=== PATIENT | male | born 1965 | race American Indian/Alaskan Native ===

== ENCOUNTER 2018-02-27 16:03 | Inpatient (IN) | payer OTHER ==
[2018-02-27 16:06] VITALS: BMI 38.4
[2018-02-27 16:19] LABS: BASO # 0.1 K/uL (0.0-0.2); BASO % 0.9 % (0.0-2.0); EOS # 0.1 K/uL (0.0-0.7); EOS % 1.9 % (0.0-4.0); HEMOGLOBIN 14.2 g/dL (12.0-18.0); LYMPH # 2.4 K/uL (1.0-4.3); LYMPH % 34.6 % (20.0-40.0); MEAN CORPUSCULAR HEMOGLOBIN 30.9 pg (27.0-31.0); MEAN CORPUSCULAR HGB CONC 33.9 g/dL (33.0-37.0); MEAN PLATELET VOLUME 8.8 fL (7.2-11.7); MONO % 13.6 % (0.0-10.0); NEUT # 3.4 K/uL (1.8-7.0); NRBC % 0.1 % (0.0-2.0); RBC 4.61 Mil/uL (4.40-5.90)
[2018-02-27 16:25] LABS: INR 1.2; PROTHROMBIN TIME 13.1 SECONDS (9.7-12.2)
[2018-02-27 16:34] LABS: ALB/GLOB RATIO 1.1 (1.0-2.1); ALT/SGPT 27 U/L (21-72); AST/SGOT 24 U/L (17-59); BLOOD UREA NITROGEN 10 mg/dL (9-20); CALCIUM 9.3 mg/dl (8.6-10.4); GFR AFRICAN-AMERICAN > 60; GFR NON-AFRICAN AMERICAN > 60; HDL CHOLESTEROL 48 mg/dL (30-70)
--- NOTE | 2018-02-27 16:35 | CT ---
PROCEDURE: CT HEAD WITHOUT CONTRAST. HISTORY: Code Stroke COMPARISON: None available. TECHNIQUE: Axial computed tomography images were obtained through the head/brain without intravenous contrast. Radiation dose: Total exam DLP = 1121.60 mGy-cm. This CT exam was performed using one or more of the following dose reduction techniques: Automated exposure control, adjustment of the mA and/or kV according to patient size, and/or use of iterative reconstruction technique. FINDINGS: HEMORRHAGE: Intraparenchymal hemorrhage is identified at the left basal ganglia laterally, measuring 2.2 x 4.0 x 2.9 cm (transverse by anteroposterior by superoinferior dimensions), with limited superolateral edema related. There is a marginal rightward midline shift of 2 mm at this time. The left lateral ventricle is partially effaced secondarily as well. . BRAIN: Right cerebral hemisphere, brainstem and cerebellum appear unremarkable as well as the extra-axial spaces. Corticomedullary differentiation is well preserved VENTRICLES: As above in hemorrhage section. CALVARIUM: Unremarkable. PARANASAL SINUSES: Unremarkable as visualized. No significant inflammatory changes. MASTOID AIR CELLS: Unremarkable as visualized. No inflammatory changes. OTHER FINDINGS: None. IMPRESSION: Moderate intraparenchymal hemorrhage is identified at the left basal ganglia exerting local mass effect and causing a limited rightward midline shift of 2 mm. Measurements are as defined above in terms of hemorrhagic collection. Limited local parenchymal edema appreciated. Remainder the examination appears unremarkable. Findings discussed with Dr. Harmon with written down and read back verification 02/27/2018 4:26 p.m..
[2018-02-27 16:45] LABS: LDL CHOLESTEROL 185 mg/dL (0-129)
[2018-02-27] MEDS: Sodium Chloride 0.9% 1,000 ML IV SCH (16:56)
[2018-02-27] MEDS ORDERED: Sodium Chloride 0.9% 1,000 ML ONE (16:58)
[2018-02-27] MEDS ORDERED: Iodixanol 320 mg/ml 150 ml Bottle IV ONE (17:08)
--- NOTE | 2018-02-27 17:17 | CP.PCM.CON ---
History of Present Illness - History of Present Illness History of Present Illness: 52 yr old male with a history of hypertension, non compliant with medications , who came in as a code stroke, with acute onset slurred speech and right sided weakness. Ct head was done and shows a large basal ganglia hemorrhage, with minimal midline shift, and mass effect, and the 4th ventricle appearing open. CTA is currently being done as well to rule out aneurysm. PMH/PSH: hypertension, obesity, lt FH/SH: All:nkda ` on exam Past Patient History - Past Social History Smoking Status: Never Smoked - CARDIAC Hx Cardiac Disorders: Yes Hx Hypercholesterolemia: Yes Hx Hypertension: Yes - PSYCHIATRIC Hx Substance Use: No - SURGICAL HISTORY Hx Surgeries: No Meds Allergies/Adverse Reactions: Allergies Allergy/AdvReac Type Severity Reaction Status Date / Time No Known Allergies Allergy Verified 02/27/18 16:05 - Medications Medications: Current Medications Sodium Chloride (Sodium Chloride 0.9%) 1,000 mls @ 100 mls/hr IV .Q10H PANCHO Last Admin: 02/27/18 16:56 Dose: 100 mls/hr Results - Vital Signs Recent Vital Signs: Last Vital Signs Temp 97.7 F 02/27/18 16:05 Pulse 95 H 02/27/18 16:22 Resp 18 02/27/18 16:22 BP 144/93 H 02/27/18 16:22 Pulse Ox 97 02/27/18 16:22 - Labs Result Diagrams: 02/27/18 16:15 02/27/18 16:15 Labs: Laboratory Results - last 24 hr 02/27/18 02/27/18 02/27/18 16:15 16:15 16:15 WBC 7.0 RBC 4.61 Hgb 14.2 Hct 42.0 MCV 91.0 MCH 30.9 MCHC 33.9 RDW 13.0 Plt Count 313 MPV 8.8 Neut % (Auto) 49.0 L Lymph % (Auto) 34.6 Brewster % (Auto) 13.6 H Eos % (Auto) 1.9 Baso % (Auto) 0.9 Neut # (Auto) 3.4 Lymph # (Auto) 2.4 Brewster # (Auto) 1.0 H Eos # (Auto) 0.1 Baso # (Auto) 0.1 PT 13.1 H INR 1.2 APTT 36 H Sodium 143 Potassium 3.5 L Chloride 103 Carbon Dioxide 28 Anion Gap 15 BUN 10 Creatinine 0.9 Est GFR ( Amer) > 60 Est GFR (Non-Af Amer) > 60 Random Glucose 95 Calcium 9.3 Total Bilirubin 0.7 AST 24 ALT 27 Alkaline Phosphatase 124 Troponin I < 0.0120 Total Protein 7.7 Albumin 4.0 Globulin 3.7 Albumin/Globulin Ratio 1.1 Triglycerides 150 H Cholesterol 244 H LDL Cholesterol Direct 185 H HDL Cholesterol 48 Blood Type Antibody Screen 02/27/18 16:15 WBC RBC Hgb Hct MCV MCH MCHC RDW Plt Count MPV Neut % (Auto) Lymph % (Auto) Brewster % (Auto) Eos % (Auto) Baso % (Auto) Neut # (Auto) Lymph # (Auto) Brewster # (Auto) Eos # (Auto) Baso # (Auto) PT INR APTT Sodium Potassium Chloride Carbon Dioxide Anion Gap BUN Creatinine Est GFR ( Amer) Est GFR (Non-Af Amer) Random Glucose Calcium Total Bilirubin AST ALT Alkaline Phosphatase Troponin I Total Protein Albumin Globulin Albumin/Globulin Ratio Triglycerides Cholesterol LDL Cholesterol Direct HDL Cholesterol Blood Type O POSITIVE Antibody Screen Negative - Imaging and Cardiology CT scan - head Status: Image reviewed by me, Report reviewed by me (CT head: left basal ganglia hemorrhage, no interventricular extension. ) Assessment & Plan - Assessment and Plan (Free Text) Assessment: CTA head: results pending. A/P: 52 yr old male with new onset basal ganglia secondary to hypertensive urgency and hemorrhage, noncompliant with meds. Plan: 1. Admit to ICU 2. Telemetry for occult arrythmias 3. 2 units of FFPS. 4. Keep bp within the folowing parameters: 140/50-160/80. PLease give labetalol for bp rising above these parameters 5. PT/ST/OT 6. repeat ct head in am 7. Neurosurgery consult. THank you DR. Watts
--- NOTE | 2018-02-27 17:44 | CT ---
PROCEDURE: CT Angiography of the Brain and Neck. HISTORY: code stroke COMPARISON: None available. TECHNIQUE: CT angiography of the intracranial and neck arteries was performed. Coronal and sagittal maximum intensity projection reformatted images were generated. Contrast Dose: Visipaque 320, 100 cc Radiation dose:Total exam DLP = 606.24 mGy-cm. This CT exam was performed using one or more of the following dose reduction techniques: Automated exposure control, adjustment of the mA and/or kV according to patient size, and/or use of iterative reconstruction technique. FINDINGS: INTERNAL CEREBRAL ARTERIES: No occlusion or significant stenosis evident. The skull base, petrous, cavernous and supraclinoid segments are bilaterally widely patent. ANTERIOR CEREBRAL ARTERIES: Unremarkable. A1 and A2 segments are widely patent. Smaller distal branches unremarkable, as visualized. MIDDLE CEREBRAL ARTERIES: Unremarkable. M1 and M2 segments are widely patent. Perisylvian branches grossly symmetric. POSTERIOR CIRCULATION: Basilar Artery: Unremarkable. Distal Vertebral Arteries: Unremarkable. Posterior Cerebral Arteries: Unremarkable. Posterior Inferior Cerebellar Arteries: Unremarkable. NECK CTA: Common Carotid arteries: The bilateral common carotid appear widely patent from their origins to their bifurcations with no significant stenosis appreciated. Limited right carotid bulbar atherosclerosis. No evidence to suggest common carotid artery dissection. Internal Carotid arteries: No significant stenosis is appreciated throughout the cervical internal carotid artery segments bilaterally and there is no evidence of dissection either. External Carotid arteries: Appear unremarkable bilaterally. Vertebral arteries: The bilateral vertebral arteries appear normal in caliber from their origins to their junction with the basilar artery. No significant stenosis or definite pattern of dissection. ANEURYSM/ VASCULAR MALFORMATIONS: Note is made of a small subcentimeter area of enhancement medial to the hemorrhagic collection of left basal ganglia which is nonspecific. It could reflect a developmental venous anomaly though this is indeterminate as no branching is seen related to it. An occult AVM or atypical tiny arterial aneurysm is certainly a possibility. Consider potential catheter angiography further characterization. OTHER FINDINGS: None. IMPRESSION: 1. Potential occult AVM or tiny atypical aneurysm medial left basal ganglia adjacent to the intraparenchymal hemorrhage. Consider follow-up conventional angiography for added detail. No large AVM or prominent aneurysm appreciable. 2. Remaining intracranial enhancement pattern is unremarkable. 3. Limited right carotid bulbar atherosclerosis. Neck CT angiogram otherwise unremarkable. Findings discussed with Dr. Harmon with written down and read back verification 02/27/2018 5:39 p.m..
--- NOTE | 2018-02-27 18:01 | RAD ---
HISTORY: Code Stroke COMPARISON: No prior. FINDINGS: LUNGS: No active pulmonary disease. PLEURA: No significant pleural effusion identified, no pneumothorax apparent. CARDIOVASCULAR: Cardiomegaly and mild pulmonary vascular congestion suggests mild CHF. OSSEOUS STRUCTURES: No significant abnormalities. VISUALIZED UPPER ABDOMEN: Normal. OTHER FINDINGS: None. IMPRESSION: Mild CHF is in question. No alveolitis or pleural effusion bilaterally.
--- NOTE | 2018-02-27 18:43 | CP.PCM.CON ---
History of Present Illness - History of Present Illness History of Present Illness: Chief complaint: Slurred speech HPI: 52-year-old male with a known history of high cholesterol and hypertension not seen a physician for quite a long time, and also not on any medication brought in by ambulance because of the weakness and slurred speech. Patient was driving, noticed that he started having some slurred speech, mediately call ambulance, brought him him to the emergency room. In the emergency room code stroke was called immediately. Patient started having more flaccid weakness on the right side, and also slurring speech. Patient become nonverbal after that. Immediate CAT scan showing evidence of bleeding in the brain. Patient now on the bed, head the end of the bed is elevated. Patient is looking to the left side, he is able to move the left upper extremity and the left lower extremity. He is not answering appropriately. He is responding otherwise. Simple commands he can able to follow. He is opening his eyes with the commands. According to the patient's family he is not on any blood thinner, not taking any medication. Past medical history: Known to have hypertension and high cholesterol not on any medication Allergies no known drug allergy Surgical history includes right knee surgery Family history significant for carcinoma, cancer and hypertension Patient is a nonsmoker. He denies any alcohol. According to the family he has a significant snoring, episodes of apnea at night noted Review of system: Currently patient is lying down. He is complaining of no symptoms, non-verbalizing. Patient is able to look on the left side. Moving the left upper and left lower extremity. He has no symptoms of headache. He is not complaining of any symptoms at this time. But significant snoring noted, episodes of apnea noted also On examination: Vital signs are stable. Mild elevation of the blood pressure noted Chest good air entry bilaterally, episodes of apnea noted Regular heart sound Nontender abdomen Extremities no pedal edema Patient is alert and awake with stimuli. He is opening his eyes. He is following simple commands. Especially moving the left side. Right-sided flaccid weakness noted. Patient is aphasic at this time. Labs reviewed CAT scan of the head showing evidence of left thalamic bleed 2.24.4 cm. With minimal midline shift. Surrounding edema noted EKG normal sinus rhythm. Patient is being given 2 units of FFP, DDAVP by the emergency room Patient was also seen by neurologist, and the opinion was given, neuro interventional radiology OPN was also called by the emergency room. According to ER attending patient is not a candidate for any intervention at this time, close monitoring Assessment/recommendation: 52-year-old male admitted to the emergency room with acute bleeding, involving the left basal ganglia, with a surrounding edema with minimal swelling. Likely hypertensive bleed Associated with the right-sided weakness and aphagia Patient also suspected having obesity, hypoventilation, associated with obstructive sleep apnea Hypertension, will control at the intravenous medication to maintain the blood pressure of systolic less than 140 Repeat CAT scan is being ordered by the emergency room, if there is any changes it will be reported to interventional radiology/neurology DVT GI prophylaxis Blood pressure control Close ICU monitoring High risk for intubation. Discussed with the patient's family. Past Patient History - Past Social History Smoking Status: Never Smoked - CARDIAC Hx Cardiac Disorders: Yes Hx Hypercholesterolemia: Yes Hx Hypertension: Yes - PSYCHIATRIC Hx Substance Use: No - SURGICAL HISTORY Hx Surgeries: No Meds Allergies/Adverse Reactions: Allergies Allergy/AdvReac Type Severity Reaction Status Date / Time No Known Allergies Allergy Verified 02/27/18 16:05 - Medications Medications: Current Medications Sodium Chloride (Sodium Chloride 0.9%) 1,000 mls @ 100 mls/hr IV .Q10H PANCHO Last Admin: 02/27/18 16:56 Dose: 100 mls/hr Results - Vital Signs Recent Vital Signs: Last Vital Signs Temp 98.3 F 02/27/18 18:20 Pulse 89 02/27/18 18:26 Resp 17 02/27/18 18:26 BP 170/106 H 02/27/18 18:26 Pulse Ox 96 02/27/18 18:26 - Labs Result Diagrams: 02/27/18 16:15 02/27/18 16:15 Labs: Laboratory Results - last 24 hr 02/27/18 02/27/18 02/27/18 16:15 16:15 16:15 WBC 7.0 RBC 4.61 Hgb 14.2 Hct 42.0 MCV 91.0 MCH 30.9 MCHC 33.9 RDW 13.0 Plt Count 313 MPV 8.8 Neut % (Auto) 49.0 L Lymph % (Auto) 34.6 Coal % (Auto) 13.6 H Eos % (Auto) 1.9 Baso % (Auto) 0.9 Neut # (Auto) 3.4 Lymph # (Auto) 2.4 Coal # (Auto) 1.0 H Eos # (Auto) 0.1 Baso # (Auto) 0.1 PT 13.1 H INR 1.2 APTT 36 H Sodium 143 Potassium 3.5 L Chloride 103 Carbon Dioxide 28 Anion Gap 15 BUN 10 Creatinine 0.9 Est GFR ( Amer) > 60 Est GFR (Non-Af Amer) > 60 Random Glucose 95 Hemoglobin A1c Calcium 9.3 Total Bilirubin 0.7 AST 24 ALT 27 Alkaline Phosphatase 124 Troponin I < 0.0120 Total Protein 7.7 Albumin 4.0 Globulin 3.7 Albumin/Globulin Ratio 1.1 Triglycerides 150 H Cholesterol 244 H LDL Cholesterol Direct 185 H HDL Cholesterol 48 Blood Type Antibody Screen 02/27/18 02/27/18 16:15 16:15 WBC RBC Hgb Hct MCV MCH MCHC RDW Plt Count MPV Neut % (Auto) Lymph % (Auto) Coal % (Auto) Eos % (Auto) Baso % (Auto) Neut # (Auto) Lymph # (Auto) Coal # (Auto) Eos # (Auto) Baso # (Auto) PT INR APTT Sodium Potassium Chloride Carbon Dioxide Anion Gap BUN Creatinine Est GFR ( Amer) Est GFR (Non-Af Amer) Random Glucose Hemoglobin A1c 5.5 Calcium Total Bilirubin AST ALT Alkaline Phosphatase Troponin I Total Protein Albumin Globulin Albumin/Globulin Ratio Triglycerides Cholesterol LDL Cholesterol Direct HDL Cholesterol Blood Type O POSITIVE Antibody Screen Negative
--- NOTE | 2018-02-27 20:03 | CT ---
EXAM: CT Head Without Intravenous Contrast CLINICAL HISTORY: 52 years old, male; Signs and symptoms; Altered mental status/memory loss and weakness, facial; Additional info: Follow up to 1st CT showing hemorrhage - stat read TECHNIQUE: Axial computed tomography images of the head/brain without intravenous contrast. All CT scans at this facility use one or more dose reduction techniques, viz.: automated exposure control; ma/kV adjustment per patient size (including targeted exams where dose is matched to indication; i.e. head); or iterative reconstruction technique. Coronal and sagittal reformatted images were created and reviewed. COMPARISON: No relevant prior studies available. FINDINGS: Brain: Redemonstration of intraparenchymal hemorrhage centered within left basal ganglia, approximately 5.1 x 2.4 x 3.9 cm with mild surrounding edema. Patent basilar cisterns. Mild sulcal effacement. Grossly preserved ernst-white matter differentiation. Midline shift: 0.5 cm LEFT to RIGHT shift. Ventricles: Mild mass effect on left lateral ventricle. No hydrocephalus. Bones/joints: No acute fracture. Soft tissues: Unremarkable. Sinuses: No acute sinusitis. Mastoid air cells: No mastoid effusion. Orbits: Unremarkable as visualized. IMPRESSION: 1. Intraparenchymal hemorrhage, mildly increased in size and mass effect. 2. Incidental/non-acute findings are described above.
--- NOTE | 2018-02-27 21:52 | C.PDOC ---
History Of Present Illness 52yo male with history of hypertension, high cholesterol, is brought to ER by ALS for evaluation as patient was noted by his to have slurred speech and right sided paralysis started 30 minutes prior to arrival. Per , the patient is non-compliant with his medications. Patient is non-verbal and offers no medical complaints. A full HPI and ROS is unavailable due to patient's clinical condition. PMD: Dr. Marty Zamorano Time Seen by Provider: 02/27/18 16:05 Chief Complaint (Nursing): Altered Mental Status History Per: EMS, Family History/Exam Limitations: clinical condition Onset/Duration Of Symptoms: Mins (30) Current Symptoms Are (Timing): Still Present Additional History Per: Family Past Medical History Reviewed: Historical Data, Nursing Documentation, Vital Signs Vital Signs: Last Vital Signs Temp 97.8 F 02/27/18 21:50 Pulse 98 H 02/27/18 22:45 Resp 25 H 02/27/18 22:45 BP 141/85 02/27/18 22:35 Pulse Ox 99 02/27/18 22:45 - Medical History PMH: HTN, Hypercholesterolemia Surgical History: No Surg Hx Family History: States: No Known Family Hx - Social History Hx Alcohol Use: No Hx Substance Use: No Review Of Systems Except As Marked, All Systems Reviewed And Found Negative. Review Of Systems: ROS cannot be obtained secondary to pt's inabilty to answer questions. (patient aphasic) Neurological: Positive for: Weakness (right sided), Altered Mental Status ( slurred speech) Physical Exam - Physical Exam Appears: Other (Obese) Skin: Normal Color, Warm, Dry Head: Atraumatic, Normacephalic Eye(s): left: Other (left sided gaze preference) Oral Mucosa: Moist Neck: Normal ROM, Supple Chest: Symmetrical Cardiovascular: Rhythm Regular, No Murmur Respiratory: Normal Breath Sounds, No Rales, No Rhonchi, No Wheezing Gastrointestinal/Abdominal: Bowel Sounds, Soft Back: Normal Inspection Extremity: No Deformity, Other (volunatry movement of left upper extremity. 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 NIHSS Stroke Scale - Date/Time Evaluation Performed Date Performed: 02/27/18 Time Performed: 16:00 When Was NIHSS Performed: Baseline - How Severe is the Stroke Level of Consciousness: 1=Drowsy LOC to Questions: 2=Neither correct LOC to commands: 1=Obeys one correctly Best Gaze: 1=Partial gaze palsy Visual: 0=No visual loss Facial: 0=Normal Motor Arm - Left: 0=No drift Motor Arm - Right: 4=No movement Motor Leg - Left: 2=Falls before 5 sec Motor Leg - Right: 4=No movement Limb Ataxia: 2=Present both Sensory: 0=Normal Best Language: 2=Severe aphasia Dysarthia: 2=Severe, near unintelligible or worse Extinction & Inattention (Neglect): 1=Partial neglect (mild lloyd-attention) Score: 22 rTPA Inclusion/Exclusion - Refusal of Treatment Patient Refused Treatment: No - Inclusion Criteria for Altepase Patient is 18 years or Older: Yes The Clinical Diagnosis of Ischemic Stroke That is Causing a Potentially Disabling Neurological Deficit: No Time of Onset is Well Established to be Less Than 270 Minute Before Treatment Would Begin: Yes Risk/Benefit Discussed With Patient/Family Member Present: No Medical Decision Making Medical Decision Makin Case discussed with Dr. Watts, neurologist educational adviser, notifying her of patient' s presentation. [address] Watts regarding CT findings. CT Head FINDINGS: HEMORRHAGE: Intraparenchymal hemorrhage is identified at the left basal ganglia laterally, measuring 2.2 x 4.0 x 2.9 cm (transverse by anteroposterior by superoinferior dimensions), with limited superolateral edema related. There is a marginal rightward midline shift of 2 mm at this time. The left lateral ventricle is partially effaced secondarily as well. . BRAIN: Right cerebral hemisphere, brainstem and cerebellum appear unremarkable as well as the extra-axial spaces. Corticomedullary differentiation is well preserved VENTRICLES: As above in hemorrhage section. CALVARIUM: Unremarkable. PARANASAL SINUSES: Unremarkable as visualized. No significant inflammatory changes. MASTOID AIR CELLS: Unremarkable as visualized. No inflammatory changes. OTHER FINDINGS: None. IMPRESSION: Moderate intraparenchymal hemorrhage is identified at the left basal ganglia exerting local mass effect and causing a limited rightward midline shift of 2 mm. Measurements are as defined above in terms of hemorrhagic collection. Limited local parenchymal edema appreciated. Remainder the examination appears unremarkable. 1654 Dr. Watts called back several minutes later notifying me she spoke with endovascular team at [place] and that the patient will not benefit from transfer to that facility. She recommended 2 units of FFP. Prior to admission, case discussed with Dr. March, barber instructor and patient to be admitted to ICU. Case discussed with Dr. Cook, neurosurgeon educational adviser and at present, patient does not require any surgical interventions. [address] Head and Dr. Watts is aware of findings. NO changes in disposition. CT Head FINDINGS: Brain: Redemonstration of intraparenchymal hemorrhage centered within left basal ganglia, approximately 5.1 x 2.4 x 3.9 cm with mild surrounding edema. Patent basilar cisterns. Mild sulcal effacement. Grossly preserved ernst-white matter differentiation. Midline shift: 0.5 cm LEFT to RIGHT shift. Ventricles: Mild mass effect on left lateral ventricle. No hydrocephalus. Bones/joints: No acute fracture. Soft tissues: Unremarkable. Sinuses: No acute sinusitis. Mastoid air cells: No mastoid effusion. Orbits: Unremarkable as visualized. IMPRESSION: 1. Intraparenchymal hemorrhage, mildly increased in size and mass effect. 2. Incidental/non-acute findings are described above. Disposition - Disposition Disposition: HOSPITALIZED Disposition Time: 16:50 Condition: CRITICAL - Clinical Impression Clinical Impression: Hemorrhagic stroke - Scribe Statement The provider has reviewed the documentation as recorded by the Scribe (Dora Baca) Provider Attestation: All medical record entries made by the Scribe were at my direction and personally dictated by me. I have reviewed the chart and agree that the record accurately reflects my personal performance of the history, physical exam, medical decision making, and the department course for this patient. I have also personally directed, reviewed, and agree with the discharge instructions and disposition.
[2018-02-27 22:31] LABS: URINE BILIRUBIN NEGATIVE (NEGATIVE); URINE BLOOD NEGATIVE (NEGATIVE); URINE CLARITY Clear (Clear); URINE COLOR Colorless (YELLOW); URINE GLUCOSE (UA) NORMAL (Normal); URINE LEUKOCYTE ESTERASE NEG Leu/uL (Negative); URINE PROTEIN NEGATIVE (NEGATIVE); URINE UROBILINOGEN NORMAL mg/dL (0.2-1.0)
[2018-02-27] MEDS ORDERED: Labetalol 25mg/5ml Syringe IVP STA (23:02)
[2018-02-28] MEDS: (Novolin R) Insulin Human Regular 100 units/ml vial SC SCH ×4 (00:34→18:00)
[2018-02-28] MEDS: Sodium Chloride 0.9% 1,000 ML IV SCH ×5 (02:30→23:15)
[2018-02-28 06:40] LABS: BASO % 0.4 % (0.0-2.0); EOS % 0.3 % (0.0-4.0); HEMOGLOBIN 13.3 g/dL (12.0-18.0); LYMPH # 1.6 K/uL (1.0-4.3); LYMPH % 17.4 % (20.0-40.0); MEAN CELL VOLUME 91.5 fL (80.0-94.0); MEAN CORPUSCULAR HGB CONC 33.9 g/dL (33.0-37.0); MEAN PLATELET VOLUME 9.2 fL (7.2-11.7); MONO # 0.8 K/uL (0.0-0.8); MONO % 8.7 % (0.0-10.0); NEUT # 6.9 K/uL (1.8-7.0); NEUT % 73.2 % (50.0-75.0); NRBC % 0.1 % (0.0-2.0); RBC 4.29 Mil/uL (4.40-5.90); RED CELL DISTRIBUTION WIDTH 13.4 % (11.5-14.5); WHITE BLOOD COUNT 9.4 K/uL (4.8-10.8)
[2018-02-28 06:59] LABS: ALB/GLOB RATIO 1.2 (1.0-2.1); ALBUMIN 4.2 g/dL (3.5-5.0); ALT/SGPT 19 U/L (21-72); AST/SGOT 30 U/L (17-59); BLOOD UREA NITROGEN 8 mg/dL (9-20); CALCIUM 8.9 mg/dl (8.6-10.4); GFR AFRICAN-AMERICAN > 60; GFR NON-AFRICAN AMERICAN > 60
--- NOTE | 2018-02-28 09:57 | CP.PCM.PN ---
Subjective - Date & Time of Evaluation Date of Evaluation: 02/28/18 Objective - Vital Signs/Intake and Output Vital Signs (last 24 hours): Temp Pulse Resp BP Pulse Ox 98.2 F 90 21 112/66 100 02/28/18 08:00 02/28/18 08:04 02/28/18 08:04 02/28/18 08:04 02/28/18 08:04 Intake and Output: 02/28/18 02/28/18 06:59 18:59 Intake Total 800 200 Output Total 2800 200 Balance -2000 0 - Medications Medications: Current Medications Sodium Chloride (Sodium Chloride 0.9%) 1,000 mls @ 100 mls/hr IV .Q10H PANCHO Last Admin: 02/28/18 07:57 Dose: 100 mls/hr Insulin Human Regular (Novolin R) 0 unit SC Q6 PANCHO PRN Reason: Protocol Last Admin: 02/28/18 05:45 Dose: Not Given Pantoprazole Sodium (Protonix Inj) 40 mg IVP DAILY PANCHO - Labs Labs: 02/28/18 06:35 02/28/18 06:36 PT 13.1 SECONDS (9.7-12.2) H 02/27/18 16:15 INR 1.2 02/27/18 16:15 APTT 36 SECONDS (21-34) H 02/27/18 16:15
--- NOTE | 2018-02-28 10:35 | CT ---
PROCEDURE: CT HEAD WITHOUT CONTRAST. HISTORY: Hem. CVA COMPARISON: 02/27/2018 TECHNIQUE: Axial computed tomography images were obtained through the head/brain without intravenous contrast. Radiation dose: Total exam DLP = 1242 mGy-cm. This CT exam was performed using one or more of the following dose reduction techniques: Automated exposure control, adjustment of the mA and/or kV according to patient size, and/or use of iterative reconstruction technique. FINDINGS: HEMORRHAGE: The left basal ganglionic intraparenchymal hemorrhage is similar in size approximately 5 x 2.4 x 3.9 cm. The surrounding edema and the 5 mm rightward midline shift is also similar in appearance No interval areas of new bleeds are suggested. BRAIN: Surrounding the left basal ganglionic intra parenchymal hemorrhage/ hematoma there is surrounding edema similar in appearance extent. The left ipsilateral cerebral sulci are secondarily effaced- as they were before VENTRICLES: There is mass effect on the left frontal horn by a the hematoma and surrounding edema/mass effect No intraventricular blood is apparent CALVARIUM: Unremarkable. PARANASAL SINUSES: Unremarkable as visualized. No significant inflammatory changes. MASTOID AIR CELLS: Unremarkable as visualized. No inflammatory changes. OTHER FINDINGS: None. IMPRESSION: The large left basal ganglia and intraparenchymal hemorrhage/hematoma with surrounding mass effect midline shift are similar in appearance. No progressive bleeding or new areas of bleeding noted. No progressive ventriculomegaly appreciated. No interval low-density areas to suggest interval infarcts. Comments please note the prior CT angiography of the brain neck report study date 02/27/2018 regarding the impression for a potential all call AVM or tiny atypical aneurysm
--- NOTE | 2018-02-28 11:35 | CARD ---
APPROVED REPORT EKG Measurement Heart [id number] <Conclusion> Sinus rhythm with premature atrial complexes Moderate voltage criteria for LVH, may be normal variant Borderline ECG
--- NOTE | 2018-02-28 11:54 | CP.CCUPN ---
<GerberildaDucadelaide - Last Filed: 02/28/18 12:13> CCU Subjective - Physician Review Subjective (Free Text): Patient seen and examined at bedside. ROS could not be obtained due to poor speech 2/2 to CVA. CCU Objective - Vital Signs / Intake & Output Vital Signs (Last 4 hours): Vital Signs Temp Pulse Resp BP Pulse Ox 02/28/18 08:04 90 21 112/66 100 02/28/18 08:00 98.2 F 89 22 100 Intake and Output (Last 8hrs): Intake & Output 02/27/18 02/28/18 02/28/18 22:59 06:59 14:59 Intake Total 800 200 Output Total 1300 1500 200 Balance -1300 -700 0 Weight 267 lb 13.786 oz 263 lb 14.4 oz Intake: Intake, IV Amount 800 200 Left Antecubital 800 200 Output: Urine 1300 1500 200 Urethral ([place]) 1500 200 Other: Voiding Method Indwelling Catheter # Bowel Movements 0 0 - Physical Exam Head: Positive for: Atraumatic Pupils: Positive for: Other (Right Pupil Non-Reactive. ) Extroacular Muscles: Positive for: EOMI Conjunctiva: Positive for: Normal Mouth: Positive for: Moist Mucous Membranes Nose (External): Positive for: Atraumatic Respiratory/Chest: Positive for: Clear to Auscultation, Good Air Exchange Cardiovascular: Positive for: Normal S1, S2. Negative for: Murmurs Abdomen: Positive for: Normal Bowel Sounds. Negative for: Tenderness Lower Extremity: Positive for: Normal Inspection. Negative for: Edema Neurological: Positive for: Other (Right Sided Hemiparesis). Negative for: CN II-XII Intact, Speech Normal, Normal Sensory Function (No Sensation on Right upper and Lower Ext. ), Normal 2Pt Descrimination Psychiatric: Positive for: Alert, Oriented x 3 - Medications Active Medications: Active Medications Generic Name Dose Route Start Last Admin Trade Name Freq PRN Reason Stop Dose Admin Sodium Chloride 1,000 mls @ 100 mls/hr 02/27/18 16:15 02/28/18 07:57 Sodium Chloride 0.9% IV 100 mls/hr .Q10H PANCHO Administration Insulin Human Regular 0 unit 02/28/18 00:00 02/28/18 05:45 Novolin R SC Not Given Q6 PANCHO Protocol Pantoprazole Sodium 40 mg 02/28/18 10:00 02/28/18 09:56 Protonix Inj IVP 40 mg DAILY PANCHO Administration - Patient Studies Lab Studies: Lab Studies 02/28/18 02/28/18 02/28/18 Range/Units 11:39 06:36 06:35 WBC 9.4 (4.8-10.8) K/uL RBC 4.29 L (4.40-5.90) Mil/uL Hgb 13.3 (12.0-18.0) g/dL Hct 39.2 (35.0-51.0) % MCV 91.5 (80.0-94.0) fL MCH 31.0 (27.0-31.0) pg MCHC 33.9 (33.0-37.0) g/dL RDW 13.4 (11.5-14.5) % Plt Count 303 (130-400) K/uL MPV 9.2 (7.2-11.7) fL Neut % (Auto) 73.2 (50.0-75.0) % Lymph % (Auto) 17.4 L (20.0-40.0) % [place] % (Auto) 8.7 (0.0-10.0) % Eos % (Auto) 0.3 (0.0-4.0) % Baso % (Auto) 0.4 (0.0-2.0) % Neut # (Auto) 6.9 (1.8-7.0) K/uL Lymph # (Auto) 1.6 (1.0-4.3) K/uL [place] # (Auto) 0.8 (0.0-0.8) K/uL Eos # (Auto) 0.0 (0.0-0.7) K/uL Baso # (Auto) 0.0 (0.0-0.2) K/uL PT (9.7-12.2) SECONDS INR APTT (21-34) SECONDS Sodium 144 (132-148) mmol/L Potassium 3.9 (3.6-5.2) mmol/L Chloride 103 (98-107) mmol/L Carbon Dioxide 28 (22-30) mmol/L Anion Gap 17 (10-20) BUN 8 L (9-20) mg/dL Creatinine 0.8 (0.8-1.5) mg/dL Est GFR ( Amer) > 60 Est GFR (Non-Af Amer) > 60 POC Glucose (mg/dL) 113 H (65-110) mg/dL Random Glucose 96 (75-110) mg/dL Hemoglobin A1c (4.2-6.5) % Calcium 8.9 (8.6-10.4) mg/dl Phosphorus 4.6 H (2.5-4.5) mg/dL Magnesium 1.9 (1.6-2.3) mg/dL Total Bilirubin 0.7 (0.2-1.3) mg/dL AST 30 (17-59) U/L ALT 19 L D (21-72) U/L Alkaline Phosphatase 90 (38-126) U/L Troponin I (0.00-0.120) ng/mL Total Protein 7.8 (6.3-8.3) g/dL Albumin 4.2 (3.5-5.0) g/dL Globulin 3.6 (2.2-3.9) gm/dL Albumin/Globulin Ratio 1.2 (1.0-2.1) Triglycerides (0-149) mg/dL Cholesterol (0-199) mg/dL LDL Cholesterol Direct (0-129) mg/dL HDL Cholesterol (30-70) mg/dL Urine Color (YELLOW) Urine Clarity (Clear) Urine pH (5.0-8.0) Ur Specific [place] (1.003-1.030) Urine Protein (NEGATIVE) mg/dL Urine Glucose (UA) (Normal) mg/dL Urine Ketones (NEGATIVE) mg/dL Urine Blood (NEGATIVE) Urine Nitrate (NEGATIVE) Urine Bilirubin (NEGATIVE) Urine Urobilinogen (0.2-1.0) mg/dL Ur Leukocyte Esterase (Negative) Dustin/uL Urine WBC (Auto) (0-5) /hpf Urine RBC (Auto) (0-3) /hpf Blood Type Antibody Screen 02/28/18 02/28/18 02/27/18 Range/Units 05:39 00:40 22:44 WBC (4.8-10.8) K/uL RBC (4.40-5.90) Mil/uL Hgb (12.0-18.0) g/dL Hct (35.0-51.0) % MCV (80.0-94.0) fL MCH (27.0-31.0) pg MCHC (33.0-37.0) g/dL RDW (11.5-14.5) % Plt Count (130-400) K/uL MPV (7.2-11.7) fL Neut % (Auto) (50.0-75.0) % Lymph % (Auto) (20.0-40.0) % [place] % (Auto) (0.0-10.0) % Eos % (Auto) (0.0-4.0) % Baso % (Auto) (0.0-2.0) % Neut # (Auto) (1.8-7.0) K/uL Lymph # (Auto) (1.0-4.3) K/uL [place] # (Auto) (0.0-0.8) K/uL Eos # (Auto) (0.0-0.7) K/uL Baso # (Auto) (0.0-0.2) K/uL PT (9.7-12.2) SECONDS INR APTT (21-34) SECONDS Sodium (132-148) mmol/L Potassium (3.6-5.2) mmol/L Chloride (98-107) mmol/L Carbon Dioxide (22-30) mmol/L Anion Gap (10-20) BUN (9-20) mg/dL Creatinine (0.8-1.5) mg/dL Est GFR ( Amer) Est GFR (Non-Af Amer) POC Glucose (mg/dL) 115 H 130 H 116 H (65-110) mg/dL Random Glucose (75-110) mg/dL Hemoglobin A1c (4.2-6.5) % Calcium (8.6-10.4) mg/dl Phosphorus (2.5-4.5) mg/dL Magnesium (1.6-2.3) mg/dL Total Bilirubin (0.2-1.3) mg/dL AST (17-59) U/L ALT (21-72) U/L Alkaline Phosphatase (38-126) U/L Troponin I (0.00-0.120) ng/mL Total Protein (6.3-8.3) g/dL Albumin (3.5-5.0) g/dL Globulin (2.2-3.9) gm/dL Albumin/Globulin Ratio (1.0-2.1) Triglycerides (0-149) mg/dL Cholesterol (0-199) mg/dL LDL Cholesterol Direct (0-129) mg/dL HDL Cholesterol (30-70) mg/dL Urine Color (YELLOW) Urine Clarity (Clear) Urine pH (5.0-8.0) Ur Specific [place] (1.003-1.030) Urine Protein (NEGATIVE) mg/dL Urine Glucose (UA) (Normal) mg/dL Urine Ketones (NEGATIVE) mg/dL Urine Blood (NEGATIVE) Urine Nitrate (NEGATIVE) Urine Bilirubin (NEGATIVE) Urine Urobilinogen (0.2-1.0) mg/dL Ur Leukocyte Esterase (Negative) Dustin/uL Urine WBC (Auto) (0-5) /hpf Urine RBC (Auto) (0-3) /hpf Blood Type Antibody Screen 02/27/18 02/27/18 02/27/18 Range/Units 22:21 16:15 16:15 WBC (4.8-10.8) K/uL RBC (4.40-5.90) Mil/uL Hgb (12.0-18.0) g/dL Hct (35.0-51.0) % MCV (80.0-94.0) fL MCH (27.0-31.0) pg MCHC (33.0-37.0) g/dL RDW (11.5-14.5) % Plt Count (130-400) K/uL MPV (7.2-11.7) fL Neut % (Auto) (50.0-75.0) % Lymph % (Auto) (20.0-40.0) % [place] % (Auto) (0.0-10.0) % Eos % (Auto) (0.0-4.0) % Baso % (Auto) (0.0-2.0) % Neut # (Auto) (1.8-7.0) K/uL Lymph # (Auto) (1.0-4.3) K/uL [place] # (Auto) (0.0-0.8) K/uL Eos # (Auto) (0.0-0.7) K/uL Baso # (Auto) (0.0-0.2) K/uL PT (9.7-12.2) SECONDS INR APTT (21-34) SECONDS Sodium (132-148) mmol/L Potassium (3.6-5.2) mmol/L Chloride (98-107) mmol/L Carbon Dioxide (22-30) mmol/L Anion Gap (10-20) BUN (9-20) mg/dL Creatinine (0.8-1.5) mg/dL Est GFR ( Amer) Est GFR (Non-Af Amer) POC Glucose (mg/dL) (65-110) mg/dL Random Glucose (75-110) mg/dL Hemoglobin A1c 5.5 (4.2-6.5) % Calcium (8.6-10.4) mg/dl Phosphorus (2.5-4.5) mg/dL Magnesium (1.6-2.3) mg/dL Total Bilirubin (0.2-1.3) mg/dL AST (17-59) U/L ALT (21-72) U/L Alkaline Phosphatase (38-126) U/L Troponin I (0.00-0.120) ng/mL Total Protein (6.3-8.3) g/dL Albumin (3.5-5.0) g/dL Globulin (2.2-3.9) gm/dL Albumin/Globulin Ratio (1.0-2.1) Triglycerides (0-149) mg/dL Cholesterol (0-199) mg/dL LDL Cholesterol Direct (0-129) mg/dL HDL Cholesterol (30-70) mg/dL Urine Color Colorless (YELLOW) Urine Clarity Clear (Clear) Urine pH 8.0 (5.0-8.0) Ur Specific [place] 1.005 (1.003-1.030) Urine Protein Negative (NEGATIVE) mg/dL Urine Glucose (UA) Normal (Normal) mg/dL Urine Ketones Negative (NEGATIVE) mg/dL Urine Blood Negative (NEGATIVE) Urine Nitrate Negative (NEGATIVE) Urine Bilirubin Negative (NEGATIVE) Urine Urobilinogen Normal (0.2-1.0) mg/dL Ur Leukocyte Esterase Neg (Negative) Dustin/uL Urine WBC (Auto) 1 (0-5) /hpf Urine RBC (Auto) 2 (0-3) /hpf Blood Type O POSITIVE Antibody Screen Negative 02/27/18 02/27/18 02/27/18 Range/Units 16:15 16:15 16:15 WBC 7.0 (4.8-10.8) K/uL RBC 4.61 (4.40-5.90) Mil/uL Hgb 14.2 (12.0-18.0) g/dL Hct 42.0 (35.0-51.0) % MCV 91.0 (80.0-94.0) fL MCH 30.9 (27.0-31.0) pg MCHC 33.9 (33.0-37.0) g/dL RDW 13.0 (11.5-14.5) % Plt Count 313 (130-400) K/uL MPV 8.8 (7.2-11.7) fL Neut % (Auto) 49.0 L (50.0-75.0) % Lymph % (Auto) 34.6 (20.0-40.0) % [place] % (Auto) 13.6 H (0.0-10.0) % Eos % (Auto) 1.9 (0.0-4.0) % Baso % (Auto) 0.9 (0.0-2.0) % Neut # (Auto) 3.4 (1.8-7.0) K/uL Lymph # (Auto) 2.4 (1.0-4.3) K/uL [place] # (Auto) 1.0 H (0.0-0.8) K/uL Eos # (Auto) 0.1 (0.0-0.7) K/uL Baso # (Auto) 0.1 (0.0-0.2) K/uL PT 13.1 H (9.7-12.2) SECONDS INR 1.2 APTT 36 H (21-34) SECONDS Sodium 143 (132-148) mmol/L Potassium 3.5 L (3.6-5.2) mmol/L Chloride 103 (98-107) mmol/L Carbon Dioxide 28 (22-30) mmol/L Anion Gap 15 (10-20) BUN 10 (9-20) mg/dL Creatinine 0.9 (0.8-1.5) mg/dL Est GFR ( Amer) > 60 Est GFR (Non-Af Amer) > 60 POC Glucose (mg/dL) (65-110) mg/dL Random Glucose 95 (75-110) mg/dL Hemoglobin A1c (4.2-6.5) % Calcium 9.3 (8.6-10.4) mg/dl Phosphorus (2.5-4.5) mg/dL Magnesium (1.6-2.3) mg/dL Total Bilirubin 0.7 (0.2-1.3) mg/dL AST 24 (17-59) U/L ALT 27 (21-72) U/L Alkaline Phosphatase 124 (38-126) U/L Troponin I < 0.0120 (0.00-0.120) ng/mL Total Protein 7.7 (6.3-8.3) g/dL Albumin 4.0 (3.5-5.0) g/dL Globulin 3.7 (2.2-3.9) gm/dL Albumin/Globulin Ratio 1.1 (1.0-2.1) Triglycerides 150 H (0-149) mg/dL Cholesterol 244 H (0-199) mg/dL LDL Cholesterol Direct 185 H (0-129) mg/dL HDL Cholesterol 48 (30-70) mg/dL Urine Color (YELLOW) Urine Clarity (Clear) Urine pH (5.0-8.0) Ur Specific [place] (1.003-1.030) Urine Protein (NEGATIVE) mg/dL Urine Glucose (UA) (Normal) mg/dL Urine Ketones (NEGATIVE) mg/dL Urine Blood (NEGATIVE) Urine Nitrate (NEGATIVE) Urine Bilirubin (NEGATIVE) Urine Urobilinogen (0.2-1.0) mg/dL Ur Leukocyte Esterase (Negative) Dustin/uL Urine WBC (Auto) (0-5) /hpf Urine RBC (Auto) (0-3) /hpf Blood Type Antibody Screen Laboratory Results - last 24 hr 02/27/18 02/27/18 02/27/18 16:15 16:15 16:15 WBC 7.0 RBC 4.61 Hgb 14.2 Hct 42.0 MCV 91.0 MCH 30.9 MCHC 33.9 RDW 13.0 Plt Count 313 MPV 8.8 Neut % (Auto) 49.0 L Lymph % (Auto) 34.6 [place] % (Auto) 13.6 H Eos % (Auto) 1.9 Baso % (Auto) 0.9 Neut # (Auto) 3.4 Lymph # (Auto) 2.4 [place] # (Auto) 1.0 H Eos # (Auto) 0.1 Baso # (Auto) 0.1 PT 13.1 H INR 1.2 APTT 36 H Sodium 143 Potassium 3.5 L Chloride 103 Carbon Dioxide 28 Anion Gap 15 BUN 10 Creatinine 0.9 Est GFR ( Amer) > 60 Est GFR (Non-Af Amer) > 60 POC Glucose (mg/dL) Random Glucose 95 Hemoglobin A1c Calcium 9.3 Phosphorus Magnesium Total Bilirubin 0.7 AST 24 ALT 27 Alkaline Phosphatase 124 Troponin I < 0.0120 Total Protein 7.7 Albumin 4.0 Globulin 3.7 Albumin/Globulin Ratio 1.1 Triglycerides 150 H Cholesterol 244 H LDL Cholesterol Direct 185 H HDL Cholesterol 48 Urine Color Urine Clarity Urine pH Ur Specific [place] Urine Protein Urine Glucose (UA) Urine Ketones Urine Blood Urine Nitrate Urine Bilirubin Urine Urobilinogen Ur Leukocyte Esterase Urine WBC (Auto) Urine RBC (Auto) Blood Type Antibody Screen 02/27/18 02/27/18 02/27/18 16:15 16:15 22:21 WBC RBC Hgb Hct MCV MCH MCHC RDW Plt Count MPV Neut % (Auto) Lymph % (Auto) [place] % (Auto) Eos % (Auto) Baso % (Auto) Neut # (Auto) Lymph # (Auto) [place] # (Auto) Eos # (Auto) Baso # (Auto) PT INR APTT Sodium Potassium Chloride Carbon Dioxide Anion Gap BUN Creatinine Est GFR ( Amer) Est GFR (Non-Af Amer) POC Glucose (mg/dL) Random Glucose Hemoglobin A1c 5.5 Calcium Phosphorus Magnesium Total Bilirubin AST ALT Alkaline Phosphatase Troponin I Total Protein Albumin Globulin Albumin/Globulin Ratio Triglycerides Cholesterol LDL Cholesterol Direct HDL Cholesterol Urine Color Colorless Urine Clarity Clear Urine pH 8.0 Ur Specific [place] 1.005 Urine Protein Negative Urine Glucose (UA) Normal Urine Ketones Negative Urine Blood Negative Urine Nitrate Negative Urine Bilirubin Negative Urine Urobilinogen Normal Ur Leukocyte Esterase Neg Urine WBC (Auto) 1 Urine RBC (Auto) 2 Blood Type O POSITIVE Antibody Screen Negative 02/27/18 02/28/18 02/28/18 22:44 00:40 05:39 WBC RBC Hgb Hct MCV MCH MCHC RDW Plt Count MPV Neut % (Auto) Lymph % (Auto) [place] % (Auto) Eos % (Auto) Baso % (Auto) Neut # (Auto) Lymph # (Auto) [place] # (Auto) Eos # (Auto) Baso # (Auto) PT INR APTT Sodium Potassium Chloride Carbon Dioxide Anion Gap BUN Creatinine Est GFR ( Amer) Est GFR (Non-Af Amer) POC Glucose (mg/dL) 116 H 130 H 115 H Random Glucose Hemoglobin A1c Calcium Phosphorus Magnesium Total Bilirubin AST ALT Alkaline Phosphatase Troponin I Total Protein Albumin Globulin Albumin/Globulin Ratio Triglycerides Cholesterol LDL Cholesterol Direct HDL Cholesterol Urine Color Urine Clarity Urine pH Ur Specific [place] Urine Protein Urine Glucose (UA) Urine Ketones Urine Blood Urine Nitrate Urine Bilirubin Urine Urobilinogen Ur Leukocyte Esterase Urine WBC (Auto) Urine RBC (Auto) Blood Type Antibody Screen 02/28/18 02/28/18 02/28/18 06:35 06:36 11:39 WBC 9.4 RBC 4.29 L Hgb 13.3 Hct 39.2 MCV 91.5 MCH 31.0 MCHC 33.9 RDW 13.4 Plt Count 303 MPV 9.2 Neut % (Auto) 73.2 Lymph % (Auto) 17.4 L [place] % (Auto) 8.7 Eos % (Auto) 0.3 Baso % (Auto) 0.4 Neut # (Auto) 6.9 Lymph # (Auto) 1.6 [place] # (Auto) 0.8 Eos # (Auto) 0.0 Baso # (Auto) 0.0 PT INR APTT Sodium 144 Potassium 3.9 Chloride 103 Carbon Dioxide 28 Anion Gap 17 BUN 8 L Creatinine 0.8 Est GFR ( Amer) > 60 Est GFR (Non-Af Amer) > 60 POC Glucose (mg/dL) 113 H Random Glucose 96 Hemoglobin A1c Calcium 8.9 Phosphorus 4.6 H Magnesium 1.9 Total Bilirubin 0.7 AST 30 ALT 19 L D Alkaline Phosphatase 90 Troponin I Total Protein 7.8 Albumin 4.2 Globulin 3.6 Albumin/Globulin Ratio 1.2 Triglycerides Cholesterol LDL Cholesterol Direct HDL Cholesterol Urine Color Urine Clarity Urine pH Ur Specific [place] Urine Protein Urine Glucose (UA) Urine Ketones Urine Blood Urine Nitrate Urine Bilirubin Urine Urobilinogen Ur Leukocyte Esterase Urine WBC (Auto) Urine RBC (Auto) Blood Type Antibody Screen EKG/Cardiology Studies: Cardiology / EKG Studies 02/27/18 16:05 ELECTROCARDIOGRAM Stat Comment: Mode Of Transportation: BED Reason For Exam: code stroke 02/27/18 16:06 ELECTROCARDIOGRAM Stat Comment: Mode Of Transportation: BED Reason For Exam: CVA alert Fingerstick Blood Sugar Results: 115 Critical Care Progress Note - Nutrition Nutrition: Nutrition Category Date Time Status NPO Diet [DIET] Diets 02/28/18 Breakfast Active Assessment/Plan - Assessment and Plan (Free Text) Assessment: 52 year old male with a history of HLD and HTN presented with slurred speech. Code Stroke Called. Patient found to have large basal ganglia hemorrhage, with minimal midline shift, and mass effect, and the 4th ventricle appearing open. Plan: Neuro: GCS: 15 Sedation: None A: Hemorrhagic CVA Head CT (Admission): Moderate intraparenchymal hemorrhage is identified at the left basal ganglia exerting local mass effect and causing a limited rightward midline shift of 2 mm. Measurements are as defined above in terms of hemorrhagic collection. Limited local parenchymal edema appreciated. Remainder the examination appears unremarkable. Head CT (02/28/18): The large left basal ganglia and intraparenchymal hemorrhage/ hematoma with surrounding mass effect midline shift are similar in appearance. No progressive bleeding or new areas of bleeding noted. No progressive ventriculomegaly appreciated. No interval low-density areas to suggest interval infarcts. Neurology Consulted - Recs Appreciated NeuroSurgery Consulted - Per Nurse who talked to Neurosurgeon. No indication or Surgical Intervention at this time. F/U with Report. Speech/Therapy Eval. PT Eval Aspiration Precautions NeuroChecks Cardio A: Uncontrolled HTN, HLD Permissive HTN with BP parameters (140/50-160-80) Labetalol for pressures over paramaters. Pulm A: No Active Issues GI A: No Active Issues Renal A: No Active Issues Proph Protonix IV SCD's <David Barrett S - Last Filed: 02/28/18 17:59> CCU Objective - Vital Signs / Intake & Output Vital Signs (Last 4 hours): Vital Signs Temp Pulse Resp BP Pulse Ox 02/28/18 16:05 98 H 17 148/80 97 02/28/18 16:00 98.6 F 105 H 24 94 L 02/28/18 15:45 96 H 19 98 02/28/18 15:30 100 H 17 96 02/28/18 15:15 92 H 16 98 02/28/18 15:05 96 H 19 139/89 97 02/28/18 15:00 95 H 17 95 02/28/18 14:45 96 H 18 96 05/29/18 14:30 91 H 15 99 02/28/18 14:15 101 H 21 100 02/28/18 14:05 97 H 21 141/80 99 02/28/18 14:00 92 H 19 100 Intake and Output (Last 8hrs): Intake & Output 02/28/18 02/28/18 02/28/18 06:59 14:59 22:59 Intake Total 800 910 200 Output Total 1500 800 Balance -700 110 200 Weight 263 lb 14.4 oz Intake: Intake, IV Amount 800 910 200 Left Antecubital 800 900 200 Right Antecubital 10 Output: Urine 1500 800 Urethral ([place]) 1500 800 Other: # Bowel Movements 0 0 0 - Medications Active Medications: Active Medications Generic Name Dose Route Start Last Admin Trade Name Freq PRN Reason Stop Dose Admin Sodium Chloride 1,000 mls @ 100 mls/hr 02/27/18 16:15 02/28/18 12:15 Sodium Chloride 0.9% IV Not Given .Q10H [facility] Insulin Human Regular 0 unit 02/28/18 00:00 02/28/18 12:00 Novolin R SC Not Given Q6 [facility] Protocol Pantoprazole Sodium 40 mg 02/28/18 10:00 02/28/18 09:56 Protonix Inj IVP 40 mg DAILY PANCHO Administration - Patient Studies Lab Studies: Lab Studies 02/28/18 02/28/18 02/28/18 Range/Units 17:45 11:39 06:36 WBC (4.8-10.8) K/uL RBC (4.40-5.90) Mil/uL Hgb (12.0-18.0) g/dL Hct (35.0-51.0) % MCV (80.0-94.0) fL MCH (27.0-31.0) pg MCHC (33.0-37.0) g/dL RDW (11.5-14.5) % Plt Count (130-400) K/uL MPV (7.2-11.7) fL Neut % (Auto) (50.0-75.0) % Lymph % (Auto) (20.0-40.0) % [place] % (Auto) (0.0-10.0) % Eos % (Auto) (0.0-4.0) % Baso % (Auto) (0.0-2.0) % Neut # (Auto) (1.8-7.0) K/uL Lymph # (Auto) (1.0-4.3) K/uL [place] # (Auto) (0.0-0.8) K/uL Eos # (Auto) (0.0-0.7) K/uL Baso # (Auto) (0.0-0.2) K/uL Sodium 144 (132-148) mmol/L Potassium 3.9 (3.6-5.2) mmol/L Chloride 103 (98-107) mmol/L Carbon Dioxide 28 (22-30) mmol/L Anion Gap 17 (10-20) BUN 8 L (9-20) mg/dL Creatinine 0.8 (0.8-1.5) mg/dL Est GFR ( Amer) > 60 Est GFR (Non-Af Amer) > 60 POC Glucose (mg/dL) 103 113 H (65-110) mg/dL Random Glucose 96 (75-110) mg/dL Calcium 8.9 (8.6-10.4) mg/dl Phosphorus 4.6 H (2.5-4.5) mg/dL Magnesium 1.9 (1.6-2.3) mg/dL Total Bilirubin 0.7 (0.2-1.3) mg/dL AST 30 (17-59) U/L ALT 19 L D (21-72) U/L Alkaline Phosphatase 90 (38-126) U/L Total Protein 7.8 (6.3-8.3) g/dL Albumin 4.2 (3.5-5.0) g/dL Globulin 3.6 (2.2-3.9) gm/dL Albumin/Globulin Ratio 1.2 (1.0-2.1) Urine Color (YELLOW) Urine Clarity (Clear) Urine pH (5.0-8.0) Ur Specific [place] (1.003-1.030) Urine Protein (NEGATIVE) mg/dL Urine Glucose (UA) (Normal) mg/dL Urine Ketones (NEGATIVE) mg/dL Urine Blood (NEGATIVE) Urine Nitrate (NEGATIVE) Urine Bilirubin (NEGATIVE) Urine Urobilinogen (0.2-1.0) mg/dL Ur Leukocyte Esterase (Negative) Dustin/uL Urine WBC (Auto) (0-5) /hpf Urine RBC (Auto) (0-3) /hpf 02/28/18 02/28/18 02/28/18 Range/Units 06:35 05:39 00:40 WBC 9.4 (4.8-10.8) K/uL RBC 4.29 L (4.40-5.90) Mil/uL Hgb 13.3 (12.0-18.0) g/dL Hct 39.2 (35.0-51.0) % MCV 91.5 (80.0-94.0) fL MCH 31.0 (27.0-31.0) pg MCHC 33.9 (33.0-37.0) g/dL RDW 13.4 (11.5-14.5) % Plt Count 303 (130-400) K/uL MPV 9.2 (7.2-11.7) fL Neut % (Auto) 73.2 (50.0-75.0) % Lymph % (Auto) 17.4 L (20.0-40.0) % [place] % (Auto) 8.7 (0.0-10.0) % Eos % (Auto) 0.3 (0.0-4.0) % Baso % (Auto) 0.4 (0.0-2.0) % Neut # (Auto) 6.9 (1.8-7.0) K/uL Lymph # (Auto) 1.6 (1.0-4.3) K/uL [place] # (Auto) 0.8 (0.0-0.8) K/uL Eos # (Auto) 0.0 (0.0-0.7) K/uL Baso # (Auto) 0.0 (0.0-0.2) K/uL Sodium (132-148) mmol/L Potassium (3.6-5.2) mmol/L Chloride (98-107) mmol/L Carbon Dioxide (22-30) mmol/L Anion Gap (10-20) BUN (9-20) mg/dL Creatinine (0.8-1.5) mg/dL Est GFR ( Amer) Est GFR (Non-Af Amer) POC Glucose (mg/dL) 115 H 130 H (65-110) mg/dL Random Glucose (75-110) mg/dL Calcium (8.6-10.4) mg/dl Phosphorus (2.5-4.5) mg/dL Magnesium (1.6-2.3) mg/dL Total Bilirubin (0.2-1.3) mg/dL AST (17-59) U/L ALT (21-72) U/L Alkaline Phosphatase (38-126) U/L Total Protein (6.3-8.3) g/dL Albumin (3.5-5.0) g/dL Globulin (2.2-3.9) gm/dL Albumin/Globulin Ratio (1.0-2.1) Urine Color (YELLOW) Urine Clarity (Clear) Urine pH (5.0-8.0) Ur Specific [place] (1.003-1.030) Urine Protein (NEGATIVE) mg/dL Urine Glucose (UA) (Normal) mg/dL Urine Ketones (NEGATIVE) mg/dL Urine Blood (NEGATIVE) Urine Nitrate (NEGATIVE) Urine Bilirubin (NEGATIVE) Urine Urobilinogen (0.2-1.0) mg/dL Ur Leukocyte Esterase (Negative) Dustin/uL Urine WBC (Auto) (0-5) /hpf Urine RBC (Auto) (0-3) /hpf 02/27/18 02/27/18 Range/Units 22:44 22:21 WBC (4.8-10.8) K/uL RBC (4.40-5.90) Mil/uL Hgb (12.0-18.0) g/dL Hct (35.0-51.0) % MCV (80.0-94.0) fL MCH (27.0-31.0) pg MCHC (33.0-37.0) g/dL RDW (11.5-14.5) % Plt Count (130-400) K/uL MPV (7.2-11.7) fL Neut % (Auto) (50.0-75.0) % Lymph % (Auto) (20.0-40.0) % [place] % (Auto) (0.0-10.0) % Eos % (Auto) (0.0-4.0) % Baso % (Auto) (0.0-2.0) % Neut # (Auto) (1.8-7.0) K/uL Lymph # (Auto) (1.0-4.3) K/uL [place] # (Auto) (0.0-0.8) K/uL Eos # (Auto) (0.0-0.7) K/uL Baso # (Auto) (0.0-0.2) K/uL Sodium (132-148) mmol/L Potassium (3.6-5.2) mmol/L Chloride (98-107) mmol/L Carbon Dioxide (22-30) mmol/L Anion Gap (10-20) BUN (9-20) mg/dL Creatinine (0.8-1.5) mg/dL Est GFR ( Amer) Est GFR (Non-Af Amer) POC Glucose (mg/dL) 116 H (65-110) mg/dL Random Glucose (75-110) mg/dL Calcium (8.6-10.4) mg/dl Phosphorus (2.5-4.5) mg/dL Magnesium (1.6-2.3) mg/dL Total Bilirubin (0.2-1.3) mg/dL AST (17-59) U/L ALT (21-72) U/L Alkaline Phosphatase (38-126) U/L Total Protein (6.3-8.3) g/dL Albumin (3.5-5.0) g/dL Globulin (2.2-3.9) gm/dL Albumin/Globulin Ratio (1.0-2.1) Urine Color Colorless (YELLOW) Urine Clarity Clear (Clear) Urine pH 8.0 (5.0-8.0) Ur Specific [place] 1.005 (1.003-1.030) Urine Protein Negative (NEGATIVE) mg/dL Urine Glucose (UA) Normal (Normal) mg/dL Urine Ketones Negative (NEGATIVE) mg/dL Urine Blood Negative (NEGATIVE) Urine Nitrate Negative (NEGATIVE) Urine Bilirubin Negative (NEGATIVE) Urine Urobilinogen Normal (0.2-1.0) mg/dL Ur Leukocyte Esterase Neg (Negative) Dustin/uL Urine WBC (Auto) 1 (0-5) /hpf Urine RBC (Auto) 2 (0-3) /hpf Laboratory Results - last 24 hr 02/27/18 02/27/18 02/28/18 22:21 22:44 00:40 WBC RBC Hgb Hct MCV MCH MCHC RDW Plt Count MPV Neut % (Auto) Lymph % (Auto) [place] % (Auto) Eos % (Auto) Baso % (Auto) Neut # (Auto) Lymph # (Auto) [place] # (Auto) Eos # (Auto) Baso # (Auto) Sodium Potassium Chloride Carbon Dioxide Anion Gap BUN Creatinine Est GFR ( Amer) Est GFR (Non-Af Amer) POC Glucose (mg/dL) 116 H 130 H Random Glucose Calcium Phosphorus Magnesium Total Bilirubin AST ALT Alkaline Phosphatase Total Protein Albumin Globulin Albumin/Globulin Ratio Urine Color Colorless Urine Clarity Clear Urine pH 8.0 Ur Specific [place] 1.005 Urine Protein Negative Urine Glucose (UA) Normal Urine Ketones Negative Urine Blood Negative Urine Nitrate Negative Urine Bilirubin Negative Urine Urobilinogen Normal Ur Leukocyte Esterase Neg Urine WBC (Auto) 1 Urine RBC (Auto) 2 02/28/18 02/28/18 02/28/18 05:39 06:35 06:36 WBC 9.4 RBC 4.29 L Hgb 13.3 Hct 39.2 MCV 91.5 MCH 31.0 MCHC 33.9 RDW 13.4 Plt Count 303 MPV 9.2 Neut % (Auto) 73.2 Lymph % (Auto) 17.4 L [place] % (Auto) 8.7 Eos % (Auto) 0.3 Baso % (Auto) 0.4 Neut # (Auto) 6.9 Lymph # (Auto) 1.6 [place] # (Auto) 0.8 Eos # (Auto) 0.0 Baso # (Auto) 0.0 Sodium 144 Potassium 3.9 Chloride 103 Carbon Dioxide 28 Anion Gap 17 BUN 8 L Creatinine 0.8 Est GFR ( Amer) > 60 Est GFR (Non-Af Amer) > 60 POC Glucose (mg/dL) 115 H Random Glucose 96 Calcium 8.9 Phosphorus 4.6 H Magnesium 1.9 Total Bilirubin 0.7 AST 30 ALT 19 L D Alkaline Phosphatase 90 Total Protein 7.8 Albumin 4.2 Globulin 3.6 Albumin/Globulin Ratio 1.2 Urine Color Urine Clarity Urine pH Ur Specific [place] Urine Protein Urine Glucose (UA) Urine Ketones Urine Blood Urine Nitrate Urine Bilirubin Urine Urobilinogen Ur Leukocyte Esterase Urine WBC (Auto) Urine RBC (Auto) 02/28/18 02/28/18 11:39 17:45 WBC RBC Hgb Hct MCV MCH MCHC RDW Plt Count MPV Neut % (Auto) Lymph % (Auto) [place] % (Auto) Eos % (Auto) Baso % (Auto) Neut # (Auto) Lymph # (Auto) [place] # (Auto) Eos # (Auto) Baso # (Auto) Sodium Potassium Chloride Carbon Dioxide Anion Gap BUN Creatinine Est GFR ( Amer) Est GFR (Non-Af Amer) POC Glucose (mg/dL) 113 H 103 Random Glucose Calcium Phosphorus Magnesium Total Bilirubin AST ALT Alkaline Phosphatase Total Protein Albumin Globulin Albumin/Globulin Ratio Urine Color Urine Clarity Urine pH Ur Specific [place] Urine Protein Urine Glucose (UA) Urine Ketones Urine Blood Urine Nitrate Urine Bilirubin Urine Urobilinogen Ur Leukocyte Esterase Urine WBC (Auto) Urine RBC (Auto) Critical Care Progress Note - Nutrition Nutrition: Nutrition Category Date Time Status NPO Diet [DIET] Diets 02/28/18 Breakfast Active Attending/Attestation - Attestation I have personally seen and examined this patient.: Yes I have fully participated in the care of the patient.: Yes I have reviewed all pertinent clinical information: Yes Notes (Text): 02/28/18 17:58 patient seen and examined in the intensive care unit. He remains drowsy CT of the head showed no change in size of hematoma For MRI of head Controlled hypertension Consider BiPAP Seen by neurosurgery
--- NOTE | 2018-02-28 13:30 | CP.PCM.CON ---
History of Present Illness - History of Present Illness History of Present Illness: NEURO-INTERVENTONAL CONSULTATION The patient is a 52 year old male with a PMH sig for HTN and HLD. He was brought to the er after having the acute onset of slurred speech and right sided weakness. CTH showed a left BG bleed, CTA showed a positive spot sign. BP treated and FFP given. Patient transferred to the ICU for BP mangment and neuro checks. CTA also suggestive of a possible AVM. Past Patient History - Past Medical History & Family History Past Medical History?: Yes - Past Social History Smoking Status: Never Smoked - CARDIAC Hx Hypercholesterolemia: Yes Hx Hypertension: Yes - MUSCULOSKELETAL/RHEUMATOLOGICAL Hx Falls: No Other/Comment: knee/leg sx sister unsure which kind - PSYCHIATRIC Hx Substance Use: No - SURGICAL HISTORY Hx Surgeries: No - ANESTHESIA Hx Anesthesia: Yes Hx Anesthesia Reactions: No Hx Malignant Hyperthermia: No Has any member of the family had a problem w/ anesthesia?: No Meds Allergies/Adverse Reactions: Allergies Allergy/AdvReac Type Severity Reaction Status Date / Time No Known Allergies Allergy Verified 02/27/18 16:05 - Medications Medications: Current Medications Sodium Chloride (Sodium Chloride 0.9%) 1,000 mls @ 100 mls/hr IV .Q10H FOR[facility]LY [facility], [facility]1983 Last Admin: 02/28/18 07:57 Dose: 100 mls/hr Insulin Human Regular (Novolin R) 0 unit SC Q6 PANCHO PRN Reason: Protocol Last Admin: 02/28/18 05:45 Dose: Not Given Pantoprazole Sodium (Protonix Inj) 40 mg IVP DAILY [facility], [facility]1983 Last Admin: 02/28/18 09:56 Dose: 40 mg Physical Exam - Neurological Exam Additional comments: NEURO EXAM lethargic, arousabole with vigrous stimuli PERRL minimal verbal output, ,moans dense right sided plegia left arm and leg move, not specifically to commands. Results - Vital Signs Recent Vital Signs: Last Vital Signs Temp 98.4 F 02/28/18 12:00 Pulse 95 H 02/28/18 12:05 Resp 22 02/28/18 12:05 BP 135/87 02/28/18 12:05 Pulse Ox 96 02/28/18 12:05 - Labs Result Diagrams: 02/28/18 06:35 02/28/18 06:36 Labs: Laboratory Results - last 24 hr 02/27/18 02/27/18 02/27/18 16:15 16:15 16:15 WBC 7.0 RBC 4.61 Hgb 14.2 Hct 42.0 MCV 91.0 MCH 30.9 MCHC 33.9 RDW 13.0 Plt Count 313 MPV 8.8 Neut % (Auto) 49.0 L Lymph % (Auto) 34.6 [place] % (Auto) 13.6 H Eos % (Auto) 1.9 Baso % (Auto) 0.9 Neut # (Auto) 3.4 Lymph # (Auto) 2.4 [place] # (Auto) 1.0 H Eos # (Auto) 0.1 Baso # (Auto) 0.1 PT 13.1 H INR 1.2 APTT 36 H Sodium 143 Potassium 3.5 L Chloride 103 Carbon Dioxide 28 Anion Gap 15 BUN 10 Creatinine 0.9 Est GFR ( Amer) > 60 Est GFR (Non-Af Amer) > 60 POC Glucose (mg/dL) Random Glucose 95 Hemoglobin A1c Calcium 9.3 Phosphorus Magnesium Total Bilirubin 0.7 AST 24 ALT 27 Alkaline Phosphatase 124 Troponin I < 0.0120 Total Protein 7.7 Albumin 4.0 Globulin 3.7 Albumin/Globulin Ratio 1.1 Triglycerides 150 H Cholesterol 244 H LDL Cholesterol Direct 185 H HDL Cholesterol 48 Urine Color Urine Clarity Urine pH Ur Specific [place] Urine Protein Urine Glucose (UA) Urine Ketones Urine Blood Urine Nitrate Urine Bilirubin Urine Urobilinogen Ur Leukocyte Esterase Urine WBC (Auto) Urine RBC (Auto) Blood Type Antibody Screen 02/27/18 02/27/18 02/27/18 16:15 16:15 22:21 WBC RBC Hgb Hct MCV MCH MCHC RDW Plt Count MPV Neut % (Auto) Lymph % (Auto) [place] % (Auto) Eos % (Auto) Baso % (Auto) Neut # (Auto) Lymph # (Auto) [place] # (Auto) Eos # (Auto) Baso # (Auto) PT INR APTT Sodium Potassium Chloride Carbon Dioxide Anion Gap BUN Creatinine Est GFR ( Amer) Est GFR (Non-Af Amer) POC Glucose (mg/dL) Random Glucose Hemoglobin A1c 5.5 Calcium Phosphorus Magnesium Total Bilirubin AST ALT Alkaline Phosphatase Troponin I Total Protein Albumin Globulin Albumin/Globulin Ratio Triglycerides Cholesterol LDL Cholesterol Direct HDL Cholesterol Urine Color Colorless Urine Clarity Clear Urine pH 8.0 Ur Specific [place] 1.005 Urine Protein Negative Urine Glucose (UA) Normal Urine Ketones Negative Urine Blood Negative Urine Nitrate Negative Urine Bilirubin Negative Urine Urobilinogen Normal Ur Leukocyte Esterase Neg Urine WBC (Auto) 1 Urine RBC (Auto) 2 Blood Type O POSITIVE Antibody Screen Negative 02/27/18 02/28/18 02/28/18 22:44 00:40 05:39 WBC RBC Hgb Hct MCV MCH MCHC RDW Plt Count MPV Neut % (Auto) Lymph % (Auto) [place] % (Auto) Eos % (Auto) Baso % (Auto) Neut # (Auto) Lymph # (Auto) [place] # (Auto) Eos # (Auto) Baso # (Auto) PT INR APTT Sodium Potassium Chloride Carbon Dioxide Anion Gap BUN Creatinine Est GFR ( Amer) Est GFR (Non-Af Amer) POC Glucose (mg/dL) 116 H 130 H 115 H Random Glucose Hemoglobin A1c Calcium Phosphorus Magnesium Total Bilirubin AST ALT Alkaline Phosphatase Troponin I Total Protein Albumin Globulin Albumin/Globulin Ratio Triglycerides Cholesterol LDL Cholesterol Direct HDL Cholesterol Urine Color Urine Clarity Urine pH Ur Specific [place] Urine Protein Urine Glucose (UA) Urine Ketones Urine Blood Urine Nitrate Urine Bilirubin Urine Urobilinogen Ur Leukocyte Esterase Urine WBC (Auto) Urine RBC (Auto) Blood Type Antibody Screen 02/28/18 02/28/18 02/28/18 06:35 06:36 11:39 WBC 9.4 RBC 4.29 L Hgb 13.3 Hct 39.2 MCV 91.5 MCH 31.0 MCHC 33.9 RDW 13.4 Plt Count 303 MPV 9.2 Neut % (Auto) 73.2 Lymph % (Auto) 17.4 L [place] % (Auto) 8.7 Eos % (Auto) 0.3 Baso % (Auto) 0.4 Neut # (Auto) 6.9 Lymph # (Auto) 1.6 [place] # (Auto) 0.8 Eos # (Auto) 0.0 Baso # (Auto) 0.0 PT INR APTT Sodium 144 Potassium 3.9 Chloride 103 Carbon Dioxide 28 Anion Gap 17 BUN 8 L Creatinine 0.8 Est GFR ( Amer) > 60 Est GFR (Non-Af Amer) > 60 POC Glucose (mg/dL) 113 H Random Glucose 96 Hemoglobin A1c Calcium 8.9 Phosphorus 4.6 H Magnesium 1.9 Total Bilirubin 0.7 AST 30 ALT 19 L D Alkaline Phosphatase 90 Troponin I Total Protein 7.8 Albumin 4.2 Globulin 3.6 Albumin/Globulin Ratio 1.2 Triglycerides Cholesterol LDL Cholesterol Direct HDL Cholesterol Urine Color Urine Clarity Urine pH Ur Specific [place] Urine Protein Urine Glucose (UA) Urine Ketones Urine Blood Urine Nitrate Urine Bilirubin Urine Urobilinogen Ur Leukocyte Esterase Urine WBC (Auto) Urine RBC (Auto) Blood Type Antibody Screen Assessment & Plan - Assessment and Plan (Free Text) Assessment: 52 year old male with left BG bleed, most likely etiology is HTN associated. Plan: 1-Maintain SBP below 140, goal of care should be to prevent expansion of the hematoma by preventing hypertension. 2-If BP is labile recommend Cardene drip. 3-Frequent q1 hr neuro-checks, if any change stat CT head. 4-MRI brain without LEENA to look for any underlying lesion. 5-After MRI reviewed will consider Diagnostic cerebral angiogram to rule out an underlying vascular lesion. CTA read as possible AVM, however given his age and HTN; I would favor the radiographic imaging representing a spot sign ( indication of active bleedig when CTA done) over AVM. No Subarchnoid blood also argues against (does not preclude) this being from an AVM or aneurysm. - Date & Time Date: 02/28/18 Time: 13:30
[2018-02-28 20:26] LABS: ABG ALLEN TEST UNABLE; ARTERIAL BLOOD GAS HCO3 27.9 mmol/L (21-28); ARTERIAL BLOOD GAS HEMOGLOBIN 13.3 g/dL (11.7-17.4); ARTERIAL BLOOD GAS O2 SAT 95.6 % (95-98); ARTERIAL BLOOD GAS PCO2 38 mm/Hg (35-45); ARTERIAL BLOOD GAS PH 7.47 (7.35-7.45); ARTERIAL BLOOD GAS PO2 70 mm/Hg (80-100); ARTERIAL BLOOD GAS TCO2 28.9 mmol/L (22-28)
[2018-02-28] MEDS: niCARdipine IV 25 MG in Sodium Chloride 0.9% 240 ML IV SCH (21:26)
--- NOTE | 2018-02-28 23:04 | CP.PCM.PN ---
Subjective - Date & Time of Evaluation Date of Evaluation: 02/28/18 Time of Evaluation: 14:00 - Subjective Subjective: Mr. Rodriguez was seen and examined today at bedside. His family was present and had some questions, which were answered to their satisfaction. The patient continues to have speech difficulty and right side hemiplegia. Repeat CT scan of the head was stable, without expansion of the hematoma. He was having occasional coughing, which was concerning due to his dion-pharyngeal weakness, so I raised the head of the bed up to 40 degrees. Objective - Vital Signs/Intake and Output Vital Signs (last 24 hours): Temp Pulse Resp BP Pulse Ox 98.9 F 104 H 27 H 153/90 H 97 02/28/18 20:00 02/28/18 21:00 02/28/18 21:00 02/28/18 20:05 02/28/18 21:00 Intake and Output: 02/28/18 03/01/18 18:59 06:59 Intake Total 1310 360 Output Total 1300 550 Balance 10 -190 - Medications Medications: Current Medications Sodium Chloride (Sodium Chloride 0.9%) 1,000 mls @ 100 mls/hr IV .Q10H PANCHO Last Admin: 02/28/18 18:32 Dose: 100 mls/hr Nicardipine HCl 25 mg/ Sodium (Chloride) 250 mls @ 50 mls/hr IV .Q5H PANCHO; 5 MG/ HR PRN Reason: Protocol Last Titration: 02/28/18 22:19 Dose: 7.5 mg/hr, 75 mls/hr Insulin Human Regular (Novolin R) 0 unit SC Q6 PANCHO PRN Reason: Protocol Last Admin: 02/28/18 18:00 Dose: Not Given Pantoprazole Sodium (Protonix Inj) 40 mg IVP DAILY PANCHO Last Admin: 02/28/18 09:56 Dose: 40 mg - Labs Labs: 02/28/18 06:35 02/28/18 06:36 PT 13.1 SECONDS (9.7-12.2) H 02/27/18 16:15 INR 1.2 02/27/18 16:15 APTT 36 SECONDS (21-34) H 02/27/18 16:15 - Neurological Exam Neurological Exam: Alert, Awake, CN II-XII Intact Neuro motor strength exam: Left Upper Extremity: 5, Right Upper Extremity: 0, Left Lower Extremity: 5, Right Lower Extremity: 0 Additional comments: Right facial droop. Right side lloyd-anesthesia. Follows commands on the left side. Aphasic. NIHSS= 14 Assessment and Plan (1) Hemorrhagic stroke Assessment & Plan: Likely hypertensive in origin. Will obtain MRI when the patient is more stable since it will not loom changer at this time. I recommend continuing strict BP control. Keep head of bed elevated. PT/OT eval and treatment. Repeat CT head in the morning. Daily BMP and avoid hyponatremia, fever, or flat head position. Thank you. Status: Acute
[2018-03-01] MEDS: (Novolin R) Insulin Human Regular 100 units/ml vial SC SCH ×4 (00:49→18:55)
[2018-03-01] MEDS: niCARdipine IV 25 MG in Sodium Chloride 0.9% 240 ML IV SCH ×7 (00:51→21:30)
[2018-03-01] MEDS: Sodium Chloride 0.9% 1,000 ML IV SCH ×3 (04:57→17:32)
--- NOTE | 2018-03-01 05:54 | HP ---
CHIEF COMPLAINT: The patient was found to be having slurred speech noted by his with right-sided paralysis. HISTORY OF PRESENT ILLNESS: Mr. Rodriguez is a 52-year-old male with past medical history of hypertension, hyperlipidemia, noncompliant with his medications, came into the ED, brought by EMS as the patient's noticed him to be having slurred speech and right-sided weakness. All the history obtained from the ER physician's note and by reviewing the chart as I was not able to contact any family member despite multiple attempts. I tried all the numbers on the record without any response. As per the records, he was driving and noticed him to be having slurred speech and right-sided weakness at which point EMS was called and the patient was brought into the ED. After patient arrived in the ED, developed aphasia and right-sided weakness, and the patient became nonverbal. Code stroke was called from the emergency room. The patient underwent CAT scan which showed basal ganglia, hemorrhagic stroke. Neurology was consulted, and initially, the patient was about to be transferred to [place] for further evaluation and management but unclear. It was decided to repeat CAT scan in an hour until admit the patient to ICU. Repeat CAT scan was similar and the patient also had CT angiogram done, and now, the patient is being admitted to ICU for further monitoring and evaluation. When I examined, the patient is aphasic and not able to give any detailed history, able to follow only simple commands, moving only left upper and lower extremity, unable to obtain any further detailed history. PAST MEDICAL HISTORY: As described in the chart, hypertension, hyperlipidemia. PAST SURGICAL HISTORY: Right knee surgery. FAMILY HISTORY: Hypertension. PERSONAL HISTORY: He is , living with his . ALLERGIES: NO KNOWN DRUG ALLERGIES. SOCIAL HISTORY: Denies smoking, alcohol, or drug abuse. HOME MEDICATIONS: Patient or family could not recall. REVIEW OF SYSTEMS: Unable to obtain as the patient is aphasic. PHYSICAL EXAMINATION: GENERAL: Middle aged morbidly obese male, lying in bed, arousable, lethargic. VITAL SIGNS: Blood pressure in the ED was high 144/93, pulse 95, respirations 18, temperature 97.7 degrees Fahrenheit, O2 saturation is 97% on room air. HEENT: Pupils equal, round, and reacting to light and accommodation. There is right sided facial droop noted, deviation of the angle of the mouth and no oral thrush. No pharyngeal congestion. NECK: Supple. No JVD. LUNGS: Bilateral vesicular breath sounds. No wheezing. No rhonchi. CVS: S1, S2 present. Regular. ABDOMEN: Soft. Nontender. Bowel sounds present. No guarding. No rigidity. No rebound tenderness noted. [employer] CONS[employer]ANT: Lethargic, arousable, following simple commands. Moving his left upper and lower extremities. Right sided power 0/5, both upper and lower extremities. Reflexes absent. Aphasia, and gait did not test. LABORATORY DATA: Labs done from ED shows WBC 7, hemoglobin 14.2, hematocrit 42, platelets 313. PT 13.1, INR 1.2, PTT 36. Sodium 143, potassium 3.5, chloride 103, bicarbonate 28, BUN 10, creatinine 0.9, glucose 95, hemoglobin A1c 5.5, calcium 9.3, total bilirubin 0.7, AST 24, ALT 27, alkaline phosphatase 124, troponin less than 0.0120. Total protein 7.7, albumin 4, triglycerides 150, cholesterol 244, LDL 185, HDL 48. UA negative with specific gravity 1.005, pH 8, otherwise negative. CT head consistent with moderate intraparenchymal hemorrhage is identified in the left basal ganglia, local mass effect and causing a limited rightward midline shift of 2 mm. Chest x-ray: Mild CHF. CT angiogram: Potential occult AVM atypical aneurysm, major left basal ganglia adjacent to the intraparenchymal hemorrhage, limited right carotid bulbar atherosclerosis. Neck CT angiogram unremarkable, otherwise repeat head CT, intraparenchymal hemorrhage, mildly increased in size and mass effect. ASSESSMENT: Middle-aged obese male with history of hypertension, hyperlipidemia, noncompliant with medications, admitted for acute onset of slurred speech and right-sided weakness, progressive aphasia, and right flaccid paralysis, and CT of the head consistent with left basal ganglia acute hemorrhagic stroke with midline infarct and the patient is being admitted for further management and evaluation. 1. Acute left basal ganglia, hemorrhagic stroke with right-sided paralysis and aphasia, probably secondary to uncontrolled hypertension. Rule out underlying mass, rule out secondary to arteriovenous malformation. 2. Uncontrolled hypertension. 3. Hyperlipidemia. PLAN: The patient is being admitted to ICU. Neurology consult appreciated. We will request neurosurgical evaluation as per neurology recommendation. Do neuro checks every one hour. Keep patient n.p.o. The patient received FFP and DDAVP in the emergency room as per Neurology recommendation. We will keep his blood pressures less than 160, and I will consider IV drip if blood pressure not controlled with the current medication. Request physical therapy, speech therapy, and occupational therapy. Repeat CT head in a.m. Follow up with Neurology. We will hold antiplatelet agents. We will give Protonix for GI prophylaxis and Venodyne for DVT prophylaxis. The patient's overall long-term prognosis is guarded. We will try to contact the patient's family to obtain more detailed history. We will add further recommendation as his clinical course progresses. Reba Marsh MD
[2018-03-01 06:15] LABS: BASO # 0.1 K/uL (0.0-0.2); BASO % 0.6 % (0.0-2.0); EOS % 0.4 % (0.0-4.0); LYMPH # 1.6 K/uL (1.0-4.3); MEAN CELL VOLUME 91.8 fL (80.0-94.0); MEAN CORPUSCULAR HEMOGLOBIN 31.1 pg (27.0-31.0); MEAN CORPUSCULAR HGB CONC 33.9 g/dL (33.0-37.0); MEAN PLATELET VOLUME 9.2 fL (7.2-11.7); MONO # 0.6 K/uL (0.0-0.8); MONO % 7.5 % (0.0-10.0); NEUT # 6.2 K/uL (1.8-7.0); NEUT % 72.5 % (50.0-75.0); RBC 4.51 Mil/uL (4.40-5.90); RED CELL DISTRIBUTION WIDTH 13.2 % (11.5-14.5); WHITE BLOOD COUNT 8.5 K/uL (4.8-10.8)
[2018-03-01 06:38] LABS: ALB/GLOB RATIO 1.2 (1.0-2.1); ALBUMIN 4.3 g/dL (3.5-5.0); ALT/SGPT 27 U/L (21-72); AST/SGOT 34 U/L (17-59); BLOOD UREA NITROGEN 8 mg/dL (9-20); GFR AFRICAN-AMERICAN > 60; GFR NON-AFRICAN AMERICAN > 60
[2018-03-01 06:51] LABS: INR 1.3; PROTHROMBIN TIME 14.5 SECONDS (9.7-12.2)
--- NOTE | 2018-03-01 07:08 | CP.PCM.PN ---
Subjective - Date & Time of Evaluation Date of Evaluation: 03/01/18 Time of Evaluation: 07:06 - Subjective Subjective: Mr. Rodriguez was seen and examined at the bedside in ICU. He is awake, non-verbal, communicates utilizing with non-verbal cues such as nodding and shaking his head. He is able to follow simple commands such as opening his eyes with tongue deviation to the right noted, moves his left side with paraplegia noted in his right side. He is currently on Cardene drip with BP ranges from 130-140 systolic. There was no untoward events overnight. Objective - Vital Signs/Intake and Output Vital Signs (last 24 hours): Temp Pulse Resp BP Pulse Ox 99 F 119 H 30 H 134/84 99 03/01/18 04:00 03/01/18 06:33 03/01/18 06:33 03/01/18 06:39 03/01/18 06:30 Intake and Output: 03/01/18 03/01/18 06:59 18:59 Intake Total 2250 Output Total 1750 Balance 500 - Medications Medications: Current Medications Sodium Chloride (Sodium Chloride 0.9%) 1,000 mls @ 100 mls/hr IV .Q10H PANCHO Last Admin: 03/01/18 04:57 Dose: 100 mls/hr Nicardipine HCl 25 mg/ Sodium (Chloride) 250 mls @ 50 mls/hr IV .Q5H PANCHO; 5 MG/ HR PRN Reason: Protocol Last Admin: 03/01/18 06:05 Dose: 5 mg/hr, 50 mls/hr Insulin Human Regular (Novolin R) 0 unit SC Q6 PANCHO PRN Reason: Protocol Last Admin: 03/01/18 05:28 Dose: Not Given Pantoprazole Sodium (Protonix Inj) 40 mg IVP DAILY PANCHO Last Admin: 02/28/18 09:56 Dose: 40 mg - Labs Labs: 03/01/18 06:04 03/01/18 06:04 PT 14.5 SECONDS (9.7-12.2) H 03/01/18 06:04 INR 1.3 03/01/18 06:04 APTT 36 SECONDS (21-34) H 03/01/18 06:04 - Constitutional Appears: No Acute Distress - Head Exam Head Exam: NORMAL INSPECTION - Eye Exam Pupil Exam: Miosis, PERRL Additional comments: 2 mm bilaterally - Neurological Exam Neurological Exam: Awake Neuro motor strength exam: Left Upper Extremity: 3, Right Upper Extremity: 0, Left Lower Extremity: 2/1, Right Lower Extremity: 0 Additional comments: awake, able to follow simple commands, sensation is intact. Assessment and Plan (1) Hemorrhagic stroke Assessment & Plan: Case discussed with Dr. Lopez, continue all current medical, physical, occupational, and speech therapies. Recommend avoiding hyponatremia ( daily BMP ), fever, or flat head position. Maintain head of bed elevated at least 30- [address] scan this am, if MRI of the brain will be done, please disregard CTH without contrast. Status: Acute
--- NOTE | 2018-03-01 10:41 | CP.CCUPN ---
Addendum entered and electronically signed by Dorinda Gonsales DO 03/01/18 13:25: Patient refused NG tube on first attempt. Will reattempt. Addendum entered and electronically signed by Dorinda Gonsales DO 03/01/18 11:41: Patient failed swallow evaluation today. NG tube ordered. Swallow reassessment tomorrow morning. Original Note: <Dorinda Gonsales - Last Filed: 03/01/18 10:38> CCU Subjective - Physician Review Subjective (Free Text): Patient seen and examined at bedside. ROS could not be obtained due to poor speech 2/2 to CVA. CCU Objective - Vital Signs / Intake & Output Vital Signs (Last 4 hours): Vital Signs Temp Pulse Resp BP Pulse Ox 03/01/18 09:04 114 H 29 H 131/82 94 L 03/01/18 08:33 112 H 28 H 125/81 95 03/01/18 08:00 98.9 F 123 H 26 H 118/74 97 03/01/18 07:33 110 H 30 H 118/74 03/01/18 07:00 108 H 28 H 97 03/01/18 06:39 134/84 Intake and Output (Last 8hrs): Intake & Output 02/28/18 03/01/18 03/01/18 22:59 06:59 14:59 Intake Total 935 1715 450 Output Total 1150 1100 Balance -215 615 450 Weight 262 lb Intake: IV 60 440 Intake, IV Amount 875 1275 450 Left Antecubital 800 800 300 Lt AC y-site 75 475 150 Output: Urine 1150 1100 Urethral ([place]) 1150 1100 Other: # Bowel Movements 0 - Physical Exam Head: Positive for: Atraumatic, Other (Right Sided Facial Droop (Improved) ) Pupils: Positive for: Other (Right Pupil Non-Reactive. ) Extroacular Muscles: Positive for: EOMI Conjunctiva: Positive for: Normal Mouth: Positive for: Moist Mucous Membranes Nose (External): Positive for: Atraumatic Respiratory/Chest: Positive for: Clear to Auscultation, Good Air Exchange Cardiovascular: Positive for: Normal S1, S2. Negative for: Murmurs Abdomen: Positive for: Normal Bowel Sounds. Negative for: Tenderness Lower Extremity: Positive for: Normal Inspection. Negative for: Edema Neurological: Positive for: Other (Right Sided Hemiparesis. ). Negative for: CN II-XII Intact, Speech Normal, Normal Sensory Function (No Sensation on Right upper and Lower Ext. ), Normal 2Pt Descrimination Psychiatric: Positive for: Alert, Oriented x 3 - Medications Active Medications: Active Medications Generic Name Dose Route Start Last Admin Trade Name Freq PRN Reason Stop Dose Admin Sodium Chloride 1,000 mls @ 100 mls/hr 02/27/18 16:15 03/01/18 07:52 Sodium Chloride 0.9% IV Not Given .Q10H PANCHO Nicardipine HCl 25 mg/ Sodium 250 mls @ 50 mls/hr 02/28/18 21:15 03/01/18 07: 51 Chloride IV Not Given .Q5H PANCHO Protocol 5 MG/HR Insulin Human Regular 0 unit 02/28/18 00:00 03/01/18 05:28 Novolin R SC Not Given Q6 PANCHO Protocol Pantoprazole Sodium 40 mg 02/28/18 10:00 03/01/18 09:18 Protonix Inj IVP 40 mg DAILY PANCHO Administration - Patient Studies Lab Studies: Microbiology Studies 02/27/18 22:21 Urine Culture - Final Urine,[place] No Growth (<1,000 CFU/ML) Lab Studies 03/01/18 03/01/18 03/01/18 Range/Units 06:04 06:04 06:04 WBC 8.5 (4.8-10.8) K/uL RBC 4.51 (4.40-5.90) Mil/uL Hgb 14.0 (12.0-18.0) g/dL Hct 41.4 (35.0-51.0) % MCV 91.8 (80.0-94.0) fL MCH 31.1 H (27.0-31.0) pg MCHC 33.9 (33.0-37.0) g/dL RDW 13.2 (11.5-14.5) % Plt Count 307 (130-400) K/uL MPV 9.2 (7.2-11.7) fL Neut % (Auto) 72.5 (50.0-75.0) % Lymph % (Auto) 19.0 L (20.0-40.0) % [place] % (Auto) 7.5 (0.0-10.0) % Eos % (Auto) 0.4 (0.0-4.0) % Baso % (Auto) 0.6 (0.0-2.0) % Neut # (Auto) 6.2 (1.8-7.0) K/uL Lymph # (Auto) 1.6 (1.0-4.3) K/uL [place] # (Auto) 0.6 (0.0-0.8) K/uL Eos # (Auto) 0.0 (0.0-0.7) K/uL Baso # (Auto) 0.1 (0.0-0.2) K/uL PT 14.5 H (9.7-12.2) SECONDS INR 1.3 APTT 36 H (21-34) SECONDS Puncture Site pCO2 (35-45) mm/Hg pO2 (80-100) mm/Hg HCO3 (21-28) mmol/L ABG pH (7.35-7.45) ABG Total CO2 (22-28) mmol/L ABG O2 Saturation (95-98) % ABG Base Excess (-2.0-3.0) mmol/L ABG Hemoglobin (11.7-17.4) g/dL ABG Carboxyhemoglobin (0.5-1.5) % POC ABG HHb (Measured) (0.0-5.0) % ABG Methemoglobin (0.0-3.0) % Kel Test A-a O2 Difference mm/Hg Respiratory Index Hgb O2 Saturation (95.0-98.0) % FiO2 % Sodium 141 (132-148) mmol/L Potassium 3.7 (3.6-5.2) mmol/L Chloride 104 (98-107) mmol/L Carbon Dioxide 26 (22-30) mmol/L Anion Gap 15 (10-20) BUN 8 L (9-20) mg/dL Creatinine 0.8 (0.8-1.5) mg/dL Est GFR ( Amer) > 60 Est GFR (Non-Af Amer) > 60 POC Glucose (mg/dL) (65-110) mg/dL Random Glucose 101 (75-110) mg/dL Calcium 9.0 (8.6-10.4) mg/dl Total Bilirubin 1.0 (0.2-1.3) mg/dL AST 34 (17-59) U/L ALT 27 (21-72) U/L Alkaline Phosphatase 92 (38-126) U/L Total Protein 8.0 (6.3-8.3) g/dL Albumin 4.3 (3.5-5.0) g/dL Globulin 3.7 (2.2-3.9) gm/dL Albumin/Globulin Ratio 1.2 (1.0-2.1) 03/01/18 02/28/18 02/28/18 Range/Units 05:19 23:21 20:22 WBC (4.8-10.8) K/uL RBC (4.40-5.90) Mil/uL Hgb (12.0-18.0) g/dL Hct (35.0-51.0) % MCV (80.0-94.0) fL MCH (27.0-31.0) pg MCHC (33.0-37.0) g/dL RDW (11.5-14.5) % Plt Count (130-400) K/uL MPV (7.2-11.7) fL Neut % (Auto) (50.0-75.0) % Lymph % (Auto) (20.0-40.0) % [place] % (Auto) (0.0-10.0) % Eos % (Auto) (0.0-4.0) % Baso % (Auto) (0.0-2.0) % Neut # (Auto) (1.8-7.0) K/uL Lymph # (Auto) (1.0-4.3) K/uL [place] # (Auto) (0.0-0.8) K/uL Eos # (Auto) (0.0-0.7) K/uL Baso # (Auto) (0.0-0.2) K/uL PT (9.7-12.2) SECONDS INR APTT (21-34) SECONDS Puncture Site Rr pCO2 38 (35-45) mm/Hg pO2 70 L (80-100) mm/Hg HCO3 27.9 (21-28) mmol/L ABG pH 7.47 H (7.35-7.45) ABG Total CO2 28.9 H (22-28) mmol/L ABG O2 Saturation 95.6 (95-98) % ABG Base Excess 3.9 H (-2.0-3.0) mmol/L ABG Hemoglobin 13.3 (11.7-17.4) g/dL ABG Carboxyhemoglobin 1.4 (0.5-1.5) % POC ABG HHb (Measured) 4.3 (0.0-5.0) % ABG Methemoglobin 0.5 (0.0-3.0) % Kel Test Unable A-a O2 Difference 32.0 mm/Hg Respiratory Index 0.5 Hgb O2 Saturation 93.8 L (95.0-98.0) % FiO2 21.0 % Sodium (132-148) mmol/L Potassium (3.6-5.2) mmol/L Chloride (98-107) mmol/L Carbon Dioxide (22-30) mmol/L Anion Gap (10-20) BUN (9-20) mg/dL Creatinine (0.8-1.5) mg/dL Est GFR ( Amer) Est GFR (Non-Af Amer) POC Glucose (mg/dL) 117 H 116 H (65-110) mg/dL Random Glucose (75-110) mg/dL Calcium (8.6-10.4) mg/dl Total Bilirubin (0.2-1.3) mg/dL AST (17-59) U/L ALT (21-72) U/L Alkaline Phosphatase (38-126) U/L Total Protein (6.3-8.3) g/dL Albumin (3.5-5.0) g/dL Globulin (2.2-3.9) gm/dL Albumin/Globulin Ratio (1.0-2.1) 02/28/18 02/28/18 Range/Units 17:45 11:39 WBC (4.8-10.8) K/uL RBC (4.40-5.90) Mil/uL Hgb (12.0-18.0) g/dL Hct (35.0-51.0) % MCV (80.0-94.0) fL MCH (27.0-31.0) pg MCHC (33.0-37.0) g/dL RDW (11.5-14.5) % Plt Count (130-400) K/uL MPV (7.2-11.7) fL Neut % (Auto) (50.0-75.0) % Lymph % (Auto) (20.0-40.0) % [place] % (Auto) (0.0-10.0) % Eos % (Auto) (0.0-4.0) % Baso % (Auto) (0.0-2.0) % Neut # (Auto) (1.8-7.0) K/uL Lymph # (Auto) (1.0-4.3) K/uL [place] # (Auto) (0.0-0.8) K/uL Eos # (Auto) (0.0-0.7) K/uL Baso # (Auto) (0.0-0.2) K/uL PT (9.7-12.2) SECONDS INR APTT (21-34) SECONDS Puncture Site pCO2 (35-45) mm/Hg pO2 (80-100) mm/Hg HCO3 (21-28) mmol/L ABG pH (7.35-7.45) ABG Total CO2 (22-28) mmol/L ABG O2 Saturation (95-98) % ABG Base Excess (-2.0-3.0) mmol/L ABG Hemoglobin (11.7-17.4) g/dL ABG Carboxyhemoglobin (0.5-1.5) % POC ABG HHb (Measured) (0.0-5.0) % ABG Methemoglobin (0.0-3.0) % Kel Test A-a O2 Difference mm/Hg Respiratory Index Hgb O2 Saturation (95.0-98.0) % FiO2 % Sodium (132-148) mmol/L Potassium (3.6-5.2) mmol/L Chloride (98-107) mmol/L Carbon Dioxide (22-30) mmol/L Anion Gap (10-20) BUN (9-20) mg/dL Creatinine (0.8-1.5) mg/dL Est GFR ( Amer) Est GFR (Non-Af Amer) POC Glucose (mg/dL) 103 113 H (65-110) mg/dL Random Glucose (75-110) mg/dL Calcium (8.6-10.4) mg/dl Total Bilirubin (0.2-1.3) mg/dL AST (17-59) U/L ALT (21-72) U/L Alkaline Phosphatase (38-126) U/L Total Protein (6.3-8.3) g/dL Albumin (3.5-5.0) g/dL Globulin (2.2-3.9) gm/dL Albumin/Globulin Ratio (1.0-2.1) Laboratory Results - last 24 hr 02/28/18 02/28/18 02/28/18 11:39 17:45 20:22 WBC RBC Hgb Hct MCV MCH MCHC RDW Plt Count MPV Neut % (Auto) Lymph % (Auto) [place] % (Auto) Eos % (Auto) Baso % (Auto) Neut # (Auto) Lymph # (Auto) [place] # (Auto) Eos # (Auto) Baso # (Auto) PT INR APTT Puncture Site Rr pCO2 38 pO2 70 L HCO3 27.9 ABG pH 7.47 H ABG Total CO2 28.9 H ABG O2 Saturation 95.6 ABG Base Excess 3.9 H ABG Hemoglobin 13.3 ABG Carboxyhemoglobin 1.4 POC ABG HHb (Measured) 4.3 ABG Methemoglobin 0.5 Kel Test Unable A-a O2 Difference 32.0 Respiratory Index 0.5 Hgb O2 Saturation 93.8 L FiO2 21.0 Sodium Potassium Chloride Carbon Dioxide Anion Gap BUN Creatinine Est GFR ( Amer) Est GFR (Non-Af Amer) POC Glucose (mg/dL) 113 H 103 Random Glucose Calcium Total Bilirubin AST ALT Alkaline Phosphatase Total Protein Albumin Globulin Albumin/Globulin Ratio 02/28/18 03/01/18 03/01/18 23:21 05:19 06:04 WBC 8.5 RBC 4.51 Hgb 14.0 Hct 41.4 MCV 91.8 MCH 31.1 H MCHC 33.9 RDW 13.2 Plt Count 307 MPV 9.2 Neut % (Auto) 72.5 Lymph % (Auto) 19.0 L [place] % (Auto) 7.5 Eos % (Auto) 0.4 Baso % (Auto) 0.6 Neut # (Auto) 6.2 Lymph # (Auto) 1.6 [place] # (Auto) 0.6 Eos # (Auto) 0.0 Baso # (Auto) 0.1 PT INR APTT Puncture Site pCO2 pO2 HCO3 ABG pH ABG Total CO2 ABG O2 Saturation ABG Base Excess ABG Hemoglobin ABG Carboxyhemoglobin POC ABG HHb (Measured) ABG Methemoglobin Kel Test A-a O2 Difference Respiratory Index Hgb O2 Saturation FiO2 Sodium Potassium Chloride Carbon Dioxide Anion Gap BUN Creatinine Est GFR ( Amer) Est GFR (Non-Af Amer) POC Glucose (mg/dL) 116 H 117 H Random Glucose Calcium Total Bilirubin AST ALT Alkaline Phosphatase Total Protein Albumin Globulin Albumin/Globulin Ratio 03/01/18 03/01/18 06:04 06:04 WBC RBC Hgb Hct MCV MCH MCHC RDW Plt Count MPV Neut % (Auto) Lymph % (Auto) [place] % (Auto) Eos % (Auto) Baso % (Auto) Neut # (Auto) Lymph # (Auto) [place] # (Auto) Eos # (Auto) Baso # (Auto) PT 14.5 H INR 1.3 APTT 36 H Puncture Site pCO2 pO2 HCO3 ABG pH ABG Total CO2 ABG O2 Saturation ABG Base Excess ABG Hemoglobin ABG Carboxyhemoglobin POC ABG HHb (Measured) ABG Methemoglobin Kel Test A-a O2 Difference Respiratory Index Hgb O2 Saturation FiO2 Sodium 141 Potassium 3.7 Chloride 104 Carbon Dioxide 26 Anion Gap 15 BUN 8 L Creatinine 0.8 Est GFR ( Amer) > 60 Est GFR (Non-Af Amer) > 60 POC Glucose (mg/dL) Random Glucose 101 Calcium 9.0 Total Bilirubin 1.0 AST 34 ALT 27 Alkaline Phosphatase 92 Total Protein 8.0 Albumin 4.3 Globulin 3.7 Albumin/Globulin Ratio 1.2 Fingerstick Blood Sugar Results: 117 Review of Systems - Review of Systems Systems not reviewed;Unavailable: Other (Poor Speech due to CVA) Critical Care Progress Note - Nutrition Nutrition: Nutrition Category Date Time Status NPO Diet [DIET] Diets 02/28/18 Breakfast Active Assessment/Plan - Assessment and Plan (Free Text) Assessment: 52 year old male with a history of HLD and HTN presented with slurred speech. Code Stroke Called. Patient found to have large basal ganglia hemorrhage, with minimal midline shift, and mass effect, and the 4th ventricle appearing open. Plan: GCS: 15 Sedation: None A: Hemorrhagic CVA Head CT (Admission): Moderate intraparenchymal hemorrhage is identified at the left basal ganglia exerting local mass effect and causing a limited rightward midline shift of 2 mm. Measurements are as defined above in terms of hemorrhagic collection. Limited local parenchymal edema appreciated. Remainder the examination appears unremarkable. Head CT (02/28/18): The large left basal ganglia and intraparenchymal hemorrhage/ hematoma with surrounding mass effect midline shift are similar in appearance. No progressive bleeding or new areas of bleeding noted. No progressive ventriculomegaly appreciated. No interval low-density areas to suggest interval infarcts. MRI (03/01/18): PENDING READ Neurology Consulted - Recs Appreciated NeuroSurgery Consulted - Per Nurse who talked to Neurosurgeon. No indication or Surgical Intervention at this time. F/U with Report. Speech/Therapy Eval. PT Eval Aspiration Precautions Keep Head of Bead elevated at 45 Degreees NeuroChecks Cardio A: Uncontrolled HTN, HLD, CVA Keep BP under 140. Continue Nicardipine Drip. Labetalol for pressures over paramaters. Pulm A: No Active Issues GI A: No Active Issues Renal A: No Active Issues Proph Protonix IV SCD's <David Barrett S - Last Filed: 03/01/18 16:07> CCU Objective - Vital Signs / Intake & Output Vital Signs (Last 4 hours): Vital Signs Pulse Resp BP Pulse Ox 03/01/18 15:05 111 H 34 H 138/73 96 03/01/18 14:05 107 H 31 H 131/69 03/01/18 13:05 109 H 26 H 142/89 Intake and Output (Last 8hrs): Intake & Output 03/01/18 03/01/18 03/01/18 06:59 14:59 22:59 Intake Total 1715 1360 175 Output Total 1100 Balance 615 1360 175 Weight 262 lb Intake: IV 440 250 Intake, IV Amount 1275 1110 175 Left Antecubital 800 700 100 Lt AC y-site 475 410 75 Output: Urine 1100 Urethral ([place]) 1100 - Medications Active Medications: Active Medications Generic Name Dose Route Start Last Admin Trade Name Freq PRN Reason Stop Dose Admin Sodium Chloride 1,000 mls @ 100 mls/hr 02/27/18 16:15 03/01/18 07:52 Sodium Chloride 0.9% IV Not Given .Q10H PANCHO Nicardipine HCl 25 mg/ Sodium 250 mls @ 50 mls/hr 02/28/18 21:15 03/01/18 13: 07 Chloride IV 7.5 mg/hr .Q5H PANCHO 75 mls/hr Protocol Administration 5 MG/HR Insulin Human Regular 0 unit 02/28/18 00:00 03/01/18 11:57 Novolin R SC Not Given Q6 PANCHO Protocol Pantoprazole Sodium 40 mg 02/28/18 10:00 03/01/18 09:18 Protonix Inj IVP 40 mg DAILY PANCHO Administration - Patient Studies Lab Studies: Microbiology Studies 02/27/18 22:21 Urine Culture - Final Urine,[place] No Growth (<1,000 CFU/ML) Lab Studies 03/01/18 03/01/18 03/01/18 Range/Units 11:40 06:04 06:04 WBC (4.8-10.8) K/uL RBC (4.40-5.90) Mil/uL Hgb (12.0-18.0) g/dL Hct (35.0-51.0) % MCV (80.0-94.0) fL MCH (27.0-31.0) pg MCHC (33.0-37.0) g/dL RDW (11.5-14.5) % Plt Count (130-400) K/uL MPV (7.2-11.7) fL Neut % (Auto) (50.0-75.0) % Lymph % (Auto) (20.0-40.0) % [place] % (Auto) (0.0-10.0) % Eos % (Auto) (0.0-4.0) % Baso % (Auto) (0.0-2.0) % Neut # (Auto) (1.8-7.0) K/uL Lymph # (Auto) (1.0-4.3) K/uL [place] # (Auto) (0.0-0.8) K/uL Eos # (Auto) (0.0-0.7) K/uL Baso # (Auto) (0.0-0.2) K/uL PT 14.5 H (9.7-12.2) SECONDS INR 1.3 APTT 36 H (21-34) SECONDS Puncture Site pCO2 (35-45) mm/Hg pO2 (80-100) mm/Hg HCO3 (21-28) mmol/L ABG pH (7.35-7.45) ABG Total CO2 (22-28) mmol/L ABG O2 Saturation (95-98) % ABG Base Excess (-2.0-3.0) mmol/L ABG Hemoglobin (11.7-17.4) g/dL ABG Carboxyhemoglobin (0.5-1.5) % POC ABG HHb (Measured) (0.0-5.0) % ABG Methemoglobin (0.0-3.0) % Kel Test A-a O2 Difference mm/Hg Respiratory Index Hgb O2 Saturation (95.0-98.0) % FiO2 % Sodium 141 (132-148) mmol/L Potassium 3.7 (3.6-5.2) mmol/L Chloride 104 (98-107) mmol/L Carbon Dioxide 26 (22-30) mmol/L Anion Gap 15 (10-20) BUN 8 L (9-20) mg/dL Creatinine 0.8 (0.8-1.5) mg/dL Est GFR ( Amer) > 60 Est GFR (Non-Af Amer) > 60 POC Glucose (mg/dL) 105 (65-110) mg/dL Random Glucose 101 (75-110) mg/dL Calcium 9.0 (8.6-10.4) mg/dl Total Bilirubin 1.0 (0.2-1.3) mg/dL AST 34 (17-59) U/L ALT 27 (21-72) U/L Alkaline Phosphatase 92 (38-126) U/L Total Protein 8.0 (6.3-8.3) g/dL Albumin 4.3 (3.5-5.0) g/dL Globulin 3.7 (2.2-3.9) gm/dL Albumin/Globulin Ratio 1.2 (1.0-2.1) 03/01/18 03/01/18 02/28/18 Range/Units 06:04 05:19 23:21 WBC 8.5 (4.8-10.8) K/uL RBC 4.51 (4.40-5.90) Mil/uL Hgb 14.0 (12.0-18.0) g/dL Hct 41.4 (35.0-51.0) % MCV 91.8 (80.0-94.0) fL MCH 31.1 H (27.0-31.0) pg MCHC 33.9 (33.0-37.0) g/dL RDW 13.2 (11.5-14.5) % Plt Count 307 (130-400) K/uL MPV 9.2 (7.2-11.7) fL Neut % (Auto) 72.5 (50.0-75.0) % Lymph % (Auto) 19.0 L (20.0-40.0) % [place] % (Auto) 7.5 (0.0-10.0) % Eos % (Auto) 0.4 (0.0-4.0) % Baso % (Auto) 0.6 (0.0-2.0) % Neut # (Auto) 6.2 (1.8-7.0) K/uL Lymph # (Auto) 1.6 (1.0-4.3) K/uL [place] # (Auto) 0.6 (0.0-0.8) K/uL Eos # (Auto) 0.0 (0.0-0.7) K/uL Baso # (Auto) 0.1 (0.0-0.2) K/uL PT (9.7-12.2) SECONDS INR APTT (21-34) SECONDS Puncture Site pCO2 (35-45) mm/Hg pO2 (80-100) mm/Hg HCO3 (21-28) mmol/L ABG pH (7.35-7.45) ABG Total CO2 (22-28) mmol/L ABG O2 Saturation (95-98) % ABG Base Excess (-2.0-3.0) mmol/L ABG Hemoglobin (11.7-17.4) g/dL ABG Carboxyhemoglobin (0.5-1.5) % POC ABG HHb (Measured) (0.0-5.0) % ABG Methemoglobin (0.0-3.0) % Kel Test A-a O2 Difference mm/Hg Respiratory Index Hgb O2 Saturation (95.0-98.0) % FiO2 % Sodium (132-148) mmol/L Potassium (3.6-5.2) mmol/L Chloride (98-107) mmol/L Carbon Dioxide (22-30) mmol/L Anion Gap (10-20) BUN (9-20) mg/dL Creatinine (0.8-1.5) mg/dL Est GFR ( Amer) Est GFR (Non-Af Amer) POC Glucose (mg/dL) 117 H 116 H (65-110) mg/dL Random Glucose (75-110) mg/dL Calcium (8.6-10.4) mg/dl Total Bilirubin (0.2-1.3) mg/dL AST (17-59) U/L ALT (21-72) U/L Alkaline Phosphatase (38-126) U/L Total Protein (6.3-8.3) g/dL Albumin (3.5-5.0) g/dL Globulin (2.2-3.9) gm/dL Albumin/Globulin Ratio (1.0-2.1) 02/28/18 02/28/18 Range/Units 20:22 17:45 WBC (4.8-10.8) K/uL RBC (4.40-5.90) Mil/uL Hgb (12.0-18.0) g/dL Hct (35.0-51.0) % MCV (80.0-94.0) fL MCH (27.0-31.0) pg MCHC (33.0-37.0) g/dL RDW (11.5-14.5) % Plt Count (130-400) K/uL MPV (7.2-11.7) fL Neut % (Auto) (50.0-75.0) % Lymph % (Auto) (20.0-40.0) % [place] % (Auto) (0.0-10.0) % Eos % (Auto) (0.0-4.0) % Baso % (Auto) (0.0-2.0) % Neut # (Auto) (1.8-7.0) K/uL Lymph # (Auto) (1.0-4.3) K/uL [place] # (Auto) (0.0-0.8) K/uL Eos # (Auto) (0.0-0.7) K/uL Baso # (Auto) (0.0-0.2) K/uL PT (9.7-12.2) SECONDS INR APTT (21-34) SECONDS Puncture Site Rr pCO2 38 (35-45) mm/Hg pO2 70 L (80-100) mm/Hg HCO3 27.9 (21-28) mmol/L ABG pH 7.47 H (7.35-7.45) ABG Total CO2 28.9 H (22-28) mmol/L ABG O2 Saturation 95.6 (95-98) % ABG Base Excess 3.9 H (-2.0-3.0) mmol/L ABG Hemoglobin 13.3 (11.7-17.4) g/dL ABG Carboxyhemoglobin 1.4 (0.5-1.5) % POC ABG HHb (Measured) 4.3 (0.0-5.0) % ABG Methemoglobin 0.5 (0.0-3.0) % Kel Test Unable A-a O2 Difference 32.0 mm/Hg Respiratory Index 0.5 Hgb O2 Saturation 93.8 L (95.0-98.0) % FiO2 21.0 % Sodium (132-148) mmol/L Potassium (3.6-5.2) mmol/L Chloride (98-107) mmol/L Carbon Dioxide (22-30) mmol/L Anion Gap (10-20) BUN (9-20) mg/dL Creatinine (0.8-1.5) mg/dL Est GFR ( Amer) Est GFR (Non-Af Amer) POC Glucose (mg/dL) 103 (65-110) mg/dL Random Glucose (75-110) mg/dL Calcium (8.6-10.4) mg/dl Total Bilirubin (0.2-1.3) mg/dL AST (17-59) U/L ALT (21-72) U/L Alkaline Phosphatase (38-126) U/L Total Protein (6.3-8.3) g/dL Albumin (3.5-5.0) g/dL Globulin (2.2-3.9) gm/dL Albumin/Globulin Ratio (1.0-2.1) Laboratory Results - last 24 hr 02/28/18 02/28/18 02/28/18 17:45 20:22 23:21 WBC RBC Hgb Hct MCV MCH MCHC RDW Plt Count MPV Neut % (Auto) Lymph % (Auto) [place] % (Auto) Eos % (Auto) Baso % (Auto) Neut # (Auto) Lymph # (Auto) [place] # (Auto) Eos # (Auto) Baso # (Auto) PT INR APTT Puncture Site Rr pCO2 38 pO2 70 L HCO3 27.9 ABG pH 7.47 H ABG Total CO2 28.9 H ABG O2 Saturation 95.6 ABG Base Excess 3.9 H ABG Hemoglobin 13.3 ABG Carboxyhemoglobin 1.4 POC ABG HHb (Measured) 4.3 ABG Methemoglobin 0.5 Kel Test Unable A-a O2 Difference 32.0 Respiratory Index 0.5 Hgb O2 Saturation 93.8 L FiO2 21.0 Sodium Potassium Chloride Carbon Dioxide Anion Gap BUN Creatinine Est GFR ( Amer) Est GFR (Non-Af Amer) POC Glucose (mg/dL) 103 116 H Random Glucose Calcium Total Bilirubin AST ALT Alkaline Phosphatase Total Protein Albumin Globulin Albumin/Globulin Ratio 03/01/18 03/01/18 03/01/18 05:19 06:04 06:04 WBC 8.5 RBC 4.51 Hgb 14.0 Hct 41.4 MCV 91.8 MCH 31.1 H MCHC 33.9 RDW 13.2 Plt Count 307 MPV 9.2 Neut % (Auto) 72.5 Lymph % (Auto) 19.0 L [place] % (Auto) 7.5 Eos % (Auto) 0.4 Baso % (Auto) 0.6 Neut # (Auto) 6.2 Lymph # (Auto) 1.6 [place] # (Auto) 0.6 Eos # (Auto) 0.0 Baso # (Auto) 0.1 PT 14.5 H INR 1.3 APTT 36 H Puncture Site pCO2 pO2 HCO3 ABG pH ABG Total CO2 ABG O2 Saturation ABG Base Excess ABG Hemoglobin ABG Carboxyhemoglobin POC ABG HHb (Measured) ABG Methemoglobin Kel Test A-a O2 Difference Respiratory Index Hgb O2 Saturation FiO2 Sodium Potassium Chloride Carbon Dioxide Anion Gap BUN Creatinine Est GFR ( Amer) Est GFR (Non-Af Amer) POC Glucose (mg/dL) 117 H Random Glucose Calcium Total Bilirubin AST ALT Alkaline Phosphatase Total Protein Albumin Globulin Albumin/Globulin Ratio 03/01/18 03/01/18 06:04 11:40 WBC RBC Hgb Hct MCV MCH MCHC RDW Plt Count MPV Neut % (Auto) Lymph % (Auto) [place] % (Auto) Eos % (Auto) Baso % (Auto) Neut # (Auto) Lymph # (Auto) [place] # (Auto) Eos # (Auto) Baso # (Auto) PT INR APTT Puncture Site pCO2 pO2 HCO3 ABG pH ABG Total CO2 ABG O2 Saturation ABG Base Excess ABG Hemoglobin ABG Carboxyhemoglobin POC ABG HHb (Measured) ABG Methemoglobin Kel Test A-a O2 Difference Respiratory Index Hgb O2 Saturation FiO2 Sodium 141 Potassium 3.7 Chloride 104 Carbon Dioxide 26 Anion Gap 15 BUN 8 L Creatinine 0.8 Est GFR ( Amer) > 60 Est GFR (Non-Af Amer) > 60 POC Glucose (mg/dL) 105 Random Glucose 101 Calcium 9.0 Total Bilirubin 1.0 AST 34 ALT 27 Alkaline Phosphatase 92 Total Protein 8.0 Albumin 4.3 Globulin 3.7 Albumin/Globulin Ratio 1.2 Critical Care Progress Note - Nutrition Nutrition: Nutrition Category Date Time Status NPO Diet [DIET] Diets 02/28/18 Breakfast Active Attending/Attestation - Attestation I have personally seen and examined this patient.: Yes I have fully participated in the care of the patient.: Yes I have reviewed all pertinent clinical information: Yes Notes (Text): 03/01/18 16:07 patient seen and examined in the intensive care unit. patient remains lethargic and sedated swallowing evaluation Refusing NG tube insertion MRI of the head noted Continue present treatment for now On Cardene drip for hypertension
--- NOTE | 2018-03-01 11:20 | MRI ---
PROCEDURE: MRI BRAIN WITHOUT CONTRAST HISTORY: Hemmorhagic CVA COMPARISON: Comparison made with prior CT scan brain 02/28/2018 TECHNIQUE: Multiplanar, multisequence MR images of the brain were obtained without intravenous contrast enhancement. Note the examination is limited by motion artifact FINDINGS: HEMORRHAGE: Re- demonstrated is a large elliptical shaped hematoma, epicenter of which is located in the left basal ganglia with extension inferiorly into the temporal lobe and superiorly into the superior champion radiata/stress inferior centrum semiovale junction. The hemorrhage exhibits varying stages of degradation with questionable small fluid - fluid level within the dependent portion of the hematoma (see axial FLAIR series 8, image number 11). This finding could be layering packed red cells on in the dependent portion with serum along the nondependent portion. Is this patient currently on anticoagulant therapy or is there history of bleeding diathesis. ? The appearance and location of this hematoma most consistent with a hypertensive origin hemorrhage however clinical correlation recommended. There is a small rim of prolonged T2 signal changes about the hematoma likely representing mild of edema and or necrotic brain tissue. The hemorrhage and thin rim of edema exert considerable surrounding mass effect with compression of the left lateral ventricle with slight shift of the septum pellucidum from left to right estimated nearly 6 mm DWI: There is a very thin rim of restricted diffusion about the hematoma likely representing a interface type artifact. BRAIN PARENCHYMA: There appears to be some very minimal chronic periventricular white matter ischemic changes most conspicuous in the occipital parietal regions bilaterally left greater than right. . Additionally, there also appear to be a few scattered small deep and subcortical white matter lacunar type infarcts. VENTRICLES: As above. No obstructive hydrocephalus CRANIUM: Unremarkable. ORBITS: Orbits and contents unremarkable. PARANASAL SINUSES/MASTOIDS: Clear VASCULAR SYSTEM: . Visualized major vascular flow voids at skull base patent. OTHER FINDINGS: None. IMPRESSION: Limited motion degraded study. Re- demonstrated is a large left basal ganglia hematoma surrounded by a small rim of edema and or necrotic brain tissue. The appearance and location most consistent with hypertensive origin hemorrhage. The questionable small fluid fluid level within the posterior superior dependent portion of the hematoma as above ; Is this patient currently on anticoagulant therapy or is there history of bleeding diathesis. Clinical correlation recommended. There is surrounding mass-effect with compression of the left lateral ventricle and overlying sulcal effacement. Slight shift of the midline from left to right as above Chronic white matter ischemic changes as above.
--- NOTE | 2018-03-01 11:21 | CP.PCM.PN ---
Subjective - Date & Time of Evaluation Date of Evaluation: 03/01/18 Time of Evaluation: 11:25 - Subjective Subjective: Progress note dictated # [id number] Objective - Vital Signs/Intake and Output Vital Signs (last 24 hours): Temp Pulse Resp BP Pulse Ox 98.9 F 97 H 29 H 141/92 H 99 03/01/18 08:00 03/01/18 11:11 03/01/18 11:11 03/01/18 11:11 03/01/18 11:11 Intake and Output: 03/01/18 03/01/18 06:59 18:59 Intake Total 2250 600 Output Total 1750 Balance 500 600 - Medications Medications: Current Medications Sodium Chloride (Sodium Chloride 0.9%) 1,000 mls @ 100 mls/hr IV .Q10H PANCHO Last Admin: 03/01/18 07:52 Dose: Not Given Nicardipine HCl 25 mg/ Sodium (Chloride) 250 mls @ 50 mls/hr IV .Q5H PANCHO; 5 MG/ HR PRN Reason: Protocol Last Admin: 03/01/18 07:51 Dose: Not Given Insulin Human Regular (Novolin R) 0 unit SC Q6 PANCHO PRN Reason: Protocol Last Admin: 03/01/18 05:28 Dose: Not Given Pantoprazole Sodium (Protonix Inj) 40 mg IVP DAILY PANCHO Last Admin: 03/01/18 09:18 Dose: 40 mg - Labs Labs: 03/01/18 06:04 03/01/18 06:04 PT 14.5 SECONDS (9.7-12.2) H 03/01/18 06:04 INR 1.3 03/01/18 06:04 APTT 36 SECONDS (21-34) H 03/01/18 06:04
--- NOTE | 2018-03-01 17:28 | RAD ---
HISTORY: NG tube placement COMPARISON: No prior. FINDINGS: The interval placement NGT, the tip of which appears to lie in the left parasagittal mid abdomen region -well below EG junction LUNGS: Suspect minor bibasilar atelectasis. PLEURA: No significant pleural effusion identified, no pneumothorax apparent. CARDIOVASCULAR: Heart appears enlarged unchanged. OSSEOUS STRUCTURES: No significant abnormalities. VISUALIZED UPPER ABDOMEN: Normal. OTHER FINDINGS: None. IMPRESSION: In situ NGT as described. Cardiomegaly. Mild bibasilar atelectasis.
--- NOTE | 2018-03-02 02:18 | PN ---
DATE: 03/01/2018 SUBJECTIVE: The patient was seen and examined at bedside. The patient's mental status and the neurological status remains the same, remains nonverbal, not able to move the right side of the body, only following simple commands, lethargic, arousable. Events from yesterday noted. REVIEW OF SYSTEMS: Unable to obtain any new review of systems. PHYSICAL EXAMINATION: GENERAL: Middle-aged male, lying bed, in no acute distress. VITAL SIGNS: Blood pressure 128/96, pulse 110, respirations 27, temperature 98.4 degrees Fahrenheit, O2 saturation 96%. HEENT: Pupils are reacting to light and accommodation. No icterus. No pallor. No oral thrush. No oropharyngeal congestion. NECK: Supple. No JVD. LUNGS: Bilateral vesicular breath sounds. No wheezing. No rhonchi. CVS: S1 and S2 present, regular. ABDOMEN: Soft. Nontender. Bowel sounds are present. No guarding. No rigidity. No rebound tenderness noted. LIVESTOCK BREEDER: Lethargic, but arousable. Following simple commands. Moving only left side of the body. Right facial droop and right-sided weakness. EXTREMITIES: No edema. Palpable peripheral pulses. MEDICATIONS: Nicardipine drip 5 mg per hour, Protonix 40 mg IV daily. LABORATORY DATA: Labs from this morning; WBC 8.5, hemoglobin 14, hematocrit 41.4, platelets 307. PT 14.5, INR 1.3, PTT 36. Sodium 141, potassium 3.7, chloride 104, bicarbonate 26, BUN 8, creatinine 0.8, glucose 117, random glucose 101, calcium 9, total bilirubin 1, AST 34, ALT 27, alkaline phosphatase 92, total protein 8, albumin 4.3. Chest x-ray, in situ NG tube, cardiomegaly, mild bibasilar atelectasis. MRI of the brain done this morning redemonstrated is a large left basal ganglia hematoma surrounded by a small rim of edema and/or necrotic brain tissue. The appearance and location most consistent with hypertensive origin hemorrhage, a questionable small fluid level within the posterior superior dependent portion of the hematoma. There is surrounding mass effect with compression of the left lateral ventricle and overlying [place] effacement. Slight shift of the midline from left to the right. 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 MRI possibly consistent with hemorrhagic stroke. Blood pressure , will continue with current medication. We will continue with GI and DVT prophylaxis. Followup with Neurology as per Neurosurgery not a surgical candidate at this time. Overall, the patient's prognosis is guarded. Discussed with ICU attending. We will continue with supportive care. Repeat labs in a.m. Continue with bedside PT and OT and Speech Therapy. Reba Marsh MD
[2018-03-02] MEDS: (Novolin R) Insulin Human Regular 100 units/ml vial SC SCH ×4 (06:00→19:16)
[2018-03-02 06:07] LABS: BASO # 0.1 K/uL (0.0-0.2); BASO % 0.6 % (0.0-2.0); EOS # 0.1 K/uL (0.0-0.7); EOS % 0.9 % (0.0-4.0); HEMOGLOBIN 14.1 g/dL (12.0-18.0); LYMPH # 1.9 K/uL (1.0-4.3); LYMPH % 19.4 % (20.0-40.0); MEAN CELL VOLUME 91.5 fL (80.0-94.0); MEAN CORPUSCULAR HEMOGLOBIN 30.9 pg (27.0-31.0); MEAN CORPUSCULAR HGB CONC 33.8 g/dL (33.0-37.0); MEAN PLATELET VOLUME 8.8 fL (7.2-11.7); MONO # 0.9 K/uL (0.0-0.8); MONO % 9.1 % (0.0-10.0); NEUT # 6.8 K/uL (1.8-7.0); RBC 4.55 Mil/uL (4.40-5.90); RED CELL DISTRIBUTION WIDTH 13.2 % (11.5-14.5); WHITE BLOOD COUNT 9.7 K/uL (4.8-10.8)
[2018-03-02 06:13] LABS: INR 1.3; PROTHROMBIN TIME 14.2 SECONDS (9.7-12.2)
[2018-03-02] MEDS: niCARdipine IV 25 MG in Sodium Chloride 0.9% 240 ML IV SCH ×2 (06:25→08:44)
[2018-03-02 06:32] LABS: ALB/GLOB RATIO 0.9 (1.0-2.1); ALBUMIN 3.6 g/dL (3.5-5.0); ALT/SGPT 21 U/L (21-72); AST/SGOT 20 U/L (17-59); BLOOD UREA NITROGEN 9 mg/dL (9-20); CALCIUM 9.2 mg/dl (8.6-10.4); GFR AFRICAN-AMERICAN > 60; GFR NON-AFRICAN AMERICAN > 60
--- NOTE | 2018-03-02 06:33 | CARD ---
APPROVED REPORT EXAM: Two-dimensional and M-mode echocardiogram with Doppler and color Doppler. Other Information Quality : TDSRhythm : INDICATION CVA/TIA RISK FACTORS Hypertension Hyperlipidemia 2D DIMENSIONS IVSd1.3 (0.7-1.1cm)LVDd3.3 (3.9-5.9cm) PWd1.3 (0.7-1.1cm)LVDs2.1 (2.5-4.0cm) FS (%) 35.5 %LVEF (%)66.2 (>50%) M-Mode DIMENSIONS Left Atrium (MM)3.10 (2.5-4.0cm)Aortic Root3.69 (2.2-3.7cm) Aortic Cusp Exc.2.48 (1.5-2.0cm) Mitral Valve MV E Gioxamth41.9cm/sMV A Ppzfgmqf06.7cm/sE/A ratio0.9 TDI E/Lateral E'0.0E/Medial E'0.0 LEFT VENTRICLE The left ventricle is normal size. There is mild concentric left ventricular hypertrophy. Left ventricle systolic function is normal. The Ejection Fraction is 65-70%. There is normal LV segmental wall motion. Tissue Doppler imaging reveals abnormal left ventricular diastolic dysfunction. RIGHT VENTRICLE The right ventricle is normal size. There is normal right ventricular wall thickness. The right ventricular systolic function is normal. ATRIA The left atrium size is normal. The right atrium size is normal. The interatrial septum is intact with no evidence for an atrial septal defect. AORTIC VALVE The aortic valve is normal in structure. No aortic regurgitation is present. There is no aortic valvular stenosis. There is no aortic valvular vegetation. MITRAL VALVE The mitral valve is normal in structure. There is no evidence of mitral valve prolapse. There is no mitral valve stenosis. There is no mitral valve regurgitation noted. TRICUSPID VALVE The tricuspid valve is normal in structure. There is no tricuspid valve regurgitation noted. There is no tricuspid valve prolapse or vegetation. There is no tricuspid valve stenosis. PULMONIC VALVE The pulmonic valve is not well visualized. There is no pulmonic valvular regurgitation. GREAT VESSELS The aortic root is normal in size. PERICARDIAL EFFUSION There is no significant pericardial effusion. <Conclusion> Left ventricle systolic function is normal. The Ejection Fraction is 65-70%. Hypertensive heart disease. Diastolic dysfunction. No aortic regurgitation is present. There is no mitral valve regurgitation noted. There is no tricuspid valve regurgitation noted. There is no pulmonic valvular regurgitation.
--- NOTE | 2018-03-02 06:43 | CP.PCM.PN ---
Subjective - Date & Time of Evaluation Date of Evaluation: 03/02/18 Time of Evaluation: 06:42 - Subjective Subjective: Mr. Rodriguez was seen and examined at the bedside in ICU. He is more awake, non- verbal, communicates utilizing with non-verbal cues such as nodding and shaking his head. He is able to follow simple commands such as opening his eyes with tongue deviation to the right noted, moves his left side with paraplegia noted in his right side. He is carlyle to point and turn his head to the origin of noise.He is currently on Cardene drip with BP ranges from 13o's systolic. Tolerating NGT feeding. MRI of the brain done showed re-demonstration of a large left basal ganglia hematoma surrounded by a small rim of edema or necrotic brain tissue. The appearance and location most consistent with hypertensive origin hemorrhage. The questionable small fluid level within the posterior superior dependent portion of the hematoma. slight shift of the midline from left to right.There was no untoward events overnight. Objective - Vital Signs/Intake and Output Vital Signs (last 24 hours): Temp Pulse Resp BP Pulse Ox 99.1 F 98 H 26 H 137/82 98 03/02/18 04:00 03/02/18 04:00 03/02/18 04:00 03/02/18 04:03 03/02/18 04:00 Intake and Output: 03/01/18 03/02/18 18:59 06:59 Intake Total 2365 1110 Output Total 1020 Balance 2365 90 - Medications Medications: Current Medications Nicardipine HCl 25 mg/ Sodium (Chloride) 250 mls @ 50 mls/hr IV .Q5H PANCHO; 5 MG/ HR PRN Reason: Protocol Last Admin: 03/02/18 06:25 Dose: 2.5 mg/hr, 25 mls/hr Insulin Human Regular (Novolin R) 0 unit SC Q6 PANCHO PRN Reason: Protocol Last Admin: 03/02/18 06:00 Dose: Not Given Pantoprazole Sodium (Protonix Inj) 40 mg IVP DAILY PANCHO Last Admin: 03/01/18 09:18 Dose: 40 mg - Labs Labs: 03/02/18 06:00 03/02/18 06:00 PT 14.2 SECONDS (9.7-12.2) H 03/02/18 06:00 INR 1.3 03/02/18 06:00 APTT 34 SECONDS (21-34) 03/02/18 06:00 - Constitutional Appears: No Acute Distress - Head Exam Head Exam: NORMAL INSPECTION - Eye Exam Pupil Exam: PERRL - Neurological Exam Neurological Exam: Awake Neuro motor strength exam: Left Upper Extremity: 4, Right Upper Extremity: 0, Left Lower Extremity: 3, Right Lower Extremity: 0 Additional comments: Neurological improving, he is more awake, active, follows simple commands. Assessment and Plan (1) Hemorrhagic stroke Assessment & Plan: Case discussed with Dr. Lopez, continue all current medical, physical, occupational, and speech therapies. Recommend avoiding hyponatremia ( daily BMP ), fever, or flat head position. Maintain head of bed elevated at least 30- [address] scan kofi am. Recommend acute rehab for discharge planning. Status: Acute
--- NOTE | 2018-03-02 10:36 | CP.PCM.PN ---
Subjective - Date & Time of Evaluation Date of Evaluation: 03/02/18 Time of Evaluation: 10:40 - Subjective Subjective: Progress note dictated #[id number] Objective - Vital Signs/Intake and Output Vital Signs (last 24 hours): Temp Pulse Resp BP Pulse Ox 98.6 F 102 H 25 H 146/93 H 95 03/02/18 08:00 03/02/18 10:08 03/02/18 10:08 03/02/18 10:08 03/02/18 10:08 Intake and Output: 03/02/18 03/02/18 06:59 18:59 Intake Total 1255 195 Output Total 1300 310 Balance -45 -115 - Medications Medications: Current Medications Nicardipine HCl 25 mg/ Sodium (Chloride) 250 mls @ 50 mls/hr IV .Q5H PANCHO; 5 MG/ HR PRN Reason: Protocol Last Admin: 03/02/18 08:44 Dose: Not Given Insulin Human Regular (Novolin R) 0 unit SC Q6 PANCHO PRN Reason: Protocol Last Admin: 03/02/18 06:00 Dose: Not Given Labetalol HCl (Trandate) 200 mg PO Q8H PANCHO Last Admin: 03/02/18 10:23 Dose: 200 mg Lisinopril (Zestril) 5 mg PO DAILY PANCHO Last Admin: 03/02/18 10:23 Dose: 5 mg Pantoprazole Sodium (Protonix Inj) 40 mg IVP DAILY [facility] Last Admin: 03/02/18 09:10 Dose: 40 mg Rosuvastatin Calcium (Crestor) 5 mg PO HS PANCHO - Labs Labs: 03/02/18 06:00 03/02/18 06:00 PT 14.2 SECONDS (9.7-12.2) H 03/02/18 06:00 INR 1.3 03/02/18 06:00 APTT 34 SECONDS (21-34) 03/02/18 06:00
--- NOTE | 2018-03-02 10:37 | CP.CCUPN ---
<Dorinda Gonsales - Last Filed: 03/02/18 10:27> CCU Subjective - Physician Review Subjective (Free Text): Patient seen and examined at bedside. ROS could not be obtained due to poor speech 2/2 to CVA. CCU Objective - Vital Signs / Intake & Output Vital Signs (Last 4 hours): Vital Signs Temp Pulse Resp BP Pulse Ox 03/02/18 10:08 102 H 25 H 146/93 H 95 03/02/18 09:03 104 H 23 137/83 99 03/02/18 08:03 103 H 28 H 129/87 93 L 03/02/18 08:00 98.6 F 03/02/18 07:03 98 H 26 H 136/82 Intake and Output (Last 8hrs): Intake & Output 03/01/18 03/02/18 03/02/18 22:59 06:59 14:59 Intake Total 1505 755 195 Output Total 450 850 310 Balance 1055 -95 -115 Weight 265 lb Intake: IV 500 250 Intake, IV Amount 875 245 75 Left Antecubital 530 245 75 Lt AC y-site 345 Oral 30 30 Tube Feeding 100 230 90 Other 30 Output: Urine 450 850 310 Urethral ([place]) 450 850 310 Other: # Voids Urethral ([place]) 200 # Bowel Movements 0 - Physical Exam Head: Positive for: Atraumatic, Other (Right Sided Facial Droop (Improved) ) Pupils: Positive for: Other (Right Pupil Non-Reactive. ) Extroacular Muscles: Positive for: EOMI Conjunctiva: Positive for: Normal Mouth: Positive for: Moist Mucous Membranes Nose (External): Positive for: Atraumatic Respiratory/Chest: Positive for: Clear to Auscultation, Good Air Exchange Cardiovascular: Positive for: Normal S1, S2. Negative for: Murmurs Abdomen: Positive for: Normal Bowel Sounds. Negative for: Tenderness Lower Extremity: Positive for: Normal Inspection. Negative for: Edema Neurological: Positive for: Other (Right Sided Hemiparesis. ). Negative for: CN II-XII Intact, Speech Normal, Normal Sensory Function (No Sensation on Right upper and Lower Ext. ), Normal 2Pt Descrimination Psychiatric: Positive for: Alert, Oriented x 3 - Medications Active Medications: Active Medications Generic Name Dose Route Start Last Admin Trade Name Freq PRN Reason Stop Dose Admin Nicardipine HCl 25 mg/ Sodium 250 mls @ 50 mls/hr 02/28/18 21:15 03/02/18 08: 44 Chloride IV Not Given .Q5H [facility] Protocol 5 MG/HR Insulin Human Regular 0 unit 02/28/18 00:00 03/02/18 06:00 Novolin R SC Not Given Q6 [facility] Protocol Labetalol HCl 200 mg 03/02/18 10:15 03/02/18 10:23 Trandate PO 200 mg Q8H [facility] Administration Lisinopril 5 mg 03/02/18 10:00 03/02/18 10:23 Zestril PO 5 mg DAILY [facility] Administration Pantoprazole Sodium 40 mg 02/28/18 10:00 03/02/18 09:10 Protonix Inj IVP 40 mg DAILY [facility] Administration Rosuvastatin Calcium 5 mg 03/02/18 22:00 Crestor PO HS [facility] - Patient Studies Lab Studies: Microbiology Studies 02/27/18 22:21 MRSA Culture (Admit) - Final Naris MRSA NOT DETECTED 02/27/18 22:21 Urine Culture - Final Urine,Longoria No Growth (<1,000 CFU/ML) Lab Studies 03/02/18 03/02/18 03/02/18 Range/Units 06:00 06:00 06:00 WBC 9.7 (4.8-10.8) K/uL RBC 4.55 (4.40-5.90) Mil/uL Hgb 14.1 (12.0-18.0) g/dL Hct 41.6 (35.0-51.0) % MCV 91.5 (80.0-94.0) fL MCH 30.9 (27.0-31.0) pg MCHC 33.8 (33.0-37.0) g/dL RDW 13.2 (11.5-14.5) % Plt Count 301 (130-400) K/uL MPV 8.8 (7.2-11.7) fL Neut % (Auto) 70.0 (50.0-75.0) % Lymph % (Auto) 19.4 L (20.0-40.0) % [place] % (Auto) 9.1 (0.0-10.0) % Eos % (Auto) 0.9 (0.0-4.0) % Baso % (Auto) 0.6 (0.0-2.0) % Neut # (Auto) 6.8 (1.8-7.0) K/uL Lymph # (Auto) 1.9 (1.0-4.3) K/uL [place] # (Auto) 0.9 H (0.0-0.8) K/uL Eos # (Auto) 0.1 (0.0-0.7) K/uL Baso # (Auto) 0.1 (0.0-0.2) K/uL PT 14.2 H (9.7-12.2) SECONDS INR 1.3 APTT 34 (21-34) SECONDS Sodium 140 (132-148) mmol/L Potassium 3.4 L (3.6-5.2) mmol/L Chloride 104 (98-107) mmol/L Carbon Dioxide 25 (22-30) mmol/L Anion Gap 14 (10-20) BUN 9 (9-20) mg/dL Creatinine 0.8 (0.8-1.5) mg/dL Est GFR ( Amer) > 60 Est GFR (Non-Af Amer) > 60 POC Glucose (mg/dL) (65-110) mg/dL Random Glucose 110 (75-110) mg/dL Calcium 9.2 (8.6-10.4) mg/dl Phosphorus 3.9 (2.5-4.5) mg/dL Magnesium 2.0 (1.6-2.3) mg/dL Total Bilirubin 0.9 (0.2-1.3) mg/dL AST 20 (17-59) U/L ALT 21 D (21-72) U/L Alkaline Phosphatase 87 (38-126) U/L Total Protein 7.4 (6.3-8.3) g/dL Albumin 3.6 (3.5-5.0) g/dL Globulin 3.8 (2.2-3.9) gm/dL Albumin/Globulin Ratio 0.9 L (1.0-2.1) 03/02/18 03/01/18 03/01/18 Range/Units 05:57 23:39 17:46 WBC (4.8-10.8) K/uL RBC (4.40-5.90) Mil/uL Hgb (12.0-18.0) g/dL Hct (35.0-51.0) % MCV (80.0-94.0) fL MCH (27.0-31.0) pg MCHC (33.0-37.0) g/dL RDW (11.5-14.5) % Plt Count (130-400) K/uL MPV (7.2-11.7) fL Neut % (Auto) (50.0-75.0) % Lymph % (Auto) (20.0-40.0) % [place] % (Auto) (0.0-10.0) % Eos % (Auto) (0.0-4.0) % Baso % (Auto) (0.0-2.0) % Neut # (Auto) (1.8-7.0) K/uL Lymph # (Auto) (1.0-4.3) K/uL [place] # (Auto) (0.0-0.8) K/uL Eos # (Auto) (0.0-0.7) K/uL Baso # (Auto) (0.0-0.2) K/uL PT (9.7-12.2) SECONDS INR APTT (21-34) SECONDS Sodium (132-148) mmol/L Potassium (3.6-5.2) mmol/L Chloride (98-107) mmol/L Carbon Dioxide (22-30) mmol/L Anion Gap (10-20) BUN (9-20) mg/dL Creatinine (0.8-1.5) mg/dL Est GFR ( Amer) Est GFR (Non-Af Amer) POC Glucose (mg/dL) 122 H 89 100 (65-110) mg/dL Random Glucose (75-110) mg/dL Calcium (8.6-10.4) mg/dl Phosphorus (2.5-4.5) mg/dL Magnesium (1.6-2.3) mg/dL Total Bilirubin (0.2-1.3) mg/dL AST (17-59) U/L ALT (21-72) U/L Alkaline Phosphatase (38-126) U/L Total Protein (6.3-8.3) g/dL Albumin (3.5-5.0) g/dL Globulin (2.2-3.9) gm/dL Albumin/Globulin Ratio (1.0-2.1) 05/30/18 Range/Units 11:40 WBC (4.8-10.8) K/uL RBC (4.40-5.90) Mil/uL Hgb (12.0-18.0) g/dL Hct (35.0-51.0) % MCV (80.0-94.0) fL MCH (27.0-31.0) pg MCHC (33.0-37.0) g/dL RDW (11.5-14.5) % Plt Count (130-400) K/uL MPV (7.2-11.7) fL Neut % (Auto) (50.0-75.0) % Lymph % (Auto) (20.0-40.0) % [place] % (Auto) (0.0-10.0) % Eos % (Auto) (0.0-4.0) % Baso % (Auto) (0.0-2.0) % Neut # (Auto) (1.8-7.0) K/uL Lymph # (Auto) (1.0-4.3) K/uL [place] # (Auto) (0.0-0.8) K/uL Eos # (Auto) (0.0-0.7) K/uL Baso # (Auto) (0.0-0.2) K/uL PT (9.7-12.2) SECONDS INR APTT (21-34) SECONDS Sodium (132-148) mmol/L Potassium (3.6-5.2) mmol/L Chloride (98-107) mmol/L Carbon Dioxide (22-30) mmol/L Anion Gap (10-20) BUN (9-20) mg/dL Creatinine (0.8-1.5) mg/dL Est GFR ( Amer) Est GFR (Non-Af Amer) POC Glucose (mg/dL) 105 (65-110) mg/dL Random Glucose (75-110) mg/dL Calcium (8.6-10.4) mg/dl Phosphorus (2.5-4.5) mg/dL Magnesium (1.6-2.3) mg/dL Total Bilirubin (0.2-1.3) mg/dL AST (17-59) U/L ALT (21-72) U/L Alkaline Phosphatase (38-126) U/L Total Protein (6.3-8.3) g/dL Albumin (3.5-5.0) g/dL Globulin (2.2-3.9) gm/dL Albumin/Globulin Ratio (1.0-2.1) Laboratory Results - last 24 hr 03/01/18 03/01/18 03/01/18 11:40 17:46 23:39 WBC RBC Hgb Hct MCV MCH MCHC RDW Plt Count MPV Neut % (Auto) Lymph % (Auto) [place] % (Auto) Eos % (Auto) Baso % (Auto) Neut # (Auto) Lymph # (Auto) [place] # (Auto) Eos # (Auto) Baso # (Auto) PT INR APTT Sodium Potassium Chloride Carbon Dioxide Anion Gap BUN Creatinine Est GFR ( Amer) Est GFR (Non-Af Amer) POC Glucose (mg/dL) 105 100 89 Random Glucose Calcium Phosphorus Magnesium Total Bilirubin AST ALT Alkaline Phosphatase Total Protein Albumin Globulin Albumin/Globulin Ratio 03/02/18 03/02/18 03/02/18 05:57 06:00 06:00 WBC 9.7 RBC 4.55 Hgb 14.1 Hct 41.6 MCV 91.5 MCH 30.9 MCHC 33.8 RDW 13.2 Plt Count 301 MPV 8.8 Neut % (Auto) 70.0 Lymph % (Auto) 19.4 L [place] % (Auto) 9.1 Eos % (Auto) 0.9 Baso % (Auto) 0.6 Neut # (Auto) 6.8 Lymph # (Auto) 1.9 [place] # (Auto) 0.9 H Eos # (Auto) 0.1 Baso # (Auto) 0.1 PT 14.2 H INR 1.3 APTT 34 Sodium Potassium Chloride Carbon Dioxide Anion Gap BUN Creatinine Est GFR ( Amer) Est GFR (Non-Af Amer) POC Glucose (mg/dL) 122 H Random Glucose Calcium Phosphorus Magnesium Total Bilirubin AST ALT Alkaline Phosphatase Total Protein Albumin Globulin Albumin/Globulin Ratio 03/02/18 06:00 WBC RBC Hgb Hct MCV MCH MCHC RDW Plt Count MPV Neut % (Auto) Lymph % (Auto) [place] % (Auto) Eos % (Auto) Baso % (Auto) Neut # (Auto) Lymph # (Auto) [place] # (Auto) Eos # (Auto) Baso # (Auto) PT INR APTT Sodium 140 Potassium 3.4 L Chloride 104 Carbon Dioxide 25 Anion Gap 14 BUN 9 Creatinine 0.8 Est GFR ( Amer) > 60 Est GFR (Non-Af Amer) > 60 POC Glucose (mg/dL) Random Glucose 110 Calcium 9.2 Phosphorus 3.9 Magnesium 2.0 Total Bilirubin 0.9 AST 20 ALT 21 D Alkaline Phosphatase 87 Total Protein 7.4 Albumin 3.6 Globulin 3.8 Albumin/Globulin Ratio 0.9 L Fingerstick Blood Sugar Results: 122 Review of Systems - Review of Systems Systems not reviewed;Unavailable: Acuity of Condition (CVA) Critical Care Progress Note - Nutrition Nutrition: Nutrition Category Date Time Status NPO Diet [DIET] Diets 02/28/18 Breakfast Active Assessment/Plan - Assessment and Plan (Free Text) Assessment: 52 year old male with a history of HLD and HTN presented with slurred speech. Code Stroke Called. Patient found to have large basal ganglia hemorrhage, with minimal midline shift, and mass effect, and the 4th ventricle appearing open. Plan: Neuro: GCS: 15 Sedation: None A: Hemorrhagic CVA Head CT (Admission): Moderate intraparenchymal hemorrhage is identified at the left basal ganglia exerting local mass effect and causing a limited rightward midline shift of 2 mm. Measurements are as defined above in terms of hemorrhagic collection. Limited local parenchymal edema appreciated. Remainder the examination appears unremarkable. Head CT (02/28/18): The large left basal ganglia and intraparenchymal hemorrhage/ hematoma with surrounding mass effect midline shift are similar in appearance. No progressive bleeding or new areas of bleeding noted. No progressive ventriculomegaly appreciated. No interval low-density areas to suggest interval infarcts. MRI (03/01/18): Re- demonstrated is a large left basal ganglia hematoma surrounded by a small rim of edema and or necrotic brain tissue. The appearance and location most consistent with hypertensive origin hemorrhage. The questionable small fluid fluid level within the posterior superior dependent portion of the hematoma as above ; Is this patient currently on anticoagulant therapy or is there history of bleeding diathesis. Clinical correlation recommended. There is surrounding mass-effect with compression of the left lateral ventricle and overlying sulcal effacement. Slight shift of the midline from left to right as above .Chronic white matter ischemic changes as above Neurology Consulted - Recs Appreciated NeuroSurgery Consulted - Per Nurse who talked to Neurosurgeon. No indication or Surgical Intervention at this time. F/U with Report. Speech/Therapy Eval. PT Eval Aspiration Precautions Keep Head of Bead elevated at 45 Degreees NeuroChecks Cardio A: Uncontrolled HTN, HLD, CVA Keep BP under 140. Started Lisinopril 5 PO Daily, Labetalol 200mg PO Q8H, Hydralazine Q6H 10 IV pRN Continue Nicardipine Drip and Wean Pulm A: No Active Issues GI Jevity per NG Tube GI Consulted for PEG tube placement. Renal A: Hypokalemia Potassium replenished PRN . Proph Protonix IV SCD's Patient seen and discussed with ICU Attending Dorinda Gonsales, PGY-1 <Deanne Thapa M - Last Filed: 03/02/18 13:54> CCU Objective - Vital Signs / Intake & Output Vital Signs (Last 4 hours): Vital Signs Pulse Resp BP Pulse Ox 03/02/18 10:08 102 H 25 H 146/93 H 95 Intake and Output (Last 8hrs): Intake & Output 03/01/18 03/02/18 03/02/18 22:59 06:59 14:59 Intake Total 1505 755 195 Output Total 450 850 310 Balance 1055 -95 -115 Weight 265 lb 265 lb Intake: IV 500 250 Intake, IV Amount 875 245 75 Left Antecubital 530 245 75 Lt AC y-site 345 Oral 30 30 Tube Feeding 100 230 90 Other 30 Output: Urine 450 850 310 Urethral ([place]) 450 850 310 Other: # Voids Urethral ([place]) 200 # Bowel Movements 0 - Medications Active Medications: Active Medications Generic Name Dose Route Start Last Admin Trade Name Freq PRN Reason Stop Dose Admin Hydralazine HCl 10 mg 03/02/18 10:35 Apresoline IVP Q6H PRN Systolic BP > 140 Insulin Human Regular 0 unit 02/28/18 00:00 03/02/18 11:49 Novolin R SC Not Given Q6 [facility] Protocol Labetalol HCl 200 mg 03/02/18 10:15 03/02/18 10:23 Trandate PO 200 mg Q8H [facility] Administration Lisinopril 5 mg 03/02/18 10:00 03/02/18 10:23 Zestril PO 5 mg DAILY [facility] Administration Pantoprazole Sodium 40 mg 02/28/18 10:00 03/02/18 09:10 Protonix Inj IVP 40 mg DAILY [facility] Administration Rosuvastatin Calcium 5 mg 03/02/18 22:00 Crestor PO HS [facility] - Patient Studies Lab Studies: Microbiology Studies 02/27/18 22:21 MRSA Culture (Admit) - Final Naris MRSA NOT DETECTED Lab Studies 03/02/18 03/02/18 03/02/18 Range/Units 11:40 06:00 06:00 WBC (4.8-10.8) K/uL RBC (4.40-5.90) Mil/uL Hgb (12.0-18.0) g/dL Hct (35.0-51.0) % MCV (80.0-94.0) fL MCH (27.0-31.0) pg MCHC (33.0-37.0) g/dL RDW (11.5-14.5) % Plt Count (130-400) K/uL MPV (7.2-11.7) fL Neut % (Auto) (50.0-75.0) % Lymph % (Auto) (20.0-40.0) % [place] % (Auto) (0.0-10.0) % Eos % (Auto) (0.0-4.0) % Baso % (Auto) (0.0-2.0) % Neut # (Auto) (1.8-7.0) K/uL Lymph # (Auto) (1.0-4.3) K/uL [place] # (Auto) (0.0-0.8) K/uL Eos # (Auto) (0.0-0.7) K/uL Baso # (Auto) (0.0-0.2) K/uL PT 14.2 H (9.7-12.2) SECONDS INR 1.3 APTT 34 (21-34) SECONDS Sodium 140 (132-148) mmol/L Potassium 3.4 L (3.6-5.2) mmol/L Chloride 104 (98-107) mmol/L Carbon Dioxide 25 (22-30) mmol/L Anion Gap 14 (10-20) BUN 9 (9-20) mg/dL Creatinine 0.8 (0.8-1.5) mg/dL Est GFR ( Amer) > 60 Est GFR (Non-Af Amer) > 60 POC Glucose (mg/dL) 122 H (65-110) mg/dL Random Glucose 110 (75-110) mg/dL Calcium 9.2 (8.6-10.4) mg/dl Phosphorus 3.9 (2.5-4.5) mg/dL Magnesium 2.0 (1.6-2.3) mg/dL Total Bilirubin 0.9 (0.2-1.3) mg/dL AST 20 (17-59) U/L ALT 21 D (21-72) U/L Alkaline Phosphatase 87 (38-126) U/L Total Protein 7.4 (6.3-8.3) g/dL Albumin 3.6 (3.5-5.0) g/dL Globulin 3.8 (2.2-3.9) gm/dL Albumin/Globulin Ratio 0.9 L (1.0-2.1) 03/02/18 03/02/18 03/01/18 Range/Units 06:00 05:57 23:39 WBC 9.7 (4.8-10.8) K/uL RBC 4.55 (4.40-5.90) Mil/uL Hgb 14.1 (12.0-18.0) g/dL Hct 41.6 (35.0-51.0) % MCV 91.5 (80.0-94.0) fL MCH 30.9 (27.0-31.0) pg MCHC 33.8 (33.0-37.0) g/dL RDW 13.2 (11.5-14.5) % Plt Count 301 (130-400) K/uL MPV 8.8 (7.2-11.7) fL Neut % (Auto) 70.0 (50.0-75.0) % Lymph % (Auto) 19.4 L (20.0-40.0) % [place] % (Auto) 9.1 (0.0-10.0) % Eos % (Auto) 0.9 (0.0-4.0) % Baso % (Auto) 0.6 (0.0-2.0) % Neut # (Auto) 6.8 (1.8-7.0) K/uL Lymph # (Auto) 1.9 (1.0-4.3) K/uL [place] # (Auto) 0.9 H (0.0-0.8) K/uL Eos # (Auto) 0.1 (0.0-0.7) K/uL Baso # (Auto) 0.1 (0.0-0.2) K/uL PT (9.7-12.2) SECONDS INR APTT (21-34) SECONDS Sodium (132-148) mmol/L Potassium (3.6-5.2) mmol/L Chloride (98-107) mmol/L Carbon Dioxide (22-30) mmol/L Anion Gap (10-20) BUN (9-20) mg/dL Creatinine (0.8-1.5) mg/dL Est GFR ( Amer) Est GFR (Non-Af Amer) POC Glucose (mg/dL) 122 H 89 (65-110) mg/dL Random Glucose (75-110) mg/dL Calcium (8.6-10.4) mg/dl Phosphorus (2.5-4.5) mg/dL Magnesium (1.6-2.3) mg/dL Total Bilirubin (0.2-1.3) mg/dL AST (17-59) U/L ALT (21-72) U/L Alkaline Phosphatase (38-126) U/L Total Protein (6.3-8.3) g/dL Albumin (3.5-5.0) g/dL Globulin (2.2-3.9) gm/dL Albumin/Globulin Ratio (1.0-2.1) 18 Range/Units 17:46 WBC (4.8-10.8) K/uL RBC (4.40-5.90) Mil/uL Hgb (12.0-18.0) g/dL Hct (35.0-51.0) % MCV (80.0-94.0) fL MCH (27.0-31.0) pg MCHC (33.0-37.0) g/dL RDW (11.5-14.5) % Plt Count (130-400) K/uL MPV (7.2-11.7) fL Neut % (Auto) (50.0-75.0) % Lymph % (Auto) (20.0-40.0) % [place] % (Auto) (0.0-10.0) % Eos % (Auto) (0.0-4.0) % Baso % (Auto) (0.0-2.0) % Neut # (Auto) (1.8-7.0) K/uL Lymph # (Auto) (1.0-4.3) K/uL [place] # (Auto) (0.0-0.8) K/uL Eos # (Auto) (0.0-0.7) K/uL Baso # (Auto) (0.0-0.2) K/uL PT (9.7-12.2) SECONDS INR APTT (21-34) SECONDS Sodium (132-148) mmol/L Potassium (3.6-5.2) mmol/L Chloride (98-107) mmol/L Carbon Dioxide (22-30) mmol/L Anion Gap (10-20) BUN (9-20) mg/dL Creatinine (0.8-1.5) mg/dL Est GFR ( Amer) Est GFR (Non-Af Amer) POC Glucose (mg/dL) 100 (65-110) mg/dL Random Glucose (75-110) mg/dL Calcium (8.6-10.4) mg/dl Phosphorus (2.5-4.5) mg/dL Magnesium (1.6-2.3) mg/dL Total Bilirubin (0.2-1.3) mg/dL AST (17-59) U/L ALT (21-72) U/L Alkaline Phosphatase (38-126) U/L Total Protein (6.3-8.3) g/dL Albumin (3.5-5.0) g/dL Globulin (2.2-3.9) gm/dL Albumin/Globulin Ratio (1.0-2.1) Laboratory Results - last 24 hr 03/01/18 03/01/18 03/02/18 17:46 23:39 05:57 WBC RBC Hgb Hct MCV MCH MCHC RDW Plt Count MPV Neut % (Auto) Lymph % (Auto) [place] % (Auto) Eos % (Auto) Baso % (Auto) Neut # (Auto) Lymph # (Auto) [place] # (Auto) Eos # (Auto) Baso # (Auto) PT INR APTT Sodium Potassium Chloride Carbon Dioxide Anion Gap BUN Creatinine Est GFR ( Amer) Est GFR (Non-Af Amer) POC Glucose (mg/dL) 100 89 122 H Random Glucose Calcium Phosphorus Magnesium Total Bilirubin AST ALT Alkaline Phosphatase Total Protein Albumin Globulin Albumin/Globulin Ratio 03/02/18 03/02/18 03/02/18 06:00 06:00 06:00 WBC 9.7 RBC 4.55 Hgb 14.1 Hct 41.6 MCV 91.5 MCH 30.9 MCHC 33.8 RDW 13.2 Plt Count 301 MPV 8.8 Neut % (Auto) 70.0 Lymph % (Auto) 19.4 L [place] % (Auto) 9.1 Eos % (Auto) 0.9 Baso % (Auto) 0.6 Neut # (Auto) 6.8 Lymph # (Auto) 1.9 [place] # (Auto) 0.9 H Eos # (Auto) 0.1 Baso # (Auto) 0.1 PT 14.2 H INR 1.3 APTT 34 Sodium 140 Potassium 3.4 L Chloride 104 Carbon Dioxide 25 Anion Gap 14 BUN 9 Creatinine 0.8 Est GFR ( Amer) > 60 Est GFR (Non-Af Amer) > 60 POC Glucose (mg/dL) Random Glucose 110 Calcium 9.2 Phosphorus 3.9 Magnesium 2.0 Total Bilirubin 0.9 AST 20 ALT 21 D Alkaline Phosphatase 87 Total Protein 7.4 Albumin 3.6 Globulin 3.8 Albumin/Globulin Ratio 0.9 L 03/02/18 11:40 WBC RBC Hgb Hct MCV MCH MCHC RDW Plt Count MPV Neut % (Auto) Lymph % (Auto) [place] % (Auto) Eos % (Auto) Baso % (Auto) Neut # (Auto) Lymph # (Auto) [place] # (Auto) Eos # (Auto) Baso # (Auto) PT INR APTT Sodium Potassium Chloride Carbon Dioxide Anion Gap BUN Creatinine Est GFR ( Amer) Est GFR (Non-Af Amer) POC Glucose (mg/dL) 122 H Random Glucose Calcium Phosphorus Magnesium Total Bilirubin AST ALT Alkaline Phosphatase Total Protein Albumin Globulin Albumin/Globulin Ratio Critical Care Progress Note - Nutrition Nutrition: Nutrition Category Date Time Status NPO Diet [DIET] Diets 02/28/18 Breakfast Active Assessment/Plan - Assessment and Plan (Free Text) Plan: Above patient seen and examined at bedside. Patient with h/o HTN presents to [facility] with left sided weakness. Patient will benefit from Bp control - HTN-start oral meds and titrate off nicardipiine, keep SBP < 140 -Hemorrhagic CVA: NO ASA or anticoagulation, continue statin -NG tube feeds -speach and swallow eval -pud ppx pepcid -dvt ppx scds (no heparin 2nd ICH for firt 48 hours) Patient remains hemodynamically stable and nicardipine Prognosis poor as patient has significan morbidity 2nd cva. - Date & Time Date: 03/02/18 Time: 09:20
--- NOTE | 2018-03-02 12:31 | CP.PCM.CON ---
History of Present Illness - History of Present Illness History of Present Illness: Palliative consult requested by Doctor Apollo for goals f care discussion and support for the family Patient is a 52 yo male admitted from home where his noticed him with slurred speech and right sided weakness. CT head significant for left brain hemorrhage with right midline shift. The other repeats of CT head did not show increase in bleeding. Brain MRI showed large basal ganglia hematoma. Neuro surgeon is consulted and at present patient is treated conservatively with attention to BP control. Per wif, nikhil was not compliant with his meds at home. Family panicked due to situation and had man questions regarding goals of care. PMH: High cholesterol Soc. Hx: , lives a home, unemployed Fam. Hx; Both parents from cancer, type unknown Review of Systems - Review of Systems All systems: reviewed and no additional remarkable complaints except Review of Systems: ROS obtained from nursing, patient non verbal. Per nursing patient denies an headache, dizziness, nausea, vomiting Past Patient History - Past Medical History & Family History Past Medical History?: Yes - Past Social History Smoking Status: Never Smoked - CARDIAC Hx Hypertension: Yes - MUSCULOSKELETAL/RHEUMATOLOGICAL Hx Falls: No Other/Comment: knee/leg sx sister unsure which kind - PSYCHIATRIC Hx Substance Use: No - SURGICAL HISTORY Hx Surgeries: No - ANESTHESIA Hx Anesthesia: Yes Hx Anesthesia Reactions: No Hx Malignant Hyperthermia: No Has any member of the family had a problem w/ anesthesia?: No Meds Allergies/Adverse Reactions: Allergies Allergy/AdvReac Type Severity Reaction Status Date / Time No Known Allergies Allergy Verified 02/27/18 16:05 - Medications Medications: Current Medications Hydralazine HCl (Apresoline) 10 mg IVP Q6H PRN PRN Reason: Systolic BP > 140 Nicardipine HCl 25 mg/ Sodium (Chloride) 250 mls @ 50 mls/hr IV .Q5H PANCHO; 5 MG/ HR PRN Reason: Protocol Last Admin: 03/02/18 08:44 Dose: Not Given Insulin Human Regular (Novolin R) 0 unit SC Q6 PANCHO PRN Reason: Protocol Last Admin: 03/02/18 11:49 Dose: Not Given Labetalol HCl (Trandate) 200 mg PO Q8H PANCHO Last Admin: 03/02/18 10:23 Dose: 200 mg Lisinopril (Zestril) 5 mg PO DAILY PANCHO Last Admin: 03/02/18 10:23 Dose: 5 mg Pantoprazole Sodium (Protonix Inj) 40 mg IVP DAILY [facility] Last Admin: 03/02/18 09:10 Dose: 40 mg Rosuvastatin Calcium (Crestor) 5 mg PO [facility] Physical Exam - Constitutional Appears: No Acute Distress - Head Exam Head Exam: ATRAUMATIC, NORMAL INSPECTION, NORMOCEPHALIC - Eye Exam Eye Exam: EOMI, Normal appearance, PERRL Pupil Exam: NORMAL ACCOMODATION, PERRL - ENT Exam ENT Exam: Normal Exam, Normal External Ear Exam (NGT in place) - Neck Exam Neck exam: Positive for: Normal Inspection - Respiratory Exam Respiratory Exam: NORMAL BREATHING PATTERN - Cardiovascular Exam Cardiovascular Exam: REGULAR RHYTHM - GI/Abdominal Exam GI & Abdominal Exam: Normal Bowel Sounds - Rectal Exam Rectal Exam: Deferred - Extremities Exam Additional comments: left sided weakness - Back Exam Back exam: NORMAL INSPECTION - Neurological Exam Neurological exam: Alert, Oriented x3 - Psychiatric Exam Psychiatric exam: Anxious - Skin Skin Exam: Normal Color Results - Vital Signs Recent Vital Signs: Last Vital Signs Temp 98.6 F 03/02/18 08:00 Pulse 102 H 03/02/18 10:08 Resp 25 H 03/02/18 10:08 BP 146/93 H 03/02/18 10:08 Pulse Ox 95 03/02/18 10:08 - Labs Result Diagrams: 03/02/18 06:00 03/02/18 06:00 Labs: Laboratory Results - last 24 hr 03/01/18 03/01/18 03/02/18 17:46 23:39 05:57 WBC RBC Hgb Hct MCV MCH MCHC RDW Plt Count MPV Neut % (Auto) Lymph % (Auto) Archer % (Auto) Eos % (Auto) Baso % (Auto) Neut # (Auto) Lymph # (Auto) Archer # (Auto) Eos # (Auto) Baso # (Auto) PT INR APTT Sodium Potassium Chloride Carbon Dioxide Anion Gap BUN Creatinine Est GFR ( Amer) Est GFR (Non-Af Amer) POC Glucose (mg/dL) 100 89 122 H Random Glucose Calcium Phosphorus Magnesium Total Bilirubin AST ALT Alkaline Phosphatase Total Protein Albumin Globulin Albumin/Globulin Ratio 03/02/18 03/02/18 03/02/18 06:00 06:00 06:00 WBC 9.7 RBC 4.55 Hgb 14.1 Hct 41.6 MCV 91.5 MCH 30.9 MCHC 33.8 RDW 13.2 Plt Count 301 MPV 8.8 Neut % (Auto) 70.0 Lymph % (Auto) 19.4 L Archer % (Auto) 9.1 Eos % (Auto) 0.9 Baso % (Auto) 0.6 Neut # (Auto) 6.8 Lymph # (Auto) 1.9 Archer # (Auto) 0.9 H Eos # (Auto) 0.1 Baso # (Auto) 0.1 PT 14.2 H INR 1.3 APTT 34 Sodium 140 Potassium 3.4 L Chloride 104 Carbon Dioxide 25 Anion Gap 14 BUN 9 Creatinine 0.8 Est GFR ( Amer) > 60 Est GFR (Non-Af Amer) > 60 POC Glucose (mg/dL) Random Glucose 110 Calcium 9.2 Phosphorus 3.9 Magnesium 2.0 Total Bilirubin 0.9 AST 20 ALT 21 D Alkaline Phosphatase 87 Total Protein 7.4 Albumin 3.6 Globulin 3.8 Albumin/Globulin Ratio 0.9 L 03/02/18 11:40 WBC RBC Hgb Hct MCV MCH MCHC RDW Plt Count MPV Neut % (Auto) Lymph % (Auto) Archer % (Auto) Eos % (Auto) Baso % (Auto) Neut # (Auto) Lymph # (Auto) Archer # (Auto) Eos # (Auto) Baso # (Auto) PT INR APTT Sodium Potassium Chloride Carbon Dioxide Anion Gap BUN Creatinine Est GFR ( Amer) Est GFR (Non-Af Amer) POC Glucose (mg/dL) 122 H Random Glucose Calcium Phosphorus Magnesium Total Bilirubin AST ALT Alkaline Phosphatase Total Protein Albumin Globulin Albumin/Globulin Ratio Assessment & Plan - Assessment and Plan (Free Text) Assessment: Palliative consult No Advance directive on chart, PS 20% I reviewed medical records, all diagnostic studies, examined and interviewed patient in the recliner chair. Patient communicated by nodding the head. Patient is alert, non verbal, nodes his head for "yes/no" answers. Patient keeps his yes closed. Denies headache/dizziness.NGT in place for feedings and meds. Abdomen soft. There is right sided weakness. BP 146/93, HR 102, RR 25. Cardene IV on board, Labetolol and Hydralyzine. and two daughters present. Doctor Lizet just talked to them. Family understands that patient had hemorrhagic CVA and is thankful that patient was alive. I supported their attitude and offered more information about the CVA in general. was concerned with further care as she wanted to use agressive surgical interventions only as a last resort. I reviewed with her and her daughters what medications were on board and plan to control BP and monitor patient's progress. Further, was concerned with who would be Medical decision maker for her . I corrected her knowledge that as long as patent is alert and able to fallow conversation he will be the one. In case if patient loses decision making ability she will be NOK. Family was encouraged to offer all possible support to a patient as well as to maintain quiet and calm environment for the patient. Code status discussed. As of now family wishes patient remains Full code. For further use of agressive measures if it should be needed family wants to be offered time to decide. Impression * S/P hemorhagic CVA * Expressive aphasia * right sided weakness * Family with anticipatory anxiety * Family requests ordinary measures only for the present time * Patient is alert and able to fallow discussion and participate in it by nodding the head Suggestions * BP control * Elevate HOB at 45 degrees * Assist with ADLs * Promote quiet environment * Reassure patient of his safety * Update patient of his status * Full Code Pallistive care will fallow up with patient and family and offer support
--- NOTE | 2018-03-02 13:59 | CP.PCM.CON ---
<Reema Rubi - Last Filed: 03/02/18 13:39> History of Present Illness - History of Present Illness History of Present Illness: Gastroenterology Fellow/PGY5 Consult Note 52 year old male with PMH of HTN, HLD, and Obesity presenting with slurred speech. Patient is noted to be noncompliant to medications. History obtained on record review and family at bedside. Patient presented after his noticed development of slurred speech and weakness on the right side of his body. He had never experienced these symptoms before. 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 GI consultation for PEG tube placement. Family History- per patient's : Mother- Breast cancer, father- bone cancer Social History- per patient's : denies tobacco, alcohol, illicit drug use Surgical History- per patient's : right knee arthroscopy Review of Systems - Review of Systems Review of Systems: 12-point review of systems negative except for as above Past Patient History - Past Medical History & Family History Past Medical History?: Yes - Past Social History Smoking Status: Never Smoked - CARDIAC Hx Hypertension: Yes - MUSCULOSKELETAL/RHEUMATOLOGICAL Hx Falls: No Other/Comment: knee/leg sx sister unsure which kind - PSYCHIATRIC Hx Substance Use: No - SURGICAL HISTORY Hx Surgeries: No - ANESTHESIA Hx Anesthesia: Yes Hx Anesthesia Reactions: No Hx Malignant Hyperthermia: No Has any member of the family had a problem w/ anesthesia?: No Meds Allergies/Adverse Reactions: Allergies Allergy/AdvReac Type Severity Reaction Status Date / Time No Known Allergies Allergy Verified 02/27/18 16:05 - Medications Medications: Current Medications Hydralazine HCl (Apresoline) 10 mg IVP Q6H PRN PRN Reason: Systolic BP > 140 Nicardipine HCl 25 mg/ Sodium (Chloride) 250 mls @ 50 mls/hr IV .Q5H PANCHO; 5 MG/ HR PRN Reason: Protocol Last Admin: 03/02/18 08:44 Dose: Not Given Insulin Human Regular (Novolin R) 0 unit SC Q6 PANCHO PRN Reason: Protocol Last Admin: 03/02/18 11:49 Dose: Not Given Labetalol HCl (Trandate) 200 mg PO Q8H PANCHO Last Admin: 03/02/18 10:23 Dose: 200 mg Lisinopril (Zestril) 5 mg PO DAILY [facility] Last Admin: 03/02/18 10:23 Dose: 5 mg Pantoprazole Sodium (Protonix Inj) 40 mg IVP DAILY [facility] Last Admin: 03/02/18 09:10 Dose: 40 mg Rosuvastatin Calcium (Crestor) 5 mg PO [facility] Physical Exam - Constitutional Appears: Non-toxic, No Acute Distress, Other - Head Exam Head Exam: ATRAUMATIC, NORMOCEPHALIC - Eye Exam Eye Exam: Normal appearance, PERRL. absent: Scleral icterus Pupil Exam: PERRL. absent: Miosis, Mydriatic - ENT Exam ENT Exam: Mucous Membranes Moist, Normal Oropharynx Additional comments: left nares NG tube in place - Neck Exam Neck exam: Positive for: Normal Inspection - Respiratory Exam Respiratory Exam: Clear to Auscultation Bilateral, Rhonchi. absent: Rales, Wheezes Additional comments: scattered rhonchi - Cardiovascular Exam Cardiovascular Exam: RRR, +S1, +S2. absent: Gallop, Rubs - GI/Abdominal Exam GI & Abdominal Exam: Normal Bowel Sounds, Soft. absent: Distended, Firm, Guarding, Organomegaly, Rebound, Rigid, Tenderness - Extremities Exam Extremities exam: Positive for: normal inspection. Negative for: pedal edema - Neurological Exam Neurological exam: Altered, Motor Sensory Deficit Additional comments: upgoing Babinski on left foot, equivocal Babinski on right foot, loss of sensation and strength to LUE and LLE, not able to follow command for cranial nerve exam - Psychiatric Exam Psychiatric exam: Normal Affect, Normal Mood - Skin Skin Exam: Dry, Intact, Normal Color, Warm Results - Vital Signs Recent Vital Signs: Last Vital Signs Temp 98.6 F 03/02/18 08:00 Pulse 102 H 03/02/18 10:08 Resp 25 H 03/02/18 10:08 BP 146/93 H 03/02/18 10:08 Pulse Ox 95 03/02/18 10:08 - Labs Result Diagrams: 03/02/18 06:00 03/02/18 06:00 Labs: Laboratory Results - last 24 hr 03/01/18 03/01/18 03/02/18 17:46 23:39 05:57 WBC RBC Hgb Hct MCV MCH MCHC RDW Plt Count MPV Neut % (Auto) Lymph % (Auto) [place] % (Auto) Eos % (Auto) Baso % (Auto) Neut # (Auto) Lymph # (Auto) [place] # (Auto) Eos # (Auto) Baso # (Auto) PT INR APTT Sodium Potassium Chloride Carbon Dioxide Anion Gap BUN Creatinine Est GFR ( Amer) Est GFR (Non-Af Amer) POC Glucose (mg/dL) 100 89 122 H Random Glucose Calcium Phosphorus Magnesium Total Bilirubin AST ALT Alkaline Phosphatase Total Protein Albumin Globulin Albumin/Globulin Ratio 03/02/18 03/02/18 03/02/18 06:00 06:00 06:00 WBC 9.7 RBC 4.55 Hgb 14.1 Hct 41.6 MCV 91.5 MCH 30.9 MCHC 33.8 RDW 13.2 Plt Count 301 MPV 8.8 Neut % (Auto) 70.0 Lymph % (Auto) 19.4 L Aurora % (Auto) 9.1 Eos % (Auto) 0.9 Baso % (Auto) 0.6 Neut # (Auto) 6.8 Lymph # (Auto) 1.9 [place] # (Auto) 0.9 H Eos # (Auto) 0.1 Baso # (Auto) 0.1 PT 14.2 H INR 1.3 APTT 34 Sodium 140 Potassium 3.4 L Chloride 104 Carbon Dioxide 25 Anion Gap 14 BUN 9 Creatinine 0.8 Est GFR ( Amer) > 60 Est GFR (Non-Af Amer) > 60 POC Glucose (mg/dL) Random Glucose 110 Calcium 9.2 Phosphorus 3.9 Magnesium 2.0 Total Bilirubin 0.9 AST 20 ALT 21 D Alkaline Phosphatase 87 Total Protein 7.4 Albumin 3.6 Globulin 3.8 Albumin/Globulin Ratio 0.9 L 03/02/18 11:40 WBC RBC Hgb Hct MCV MCH MCHC RDW Plt Count MPV Neut % (Auto) Lymph % (Auto) Aurora % (Auto) Eos % (Auto) Baso % (Auto) Neut # (Auto) Lymph # (Auto) [place] # (Auto) Eos # (Auto) Baso # (Auto) PT INR APTT Sodium Potassium Chloride Carbon Dioxide Anion Gap BUN Creatinine Est GFR ( Amer) Est GFR (Non-Af Amer) POC Glucose (mg/dL) 122 H Random Glucose Calcium Phosphorus Magnesium Total Bilirubin AST ALT Alkaline Phosphatase Total Protein Albumin Globulin Albumin/Globulin Ratio Assessment & Plan - Assessment and Plan (Free Text) Assessment: 52 year old male with PMH of HTN, HLD, and Obesity presenting with slurred speech. 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 GI consultation for PEG tube placement. Plan: -03/01 speech evaluation-no gag or swallowing elicited on evaluation -03/02 speech evaluation- improved swallowing to puree diet without signs of aspiration -speech therapist recommending RN-assisted pleasure feeds -continue tube feeds for nutritional support -continue speech therapy and medical management of CVA -discussed plan of care with and daughters at bedside -family agrees with holding off on consideration for PEG tube placement with improving aphagia without dysphagia to puree diet today -if dysphagia persist or worsens, please contact for re-evaluation for PEG tube placement -once medically optimized, family counselled on outpatient follow up to obtain colonoscopy for CRC screening <Danyel Crowley - Last Filed: 03/02/18 14:24> Meds - Medications Medications: Current Medications Hydralazine HCl (Apresoline) 10 mg IVP Q6H PRN PRN Reason: Systolic BP > 140 Insulin Human Regular (Novolin R) 0 unit SC Q6 PANCHO PRN Reason: Protocol Last Admin: 03/02/18 11:49 Dose: Not Given Labetalol HCl (Trandate) 200 mg PO Q8H [facility] Last Admin: 03/02/18 10:23 Dose: 200 mg Lisinopril (Zestril) 5 mg PO DAILY [facility] Last Admin: 03/02/18 10:23 Dose: 5 mg Pantoprazole Sodium (Protonix Inj) 40 mg IVP DAILY [facility] Last Admin: 03/02/18 09:10 Dose: 40 mg Rosuvastatin Calcium (Crestor) 5 mg PO HS [facility] Results - Vital Signs Recent Vital Signs: Last Vital Signs Temp 98.6 F 03/02/18 08:00 Pulse 102 H 03/02/18 10:08 Resp 25 H 03/02/18 10:08 BP 146/93 H 03/02/18 10:08 Pulse Ox 95 03/02/18 10:08 - Labs Result Diagrams: 03/02/18 06:00 03/02/18 06:00 Labs: Laboratory Results - last 24 hr 03/01/18 03/01/18 03/02/18 17:46 23:39 05:57 WBC RBC Hgb Hct MCV MCH MCHC RDW Plt Count MPV Neut % (Auto) Lymph % (Auto) [place] % (Auto) Eos % (Auto) Baso % (Auto) Neut # (Auto) Lymph # (Auto) [place] # (Auto) Eos # (Auto) Baso # (Auto) PT INR APTT Sodium Potassium Chloride Carbon Dioxide Anion Gap BUN Creatinine Est GFR ( Amer) Est GFR (Non-Af Amer) POC Glucose (mg/dL) 100 89 122 H Random Glucose Calcium Phosphorus Magnesium Total Bilirubin AST ALT Alkaline Phosphatase Total Protein Albumin Globulin Albumin/Globulin Ratio 03/02/18 03/02/18 03/02/18 06:00 06:00 06:00 WBC 9.7 RBC 4.55 Hgb 14.1 Hct 41.6 MCV 91.5 MCH 30.9 MCHC 33.8 RDW 13.2 Plt Count 301 MPV 8.8 Neut % (Auto) 70.0 Lymph % (Auto) 19.4 L [place] % (Auto) 9.1 Eos % (Auto) 0.9 Baso % (Auto) 0.6 Neut # (Auto) 6.8 Lymph # (Auto) 1.9 [place] # (Auto) 0.9 H Eos # (Auto) 0.1 Baso # (Auto) 0.1 PT 14.2 H INR 1.3 APTT 34 Sodium 140 Potassium 3.4 L Chloride 104 Carbon Dioxide 25 Anion Gap 14 BUN 9 Creatinine 0.8 Est GFR ( Amer) > 60 Est GFR (Non-Af Amer) > 60 POC Glucose (mg/dL) Random Glucose 110 Calcium 9.2 Phosphorus 3.9 Magnesium 2.0 Total Bilirubin 0.9 AST 20 ALT 21 D Alkaline Phosphatase 87 Total Protein 7.4 Albumin 3.6 Globulin 3.8 Albumin/Globulin Ratio 0.9 L 03/02/18 11:40 WBC RBC Hgb Hct MCV MCH MCHC RDW Plt Count MPV Neut % (Auto) Lymph % (Auto) [place] % (Auto) Eos % (Auto) Baso % (Auto) Neut # (Auto) Lymph # (Auto) [place] # (Auto) Eos # (Auto) Baso # (Auto) PT INR APTT Sodium Potassium Chloride Carbon Dioxide Anion Gap BUN Creatinine Est GFR ( Amer) Est GFR (Non-Af Amer) POC Glucose (mg/dL) 122 H Random Glucose Calcium Phosphorus Magnesium Total Bilirubin AST ALT Alkaline Phosphatase Total Protein Albumin Globulin Albumin/Globulin Ratio Attending/Attestation - Attestation I have personally seen and examined this patient.: Yes I have fully participated in the care of the patient.: Yes I have reviewed all pertinent clinical information: Yes Notes (Text): 03/02/18 14:17 I have seen and examined patient with GI fellow. Agree with above documentation with the following additions. In brief, this is a 52 year old male with history of HTN, hyperlipidemia who initially presented to hospital with complaint of slurred speech, found to have an acute CVA. GI called for evaluation of possible endoscopic feeding tube placement. Patient himself unable to participate in meaningful conversation, additional information obtained via chart review, discussion with nursing staff and patient's at bedside. Prior to current hospitalization, patient was apparently in normal state of health and denied any abdominal pain, nausea, vomiting, fever/chills, weight loss, dysphagia, rectal bleeding, or change in bowel habits. No prior endoscopic evaluation. HTN Hyperlipidemia Dysphagia - acute hemorrhagic CVA with R hemiparesis - Continue with NGT feeds as tolerated - [employer] RO[employer] evaluation note reviewed, patient with improved swallowing capability today, was able to tolerate applesauce and pudding with assistance - Maintain strict aspiration precautions, head of bed elevation during feeds - Follow up neurology recommendations - Currently patient's does not wish to consider feeding tube placement, particularly given patient improvement over past 24 hours which is a reasonable approach given acute vascular event. Will therefore defer PEG placement and reconsider if symptoms of dysphagia persist or clinical condition deteriorates. No planned GI intervention, will sign off case. Please reconsult as necessary , thank you.
--- NOTE | 2018-03-03 01:25 | PN ---
DATE: 03/02/2018 SUBJECTIVE: The patient was seen and examined at bedside. The patient is more alert today, sitting in chair, still aphasic, not following simple commands. REVIEW OF SYSTEMS: Unable to obtain review of systems because of his aphasia. PHYSICAL EXAMINATION: GENERAL: Middle-aged obese male, sitting in chair, in no acute distress. VITAL SIGNS: Blood pressure 139/85, pulse 92, respirations 20, temperature 98.5 degrees Fahrenheit, O2 saturation is 99% on room air. Intake is 3620. Output is 1300. HEENT: Pupils are reacting to light and accommodation. Extraocular muscles are intact. No icterus. No pallor. No oral thrush. No pharyngeal congestion. NECK: Supple. No JVD. LUNGS: Bilateral vesicular breath sounds. No wheezing. No rhonchi. CVS: S1, S2 present, regular. ABDOMEN: Soft and nontender. Bowel sounds present. No guarding, no rigidity, no rebound tenderness noted. REAL TIME ANALYST: More alert than yesterday. No changes in his neurologic status. Still aphasic. Right-sided paralysis and right facial droop. EXTREMITIES: No edema. Palpable peripheral pulses. MEDICATIONS: Include hydralazine 10 mg IV push every 6 hours p.r.n., labetalol 200 mg p.o. every 8 hours, Zestril 5 mg p.o. daily, Protonix 40 mg IV daily, Crestor 5 mg p.o. at bedtime. LABORATORY DATA: Labs from this morning: WBC 9.7, hemoglobin 14.1, hematocrit 41.6, platelet 301. PT 14.2, INR 1.3, PTT 34. Sodium 140, potassium 3.4, chloride 104, bicarbonate 25. BUN 9, creatinine 0.8, glucose 122, calcium 9.2, phosphorus 3.9, magnesium 2.2. Total bilirubin 0.9, AST 20, ALT 21, alkaline phosphatase 87, total protein 7.4, albumin 3.6. ASSESSMENT AND PLAN: Middle-aged obese male with a history of hypertension, hyperlipidemia, noncompliance with medications, admitted for acute left basal ganglia hemorrhagic stroke with right-sided flaccid paralysis, aphasia. Plan control hypertension. Blood pressure is better. Cardene drip discontinued. Started on oral medication via NG tube. The patient is tolerating NG tube feeds. GI consult appreciated. Neurology input appreciated. I will repeat speech and swallow evaluation. I will continue with physical therapy and occupational therapy. He is scheduled for a repeat CAT scan in the morning. I will continue other current blood pressure medications. I discussed with the patient's family at bedside at length and explained the prior patient's condition. Discussed with case management for possible subacute rehab placement. The patient's brother wants him to be transferred to a rehab center in [place]. Social service is looking for acute rehab placement after the patient's family's wishes. We will continue with GI and DVT prophylaxis. We will add further recommendation as his clinical course progresses. Reba Marsh MD
[2018-03-03] MEDS: (Novolin R) Insulin Human Regular 100 units/ml vial SC SCH ×3 (06:00→18:00)
--- NOTE | 2018-03-03 06:28 | CT ---
EXAM: CT Head Without Intravenous Contrast CLINICAL HISTORY: 52 years old, male; Pain; Other: F/up code stroke; Patient HX: 02-28-18; Additional info: Follow up hemorrhagic stroke TECHNIQUE: Axial computed tomography images of the head/brain without intravenous contrast. All CT scans at this facility use one or more dose reduction techniques, viz.: automated exposure control; ma/kV adjustment per patient size (including targeted exams where dose is matched to indication; i.e. head); or iterative reconstruction technique. 442 images are submitted. Axial images are submitted in brain and bone windows. COMPARISON: CT - HEAD W/O CONTRAST 2018-02-28 09:40 FINDINGS: Brain: There is left basal ganglia hematoma with increasing surrounding vasogenic edema measuring 5.8 x 2.6 cm with left to right midline shift 8 mm subfalcine herniation which demonstrate interval progression when compared to prior examination. No significant white matter disease. Ventricles: There is mass effect on the left lateral ventricle. Close clinical surveillance is recommended to evaluate for developing acute obstructive hydrocephalus. Bones/joints: Unremarkable. No acute fracture. Soft tissues: Fatty infiltration of left parotid salivary gland. Sinuses: Unremarkable. No acute sinusitis. Mastoid air cells: Unremarkable. No mastoid effusion. Orbits: The globe and lens are intact. Tubes, lines and devices: History a nasogastric tube is seen traversing the left nares into the nasopharynx. IMPRESSION: 1. There is left basal ganglia hematoma with increasing surrounding vasogenic edema measuring 5.8 x 2.6 cm with left to right midline shift 8 mm subfalcine herniation which demonstrate interval progression when compared to prior examination. 2. There is mass effect on the left lateral ventricle. Close clinical surveillance is recommended to evaluate for developing acute obstructive hydrocephalus.
[2018-03-03 06:31] LABS: BASO # 0.1 K/uL (0.0-0.2); EOS # 0.1 K/uL (0.0-0.7); EOS % 0.9 % (0.0-4.0); HEMOGLOBIN 14.9 g/dL (12.0-18.0); LYMPH # 1.6 K/uL (1.0-4.3); MEAN CORPUSCULAR HEMOGLOBIN 31.1 pg (27.0-31.0); MEAN CORPUSCULAR HGB CONC 33.8 g/dL (33.0-37.0); MONO # 1.2 K/uL (0.0-0.8); MONO % 12.8 % (0.0-10.0); NEUT # 6.4 K/uL (1.8-7.0); NEUT % 68.3 % (50.0-75.0); RBC 4.8 Mil/uL (4.40-5.90); RED CELL DISTRIBUTION WIDTH 13.3 % (11.5-14.5); WHITE BLOOD COUNT 9.4 K/uL (4.8-10.8)
--- NOTE | 2018-03-03 06:38 | CP.PCM.PN ---
Subjective - Date & Time of Evaluation Date of Evaluation: 03/03/18 Time of Evaluation: 06:38 - Subjective Subjective: Mr. Rodriguez was seen and examined at the bedside in ICU. He is more awake, non- verbal, communicates utilizing with non-verbal cues such as nodding and shaking his head. He is able to follow simple commands such as opening his eyes with tongue deviation to the right noted, moves his left side with paraplegia noted in his right side. CTH done this am showed left basal ganglia hematoma with increasing surrounding vasogenic edema maeasuring 5.8 x 2.6 cm with left to right midline shift 8 mm subfalcine herniation which demonstrate interval progression when compared to prior examination. There is mass effect on the left lateral ventricle. There was untoward events overnight. Objective - Vital Signs/Intake and Output Vital Signs (last 24 hours): Temp Pulse Resp BP Pulse Ox 98.7 F 94 H 20 128/85 99 03/03/18 04:00 03/03/18 05:00 03/03/18 05:00 03/03/18 05:01 03/03/18 05:00 Intake and Output: 03/02/18 03/03/18 18:59 06:59 Intake Total 740 460 Output Total 610 Balance 130 460 - Medications Medications: Current Medications Hydralazine HCl (Apresoline) 10 mg IVP Q6H PRN PRN Reason: Systolic BP > 140 Last Admin: 03/02/18 17:16 Dose: 10 mg Insulin Human Regular (Novolin R) 0 unit SC Q6 PANCHO PRN Reason: Protocol Last Admin: 03/03/18 00:00 Dose: Not Given Labetalol HCl (Trandate) 200 mg PO Q8H PANCHO Last Admin: 03/03/18 02:20 Dose: 200 mg Lisinopril (Zestril) 5 mg PO DAILY [facility] Last Admin: 03/02/18 10:23 Dose: 5 mg Pantoprazole Sodium (Protonix Inj) 40 mg IVP DAILY PANCHO Last Admin: 03/02/18 09:10 Dose: 40 mg Rosuvastatin Calcium (Crestor) 5 mg PO HS [facility] Last Admin: 03/02/18 22:55 Dose: 5 mg - Labs Labs: 03/03/18 06:23 03/02/18 06:00 PT 14.2 SECONDS (9.7-12.2) H 03/02/18 06:00 INR 1.3 03/02/18 06:00 APTT 34 SECONDS (21-34) 03/02/18 06:00 - Constitutional Appears: No Acute Distress - Head Exam Head Exam: NORMAL INSPECTION - Eye Exam Pupil Exam: PERRL - Neurological Exam Neurological Exam: Awake Neuro motor strength exam: Left Upper Extremity: 4, Right Upper Extremity: 0, Left Lower Extremity: 4, Right Lower Extremity: 2/1 Additional comments: Neurological unchanged from previous examination. Assessment and Plan (1) Hemorrhagic stroke Assessment & Plan: Case discussed with Dr. Lopez, continue all current medical regimen. Recommend Hypertonic 3% loading at 250 ml for one dose then 50 ml/hr. With sodium goal of 150-155 and serum osmolality less than 320. Recommend elevated head of bed at least 40 degrees, blood pressure, monitor na and serum osmolality. Status: Acute
[2018-03-03 06:45] LABS: ALB/GLOB RATIO 1.1 (1.0-2.1); ALBUMIN 3.9 g/dL (3.5-5.0); ALT/SGPT 15 U/L (21-72); AST/SGOT 19 U/L (17-59); BLOOD UREA NITROGEN 12 mg/dL (9-20); CALCIUM 9.2 mg/dl (8.6-10.4); GFR AFRICAN-AMERICAN > 60; GFR NON-AFRICAN AMERICAN > 60
[2018-03-03 06:46] LABS: INR 1.4; PROTHROMBIN TIME 14.9 SECONDS (9.7-12.2)
[2018-03-03] MEDS ORDERED: Sodium Chloride 3% 250 ML IV ONE (07:00)
[2018-03-03] MEDS ORDERED: Sodium Chloride 3% 500 ML IV ONE (08:00)
--- NOTE | 2018-03-03 10:15 | CP.CCUPN ---
<Dorinda Gonsales - Last Filed: 03/03/18 10:09> CCU Subjective - Physician Review Subjective (Free Text): Patient seen and examined at bedside. ROS could not be obtained due to poor speech 2/2 to CVA. Patient is able to communicate with non-verbal cues, such as nodding and shaking his head. CCU Objective - Vital Signs / Intake & Output Vital Signs (Last 4 hours): Vital Signs Temp Pulse Resp BP Pulse Ox 03/03/18 08:01 90 25 H 123/83 98 03/03/18 08:00 98.6 F 90 24 136/90 98 03/03/18 07:01 84 26 H 136/90 97 03/03/18 06:47 87 25 H 126/93 H Intake and Output (Last 8hrs): Intake & Output 03/02/18 03/03/18 03/03/18 22:59 06:59 14:59 Intake Total 370 240 50 Output Total 200 300 Balance 170 -60 50 Weight 255 lb Intake: Intake, IV Amount 20 Left Antecubital 10 Right Antecubital 10 Oral 130 Tube Feeding 240 240 30 Output: Urine 200 300 Condom 200 300 Other: # Voids Condom 1 # Bowel Movements 1 - Physical Exam Head: Positive for: Atraumatic, Other (Right Sided Facial Droop (Improved) ) Pupils: Positive for: Other (Right Pupil Non-Reactive. ) Extroacular Muscles: Positive for: EOMI Conjunctiva: Positive for: Normal Mouth: Positive for: Moist Mucous Membranes Nose (External): Positive for: Atraumatic Respiratory/Chest: Positive for: Clear to Auscultation, Good Air Exchange Cardiovascular: Positive for: Normal S1, S2. Negative for: Murmurs Abdomen: Positive for: Normal Bowel Sounds. Negative for: Tenderness Lower Extremity: Positive for: Normal Inspection. Negative for: Edema Neurological: Positive for: Other (Right Sided Hemiparesis. ). Negative for: CN II-XII Intact, Speech Normal, Normal Sensory Function (No Sensation on Right upper and Lower Ext. ), Normal 2Pt Descrimination Psychiatric: Positive for: Alert, Oriented x 3 - Medications Active Medications: Active Medications Generic Name Dose Route Start Last Admin Trade Name Freq PRN Reason Stop Dose Admin Hydralazine HCl 10 mg 03/02/18 10:35 03/02/18 17:16 Apresoline IVP 10 mg Q6H PRN Administration Systolic BP > 140 Sodium Chloride 500 mls @ 50 mls/hr 03/03/18 08:00 03/03/18 09:44 Hypertonic Saline 3% IV 03/03/18 17:59 50 mls/hr .Q10H ONE Administration Insulin Human Regular 0 unit 03/03/18 18:00 Novolin R SC Q12H PANCHO Protocol Labetalol HCl 200 mg 03/02/18 10:15 03/03/18 09:47 Trandate PO 200 mg Q8H PANCHO Administration Lisinopril 5 mg 03/02/18 10:00 03/03/18 09:48 Zestril PO 5 mg DAILY PANCHO Administration Pantoprazole Sodium 40 mg 02/28/18 10:00 03/03/18 09:47 Protonix Inj IVP 40 mg DAILY PANCHO Administration Rosuvastatin Calcium 5 mg 03/02/18 22:00 03/02/18 22:55 Crestor PO 5 mg HS PANCHO Administration - Patient Studies Lab Studies: Lab Studies 03/03/18 03/03/18 03/03/18 Range/Units 07:08 06:23 06:23 WBC (4.8-10.8) K/uL RBC (4.40-5.90) Mil/uL Hgb (12.0-18.0) g/dL Hct (35.0-51.0) % MCV (80.0-94.0) fL MCH (27.0-31.0) pg MCHC (33.0-37.0) g/dL RDW (11.5-14.5) % Plt Count (130-400) K/uL MPV (7.2-11.7) fL Neut % (Auto) (50.0-75.0) % Lymph % (Auto) (20.0-40.0) % [place] % (Auto) (0.0-10.0) % Eos % (Auto) (0.0-4.0) % Baso % (Auto) (0.0-2.0) % Neut # (Auto) (1.8-7.0) K/uL Lymph # (Auto) (1.0-4.3) K/uL [place] # (Auto) (0.0-0.8) K/uL Eos # (Auto) (0.0-0.7) K/uL Baso # (Auto) (0.0-0.2) K/uL PT 14.9 H (9.7-12.2) SECONDS INR 1.4 APTT 33 (21-34) SECONDS Sodium 140 (132-148) mmol/L Potassium 3.9 (3.6-5.2) mmol/L Chloride 103 (98-107) mmol/L Carbon Dioxide 25 (22-30) mmol/L Anion Gap 16 (10-20) BUN 12 (9-20) mg/dL Creatinine 0.9 (0.8-1.5) mg/dL Est GFR ( Amer) > 60 Est GFR (Non-Af Amer) > 60 POC Glucose (mg/dL) (65-110) mg/dL Random Glucose 86 (75-110) mg/dL Serum Osmolality 289 (272-300) mosm/kg Calcium 9.2 (8.6-10.4) mg/dl Phosphorus 4.4 (2.5-4.5) mg/dL Magnesium 2.3 (1.6-2.3) mg/dL Total Bilirubin 0.5 (0.2-1.3) mg/dL AST 19 (17-59) U/L ALT 15 L D (21-72) U/L Alkaline Phosphatase 90 (38-126) U/L Total Protein 7.5 (6.3-8.3) g/dL Albumin 3.9 (3.5-5.0) g/dL Globulin 3.6 (2.2-3.9) gm/dL Albumin/Globulin Ratio 1.1 (1.0-2.1) 03/03/18 03/03/18 03/02/18 Range/Units 06:23 06:06 23:37 WBC 9.4 (4.8-10.8) K/uL RBC 4.80 (4.40-5.90) Mil/uL Hgb 14.9 (12.0-18.0) g/dL Hct 44.2 (35.0-51.0) % MCV 92.0 (80.0-94.0) fL MCH 31.1 H (27.0-31.0) pg MCHC 33.8 (33.0-37.0) g/dL RDW 13.3 (11.5-14.5) % Plt Count 302 (130-400) K/uL MPV 9.0 (7.2-11.7) fL Neut % (Auto) 68.3 (50.0-75.0) % Lymph % (Auto) 17.0 L (20.0-40.0) % [place] % (Auto) 12.8 H (0.0-10.0) % Eos % (Auto) 0.9 (0.0-4.0) % Baso % (Auto) 1.0 (0.0-2.0) % Neut # (Auto) 6.4 (1.8-7.0) K/uL Lymph # (Auto) 1.6 (1.0-4.3) K/uL [place] # (Auto) 1.2 H (0.0-0.8) K/uL Eos # (Auto) 0.1 (0.0-0.7) K/uL Baso # (Auto) 0.1 (0.0-0.2) K/uL PT (9.7-12.2) SECONDS INR APTT (21-34) SECONDS Sodium (132-148) mmol/L Potassium (3.6-5.2) mmol/L Chloride (98-107) mmol/L Carbon Dioxide (22-30) mmol/L Anion Gap (10-20) BUN (9-20) mg/dL Creatinine (0.8-1.5) mg/dL Est GFR ( Amer) Est GFR (Non-Af Amer) POC Glucose (mg/dL) 88 88 (65-110) mg/dL Random Glucose (75-110) mg/dL Serum Osmolality (272-300) mosm/kg Calcium (8.6-10.4) mg/dl Phosphorus (2.5-4.5) mg/dL Magnesium (1.6-2.3) mg/dL Total Bilirubin (0.2-1.3) mg/dL AST (17-59) U/L ALT (21-72) U/L Alkaline Phosphatase (38-126) U/L Total Protein (6.3-8.3) g/dL Albumin (3.5-5.0) g/dL Globulin (2.2-3.9) gm/dL Albumin/Globulin Ratio (1.0-2.1) 03/02/18 03/02/18 Range/Units 17:41 11:40 WBC (4.8-10.8) K/uL RBC (4.40-5.90) Mil/uL Hgb (12.0-18.0) g/dL Hct (35.0-51.0) % MCV (80.0-94.0) fL MCH (27.0-31.0) pg MCHC (33.0-37.0) g/dL RDW (11.5-14.5) % Plt Count (130-400) K/uL MPV (7.2-11.7) fL Neut % (Auto) (50.0-75.0) % Lymph % (Auto) (20.0-40.0) % [place] % (Auto) (0.0-10.0) % Eos % (Auto) (0.0-4.0) % Baso % (Auto) (0.0-2.0) % Neut # (Auto) (1.8-7.0) K/uL Lymph # (Auto) (1.0-4.3) K/uL [place] # (Auto) (0.0-0.8) K/uL Eos # (Auto) (0.0-0.7) K/uL Baso # (Auto) (0.0-0.2) K/uL PT (9.7-12.2) SECONDS INR APTT (21-34) SECONDS Sodium (132-148) mmol/L Potassium (3.6-5.2) mmol/L Chloride (98-107) mmol/L Carbon Dioxide (22-30) mmol/L Anion Gap (10-20) BUN (9-20) mg/dL Creatinine (0.8-1.5) mg/dL Est GFR ( Amer) Est GFR (Non-Af Amer) POC Glucose (mg/dL) 108 122 H (65-110) mg/dL Random Glucose (75-110) mg/dL Serum Osmolality (272-300) mosm/kg Calcium (8.6-10.4) mg/dl Phosphorus (2.5-4.5) mg/dL Magnesium (1.6-2.3) mg/dL Total Bilirubin (0.2-1.3) mg/dL AST (17-59) U/L ALT (21-72) U/L Alkaline Phosphatase (38-126) U/L Total Protein (6.3-8.3) g/dL Albumin (3.5-5.0) g/dL Globulin (2.2-3.9) gm/dL Albumin/Globulin Ratio (1.0-2.1) Laboratory Results - last 24 hr 03/02/18 03/02/18 03/02/18 11:40 17:41 23:37 WBC RBC Hgb Hct MCV MCH MCHC RDW Plt Count MPV Neut % (Auto) Lymph % (Auto) [place] % (Auto) Eos % (Auto) Baso % (Auto) Neut # (Auto) Lymph # (Auto) [place] # (Auto) Eos # (Auto) Baso # (Auto) PT INR APTT Sodium Potassium Chloride Carbon Dioxide Anion Gap BUN Creatinine Est GFR ( Amer) Est GFR (Non-Af Amer) POC Glucose (mg/dL) 122 H 108 88 Random Glucose Serum Osmolality Calcium Phosphorus Magnesium Total Bilirubin AST ALT Alkaline Phosphatase Total Protein Albumin Globulin Albumin/Globulin Ratio 03/03/18 03/03/18 03/03/18 06:06 06:23 06:23 WBC 9.4 RBC 4.80 Hgb 14.9 Hct 44.2 MCV 92.0 MCH 31.1 H MCHC 33.8 RDW 13.3 Plt Count 302 MPV 9.0 Neut % (Auto) 68.3 Lymph % (Auto) 17.0 L [place] % (Auto) 12.8 H Eos % (Auto) 0.9 Baso % (Auto) 1.0 Neut # (Auto) 6.4 Lymph # (Auto) 1.6 [place] # (Auto) 1.2 H Eos # (Auto) 0.1 Baso # (Auto) 0.1 PT 14.9 H INR 1.4 APTT 33 Sodium Potassium Chloride Carbon Dioxide Anion Gap BUN Creatinine Est GFR ( Amer) Est GFR (Non-Af Amer) POC Glucose (mg/dL) 88 Random Glucose Serum Osmolality Calcium Phosphorus Magnesium Total Bilirubin AST ALT Alkaline Phosphatase Total Protein Albumin Globulin Albumin/Globulin Ratio 03/03/18 03/03/18 06:23 07:08 WBC RBC Hgb Hct MCV MCH MCHC RDW Plt Count MPV Neut % (Auto) Lymph % (Auto) [place] % (Auto) Eos % (Auto) Baso % (Auto) Neut # (Auto) Lymph # (Auto) [place] # (Auto) Eos # (Auto) Baso # (Auto) PT INR APTT Sodium 140 Potassium 3.9 Chloride 103 Carbon Dioxide 25 Anion Gap 16 BUN 12 Creatinine 0.9 Est GFR ( Amer) > 60 Est GFR (Non-Af Amer) > 60 POC Glucose (mg/dL) Random Glucose 86 Serum Osmolality 289 Calcium 9.2 Phosphorus 4.4 Magnesium 2.3 Total Bilirubin 0.5 AST 19 ALT 15 L D Alkaline Phosphatase 90 Total Protein 7.5 Albumin 3.9 Globulin 3.6 Albumin/Globulin Ratio 1.1 Fingerstick Blood Sugar Results: 88 Review of Systems - Review of Systems Systems not reviewed;Unavailable: Acuity of Condition (CVA.) Critical Care Progress Note - Nutrition Nutrition: Nutrition Category Date Time Status NPO Diet [DIET] Diets 02/28/18 Breakfast Active Assessment/Plan - Assessment and Plan (Free Text) Assessment: 52 year old male with a history of HLD and HTN presented with slurred speech. Code Stroke Called. Patient found to have large basal ganglia hemorrhage, with minimal midline shift, and mass effect, and the 4th ventricle appearing open. 03/03: CTH showed left basal ganglia hematoma with increasing surrounding vasogenic edema maeasuring 5.8 x 2.6 cm with left to right midline shift 8 mm subfalcine herniation which demonstrate interval progression when compared to prior examination. There is mass effect on the left lateral ventricle. Plan: Neuro: GCS: 15 Sedation: None A: Hemorrhagic CVA Head CT (Admission): Moderate intraparenchymal hemorrhage is identified at the left basal ganglia exerting local mass effect and causing a limited rightward midline shift of 2 mm. Measurements are as defined above in terms of hemorrhagic collection. Limited local parenchymal edema appreciated. Remainder the examination appears unremarkable. Head CT (02/28/18): The large left basal ganglia and intraparenchymal hemorrhage/ hematoma with surrounding mass effect midline shift are similar in appearance. No progressive bleeding or new areas of bleeding noted. No progressive ventriculomegaly appreciated. No interval low-density areas to suggest interval infarcts. MRI (03/01/18): Re- demonstrated is a large left basal ganglia hematoma surrounded by a small rim of edema and or necrotic brain tissue. The appearance and location most consistent with hypertensive origin hemorrhage. The questionable small fluid fluid level within the posterior superior dependent portion of the hematoma as above ; Is this patient currently on anticoagulant therapy or is there history of bleeding diathesis. Clinical correlation recommended. There is surrounding mass-effect with compression of the left lateral ventricle and overlying sulcal effacement. Slight shift of the midline from left to right as above .Chronic white matter ischemic changes as above Head CT (03/03/18): 1. There is left basal ganglia hematoma with increasing surrounding vasogenic edema measuring 5.8 x 2.6 cm with left to right midline shift 8 mm subfalcine herniation which demonstrate interval progression when compared to prior examination. 2. There is mass effect on the left lateral ventricle. Close clinical surveillance is recommended to evaluate for developing acute obstructive hydrocephalus. Neurology Consulted - Recs Appreciated NeuroSurgery Consulted - Per Nurse who talked to Neurosurgeon. No indication or Surgical Intervention at this time. F/U with Report. Speech/Therapy Eval. PT Eval Aspiration Precautions Keep Head of Bead elevated at 45 Degreees NeuroChecks Per Neuro - Hypertonic 3% loading at 250 ml for one dose then 100 ml/hr. With sodium goal of 150-155 and serum osmolality less than 320. elevated head of bed at least 40 degrees, blood pressure, monitor na and serum osmolality. Cardio A: Uncontrolled HTN, HLD, CVA Keep BP under 140. Continue Lisinopril 5 PO Daily, Labetalol 200mg PO Q8H, Hydralazine Q6H 10 IV pRN Pulm A: No Acute Issues GI Jevity per NG Tube GI Consulted for PEG tube placement. Patient passed swallow eval yesterday. They will monitor. Renal A: Hypokalemia (Stable) Potassium replenished PRN . Proph Protonix IV SCD's Patient seen and discussed with ICU Attending Dorinda Gonsales, PGY-1 <David Barrett S - Last Filed: 03/03/18 16:54> CCU Objective - Vital Signs / Intake & Output Vital Signs (Last 4 hours): Vital Signs Temp Pulse Resp BP Pulse Ox 03/03/18 16:01 88 24 130/70 97 03/03/18 16:00 98.6 F 91 H 22 97 03/03/18 15:01 86 21 133/66 97 03/03/18 15:00 91 H 22 97 03/03/18 14:01 91 H 18 125/78 97 03/03/18 14:00 84 17 99 03/03/18 13:01 83 21 121/74 97 03/03/18 13:00 81 22 96 Intake and Output (Last 8hrs): Intake & Output 03/03/18 03/03/18 03/03/18 06:59 14:59 22:59 Intake Total 240 680 280 Output Total 300 Balance -60 680 280 Weight 255 lb 255 lb Intake: Intake, IV Amount 370 100 Left Antecubital 10 Right Antecubital 10 Right Proximal Port 350 100 Femoral Oral 120 Tube Feeding 240 240 60 Other 70 Output: Urine 300 Condom 300 Other: # Voids Condom 1 # Bowel Movements 1 0 0 - Medications Active Medications: Active Medications Generic Name Dose Route Start Last Admin Trade Name Freq PRN Reason Stop Dose Admin Dexamethasone 10 mg 03/03/18 12:45 03/03/18 14:11 Decadron Inj IVP 03/04/18 04:46 10 mg Q8H PANCHO Administration Hydralazine HCl 10 mg 03/02/18 10:35 03/02/18 17:16 Apresoline IVP 10 mg Q6H PRN Administration Systolic BP > 140 Sodium Chloride 500 mls @ 50 mls/hr 03/03/18 08:00 03/03/18 09:44 Hypertonic Saline 3% IV 03/03/18 17:59 50 mls/hr .Q10H ONE Administration Insulin Human Regular 0 unit 03/03/18 18:00 Novolin R SC Q12H PANCHO Protocol Labetalol HCl 200 mg 03/02/18 10:15 03/03/18 09:47 Trandate PO 200 mg Q8H PANCHO Administration Lisinopril 5 mg 03/02/18 10:00 03/03/18 09:48 Zestril PO 5 mg DAILY PANCHO Administration Pantoprazole Sodium 40 mg 02/28/18 10:00 03/03/18 09:47 Protonix Inj IVP 40 mg DAILY PANCHO Administration Rosuvastatin Calcium 5 mg 03/02/18 22:00 03/02/18 22:55 Crestor PO 5 mg HS PANCHO Administration - Patient Studies Lab Studies: Lab Studies 03/03/18 03/03/18 03/03/18 Range/Units 15:47 15:47 07:08 WBC (4.8-10.8) K/uL RBC (4.40-5.90) Mil/uL Hgb (12.0-18.0) g/dL Hct (35.0-51.0) % MCV (80.0-94.0) fL MCH (27.0-31.0) pg MCHC (33.0-37.0) g/dL RDW (11.5-14.5) % Plt Count (130-400) K/uL MPV (7.2-11.7) fL Neut % (Auto) (50.0-75.0) % Lymph % (Auto) (20.0-40.0) % [place] % (Auto) (0.0-10.0) % Eos % (Auto) (0.0-4.0) % Baso % (Auto) (0.0-2.0) % Neut # (Auto) (1.8-7.0) K/uL Lymph # (Auto) (1.0-4.3) K/uL [place] # (Auto) (0.0-0.8) K/uL Eos # (Auto) (0.0-0.7) K/uL Baso # (Auto) (0.0-0.2) K/uL PT (9.7-12.2) SECONDS INR APTT (21-34) SECONDS Sodium 142 (132-148) mmol/L Potassium 4.2 (3.6-5.2) mmol/L Chloride 109 H (98-107) mmol/L Carbon Dioxide 23 (22-30) mmol/L Anion Gap 15 (10-20) BUN 14 (9-20) mg/dL Creatinine 0.8 (0.8-1.5) mg/dL Est GFR ( Amer) > 60 Est GFR (Non-Af Amer) > 60 POC Glucose (mg/dL) (65-110) mg/dL Random Glucose 135 H (75-110) mg/dL Serum Osmolality 301 H 289 (272-300) mosm/kg Calcium 9.1 (8.6-10.4) mg/dl Phosphorus (2.5-4.5) mg/dL Magnesium (1.6-2.3) mg/dL Total Bilirubin (0.2-1.3) mg/dL AST (17-59) U/L ALT (21-72) U/L Alkaline Phosphatase (38-126) U/L Total Protein (6.3-8.3) g/dL Albumin (3.5-5.0) g/dL Globulin (2.2-3.9) gm/dL Albumin/Globulin Ratio (1.0-2.1) 03/03/18 03/03/18 03/03/18 Range/Units 06:23 06:23 06:23 WBC 9.4 (4.8-10.8) K/uL RBC 4.80 (4.40-5.90) Mil/uL Hgb 14.9 (12.0-18.0) g/dL Hct 44.2 (35.0-51.0) % MCV 92.0 (80.0-94.0) fL MCH 31.1 H (27.0-31.0) pg MCHC 33.8 (33.0-37.0) g/dL RDW 13.3 (11.5-14.5) % Plt Count 302 (130-400) K/uL MPV 9.0 (7.2-11.7) fL Neut % (Auto) 68.3 (50.0-75.0) % Lymph % (Auto) 17.0 L (20.0-40.0) % [place] % (Auto) 12.8 H (0.0-10.0) % Eos % (Auto) 0.9 (0.0-4.0) % Baso % (Auto) 1.0 (0.0-2.0) % Neut # (Auto) 6.4 (1.8-7.0) K/uL Lymph # (Auto) 1.6 (1.0-4.3) K/uL [place] # (Auto) 1.2 H (0.0-0.8) K/uL Eos # (Auto) 0.1 (0.0-0.7) K/uL Baso # (Auto) 0.1 (0.0-0.2) K/uL PT 14.9 H (9.7-12.2) SECONDS INR 1.4 APTT 33 (21-34) SECONDS Sodium 140 (132-148) mmol/L Potassium 3.9 (3.6-5.2) mmol/L Chloride 103 (98-107) mmol/L Carbon Dioxide 25 (22-30) mmol/L Anion Gap 16 (10-20) BUN 12 (9-20) mg/dL Creatinine 0.9 (0.8-1.5) mg/dL Est GFR ( Amer) > 60 Est GFR (Non-Af Amer) > 60 POC Glucose (mg/dL) (65-110) mg/dL Random Glucose 86 (75-110) mg/dL Serum Osmolality (272-300) mosm/kg Calcium 9.2 (8.6-10.4) mg/dl Phosphorus 4.4 (2.5-4.5) mg/dL Magnesium 2.3 (1.6-2.3) mg/dL Total Bilirubin 0.5 (0.2-1.3) mg/dL AST 19 (17-59) U/L ALT 15 L D (21-72) U/L Alkaline Phosphatase 90 (38-126) U/L Total Protein 7.5 (6.3-8.3) g/dL Albumin 3.9 (3.5-5.0) g/dL Globulin 3.6 (2.2-3.9) gm/dL Albumin/Globulin Ratio 1.1 (1.0-2.1) 03/03/18 03/02/18 03/02/18 Range/Units 06:06 23:37 17:41 WBC (4.8-10.8) K/uL RBC (4.40-5.90) Mil/uL Hgb (12.0-18.0) g/dL Hct (35.0-51.0) % MCV (80.0-94.0) fL MCH (27.0-31.0) pg MCHC (33.0-37.0) g/dL RDW (11.5-14.5) % Plt Count (130-400) K/uL MPV (7.2-11.7) fL Neut % (Auto) (50.0-75.0) % Lymph % (Auto) (20.0-40.0) % [place] % (Auto) (0.0-10.0) % Eos % (Auto) (0.0-4.0) % Baso % (Auto) (0.0-2.0) % Neut # (Auto) (1.8-7.0) K/uL Lymph # (Auto) (1.0-4.3) K/uL [place] # (Auto) (0.0-0.8) K/uL Eos # (Auto) (0.0-0.7) K/uL Baso # (Auto) (0.0-0.2) K/uL PT (9.7-12.2) SECONDS INR APTT (21-34) SECONDS Sodium (132-148) mmol/L Potassium (3.6-5.2) mmol/L Chloride (98-107) mmol/L Carbon Dioxide (22-30) mmol/L Anion Gap (10-20) BUN (9-20) mg/dL Creatinine (0.8-1.5) mg/dL Est GFR ( Amer) Est GFR (Non-Af Amer) POC Glucose (mg/dL) 88 88 108 (65-110) mg/dL Random Glucose (75-110) mg/dL Serum Osmolality (272-300) mosm/kg Calcium (8.6-10.4) mg/dl Phosphorus (2.5-4.5) mg/dL Magnesium (1.6-2.3) mg/dL Total Bilirubin (0.2-1.3) mg/dL AST (17-59) U/L ALT (21-72) U/L Alkaline Phosphatase (38-126) U/L Total Protein (6.3-8.3) g/dL Albumin (3.5-5.0) g/dL Globulin (2.2-3.9) gm/dL Albumin/Globulin Ratio (1.0-2.1) Laboratory Results - last 24 hr 03/02/18 03/02/18 03/03/18 17:41 23:37 06:06 WBC RBC Hgb Hct MCV MCH MCHC RDW Plt Count MPV Neut % (Auto) Lymph % (Auto) [place] % (Auto) Eos % (Auto) Baso % (Auto) Neut # (Auto) Lymph # (Auto) [place] # (Auto) Eos # (Auto) Baso # (Auto) PT INR APTT Sodium Potassium Chloride Carbon Dioxide Anion Gap BUN Creatinine Est GFR ( Amer) Est GFR (Non-Af Amer) POC Glucose (mg/dL) 108 88 88 Random Glucose Serum Osmolality Calcium Phosphorus Magnesium Total Bilirubin AST ALT Alkaline Phosphatase Total Protein Albumin Globulin Albumin/Globulin Ratio 03/03/18 03/03/18 03/03/18 06:23 06:23 06:23 WBC 9.4 RBC 4.80 Hgb 14.9 Hct 44.2 MCV 92.0 MCH 31.1 H MCHC 33.8 RDW 13.3 Plt Count 302 MPV 9.0 Neut % (Auto) 68.3 Lymph % (Auto) 17.0 L [place] % (Auto) 12.8 H Eos % (Auto) 0.9 Baso % (Auto) 1.0 Neut # (Auto) 6.4 Lymph # (Auto) 1.6 [place] # (Auto) 1.2 H Eos # (Auto) 0.1 Baso # (Auto) 0.1 PT 14.9 H INR 1.4 APTT 33 Sodium 140 Potassium 3.9 Chloride 103 Carbon Dioxide 25 Anion Gap 16 BUN 12 Creatinine 0.9 Est GFR ( Amer) > 60 Est GFR (Non-Af Amer) > 60 POC Glucose (mg/dL) Random Glucose 86 Serum Osmolality Calcium 9.2 Phosphorus 4.4 Magnesium 2.3 Total Bilirubin 0.5 AST 19 ALT 15 L D Alkaline Phosphatase 90 Total Protein 7.5 Albumin 3.9 Globulin 3.6 Albumin/Globulin Ratio 1.1 03/03/18 03/03/18 03/03/18 07:08 15:47 15:47 WBC RBC Hgb Hct MCV MCH MCHC RDW Plt Count MPV Neut % (Auto) Lymph % (Auto) [place] % (Auto) Eos % (Auto) Baso % (Auto) Neut # (Auto) Lymph # (Auto) [place] # (Auto) Eos # (Auto) Baso # (Auto) PT INR APTT Sodium 142 Potassium 4.2 Chloride 109 H Carbon Dioxide 23 Anion Gap 15 BUN 14 Creatinine 0.8 Est GFR ( Amer) > 60 Est GFR (Non-Af Amer) > 60 POC Glucose (mg/dL) Random Glucose 135 H Serum Osmolality 289 301 H Calcium 9.1 Phosphorus Magnesium Total Bilirubin AST ALT Alkaline Phosphatase Total Protein Albumin Globulin Albumin/Globulin Ratio Critical Care Progress Note - Nutrition Nutrition: Nutrition Category Date Time Status Pureed [Dysphagia/Modified Consistency Diet] [DIET] Diets 03/03/18 Dinner Active Attending/Attestation - Attestation I have personally seen and examined this patient.: Yes I have fully participated in the care of the patient.: Yes I have reviewed all pertinent clinical information: Yes Notes (Text): 03/03/18 16:52 Patient seen and examined in the intensive care unit. A repeat CAT scan of the headThis morning showed increase in size of hematoma/ vasogenic edema and midline shift Patient started on 3% sodium chloride after triple-lumen catheter inserted in the right femoral vein under aseptic conditions Decadron Continue to monitor in ICU Blood pressure controlled NGT feeding
--- NOTE | 2018-03-03 10:40 | CP.PCM.PN ---
Subjective - Date & Time of Evaluation Date of Evaluation: 03/03/18 Time of Evaluation: 10:40 - Subjective Subjective: Progress note dictated #[id number] Objective - Vital Signs/Intake and Output Vital Signs (last 24 hours): Temp Pulse Resp BP Pulse Ox 98.6 F 85 26 H 112/76 98 03/03/18 08:00 03/03/18 10:01 03/03/18 10:01 03/03/18 10:01 03/03/18 10:01 Intake and Output: 03/03/18 03/03/18 06:59 18:59 Intake Total 490 360 Output Total 300 Balance 190 360 - Medications Medications: Current Medications Hydralazine HCl (Apresoline) 10 mg IVP Q6H PRN PRN Reason: Systolic BP > 140 Last Admin: 03/02/18 17:16 Dose: 10 mg Sodium Chloride (Hypertonic Saline 3%) 500 mls @ 50 mls/hr IV .Q10H ONE Stop: 03/03/18 17:59 Last Admin: 03/03/18 09:44 Dose: 50 mls/hr Insulin Human Regular (Novolin R) 0 unit SC Q12H [facility]CHO PRN Reason: Protocol Labetalol HCl (Trandate) 200 mg PO Q8H [facility] Last Admin: 03/03/18 09:47 Dose: 200 mg Lisinopril (Zestril) 5 mg PO DAILY [facility] Last Admin: 03/03/18 09:48 Dose: 5 mg Pantoprazole Sodium (Protonix Inj) 40 mg IVP DAILY [facility] Last Admin: 03/03/18 09:47 Dose: 40 mg Rosuvastatin Calcium (Crestor) 5 mg PO HS [facility] Last Admin: 03/02/18 22:55 Dose: 5 mg - Labs Labs: 03/03/18 06:23 03/03/18 06:23 PT 14.9 SECONDS (9.7-12.2) H 03/03/18 06:23 INR 1.4 03/03/18 06:23 APTT 33 SECONDS (21-34) 03/03/18 06:23
[2018-03-03 16:13] LABS: BLOOD UREA NITROGEN 14 mg/dL (9-20); CALCIUM 9.1 mg/dl (8.6-10.4); GFR AFRICAN-AMERICAN > 60; GFR NON-AFRICAN AMERICAN > 60
[2018-03-04 00:54] LABS: BLOOD UREA NITROGEN 14 mg/dL (9-20); CALCIUM 9.3 mg/dl (8.6-10.4); GFR AFRICAN-AMERICAN > 60; GFR NON-AFRICAN AMERICAN > 60
[2018-03-04] MEDS ORDERED: Sodium Chloride 3% 500 ML IV ONE ×2 (02:00→23:32)
--- NOTE | 2018-03-04 02:14 | PN ---
DATE: 03/03/2018 SUBJECTIVE: The patient was seen and examined at bedside. The patient is more drowse and lethargic, but arousbale, following simple commands. Events from this morning noted. PHYSICAL EXAMINATION: GENERAL: Middle aged obese male, lying in bed in acute distress. VITAL SIGNS: Blood pressure 128/80, pulse 97, respirations 20, temperature 98.6 degrees Fahrenheit, O2 saturation is 97% on room air. HEENT: Pupils are equal, reacting to light and accommodation. NECK: Supple. No JVD. LUNGS: Bilateral vesicular breath sounds. No wheezing, no rhonchi. CVS: S1 and S2 are present, regular. ABDOMEN: Soft and nontender. Bowel sounds present. No guarding. No rigidity. No rebound tenderness noted. 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 Opening eyes, following simple commands. Right flaccid paralysis and right fascial droop. EXTREMITIES: No edema. Palpable peripheral pulses. MEDICATIONS: Decadron 10 mg IV push every 8 hours, hydralazine 10 mg IV every 6 p.r.n., labetalol 200 mg p.o. every 8 hours, Zestril 5 mg daily, Protonix 40 mg IV push daily, Crestor 5 mg p.o. at bedtime. LABORATORY DATA: Labs done from this morning; WBC 9.4, hemoglobin hematocrit 44.2, platelets 302. Sodium 140, potassium 3.9, chloride 103, bicarb 25, BUN 12, creatinine 0.9, glucose 88, calcium 9.2, phosphorus 4.4, magnesium 2.3, AST 19, ALT 15, alkaline phosphate 90, total protein 7.7 and albumin 3.9. Repeat CT head from this morning shows left basal ganglia hematoma with increasing surrounding vasogenic edema measuring to 2.6 with left to right mid line shift 8 mm subfalcine herniations, which demonstrate internal progression when compared to prior examination. There is mass effect on the left lateral ventricle. 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 The patient was evaluated by neurologist, started the patient on hypertonic saline bolus followed by hypertonic saline. The patient was also started on Decadron 10 mg every 8 hours for 24 hours and will continue with his current mediations. The patient's is at bedside, discussed with patient's at length and clarified all her questions and concerns. 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 Continue GI and DVT prophylaxis. Blood pressure is controlled on current medications. Will add further recommendation as his clinical course progresses. Reba Marsh MD
[2018-03-04] MEDS: (Novolin R) Insulin Human Regular 100 units/ml vial SC SCH ×2 (06:00→18:00)
[2018-03-04 06:54] LABS: BASO # 0.1 K/uL (0.0-0.2); BASO % 0.3 % (0.0-2.0); HEMOGLOBIN 13.6 g/dL (12.0-18.0); LYMPH # 0.8 K/uL (1.0-4.3); LYMPH % 5.3 % (20.0-40.0); MEAN CELL VOLUME 91.8 fL (80.0-94.0); MEAN CORPUSCULAR HEMOGLOBIN 31.2 pg (27.0-31.0); MEAN PLATELET VOLUME 8.8 fL (7.2-11.7); MONO # 0.4 K/uL (0.0-0.8); MONO % 2.5 % (0.0-10.0); NEUT # 13.7 K/uL (1.8-7.0); NEUT % 91.9 % (50.0-75.0); PLATELET COUNT 301 K/uL (130-400); RBC 4.34 Mil/uL (4.40-5.90); RED CELL DISTRIBUTION WIDTH 12.9 % (11.5-14.5); WHITE BLOOD COUNT 14.9 K/uL (4.8-10.8)
[2018-03-04 07:15] LABS: ALB/GLOB RATIO 1.1 (1.0-2.1); ALBUMIN 3.6 g/dL (3.5-5.0); ALT/SGPT 13 U/L (21-72); AST/SGOT 16 U/L (17-59); BLOOD UREA NITROGEN 16 mg/dL (9-20); CALCIUM 8.9 mg/dl (8.6-10.4); GFR AFRICAN-AMERICAN > 60; GFR NON-AFRICAN AMERICAN > 60
[2018-03-04 07:17] LABS: INR 1.4; PROTHROMBIN TIME 15.3 SECONDS (9.7-12.2)
[2018-03-04 08:33] LABS: LYMPHOCYTE 5 % (20-40); MONOCYTE 2 % (0-10); NEUTROPHIL 93 % (50-75); PLATELET ESTIMATE NORMAL (NORMAL); TOTAL CELLS COUNTED 100
--- NOTE | 2018-03-04 08:38 | CP.PCM.PN ---
Subjective - Date & Time of Evaluation Date of Evaluation: 03/04/18 Time of Evaluation: 08:40 - Subjective Subjective: Progress note dictated #[id number] Objective - Vital Signs/Intake and Output Vital Signs (last 24 hours): Temp Pulse Resp BP Pulse Ox 98.8 F 100 H 20 129/80 99 03/04/18 04:00 03/04/18 07:01 03/04/18 07:01 03/04/18 07:01 03/04/18 07:01 Intake and Output: 03/04/18 03/04/18 06:59 18:59 Intake Total 1010 80 Output Total 600 Balance 410 80 - Medications Medications: Current Medications Hydralazine HCl (Apresoline) 10 mg IVP Q6H PRN PRN Reason: Systolic BP > 140 Last Admin: 03/02/18 17:16 Dose: 10 mg Sodium Chloride (Hypertonic Saline 3%) 500 mls @ 50 mls/hr IV .Q10H ONE Stop: 03/04/18 11:59 Last Admin: 03/04/18 01:30 Dose: 50 mls/hr Insulin Human Regular (Novolin R) 0 unit SC Q12H PANCHO PRN Reason: Protocol Last Admin: 03/04/18 06:00 Dose: Not Given Labetalol HCl (Trandate) 200 mg PO Q8H [facility] Last Admin: 03/04/18 01:30 Dose: 200 mg Lisinopril (Zestril) 5 mg PO DAILY [facility] Last Admin: 03/03/18 09:48 Dose: 5 mg Pantoprazole Sodium (Protonix Inj) 40 mg IVP DAILY [facility] Last Admin: 03/03/18 09:47 Dose: 40 mg Rosuvastatin Calcium (Crestor) 5 mg PO HS [facility] Last Admin: 03/03/18 22:00 Dose: 5 mg - Labs Labs: 03/04/18 06:51 03/04/18 06:51 PT 15.3 SECONDS (9.7-12.2) H 03/04/18 06:51 INR 1.4 03/04/18 06:51 APTT 34 SECONDS (21-34) 03/04/18 06:51
--- NOTE | 2018-03-04 09:47 | CP.CCUPN ---
CCU Subjective - Physician Review Events Since Last Encounter (Free Text): 03/04/18 09:45 Patient is morning had a CAT scan of the head. Repeat CT scan seems to be no new changes compared to yesterday. Patient is awake and responding. He is able to communicate, verbalizing. Right-sided patient has a severe weakness. Left-sided he is able to move. He denies any chest pain, no shortness of breath. But he is somewhat sleepy at times. And he is snoring On examination: Vital signs are noted. Chest good air entry, bilateral regular heart sound. 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 He is moving left-sided well. CVA on the right side Speech is also improving. Episodes of aspiration micro-noted He is also having some cough. Snoring present. Labs reviewed in Currently he is on hypertonic swelling. He received a Decadron yesterday Patient had a elevated white count most likely steroid-induced Assessment/recommendation: 52-year-old male with a history of hypertension noncompliant high cholesterol admitted with acute bleeding stroke. Patient has a left thalamic bleed. Also patient has minimal midline shift, stable. On hypertonic cell in. Will continue the current supportive treatment. Aspiration precaution. In my opinion patient benefited by having feeding tube. Physical therapy. Will continue to monitor. And will follow-up the patient. Currently he is not on any anticoagulations because of the bleeding CCU Objective - Vital Signs / Intake & Output Vital Signs (Last 4 hours): Vital Signs Pulse Resp BP Pulse Ox 03/04/18 07:01 100 H 20 129/80 99 03/04/18 06:38 102 H 23 121/73 98 Intake and Output (Last 8hrs): Intake & Output 03/03/18 03/04/18 03/04/18 22:59 06:59 14:59 Intake Total 910 680 80 Output Total 300 600 Balance 610 80 80 Weight 257 lb 4 oz Intake: Intake, IV Amount 400 350 50 Right Proximal Port 400 350 50 Femoral Oral 270 90 Tube Feeding 240 240 30 Output: Urine 300 600 Condom 300 600 Other: # Bowel Movements 0 - Physical Exam Head: Positive for: Atraumatic, Other (Right Sided Facial Droop (Improved) ) Pupils: Positive for: Other (Right Pupil Non-Reactive. ) Extroacular Muscles: Positive for: EOMI Conjunctiva: Positive for: Normal Mouth: Positive for: Moist Mucous Membranes Nose (External): Positive for: Atraumatic Respiratory/Chest: Positive for: Clear to Auscultation, Good Air Exchange Cardiovascular: Positive for: Normal S1, S2. Negative for: Murmurs Abdomen: Positive for: Normal Bowel Sounds. Negative for: Tenderness Lower Extremity: Positive for: Normal Inspection. Negative for: Edema Neurological: Positive for: Other (Right Sided Hemiparesis. ). Negative for: CN II-XII Intact, Speech Normal, Normal Sensory Function (No Sensation on Right upper and Lower Ext. ), Normal 2Pt Descrimination Psychiatric: Positive for: Alert, Oriented x 3 - Medications Active Medications: Active Medications Generic Name Dose Route Start Last Admin Trade Name Freq PRN Reason Stop Dose Admin Hydralazine HCl 10 mg 03/02/18 10:35 03/02/18 17:16 Apresoline IVP 10 mg Q6H PRN Administration Systolic BP > 140 Sodium Chloride 500 mls @ 50 mls/hr 03/04/18 02:00 03/04/18 01:30 Hypertonic Saline 3% IV 03/04/18 11:59 50 mls/hr .Q10H ONE Administration Insulin Human Regular 0 unit 03/03/18 18:00 03/04/18 06:00 Novolin R SC Not Given Q12H PANCHO Protocol Labetalol HCl 200 mg 03/02/18 10:15 03/04/18 01:30 Trandate PO 200 mg Q8H [facility] Administration Lisinopril 5 mg 03/02/18 10:00 03/03/18 09:48 Zestril PO 5 mg DAILY [facility] Administration Pantoprazole Sodium 40 mg 02/28/18 10:00 03/03/18 09:47 Protonix Inj IVP 40 mg DAILY [facility] Administration Rosuvastatin Calcium 5 mg 03/02/18 22:00 03/03/18 22:00 Crestor PO 5 mg HS PANCHO Administration - Patient Studies Lab Studies: Lab Studies 03/04/18 03/04/18 03/04/18 Range/Units 06:51 06:51 06:51 WBC (4.8-10.8) K/uL RBC (4.40-5.90) Mil/uL Hgb (12.0-18.0) g/dL Hct (35.0-51.0) % MCV (80.0-94.0) fL MCH (27.0-31.0) pg MCHC (33.0-37.0) g/dL RDW (11.5-14.5) % Plt Count (130-400) K/uL MPV (7.2-11.7) fL Neut % (Auto) (50.0-75.0) % Lymph % (Auto) (20.0-40.0) % [place] % (Auto) (0.0-10.0) % Eos % (Auto) (0.0-4.0) % Baso % (Auto) (0.0-2.0) % Neut # (Auto) (1.8-7.0) K/uL Lymph # (Auto) (1.0-4.3) K/uL [place] # (Auto) (0.0-0.8) K/uL Eos # (Auto) (0.0-0.7) K/uL Baso # (Auto) (0.0-0.2) K/uL Neutrophils % (Manual) (50-75) % Lymphocytes % (Manual) (20-40) % Monocytes % (Manual) (0-10) % Platelet Estimate (NORMAL) RBC Morphology PT 15.3 H (9.7-12.2) SECONDS INR 1.4 APTT 34 (21-34) SECONDS Sodium 143 (132-148) mmol/L Potassium 4.1 (3.6-5.2) mmol/L Chloride 109 H (98-107) mmol/L Carbon Dioxide 21 L (22-30) mmol/L Anion Gap 18 (10-20) BUN 16 (9-20) mg/dL Creatinine 0.8 (0.8-1.5) mg/dL Est GFR ( Amer) > 60 Est GFR (Non-Af Amer) > 60 POC Glucose (mg/dL) (65-110) mg/dL Random Glucose 137 H (75-110) mg/dL Serum Osmolality 307 H (272-300) mosm/kg Calcium 8.9 (8.6-10.4) mg/dl Phosphorus 3.8 (2.5-4.5) mg/dL Magnesium 2.3 (1.6-2.3) mg/dL Total Bilirubin 0.6 (0.2-1.3) mg/dL AST 16 L (17-59) U/L ALT 13 L (21-72) U/L Alkaline Phosphatase 80 (38-126) U/L Total Protein 6.8 (6.3-8.3) g/dL Albumin 3.6 (3.5-5.0) g/dL Globulin 3.3 (2.2-3.9) gm/dL Albumin/Globulin Ratio 1.1 (1.0-2.1) 03/04/18 03/04/18 03/04/18 Range/Units 06:51 06:40 00:37 WBC 14.9 H D (4.8-10.8) K/uL RBC 4.34 L (4.40-5.90) Mil/uL Hgb 13.6 (12.0-18.0) g/dL Hct 39.9 (35.0-51.0) % MCV 91.8 (80.0-94.0) fL MCH 31.2 H (27.0-31.0) pg MCHC 34.0 (33.0-37.0) g/dL RDW 12.9 (11.5-14.5) % Plt Count 301 (130-400) K/uL MPV 8.8 (7.2-11.7) fL Neut % (Auto) 91.9 H (50.0-75.0) % Lymph % (Auto) 5.3 L (20.0-40.0) % [place] % (Auto) 2.5 (0.0-10.0) % Eos % (Auto) 0.0 (0.0-4.0) % Baso % (Auto) 0.3 (0.0-2.0) % Neut # (Auto) 13.7 H (1.8-7.0) K/uL Lymph # (Auto) 0.8 L (1.0-4.3) K/uL [place] # (Auto) 0.4 (0.0-0.8) K/uL Eos # (Auto) 0.0 (0.0-0.7) K/uL Baso # (Auto) 0.1 (0.0-0.2) K/uL Neutrophils % (Manual) 93 H (50-75) % Lymphocytes % (Manual) 5 L (20-40) % Monocytes % (Manual) 2 (0-10) % Platelet Estimate Normal (NORMAL) RBC Morphology Normal PT (9.7-12.2) SECONDS INR APTT (21-34) SECONDS Sodium 144 (132-148) mmol/L Potassium 4.4 (3.6-5.2) mmol/L Chloride 107 (98-107) mmol/L Carbon Dioxide 24 (22-30) mmol/L Anion Gap 17 (10-20) BUN 14 (9-20) mg/dL Creatinine 0.9 (0.8-1.5) mg/dL Est GFR ( Amer) > 60 Est GFR (Non-Af Amer) > 60 POC Glucose (mg/dL) 139 H (65-110) mg/dL Random Glucose 108 (75-110) mg/dL Serum Osmolality (272-300) mosm/kg Calcium 9.3 (8.6-10.4) mg/dl Phosphorus (2.5-4.5) mg/dL Magnesium (1.6-2.3) mg/dL Total Bilirubin (0.2-1.3) mg/dL AST (17-59) U/L ALT (21-72) U/L Alkaline Phosphatase (38-126) U/L Total Protein (6.3-8.3) g/dL Albumin (3.5-5.0) g/dL Globulin (2.2-3.9) gm/dL Albumin/Globulin Ratio (1.0-2.1) 03/04/18 03/03/18 03/03/18 Range/Units 00:37 18:09 15:47 WBC (4.8-10.8) K/uL RBC (4.40-5.90) Mil/uL Hgb (12.0-18.0) g/dL Hct (35.0-51.0) % MCV (80.0-94.0) fL MCH (27.0-31.0) pg MCHC (33.0-37.0) g/dL RDW (11.5-14.5) % Plt Count (130-400) K/uL MPV (7.2-11.7) fL Neut % (Auto) (50.0-75.0) % Lymph % (Auto) (20.0-40.0) % [place] % (Auto) (0.0-10.0) % Eos % (Auto) (0.0-4.0) % Baso % (Auto) (0.0-2.0) % Neut # (Auto) (1.8-7.0) K/uL Lymph # (Auto) (1.0-4.3) K/uL [place] # (Auto) (0.0-0.8) K/uL Eos # (Auto) (0.0-0.7) K/uL Baso # (Auto) (0.0-0.2) K/uL Neutrophils % (Manual) (50-75) % Lymphocytes % (Manual) (20-40) % Monocytes % (Manual) (0-10) % Platelet Estimate (NORMAL) RBC Morphology PT (9.7-12.2) SECONDS INR APTT (21-34) SECONDS Sodium 142 (132-148) mmol/L Potassium 4.2 (3.6-5.2) mmol/L Chloride 109 H (98-107) mmol/L Carbon Dioxide 23 (22-30) mmol/L Anion Gap 15 (10-20) BUN 14 (9-20) mg/dL Creatinine 0.8 (0.8-1.5) mg/dL Est GFR ( Amer) > 60 Est GFR (Non-Af Amer) > 60 POC Glucose (mg/dL) 111 H (65-110) mg/dL Random Glucose 135 H (75-110) mg/dL Serum Osmolality 300 (272-300) mosm/kg Calcium 9.1 (8.6-10.4) mg/dl Phosphorus (2.5-4.5) mg/dL Magnesium (1.6-2.3) mg/dL Total Bilirubin (0.2-1.3) mg/dL AST (17-59) U/L ALT (21-72) U/L Alkaline Phosphatase (38-126) U/L Total Protein (6.3-8.3) g/dL Albumin (3.5-5.0) g/dL Globulin (2.2-3.9) gm/dL Albumin/Globulin Ratio (1.0-2.1) 03/03/18 Range/Units 15:47 WBC (4.8-10.8) K/uL RBC (4.40-5.90) Mil/uL Hgb (12.0-18.0) g/dL Hct (35.0-51.0) % MCV (80.0-94.0) fL MCH (27.0-31.0) pg MCHC (33.0-37.0) g/dL RDW (11.5-14.5) % Plt Count (130-400) K/uL MPV (7.2-11.7) fL Neut % (Auto) (50.0-75.0) % Lymph % (Auto) (20.0-40.0) % [place] % (Auto) (0.0-10.0) % Eos % (Auto) (0.0-4.0) % Baso % (Auto) (0.0-2.0) % Neut # (Auto) (1.8-7.0) K/uL Lymph # (Auto) (1.0-4.3) K/uL [place] # (Auto) (0.0-0.8) K/uL Eos # (Auto) (0.0-0.7) K/uL Baso # (Auto) (0.0-0.2) K/uL Neutrophils % (Manual) (50-75) % Lymphocytes % (Manual) (20-40) % Monocytes % (Manual) (0-10) % Platelet Estimate (NORMAL) RBC Morphology PT (9.7-12.2) SECONDS INR APTT (21-34) SECONDS Sodium (132-148) mmol/L Potassium (3.6-5.2) mmol/L Chloride (98-107) mmol/L Carbon Dioxide (22-30) mmol/L Anion Gap (10-20) BUN (9-20) mg/dL Creatinine (0.8-1.5) mg/dL Est GFR ( Amer) Est GFR (Non-Af Amer) POC Glucose (mg/dL) (65-110) mg/dL Random Glucose (75-110) mg/dL Serum Osmolality 301 H (272-300) mosm/kg Calcium (8.6-10.4) mg/dl Phosphorus (2.5-4.5) mg/dL Magnesium (1.6-2.3) mg/dL Total Bilirubin (0.2-1.3) mg/dL AST (17-59) U/L ALT (21-72) U/L Alkaline Phosphatase (38-126) U/L Total Protein (6.3-8.3) g/dL Albumin (3.5-5.0) g/dL Globulin (2.2-3.9) gm/dL Albumin/Globulin Ratio (1.0-2.1) Laboratory Results - last 24 hr 03/03/18 03/03/18 03/03/18 15:47 15:47 18:09 WBC RBC Hgb Hct MCV MCH MCHC RDW Plt Count MPV Neut % (Auto) Lymph % (Auto) [place] % (Auto) Eos % (Auto) Baso % (Auto) Neut # (Auto) Lymph # (Auto) [place] # (Auto) Eos # (Auto) Baso # (Auto) Neutrophils % (Manual) Lymphocytes % (Manual) Monocytes % (Manual) Platelet Estimate RBC Morphology PT INR APTT Sodium 142 Potassium 4.2 Chloride 109 H Carbon Dioxide 23 Anion Gap 15 BUN 14 Creatinine 0.8 Est GFR ( Amer) > 60 Est GFR (Non-Af Amer) > 60 POC Glucose (mg/dL) 111 H Random Glucose 135 H Serum Osmolality 301 H Calcium 9.1 Phosphorus Magnesium Total Bilirubin AST ALT Alkaline Phosphatase Total Protein Albumin Globulin Albumin/Globulin Ratio 03/04/18 03/04/18 03/04/18 00:37 00:37 06:40 WBC RBC Hgb Hct MCV MCH MCHC RDW Plt Count MPV Neut % (Auto) Lymph % (Auto) [place] % (Auto) Eos % (Auto) Baso % (Auto) Neut # (Auto) Lymph # (Auto) [place] # (Auto) Eos # (Auto) Baso # (Auto) Neutrophils % (Manual) Lymphocytes % (Manual) Monocytes % (Manual) Platelet Estimate RBC Morphology PT INR APTT Sodium 144 Potassium 4.4 Chloride 107 Carbon Dioxide 24 Anion Gap 17 BUN 14 Creatinine 0.9 Est GFR ( Amer) > 60 Est GFR (Non-Af Amer) > 60 POC Glucose (mg/dL) 139 H Random Glucose 108 Serum Osmolality 300 Calcium 9.3 Phosphorus Magnesium Total Bilirubin AST ALT Alkaline Phosphatase Total Protein Albumin Globulin Albumin/Globulin Ratio 03/04/18 03/04/18 03/04/18 06:51 06:51 06:51 WBC 14.9 H D RBC 4.34 L Hgb 13.6 Hct 39.9 MCV 91.8 MCH 31.2 H MCHC 34.0 RDW 12.9 Plt Count 301 MPV 8.8 Neut % (Auto) 91.9 H Lymph % (Auto) 5.3 L [place] % (Auto) 2.5 Eos % (Auto) 0.0 Baso % (Auto) 0.3 Neut # (Auto) 13.7 H Lymph # (Auto) 0.8 L [place] # (Auto) 0.4 Eos # (Auto) 0.0 Baso # (Auto) 0.1 Neutrophils % (Manual) 93 H Lymphocytes % (Manual) 5 L Monocytes % (Manual) 2 Platelet Estimate Normal RBC Morphology Normal PT 15.3 H INR 1.4 APTT 34 Sodium 143 Potassium 4.1 Chloride 109 H Carbon Dioxide 21 L Anion Gap 18 BUN 16 Creatinine 0.8 Est GFR ( Amer) > 60 Est GFR (Non-Af Amer) > 60 POC Glucose (mg/dL) Random Glucose 137 H Serum Osmolality Calcium 8.9 Phosphorus 3.8 Magnesium 2.3 Total Bilirubin 0.6 AST 16 L ALT 13 L Alkaline Phosphatase 80 Total Protein 6.8 Albumin 3.6 Globulin 3.3 Albumin/Globulin Ratio 1.1 03/04/18 06:51 WBC RBC Hgb Hct MCV MCH MCHC RDW Plt Count MPV Neut % (Auto) Lymph % (Auto) [place] % (Auto) Eos % (Auto) Baso % (Auto) Neut # (Auto) Lymph # (Auto) [place] # (Auto) Eos # (Auto) Baso # (Auto) Neutrophils % (Manual) Lymphocytes % (Manual) Monocytes % (Manual) Platelet Estimate RBC Morphology PT INR APTT Sodium Potassium Chloride Carbon Dioxide Anion Gap BUN Creatinine Est GFR ( Amer) Est GFR (Non-Af Amer) POC Glucose (mg/dL) Random Glucose Serum Osmolality 307 H Calcium Phosphorus Magnesium Total Bilirubin AST ALT Alkaline Phosphatase Total Protein Albumin Globulin Albumin/Globulin Ratio Fingerstick Blood Sugar Results: 139 Critical Care Progress Note - Nutrition Nutrition: Nutrition Category Date Time Status Pureed [Dysphagia/Modified Consistency Diet] [DIET] Diets 03/03/18 Dinner Active
--- NOTE | 2018-03-04 10:42 | CT ---
PROCEDURE: CT HEAD WITHOUT CONTRAST. HISTORY: Followup hemorrhagic stroke COMPARISON: None available. TECHNIQUE: Axial computed tomography images were obtained through the head/brain without intravenous contrast. Radiation dose: Total exam DLP = 1063.98 mGy-cm. This CT exam was performed using one or more of the following dose reduction techniques: Automated exposure control, adjustment of the mA and/or kV according to patient size, and/or use of iterative reconstruction technique. FINDINGS: HEMORRHAGE: Re- demonstrated is a large elliptical shaped hematoma the epicenter of which is located left basal ganglia extending inferiorly into superior margin of the left temporal lobe and superiorly into the champion radiata/ centrum semiovale junction. The hematoma is surrounded by a rim of low-attenuation edema and or necrotic brain tissue most conspicuous in the about the anterior superior margins of the hematoma. This is likely hypertensive origin hemorrhage. Clinical correlation recommended. The hemorrhage and attendant surrounding edema and/or necrotic brain tissue continue to exert mass effect with compression of the left lateral ventricle which is shifted across midline. The septum pellucidum is shifted to the right-side by approximately 5 mm. There is also overlying sulcal effacement left cerebral hemisphere BRAIN: As above VENTRICLES: As above. No obstructive hydrocephalus. CALVARIUM: Unremarkable. PARANASAL SINUSES: Unremarkable as visualized. No significant inflammatory changes. MASTOID AIR CELLS: Unremarkable as visualized. No inflammatory changes. OTHER FINDINGS: None. IMPRESSION: Re- demonstrated is a large elliptical shaped hematoma the epicenter of which appears to be located in the left basal ganglia surrounded by a rim of low-attenuation edema and or necrotic brain tissue. Persistent surrounding mass effect and mild midline shift as described.
--- NOTE | 2018-03-04 13:43 | CP.PCM.PN ---
<Didier Thapa - Last Filed: 03/04/18 13:48> Subjective - Date & Time of Evaluation Date of Evaluation: 03/04/18 Time of Evaluation: 09:00 - Subjective Subjective: PGY4 GI Follow-up Pt seen and examined bedside denies any abd pain arousable no overnight events ROS: could not be conducted Objective - Vital Signs/Intake and Output Vital Signs (last 24 hours): Temp Pulse Resp BP Pulse Ox 98.5 F 96 H 22 119/69 99 03/04/18 08:00 03/04/18 12:00 03/04/18 12:00 03/04/18 12:00 03/04/18 12:00 Intake and Output: 03/04/18 03/04/18 06:59 18:59 Intake Total 1010 480 Output Total 600 550 Balance 410 -70 - Medications Medications: Current Medications Hydralazine HCl (Apresoline) 10 mg IVP Q6H PRN PRN Reason: Systolic BP > 140 Last Admin: 03/02/18 17:16 Dose: 10 mg Insulin Human Regular (Novolin R) 0 unit SC Q12H [facility] PRN Reason: Protocol Last Admin: 03/04/18 06:00 Dose: Not Given Labetalol HCl (Trandate) 200 mg PO Q8H [facility] Last Admin: 03/04/18 09:45 Dose: 200 mg Lisinopril (Zestril) 5 mg PO DAILY [facility] Last Admin: 03/04/18 09:45 Dose: 5 mg Pantoprazole Sodium (Protonix Inj) 40 mg IVP DAILY [facility] Last Admin: 03/04/18 09:45 Dose: 40 mg Rosuvastatin Calcium (Crestor) 5 mg PO HS [facility] Last Admin: 03/03/18 22:00 Dose: 5 mg - Labs Labs: 03/04/18 06:51 03/04/18 06:51 PT 15.3 SECONDS (9.7-12.2) H 03/04/18 06:51 INR 1.4 03/04/18 06:51 APTT 34 SECONDS (21-34) 03/04/18 06:51 - Constitutional Appears: Well, No Acute Distress - Head Exam Head Exam: ATRAUMATIC, NORMOCEPHALIC - Eye Exam Eye Exam: Normal appearance - ENT Exam ENT Exam: Mucous Membranes Moist - Neck Exam Neck Exam: Normal Inspection - Respiratory Exam Respiratory Exam: Clear to Ausculation Bilateral, NORMAL BREATHING PATTERN. absent: Rhonchi, Wheezes, Respiratory Distress, Stridor - Cardiovascular Exam Cardiovascular Exam: REGULAR RHYTHM, +S1, +S2 - GI/Abdominal Exam GI & Abdominal Exam: Soft, Normal Bowel Sounds. absent: Firm, Guarding, Rigid, Tenderness, Organomegaly - Extremities Exam Extremities Exam: absent: Joint Swelling, Pedal Edema - Neurological Exam Neurological Exam: Altered - Psychiatric Exam Additional comments: could not assess - Skin Skin Exam: Dry, Intact, Normal Color, Warm Assessment and Plan - Assessment and Plan (Free Text) Assessment: 52 year old male with PMH of HTN, HLD, and Obesity presenting with slurred speech. 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 Dysphagia 2/2 CVA CVA Plan: -03/01 speech evaluation-no gag or swallowing elicited on evaluation -03/02 speech evaluation- improved swallowing to puree diet without signs of aspiration -speech therapist recommending RN-assisted pleasure feeds -continue tube feeds for nutritional support -continue speech therapy and medical management of CVA -discussed plan of care with and daughters at bedside -family agrees with holding off on consideration for PEG tube placement with improving aphagia without dysphagia to puree diet until Tuesday - family counselled on outpatient follow up to obtain colonoscopy for CRC screening -will reeval on Tuesday for Peg -will need to have family meeting to discuss plan and recommendations D/W Dr. Wood <Micheal Wood - Last Filed: 03/04/18 19:32> Objective - Vital Signs/Intake and Output Vital Signs (last 24 hours): Temp Pulse Resp BP Pulse Ox 98.7 F 101 H 24 108/62 98 03/04/18 16:00 03/04/18 19:01 03/04/18 19:01 03/04/18 19:01 03/04/18 19:01 Intake and Output: 03/04/18 03/05/18 18:59 06:59 Intake Total 960 80 Output Total 550 Balance 410 80 - Medications Medications: Current Medications Hydralazine HCl (Apresoline) 10 mg IVP Q6H PRN PRN Reason: Systolic BP > 140 Last Admin: 03/02/18 17:16 Dose: 10 mg Insulin Human Regular (Novolin R) 0 unit SC Q12H [facility] PRN Reason: Protocol Last Admin: 03/04/18 18:00 Dose: Not Given Labetalol HCl (Trandate) 200 mg PO Q8H [facility] Last Admin: 03/04/18 18:02 Dose: 200 mg Lisinopril (Zestril) 5 mg PO DAILY [facility] Last Admin: 03/04/18 09:45 Dose: 5 mg Pantoprazole Sodium (Protonix Inj) 40 mg IVP DAILY [facility] Last Admin: 03/04/18 09:45 Dose: 40 mg Rosuvastatin Calcium (Crestor) 5 mg PO HS [facility] Last Admin: 03/03/18 22:00 Dose: 5 mg - Labs Labs: 03/04/18 06:51 03/04/18 15:31 PT 15.3 SECONDS (9.7-12.2) H 03/04/18 06:51 INR 1.4 03/04/18 06:51 APTT 34 SECONDS (21-34) 03/04/18 06:51 Attending/Attestation - Attestation I have personally seen and examined this patient.: Yes I have fully participated in the care of the patient.: Yes I have reviewed all pertinent clinical information, including history, physical exam and plan: Yes Notes (Text): 03/04/18 19:30 I have seen and examined patient with GI fellow. In brief, this is a 52 year old male with history of HTN, hyperlipidemia who initially presented to hospital with complaint of slurred speech, found to have an acute CVA. GI called for evaluation of possible endoscopic feeding tube placement. Next of kin as per patient is sister but the partner does not want tube placement. GI team has had many discussions with the partner. Discussed with the supervisor scenic arts to establish NOK and aspiration precautions till consent can be obtained for NOK. Supportive care.
[2018-03-04 15:57] LABS: BLOOD UREA NITROGEN 18 mg/dL (9-20); CALCIUM 9.3 mg/dl (8.6-10.4); GFR AFRICAN-AMERICAN > 60; GFR NON-AFRICAN AMERICAN > 60
--- NOTE | 2018-03-04 18:10 | PN ---
DATE: 03/04/2018 SUBJECTIVE: The patient was seen and examined at bedside in ICU. The patient's neurologic status slightly better than yesterday. Able to slightly move his right upper extremity and lower extremity, and he is having slurred speech. Able to communicate better than yesterday. More alert and awake today, following commands and answering the questions appropriately. All other systems reviewed and were found to be negative. PHYSICAL EXAMINATION: GENERAL: Middle-aged male lying in bed in no acute distress. VITAL SIGNS: Blood pressure 119/69, pulse 96, respirations 20, temperature 98.4 degrees Fahrenheit, O2 saturation is 99% on room air. HEENT: Pupils are equal, round, reacting to light and accommodation. Extraocular muscles intact. No icterus. No pallor. No oral thrush. No pharyngeal congestion. NECK: Supple. No JVD. LUNGS: Bilateral vesicular breath sounds. No wheezing, no rhonchi. CVS: S1 and S2 are present, regular. ABDOMEN: Soft and nontender. Bowel sounds present. No guarding. No rigidity. No rebound tenderness noted. QUALITY ASSURANCE ADVISOR: Awake, oriented x3. Speech is slurred. Very minimal movement in the right upper extremity and right lower extremity. MEDICATIONS: Include hydralazine 10 mg IV push every 6 hours p.r.n., labetalol 200 mg p.o. every 8 hours, lisinopril 5 mg p.o. daily, Protonix 40 mg IV push daily, Crestor 5 mg p.o. at bedtime. Received three doses of Decadron and received hypertonic saline. LABORATORY DATA: From this morning: WBC 14.9, hemoglobin 13.6, hematocrit 39.9, platelets 301. PT 15.3, INR 1.4, PTT 34. Sodium 143, potassium 4.1, chloride 109, bicarb 21, BUN 16, creatinine 0.8, glucose 139, serum osmolality 307, calcium 8.9, AST 16, ALT 13. Repeat CT head from this morning re-demonstrated is a large elliptical shaped hematoma. The epicenter of which appears to be located in the left basal ganglia surrounded by a rim of low attenuation edema and/or necrotic brain tissue. Persistent surrounding mass effect and mild midline shift noted. ASSESSMENT AND PLAN: A middle-aged male with history of hypertension, hyperlipidemia, noncompliance with medication, admitted for left basal ganglia hemorrhagic stroke with right-sided flaccid paralysis and aphasia. His speech is slightly better this morning. Received Decadron three doses and hypertonic saline. We will continue the current blood pressure medications. His blood pressure is controlled. Continue with bedside PT/OT, speech therapy. We will reevaluate for swallowing with Speech Therapy. Follow up with Neurology. We will continue with other current medications. Continue with GI and DVT prophylaxes. Reba Marsh MD
[2018-03-04] MEDS ORDERED: Sodium Chloride 3% 500 ML IV SCH (23:45)
[2018-03-05 00:31] LABS: BLOOD UREA NITROGEN 19 mg/dL (9-20); CALCIUM 9.1 mg/dl (8.6-10.4); GFR AFRICAN-AMERICAN > 60; GFR NON-AFRICAN AMERICAN > 60
[2018-03-05 06:07] LABS: BASO % 0.2 % (0.0-2.0); HEMOGLOBIN 12.7 g/dL (12.0-18.0); LYMPH # 1.8 K/uL (1.0-4.3); LYMPH % 11.2 % (20.0-40.0); MEAN CELL VOLUME 93.6 fL (80.0-94.0); MEAN CORPUSCULAR HEMOGLOBIN 31.2 pg (27.0-31.0); MEAN CORPUSCULAR HGB CONC 33.3 g/dL (33.0-37.0); MEAN PLATELET VOLUME 9.3 fL (7.2-11.7); MONO # 1.4 K/uL (0.0-0.8); MONO % 8.6 % (0.0-10.0); NEUT # 12.6 K/uL (1.8-7.0); RBC 4.08 Mil/uL (4.40-5.90); RED CELL DISTRIBUTION WIDTH 13.6 % (11.5-14.5); WHITE BLOOD COUNT 15.8 K/uL (4.8-10.8)
[2018-03-05] MEDS: (Novolin R) Insulin Human Regular 100 units/ml vial SC SCH ×2 (06:15→18:20)
[2018-03-05 06:25] LABS: ALBUMIN 3.4 g/dL (3.5-5.0); ALT/SGPT 17 U/L (21-72); AST/SGOT 21 U/L (17-59); BLOOD UREA NITROGEN 20 mg/dL (9-20); CALCIUM 8.8 mg/dl (8.6-10.4); GFR AFRICAN-AMERICAN > 60; GFR NON-AFRICAN AMERICAN > 60
[2018-03-05 06:28] LABS: INR 1.4
[2018-03-05 08:07] LABS: BLOOD UREA NITROGEN 19 mg/dL (9-20); CALCIUM 8.4 mg/dl (8.6-10.4); GFR AFRICAN-AMERICAN > 60; GFR NON-AFRICAN AMERICAN > 60
--- NOTE | 2018-03-05 09:55 | CP.PCM.PN ---
Subjective - Date & Time of Evaluation Date of Evaluation: 03/05/18 Time of Evaluation: 09:55 - Subjective Subjective: Mr. Rodriguez was seen and examined at the bedside in ICU. He is more awake,majority of time non- verbal, communicates utilizing with non-verbal cues such as nodding and shaking his head. However, he was able to verbalize good morning, no.He is able to follow simple commands such as opening his eyes with tongue deviation to the right noted, moves his left side with paraplegia noted in his right side. He remains on hypertonic solution at 50 ml/hr with the latest na- 146 and serum osmolality of 308. He is tolerating NGT feeding. There was no untoward events overnight. Objective - Vital Signs/Intake and Output Vital Signs (last 24 hours): Temp Pulse Resp BP Pulse Ox 98.8 F 93 H 20 125/83 97 03/05/18 04:00 03/05/18 06:01 03/05/18 06:01 03/05/18 06:01 03/05/18 06:01 Intake and Output: 03/05/18 03/05/18 06:59 18:59 Intake Total 960 Balance 960 - Medications Medications: Current Medications Hydralazine HCl (Apresoline) 10 mg IVP Q6H PRN PRN Reason: Systolic BP > 140 Last Admin: 03/02/18 17:16 Dose: 10 mg Insulin Human Regular (Novolin R) 0 unit SC Q12H [facility] PRN Reason: Protocol Last Admin: 03/05/18 06:15 Dose: Not Given Labetalol HCl (Trandate) 200 mg PO Q8H [facility] Last Admin: 03/05/18 09:20 Dose: 200 mg Lisinopril (Zestril) 5 mg PO DAILY [facility] Last Admin: 03/05/18 09:20 Dose: 5 mg Pantoprazole Sodium (Protonix Inj) 40 mg IVP DAILY [facility] Last Admin: 03/05/18 09:20 Dose: 40 mg Rosuvastatin Calcium (Crestor) 5 mg PO HS [facility] Last Admin: 03/04/18 22:00 Dose: 5 mg - Labs Labs: 03/05/18 06:00 03/05/18 07:49 PT 15.0 SECONDS (9.7-12.2) H 03/05/18 04:00 INR 1.4 03/05/18 04:00 APTT 32 SECONDS (21-34) 03/05/18 04:00 - Constitutional Appears: No Acute Distress - Head Exam Head Exam: NORMAL INSPECTION - Eye Exam Pupil Exam: PERRL Additional comments: 3 mm. - Neurological Exam Neurological Exam: Alert, Awake Neuro motor strength exam: Left Upper Extremity: 5, Right Upper Extremity: 0, Left Lower Extremity: 5, Right Lower Extremity: 0 Additional comments: Neurological unchanged from previous examination. Assessment and Plan (1) Hemorrhagic stroke Assessment & Plan: Case discussed with Dr. Watts, continue all current medical regimen including hypertonic solution. Recommend to repeat CT of the head today to monitor hemorrhagic stroke and edema. Recommend blood pressure, glycemic control, normothermic, and head of bed elevated at least 40 degrees angle. Status: Acute
[2018-03-05] MEDS ORDERED: Sodium Chloride 3% 500 ML IV SCH ×3 (10:30→11:45)
--- NOTE | 2018-03-05 12:44 | CP.PCM.PN ---
Subjective - Date & Time of Evaluation Date of Evaluation: 03/05/18 Time of Evaluation: 12:45 - Subjective Subjective: Progress note dictated #[id number] Objective - Vital Signs/Intake and Output Vital Signs (last 24 hours): Temp Pulse Resp BP Pulse Ox 98.5 F 93 H 28 H 108/76 97 03/05/18 12:00 03/05/18 12:01 03/05/18 12:01 03/05/18 12:01 03/05/18 12:01 Intake and Output: 03/05/18 03/05/18 06:59 18:59 Intake Total 960 480 Balance 960 480 - Medications Medications: Current Medications Hydralazine HCl (Apresoline) 10 mg IVP Q6H PRN PRN Reason: Systolic BP > 140 Last Admin: 03/02/18 17:16 Dose: 10 mg Sodium Chloride (Hypertonic Saline 3%) 500 mls @ 50 mls/hr IV .Q10H [facility] Stop: 03/05/18 21:44 Insulin Human Regular (Novolin R) 0 unit SC Q12H [facility] PRN Reason: Protocol Last Admin: 03/05/18 06:15 Dose: Not Given Labetalol HCl (Trandate) 200 mg PO Q8H [facility] Last Admin: 03/05/18 09:20 Dose: 200 mg Lisinopril (Zestril) 5 mg PO DAILY [facility] Last Admin: 03/05/18 09:20 Dose: 5 mg Pantoprazole Sodium (Protonix Inj) 40 mg IVP DAILY [facility] Last Admin: 03/05/18 09:20 Dose: 40 mg Rosuvastatin Calcium (Crestor) 5 mg PO HS [facility] Last Admin: 03/04/18 22:00 Dose: 5 mg - Labs Labs: 03/05/18 06:00 03/05/18 07:49 PT 15.0 SECONDS (9.7-12.2) H 03/05/18 04:00 INR 1.4 03/05/18 04:00 APTT 32 SECONDS (21-34) 03/05/18 04:00
--- NOTE | 2018-03-05 12:53 | CT ---
PROCEDURE: CT scan brain 03/05/2018 HISTORY: Followup hematoma. COMPARISON: Comparison made with prior study 03/04/2018 TECHNIQUE: Contiguous helical/transaxial computed tomography images were obtained through the head/brain without intravenous contrast. Radiation dose: Total exam DLP = 1364.05 mGy-cm. This CT exam was performed using one or more of the following dose reduction techniques: Automated exposure control, adjustment of the mA and/or kV according to patient size, and/or use of iterative reconstruction technique. Study is limited by motion artifact FINDINGS: Re- demonstrated is a large elliptical shaped hematoma, epicenter of which is located in the left basal ganglia. This hematoma measures approximately 5.7 by 2.5 cm in AP and transverse dimension. The hematoma surrounded by a wide rim of low-attenuation edema and or necrotic brain tissue. The hematoma and low-attenuation exert persistent mass effect with compression of overlying sulci as well as compression of the left lateral ventricle which is shifted across midline. Septum pellucidum is shifted across midline by approximately 6.4 mm the limited motion artifact limits the exact distance. The corticomedullary junction is not well delineated on the of motion degraded axial images which is likely due to motion artifact itself and not diffuse cerebral edema however clinical correlation recommended. VENTRICLES: As above. No obstructive hydrocephalus CALVARIUM: Calvarium intact PARANASAL SINUSES: Unremarkable as visualized. No significant inflammatory changes. MASTOID AIR CELLS: Unremarkable as visualized. No inflammatory changes. IMPRESSION: Limited motion degraded study. Large hematoma left cerebral hemisphere epicenter of which is located in the left basal ganglia as described. Surrounding low-attenuation edema or necrotic brain tissue with persistent mass effect at. There is compression of the left lateral ventricle which is shifted to the left side. There is also shift of the septum pellucidum from left to right approximately 6.4 mm though motion artifact limits the exact distance.
[2018-03-05 15:59] LABS: BLOOD UREA NITROGEN 18 mg/dL (9-20); CALCIUM 9.3 mg/dl (8.6-10.4); GFR AFRICAN-AMERICAN > 60; GFR NON-AFRICAN AMERICAN > 60
--- NOTE | 2018-03-05 16:37 | PN ---
DATE: 03/05/2018 SUBJECTIVE: The patient is seen and examined at bedside. The patient's neurologic status and mental status remains the same as yesterday. His speech remains slurred. Denies any new complaints. PHYSICAL EXAMINATION: GENERAL: Middle-aged obese male, lying in bed, in no acute distress. VITAL SIGNS: Blood pressure 108/76, pulse 93, respirations 20, temperature 98.5 degrees Fahrenheit, O2 sat is 97% on room air. HEENT: Pupils are equal, reactive to light and accommodation. No icterus. No pallor. NECK: Supple. No JVD. LUNGS: Bilateral vesicular breath sounds. No wheezing, no rhonchi. CVS: S1 and S2 present, regular. ABDOMEN: Soft and nontender. Bowel sounds present. No guarding. No rigidity. No rebound tenderness noted. LOG HAUL OPERATOR: Alert, awake, and oriented x3. Slurred speech. Right-sided paralysis. Right facial droop. EXTREMITIES: No edema. Palpable peripheral pulses. MEDICATIONS: Include hydralazine 10 mg IV push every 6 hours p.r.n., labetalol 200 mg p.o. every 12 hours, lisinopril 5 mg daily, Protonix 40 mg daily, Crestor 5 mg p.o. at bedtime, hypertonic saline 50 mL/hour. LABORATORY DATA: Labs from this morning: WBC 15.8, hemoglobin 12.7, hematocrit 38.2, platelets 313. PT 15, INR 1.4, PTT 32. Sodium 146, potassium 3.9, chloride 111, bicarb 25, BUN 19, creatinine 0.9, glucose 91, osmolality 308, calcium 8.4, AST 21, ALT 17, alkaline phosphatase 83, total protein 7, albumin 3.4. ASSESSMENT AND PLAN: Middle-aged male with history of hypertension, hyperlipidemia, noncompliant with medication, admitted for left basal ganglia hemorrhagic stroke, possibly from uncontrolled hypertension, with surrounding edema and midline shift, status post three doses of steroids and on hypertonic saline with slight improvement in his aphasia. Continue with hypertonic saline as per Neurology recommendation. Blood pressure is under control on current medication. Continue with physical therapy and occupational therapy. We will repeat speech and swallow evaluation in a.m. Continue with . We will continue with deep venous thrombosis and gastrointestinal prophylaxis. We will follow up with Neurology. Overall prognosis is guarded. Continue with supportive care. Reba Marsh MD
--- NOTE | 2018-03-05 17:34 | CP.CCUPN ---
CCU Subjective - Physician Review Events Since Last Encounter (Free Text): 03/05/18 17:33 Patient is morning had a CAT scan of the head. Repeat CT scan seems to be no new changes compared to yesterday. Patient is awake and responding. He is able to communicate, verbalizing. Right-side, patient has a severe weakness. Left-sided he is able to move. He denies any chest pain, no shortness of breath. But he is somewhat sleepy at times. And he is snoring On examination: Vital signs are noted. Chest good air entry, bilateral regular heart sound. [employer]ATOR alert and awake, follows simple, is. He is moving left-sided well. CVA on the right side Speech is also improving. Episodes of aspiration micro-noted He is also having some cough. Snoring present. Labs reviewed in Currently he is on hypertonic swelling. He received a Decadron yesterday Patient had a elevated white count most likely steroid-induced Assessment/recommendation: 52-year-old male with a history of hypertension noncompliant high cholesterol admitted with acute bleeding stroke. Patient has a left thalamic bleed. Also patient has minimal midline shift, stable. On hypertonic cell in. Will continue the current supportive treatment. Aspiration precaution. In my opinion patient benefited by having feeding tube. Physical therapy. Will continue to monitor. And will follow-up the patient. Currently he is not on any anticoagulations because of the bleeding may need peg CCU Objective - Vital Signs / Intake & Output Vital Signs (Last 4 hours): Vital Signs Temp Pulse Resp BP Pulse Ox 03/05/18 16:01 96 H 25 H 126/70 99 03/05/18 16:00 98.4 F 99 03/05/18 15:01 79 21 143/95 H 99 03/05/18 14:13 93 H 21 144/91 H 98 Intake and Output (Last 8hrs): Intake & Output 03/05/18 03/05/18 03/05/18 06:59 14:59 22:59 Intake Total 640 640 160 Output Total 325 Balance 640 315 160 Intake: Intake, IV Amount 400 400 100 Right Proximal Port 400 400 100 Femoral Tube Feeding 240 240 60 Output: Urine 325 Condom 325 Other: # Bowel Movements 1 - Physical Exam Head: Positive for: Atraumatic, Other (Right Sided Facial Droop (Improved) ) Pupils: Positive for: Other (Right Pupil Non-Reactive. ) Extroacular Muscles: Positive for: EOMI Conjunctiva: Positive for: Normal Mouth: Positive for: Moist Mucous Membranes Nose (External): Positive for: Atraumatic Respiratory/Chest: Positive for: Clear to Auscultation, Good Air Exchange Cardiovascular: Positive for: Normal S1, S2. Negative for: Murmurs Abdomen: Positive for: Normal Bowel Sounds. Negative for: Tenderness Lower Extremity: Positive for: Normal Inspection. Negative for: Edema Neurological: Positive for: Other (Right Sided Hemiparesis. ). Negative for: CN II-XII Intact, Speech Normal, Normal Sensory Function (No Sensation on Right upper and Lower Ext. ), Normal 2Pt Descrimination Psychiatric: Positive for: Alert, Oriented x 3 - Medications Active Medications: Active Medications Generic Name Dose Route Start Last Admin Trade Name Freq PRN Reason Stop Dose Admin Hydralazine HCl 10 mg 03/02/18 10:35 03/05/18 15:22 Apresoline IVP 10 mg Q6H PRN Administration Systolic BP > 140 Sodium Chloride 500 mls @ 50 mls/hr 03/05/18 11:45 03/05/18 11:00 Hypertonic Saline 3% IV 03/05/18 21:44 50 mls/hr .Q10H PANCHO Administration Insulin Human Regular 0 unit 03/03/18 18:00 03/05/18 06:15 Novolin R SC Not Given Q12H PANCHO Protocol Labetalol HCl 200 mg 03/02/18 10:15 03/05/18 17:16 Trandate PO 200 mg Q8H PANCHO Administration Lisinopril 5 mg 03/02/18 10:00 03/05/18 09:20 Zestril PO 5 mg DAILY PANCHO Administration Pantoprazole Sodium 40 mg 02/28/18 10:00 03/05/18 09:20 Protonix Inj IVP 40 mg DAILY PANCHO Administration Rosuvastatin Calcium 5 mg 03/02/18 22:00 03/04/18 22:00 Crestor PO 5 mg HS PANCHO Administration - Patient Studies Lab Studies: Lab Studies 03/05/18 03/05/18 03/05/18 Range/Units 15:40 15:40 07:49 WBC (4.8-10.8) K/uL RBC (4.40-5.90) Mil/uL Hgb (12.0-18.0) g/dL Hct (35.0-51.0) % MCV (80.0-94.0) fL MCH (27.0-31.0) pg MCHC (33.0-37.0) g/dL RDW (11.5-14.5) % Plt Count (130-400) K/uL MPV (7.2-11.7) fL Neut % (Auto) (50.0-75.0) % Lymph % (Auto) (20.0-40.0) % [place] % (Auto) (0.0-10.0) % Eos % (Auto) (0.0-4.0) % Baso % (Auto) (0.0-2.0) % Neut # (Auto) (1.8-7.0) K/uL Lymph # (Auto) (1.0-4.3) K/uL [place] # (Auto) (0.0-0.8) K/uL Eos # (Auto) (0.0-0.7) K/uL Baso # (Auto) (0.0-0.2) K/uL PT (9.7-12.2) SECONDS INR APTT (21-34) SECONDS Sodium 147 146 (132-148) mmol/L Potassium 4.0 3.9 (3.6-5.2) mmol/L Chloride 109 H 111 H (98-107) mmol/L Carbon Dioxide 28 25 (22-30) mmol/L Anion Gap 14 14 (10-20) BUN 18 19 (9-20) mg/dL Creatinine 1.0 0.9 (0.8-1.5) mg/dL Est GFR ( Amer) > 60 > 60 Est GFR (Non-Af Amer) > 60 > 60 POC Glucose (mg/dL) (65-110) mg/dL Random Glucose 82 105 (75-110) mg/dL Serum Osmolality 304 H (272-300) mosm/kg Calcium 9.3 8.4 L (8.6-10.4) mg/dl Total Bilirubin (0.2-1.3) mg/dL AST (17-59) U/L ALT (21-72) U/L Alkaline Phosphatase (38-126) U/L Total Protein (6.3-8.3) g/dL Albumin (3.5-5.0) g/dL Globulin (2.2-3.9) gm/dL Albumin/Globulin Ratio (1.0-2.1) 03/05/18 03/05/18 03/05/18 Range/Units 07:49 06:12 06:00 WBC (4.8-10.8) K/uL RBC (4.40-5.90) Mil/uL Hgb (12.0-18.0) g/dL Hct (35.0-51.0) % MCV (80.0-94.0) fL MCH (27.0-31.0) pg MCHC (33.0-37.0) g/dL RDW (11.5-14.5) % Plt Count (130-400) K/uL MPV (7.2-11.7) fL Neut % (Auto) (50.0-75.0) % Lymph % (Auto) (20.0-40.0) % [place] % (Auto) (0.0-10.0) % Eos % (Auto) (0.0-4.0) % Baso % (Auto) (0.0-2.0) % Neut # (Auto) (1.8-7.0) K/uL Lymph # (Auto) (1.0-4.3) K/uL [place] # (Auto) (0.0-0.8) K/uL Eos # (Auto) (0.0-0.7) K/uL Baso # (Auto) (0.0-0.2) K/uL PT (9.7-12.2) SECONDS INR APTT (21-34) SECONDS Sodium 146 (132-148) mmol/L Potassium 3.9 (3.6-5.2) mmol/L Chloride 112 H (98-107) mmol/L Carbon Dioxide 23 (22-30) mmol/L Anion Gap 15 (10-20) BUN 20 (9-20) mg/dL Creatinine 1.0 (0.8-1.5) mg/dL Est GFR ( Amer) > 60 Est GFR (Non-Af Amer) > 60 POC Glucose (mg/dL) 91 (65-110) mg/dL Random Glucose 125 H (75-110) mg/dL Serum Osmolality 308 H (272-300) mosm/kg Calcium 8.8 (8.6-10.4) mg/dl Total Bilirubin 0.7 (0.2-1.3) mg/dL AST 21 (17-59) U/L ALT 17 L D (21-72) U/L Alkaline Phosphatase 83 (38-126) U/L Total Protein 7.0 (6.3-8.3) g/dL Albumin 3.4 L (3.5-5.0) g/dL Globulin 3.6 (2.2-3.9) gm/dL Albumin/Globulin Ratio 1.0 (1.0-2.1) 03/05/18 03/05/18 03/05/18 Range/Units 06:00 04:00 00:17 WBC 15.8 H (4.8-10.8) K/uL RBC 4.08 L (4.40-5.90) Mil/uL Hgb 12.7 (12.0-18.0) g/dL Hct 38.2 (35.0-51.0) % MCV 93.6 (80.0-94.0) fL MCH 31.2 H (27.0-31.0) pg MCHC 33.3 (33.0-37.0) g/dL RDW 13.6 (11.5-14.5) % Plt Count 313 (130-400) K/uL MPV 9.3 (7.2-11.7) fL Neut % (Auto) 80.0 H (50.0-75.0) % Lymph % (Auto) 11.2 L (20.0-40.0) % [place] % (Auto) 8.6 (0.0-10.0) % Eos % (Auto) 0.0 (0.0-4.0) % Baso % (Auto) 0.2 (0.0-2.0) % Neut # (Auto) 12.6 H (1.8-7.0) K/uL Lymph # (Auto) 1.8 (1.0-4.3) K/uL [place] # (Auto) 1.4 H (0.0-0.8) K/uL Eos # (Auto) 0.0 (0.0-0.7) K/uL Baso # (Auto) 0.0 (0.0-0.2) K/uL PT 15.0 H (9.7-12.2) SECONDS INR 1.4 APTT 32 (21-34) SECONDS Sodium 147 (132-148) mmol/L Potassium 4.0 (3.6-5.2) mmol/L Chloride 112 H (98-107) mmol/L Carbon Dioxide 25 (22-30) mmol/L Anion Gap 14 (10-20) BUN 19 (9-20) mg/dL Creatinine 1.0 (0.8-1.5) mg/dL Est GFR ( Amer) > 60 Est GFR (Non-Af Amer) > 60 POC Glucose (mg/dL) (65-110) mg/dL Random Glucose 101 (75-110) mg/dL Serum Osmolality (272-300) mosm/kg Calcium 9.1 (8.6-10.4) mg/dl Total Bilirubin (0.2-1.3) mg/dL AST (17-59) U/L ALT (21-72) U/L Alkaline Phosphatase (38-126) U/L Total Protein (6.3-8.3) g/dL Albumin (3.5-5.0) g/dL Globulin (2.2-3.9) gm/dL Albumin/Globulin Ratio (1.0-2.1) 18 18 Range/Units 00:17 17:57 WBC (4.8-10.8) K/uL RBC (4.40-5.90) Mil/uL Hgb (12.0-18.0) g/dL Hct (35.0-51.0) % MCV (80.0-94.0) fL MCH (27.0-31.0) pg MCHC (33.0-37.0) g/dL RDW (11.5-14.5) % Plt Count (130-400) K/uL MPV (7.2-11.7) fL Neut % (Auto) (50.0-75.0) % Lymph % (Auto) (20.0-40.0) % [place] % (Auto) (0.0-10.0) % Eos % (Auto) (0.0-4.0) % Baso % (Auto) (0.0-2.0) % Neut # (Auto) (1.8-7.0) K/uL Lymph # (Auto) (1.0-4.3) K/uL [place] # (Auto) (0.0-0.8) K/uL Eos # (Auto) (0.0-0.7) K/uL Baso # (Auto) (0.0-0.2) K/uL PT (9.7-12.2) SECONDS INR APTT (21-34) SECONDS Sodium (132-148) mmol/L Potassium (3.6-5.2) mmol/L Chloride (98-107) mmol/L Carbon Dioxide (22-30) mmol/L Anion Gap (10-20) BUN (9-20) mg/dL Creatinine (0.8-1.5) mg/dL Est GFR ( Amer) Est GFR (Non-Af Amer) POC Glucose (mg/dL) 152 H (65-110) mg/dL Random Glucose (75-110) mg/dL Serum Osmolality 310 H (272-300) mosm/kg Calcium (8.6-10.4) mg/dl Total Bilirubin (0.2-1.3) mg/dL AST (17-59) U/L ALT (21-72) U/L Alkaline Phosphatase (38-126) U/L Total Protein (6.3-8.3) g/dL Albumin (3.5-5.0) g/dL Globulin (2.2-3.9) gm/dL Albumin/Globulin Ratio (1.0-2.1) Laboratory Results - last 24 hr 03/04/18 03/05/18 03/05/18 17:57 00:17 00:17 WBC RBC Hgb Hct MCV MCH MCHC RDW Plt Count MPV Neut % (Auto) Lymph % (Auto) [place] % (Auto) Eos % (Auto) Baso % (Auto) Neut # (Auto) Lymph # (Auto) [place] # (Auto) Eos # (Auto) Baso # (Auto) PT INR APTT Sodium 147 Potassium 4.0 Chloride 112 H Carbon Dioxide 25 Anion Gap 14 BUN 19 Creatinine 1.0 Est GFR ( Amer) > 60 Est GFR (Non-Af Amer) > 60 POC Glucose (mg/dL) 152 H Random Glucose 101 Serum Osmolality 310 H Calcium 9.1 Total Bilirubin AST ALT Alkaline Phosphatase Total Protein Albumin Globulin Albumin/Globulin Ratio 03/05/18 03/05/18 03/05/18 04:00 06:00 06:00 WBC 15.8 H RBC 4.08 L Hgb 12.7 Hct 38.2 MCV 93.6 MCH 31.2 H MCHC 33.3 RDW 13.6 Plt Count 313 MPV 9.3 Neut % (Auto) 80.0 H Lymph % (Auto) 11.2 L [place] % (Auto) 8.6 Eos % (Auto) 0.0 Baso % (Auto) 0.2 Neut # (Auto) 12.6 H Lymph # (Auto) 1.8 [place] # (Auto) 1.4 H Eos # (Auto) 0.0 Baso # (Auto) 0.0 PT 15.0 H INR 1.4 APTT 32 Sodium 146 Potassium 3.9 Chloride 112 H Carbon Dioxide 23 Anion Gap 15 BUN 20 Creatinine 1.0 Est GFR ( Amer) > 60 Est GFR (Non-Af Amer) > 60 POC Glucose (mg/dL) Random Glucose 125 H Serum Osmolality Calcium 8.8 Total Bilirubin 0.7 AST 21 ALT 17 L D Alkaline Phosphatase 83 Total Protein 7.0 Albumin 3.4 L Globulin 3.6 Albumin/Globulin Ratio 1.0 03/05/18 03/05/18 03/05/18 06:12 07:49 07:49 WBC RBC Hgb Hct MCV MCH MCHC RDW Plt Count MPV Neut % (Auto) Lymph % (Auto) [place] % (Auto) Eos % (Auto) Baso % (Auto) Neut # (Auto) Lymph # (Auto) [place] # (Auto) Eos # (Auto) Baso # (Auto) PT INR APTT Sodium 146 Potassium 3.9 Chloride 111 H Carbon Dioxide 25 Anion Gap 14 BUN 19 Creatinine 0.9 Est GFR ( Amer) > 60 Est GFR (Non-Af Amer) > 60 POC Glucose (mg/dL) 91 Random Glucose 105 Serum Osmolality 308 H Calcium 8.4 L Total Bilirubin AST ALT Alkaline Phosphatase Total Protein Albumin Globulin Albumin/Globulin Ratio 03/05/18 03/05/18 15:40 15:40 WBC RBC Hgb Hct MCV MCH MCHC RDW Plt Count MPV Neut % (Auto) Lymph % (Auto) [place] % (Auto) Eos % (Auto) Baso % (Auto) Neut # (Auto) Lymph # (Auto) [place] # (Auto) Eos # (Auto) Baso # (Auto) PT INR APTT Sodium 147 Potassium 4.0 Chloride 109 H Carbon Dioxide 28 Anion Gap 14 BUN 18 Creatinine 1.0 Est GFR ( Amer) > 60 Est GFR (Non-Af Amer) > 60 POC Glucose (mg/dL) Random Glucose 82 Serum Osmolality 304 H Calcium 9.3 Total Bilirubin AST ALT Alkaline Phosphatase Total Protein Albumin Globulin Albumin/Globulin Ratio Fingerstick Blood Sugar Results: 91 Critical Care Progress Note - Nutrition Nutrition: Nutrition Category Date Time Status Pureed [Dysphagia/Modified Consistency Diet] [DIET] Diets 03/03/18 Dinner Active
[2018-03-05] MEDS ORDERED: Sodium Chloride 3% 500 ML IV ONE (22:00)
[2018-03-06 00:45] LABS: BLOOD UREA NITROGEN 16 mg/dL (9-20); CALCIUM 9.2 mg/dl (8.6-10.4); GFR AFRICAN-AMERICAN > 60; GFR NON-AFRICAN AMERICAN > 60
[2018-03-06] MEDS: (Novolin R) Insulin Human Regular 100 units/ml vial SC SCH ×2 (06:00→17:53)
[2018-03-06 06:30] LABS: BASO % 0.4 % (0.0-2.0); EOS # 0.1 K/uL (0.0-0.7); EOS % 0.7 % (0.0-4.0); HEMOGLOBIN 13.6 g/dL (12.0-18.0); LYMPH # 1.6 K/uL (1.0-4.3); LYMPH % 16.7 % (20.0-40.0); MEAN CELL VOLUME 93.3 fL (80.0-94.0); MEAN CORPUSCULAR HEMOGLOBIN 31.1 pg (27.0-31.0); MEAN CORPUSCULAR HGB CONC 33.4 g/dL (33.0-37.0); MEAN PLATELET VOLUME 9.1 fL (7.2-11.7); MONO # 0.9 K/uL (0.0-0.8); MONO % 9.7 % (0.0-10.0); NEUT # 6.9 K/uL (1.8-7.0); NEUT % 72.5 % (50.0-75.0); NRBC % 0.1 % (0.0-2.0); RBC 4.36 Mil/uL (4.40-5.90); RED CELL DISTRIBUTION WIDTH 13.5 % (11.5-14.5); WHITE BLOOD COUNT 9.5 K/uL (4.8-10.8)
[2018-03-06 06:36] LABS: INR 1.4; PROTHROMBIN TIME 15.5 SECONDS (9.7-12.2)
[2018-03-06 06:42] LABS: ALBUMIN 3.4 g/dL (3.5-5.0); ALT/SGPT 22 U/L (21-72); AST/SGOT 22 U/L (17-59); BLOOD UREA NITROGEN 16 mg/dL (9-20); CALCIUM 8.8 mg/dl (8.6-10.4); GFR AFRICAN-AMERICAN > 60; GFR NON-AFRICAN AMERICAN > 60
--- NOTE | 2018-03-06 07:05 | CP.PCM.PN ---
Subjective - Date & Time of Evaluation Date of Evaluation: 03/06/18 Time of Evaluation: 07:05 - Subjective Subjective: Mr. Rodriguez was seen and examined at the bedside in ICU. He is more awake,majority of time non- verbal, communicates utilizing with non-verbal cues such as nodding and shaking his head. However, he was able to verbalize good morning, no.He is able to follow simple commands such as opening his eyes with tongue deviation to the right noted, moves his left side with paraplegia noted in his right side. He remains on hypertonic solution at 50 ml/hr with the latest na- 145 and serum osmolality of 319. He is tolerating NGT feeding. CT of the head done 03/05/2018 showed large hematoma in the left cerebral hemisphere epicenter of which is located in the left basal ganglia. Surrounding low-attenuation edema or necrotic brain tissue with persistent mass effect. There is a compression of the left lateral ventricle which shifter to the left side. There is also shift of the septum pellucidum from left to right approx. 6.4 mm.There was no untoward events overnight. Objective - Vital Signs/Intake and Output Vital Signs (last 24 hours): Temp Pulse Resp BP Pulse Ox 98.6 F 90 20 138/96 H 97 03/06/18 04:00 03/06/18 06:01 03/06/18 06:01 03/06/18 06:01 03/06/18 06:01 Intake and Output: 03/06/18 03/06/18 06:59 18:59 Intake Total 960 Balance 960 - Medications Medications: Current Medications Hydralazine HCl (Apresoline) 10 mg IVP Q6H PRN PRN Reason: Systolic BP > 140 Last Admin: 03/05/18 15:22 Dose: 10 mg Sodium Chloride (Hypertonic Saline 3%) 500 mls @ 50 mls/hr IV .Q10H ONE Stop: 03/06/18 07:59 Last Admin: 03/05/18 22:15 Dose: 50 mls/hr Insulin Human Regular (Novolin R) 0 unit SC Q12H PANCHO PRN Reason: Protocol Last Admin: 03/06/18 06:00 Dose: Not Given Labetalol HCl (Trandate) 200 mg PO Q8H PANCHO Last Admin: 03/06/18 02:24 Dose: 200 mg Lisinopril (Zestril) 5 mg PO DAILY [facility] Last Admin: 03/05/18 09:20 Dose: 5 mg Pantoprazole Sodium (Protonix Inj) 40 mg IVP DAILY [facility] Last Admin: 03/05/18 09:20 Dose: 40 mg Rosuvastatin Calcium (Crestor) 5 mg PO HS [facility] Last Admin: 03/05/18 22:15 Dose: 5 mg - Labs Labs: 03/06/18 06:16 03/06/18 06:17 PT 15.5 SECONDS (9.7-12.2) H 03/06/18 06:16 INR 1.4 03/06/18 06:16 APTT 33 SECONDS (21-34) 03/06/18 06:16 - Constitutional Appears: No Acute Distress - Head Exam Head Exam: NORMAL INSPECTION - Eye Exam Pupil Exam: Miosis, PERRL Additional comments: 3 mm. - Neurological Exam Neurological Exam: Alert, Awake Neuro motor strength exam: Left Upper Extremity: 5, Right Upper Extremity: 0, Left Lower Extremity: 5, Right Lower Extremity: 0 Additional comments: Ne urological unchanged from previous examination. Assessment and Plan (1) Hemorrhagic stroke Assessment & Plan: Case discussed with Dr. Watts, continue all current medical regimen including hypertonic solution with parameters of Na level 150-155 and serum osmolality below 320. Recommend decadron 10 mg IV Q [address] hours.Re[address] to repeat CT of the head today to monitor hemorrhagic stroke and edema. Recommend blood pressure, glycemic control, normothermic, and head of bed elevated at least 40 degrees angle. Status: Acute
[2018-03-06] MEDS ORDERED: Sodium Chloride 3% 500 ML IV ONE (09:24)
[2018-03-06] MEDS ORDERED: Dexamethasone 10 MG in Dextrose 5% In Water 50 ML IV SCH (10:00)
--- NOTE | 2018-03-06 10:28 | CP.PCM.PN ---
<Didier Thapa - Last Filed: 03/06/18 10:50> Subjective - Date & Time of Evaluation Date of Evaluation: 03/06/18 Time of Evaluation: 09:00 - Subjective Subjective: PGY 4 GI Progress Note Pt seen and examined bedside Able to arouse answers simple yes/no questions Family at bedside and discussed potential PEG tube placement ROS: limited due to patient status Objective - Vital Signs/Intake and Output Vital Signs (last 24 hours): Temp Pulse Resp BP Pulse Ox 98.4 F 86 20 125/85 99 03/06/18 08:00 03/06/18 10:00 03/06/18 10:00 03/06/18 09:44 03/06/18 10:00 Intake and Output: 03/06/18 03/06/18 06:59 18:59 Intake Total 960 430 Balance 960 430 - Medications Medications: Current Medications Dexamethasone (Decadron Inj) 10 mg IVP Q12 [facility] Last Admin: 03/06/18 09:19 Dose: 10 mg Hydralazine HCl (Apresoline) 10 mg IVP Q6H PRN PRN Reason: Systolic BP > 140 Last Admin: 03/05/18 15:22 Dose: 10 mg Sodium Chloride (Hypertonic Saline 3%) 500 mls @ 50 mls/hr IV .Q10H ONE Stop: 03/06/18 19:23 Last Admin: 03/06/18 09:31 Dose: 50 mls/hr Insulin Human Regular (Novolin R) 0 unit SC Q12H PANCHO PRN Reason: Protocol Last Admin: 03/06/18 06:00 Dose: Not Given Labetalol HCl (Trandate) 200 mg PO Q8H [facility] Last Admin: 03/06/18 09:14 Dose: 200 mg Lisinopril (Zestril) 5 mg PO DAILY [facility] Last Admin: 03/06/18 09:04 Dose: 5 mg Pantoprazole Sodium (Protonix Inj) 40 mg IVP DAILY [facility] Last Admin: 03/06/18 09:04 Dose: 40 mg Rosuvastatin Calcium (Crestor) 5 mg PO HS [facility] Last Admin: 03/05/18 22:15 Dose: 5 mg - Labs Labs: 03/06/18 06:16 03/06/18 06:17 PT 15.5 SECONDS (9.7-12.2) H 03/06/18 06:16 INR 1.4 03/06/18 06:16 APTT 33 SECONDS (21-34) 03/06/18 06:16 - Constitutional Appears: No Acute Distress - Head Exam Head Exam: ATRAUMATIC, NORMOCEPHALIC - Respiratory Exam Respiratory Exam: absent: Rales, Rhonchi, Wheezes - Cardiovascular Exam Cardiovascular Exam: +S1, +S2. absent: Gallop, Rubs - GI/Abdominal Exam GI & Abdominal Exam: Soft. absent: Distended, Firm, Guarding, Rigid, Tenderness - Extremities Exam Extremities Exam: Normal Inspection. absent: Pedal Edema - Neurological Exam Neurological Exam: Altered - Skin Skin Exam: Dry, Intact, Normal Color, Warm Assessment and Plan - Assessment and Plan (Free Text) Plan: 52 year old male with PMH of HTN, HLD, and Obesity presenting with slurred speech. 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 Dysphagia 2/2 CVA CVA -Recommend having goal of care family meeting to discuss plan and recommendations -At present time, family undecided and requesting more time to discuss -03/01 speech evaluation-no gag or swallowing elicited on evaluation -03/02 speech evaluation- improved swallowing to puree diet without signs of aspiration -speech therapist recommending RN-assisted pleasure feeds -continue tube feeds for nutritional support -continue speech therapy and medical management of CVA -family agrees with holding off on consideration for PEG tube placement with improving aphagia without dysphagia to puree diet until Tuesday -family counselled on outpatient follow up to obtain colonoscopy for CRC screening -No GI intervention planned at this time pending family goal of care meeting, please reconsult if deemed necessary, we will sign off at this time D/W Dr. Wood <Micheal Wood - Last Filed: 03/06/18 11:13> Objective - Vital Signs/Intake and Output Vital Signs (last 24 hours): Temp Pulse Resp BP Pulse Ox 98.4 F 86 20 125/85 99 03/06/18 08:00 03/06/18 10:00 03/06/18 10:00 03/06/18 09:44 03/06/18 10:00 Intake and Output: 03/06/18 03/06/18 06:59 18:59 Intake Total 960 430 Balance 960 430 - Medications Medications: Current Medications Dexamethasone (Decadron Inj) 10 mg IVP Q12 [facility] Last Admin: 03/06/18 09:19 Dose: 10 mg Hydralazine HCl (Apresoline) 10 mg IVP Q6H PRN PRN Reason: Systolic BP > 140 Last Admin: 03/05/18 15:22 Dose: 10 mg Sodium Chloride (Hypertonic Saline 3%) 500 mls @ 50 mls/hr IV .Q10H ONE Stop: 03/06/18 19:23 Last Admin: 03/06/18 09:31 Dose: 50 mls/hr Insulin Human Regular (Novolin R) 0 unit SC Q12H PANCHO PRN Reason: Protocol Last Admin: 03/06/18 06:00 Dose: Not Given Labetalol HCl (Trandate) 200 mg PO Q8H [facility] Last Admin: 03/06/18 09:14 Dose: 200 mg Lisinopril (Zestril) 5 mg PO DAILY [facility] Last Admin: 03/06/18 09:04 Dose: 5 mg Pantoprazole Sodium (Protonix Inj) 40 mg IVP DAILY [facility] Last Admin: 03/06/18 09:04 Dose: 40 mg Rosuvastatin Calcium (Crestor) 5 mg PO HS [facility] Last Admin: 03/05/18 22:15 Dose: 5 mg - Labs Labs: 03/06/18 06:16 03/06/18 06:17 PT 15.5 SECONDS (9.7-12.2) H 03/06/18 06:16 INR 1.4 03/06/18 06:16 APTT 33 SECONDS (21-34) 03/06/18 06:16 Attending/Attestation - Attestation I have personally seen and examined this patient.: Yes I have fully participated in the care of the patient.: Yes I have reviewed all pertinent clinical information, including history, physical exam and plan: Yes Notes (Text): 03/06/18 11:12 I have seen and examined patient with GI fellow. In brief, this is a 52 year old male with history of HTN, hyperlipidemia who initially presented to hospital with complaint of slurred speech, found to have an acute CVA. GI called for evaluation of possible endoscopic feeding tube placement. Next of kin as per patient is sister but the partner does not want tube placement. GI team has had many discussions with the partner. Discussed with the sole trimmer to establish NOK and aspiration precautions till consent can be obtained for NOK. Supportive care. Please reconsult as needed once ethical issues have been resolved with risk management
--- NOTE | 2018-03-06 11:26 | CP.PCM.PN ---
Subjective - Date & Time of Evaluation Date of Evaluation: 03/06/18 Time of Evaluation: 11:30 - Subjective Subjective: Progress note dictated #[id number] Objective - Vital Signs/Intake and Output Vital Signs (last 24 hours): Temp Pulse Resp BP Pulse Ox 98.4 F 86 20 125/85 99 03/06/18 08:00 03/06/18 10:00 03/06/18 10:00 03/06/18 09:44 03/06/18 10:00 Intake and Output: 03/06/18 03/06/18 06:59 18:59 Intake Total 960 430 Balance 960 430 - Medications Medications: Current Medications Dexamethasone (Decadron Inj) 10 mg IVP Q12 [facility] BEDS AT [facility] Last Admin: 03/06/18 09:19 Dose: 10 mg Hydralazine HCl (Apresoline) 10 mg IVP Q6H PRN PRN Reason: Systolic BP > 140 Last Admin: 03/05/18 15:22 Dose: 10 mg Sodium Chloride (Hypertonic Saline 3%) 500 mls @ 50 mls/hr IV .Q10H ONE Stop: 03/06/18 19:23 Last Admin: 03/06/18 09:31 Dose: 50 mls/hr Insulin Human Regular (Novolin R) 0 unit SC Q12H PANCHO PRN Reason: Protocol Last Admin: 03/06/18 06:00 Dose: Not Given Labetalol HCl (Trandate) 200 mg PO Q8H [facility] 234 B[facility]S AT [facility] Last Admin: 03/06/18 09:14 Dose: 200 mg Lisinopril (Zestril) 5 mg PO DAILY [facility] 234 B[facility]S AT [facility] Last Admin: 03/06/18 09:04 Dose: 5 mg Pantoprazole Sodium (Protonix Inj) 40 mg IVP DAILY [facility] 234 B[facility]S AT [facility] Last Admin: 03/06/18 09:04 Dose: 40 mg Rosuvastatin Calcium (Crestor) 5 mg PO HS [facility] 234 BEDS AT [facility] Last Admin: 03/05/18 22:15 Dose: 5 mg - Labs Labs: 03/06/18 06:16 03/06/18 06:17 PT 15.5 SECONDS (9.7-12.2) H 03/06/18 06:16 INR 1.4 03/06/18 06:16 APTT 33 SECONDS (21-34) 03/06/18 06:16
--- NOTE | 2018-03-06 13:32 | CT ---
PROCEDURE: CT HEAD WITHOUT CONTRAST. HISTORY: Follow-up the hemorrhage. COMPARISON: The comparison made with prior CT scan brain 03/05/2018. TECHNIQUE: Axial computed tomography images were obtained through the head/brain without intravenous contrast. Radiation dose: Total exam DLP = 1227.1 mGy-cm. This CT exam was performed using one or more of the following dose reduction techniques: Automated exposure control, adjustment of the mA and/or kV according to patient size, and/or use of iterative reconstruction technique. . FINDINGS: HEMORRHAGE: Re- demonstrated is a large elliptical shaped hematoma, the epicenter of which is located in the left basal ganglia extending inferiorly into the superior temporal region and superiorly into the left champion radiata. Wide margin of low-attenuation edema or necrotic brain tissue surrounds the hematoma. Persistent surrounding mass effect with compression of the left lateral ventricle the which partially shifted across midline. The septum pellucidum is also shifted the shifted across midline slightly. Septum pellucidum lies approximately 4.9 mm to the right of midline. There is overlying mild localized sulcal effacement. No new hemorrhages are. BRAIN: As above. Minimal chronic periventricular white matter ischemic changes. May be some. VENTRICLES: No hydrocephalus. . CALVARIUM: Unremarkable. PARANASAL SINUSES: Unremarkable as visualized. No significant inflammatory changes. MASTOID AIR CELLS: Unremarkable as visualized. No inflammatory changes. OTHER FINDINGS: None. IMPRESSION: Re- demonstrated is a large elliptical shaped hematoma the epicenter of which is located left basal ganglia extending inferiorly and superiorly as above. There is a wide rim of low-attenuation edema and or necrotic brain tissue. Persistent mass effect with slight shift of the midline from left to right as described No new hemorrhages. No evidence of hydrocephalus
--- NOTE | 2018-03-06 13:53 | CP.CCUPN ---
CCU Subjective - Physician Review Subjective (Free Text): Patient was seen and examined at bedside. Patient is awake and responding, able to communicate. Critical Care Time Spent (in minutes): 20 CCU Objective - Vital Signs / Intake & Output Vital Signs (Last 4 hours): Vital Signs Temp Pulse Resp BP Pulse Ox 03/06/18 13:00 101 H 21 99 03/06/18 12:45 96 H 23 131/89 03/06/18 12:00 98 F 91 H 20 100 03/06/18 11:44 88 20 162/98 H 100 03/06/18 11:33 86 21 98 03/06/18 11:26 84 21 141/102 H 98 03/06/18 11:00 84 16 100 03/06/18 10:45 77 24 102/53 L 96 03/06/18 10:00 86 20 99 Intake and Output (Last 8hrs): Intake & Output 03/05/18 03/06/18 03/06/18 22:59 06:59 14:59 Intake Total 640 640 670 Output Total 750 Balance -110 640 670 Weight 255 lb Intake: Intake, IV Amount 400 400 350 Right Proximal Port 400 400 350 Femoral Tube Feeding 240 240 210 Albumin 110 Output: Urine 750 Condom 750 Other: # Bowel Movements 1 - Physical Exam Head: Positive for: Atraumatic, Other (Right Sided Facial Droop (Improved) ) Pupils: Positive for: PERRL Extroacular Muscles: Positive for: EOMI Conjunctiva: Positive for: Normal Mouth: Positive for: Moist Mucous Membranes Nose (External): Positive for: Atraumatic Respiratory/Chest: Positive for: Clear to Auscultation, Good Air Exchange Cardiovascular: Positive for: Normal S1, S2. Negative for: Murmurs Abdomen: Positive for: Normal Bowel Sounds. Negative for: Tenderness Upper Extremity: Positive for: Other (right sided weakness ) Lower Extremity: Positive for: Normal Inspection, Other (right sided weakness ) . Negative for: Edema Neurological: Positive for: Other (Right Sided Hemiparesis. ). Negative for: CN II-XII Intact, Speech Normal, Normal Sensory Function (No Sensation on Right upper and Lower Ext. ), Normal 2Pt Descrimination Skin: Positive for: Warm, Dry, Normal Color. Negative for: Rashes Psychiatric: Positive for: Alert, Oriented x 3 - Medications Active Medications: Active Medications Generic Name Dose Route Start Last Admin Trade Name Freq PRN Reason Stop Dose Admin Dexamethasone 10 mg 03/06/18 10:00 03/06/18 09:19 Decadron Inj IVP 10 mg Q12 PACNHO Administration Hydralazine HCl 10 mg 03/02/18 10:35 03/06/18 11:54 Apresoline IVP 10 mg Q6H PRN Administration Systolic BP > 140 Sodium Chloride 500 mls @ 50 mls/hr 03/06/18 09:24 03/06/18 09:31 Hypertonic Saline 3% IV 03/06/18 19:23 50 mls/hr .Q10H ONE Administration Insulin Human Regular 0 unit 03/03/18 18:00 03/06/18 06:00 Novolin R SC Not Given Q12H PANCHO Protocol Labetalol HCl 200 mg 03/02/18 10:15 03/06/18 09:14 Trandate PO 200 mg Q8H PANCHO Administration Lisinopril 5 mg 03/02/18 10:00 03/06/18 09:04 Zestril PO 5 mg DAILY PANCHO Administration Pantoprazole Sodium 40 mg 02/28/18 10:00 03/06/18 09:04 Protonix Inj IVP 40 mg DAILY PANCHO Administration Rosuvastatin Calcium 5 mg 03/02/18 22:00 03/05/18 22:15 Crestor PO 5 mg HS PANCHO Administration - Patient Studies Lab Studies: Lab Studies 03/06/18 03/06/18 03/06/18 Range/Units 06:52 06:17 06:16 WBC (4.8-10.8) K/uL RBC (4.40-5.90) Mil/uL Hgb (12.0-18.0) g/dL Hct (35.0-51.0) % MCV (80.0-94.0) fL MCH (27.0-31.0) pg MCHC (33.0-37.0) g/dL RDW (11.5-14.5) % Plt Count (130-400) K/uL MPV (7.2-11.7) fL Neut % (Auto) (50.0-75.0) % Lymph % (Auto) (20.0-40.0) % Benton % (Auto) (0.0-10.0) % Eos % (Auto) (0.0-4.0) % Baso % (Auto) (0.0-2.0) % Neut # (Auto) (1.8-7.0) K/uL Lymph # (Auto) (1.0-4.3) K/uL Benton # (Auto) (0.0-0.8) K/uL Eos # (Auto) (0.0-0.7) K/uL Baso # (Auto) (0.0-0.2) K/uL PT 15.5 H (9.7-12.2) SECONDS INR 1.4 APTT 33 (21-34) SECONDS Sodium 145 (132-148) mmol/L Potassium 3.7 (3.6-5.2) mmol/L Chloride 107 (98-107) mmol/L Carbon Dioxide 25 (22-30) mmol/L Anion Gap 16 (10-20) BUN 16 (9-20) mg/dL Creatinine 1.0 (0.8-1.5) mg/dL Est GFR ( Amer) > 60 Est GFR (Non-Af Amer) > 60 POC Glucose (mg/dL) (65-110) mg/dL Random Glucose 123 H (75-110) mg/dL Serum Osmolality 309 H (272-300) mosm/kg Calcium 8.8 (8.6-10.4) mg/dl Total Bilirubin 0.8 (0.2-1.3) mg/dL AST 22 (17-59) U/L ALT 22 (21-72) U/L Alkaline Phosphatase 87 (38-126) U/L Total Protein 7.0 (6.3-8.3) g/dL Albumin 3.4 L (3.5-5.0) g/dL Globulin 3.5 (2.2-3.9) gm/dL Albumin/Globulin Ratio 1.0 (1.0-2.1) 03/06/18 03/06/18 03/06/18 Range/Units 06:16 05:22 00:18 WBC 9.5 (4.8-10.8) K/uL RBC 4.36 L (4.40-5.90) Mil/uL Hgb 13.6 (12.0-18.0) g/dL Hct 40.6 (35.0-51.0) % MCV 93.3 (80.0-94.0) fL MCH 31.1 H (27.0-31.0) pg MCHC 33.4 (33.0-37.0) g/dL RDW 13.5 (11.5-14.5) % Plt Count 340 (130-400) K/uL MPV 9.1 (7.2-11.7) fL Neut % (Auto) 72.5 (50.0-75.0) % Lymph % (Auto) 16.7 L (20.0-40.0) % Benton % (Auto) 9.7 (0.0-10.0) % Eos % (Auto) 0.7 (0.0-4.0) % Baso % (Auto) 0.4 (0.0-2.0) % Neut # (Auto) 6.9 (1.8-7.0) K/uL Lymph # (Auto) 1.6 (1.0-4.3) K/uL Benton # (Auto) 0.9 H (0.0-0.8) K/uL Eos # (Auto) 0.1 (0.0-0.7) K/uL Baso # (Auto) 0.0 (0.0-0.2) K/uL PT (9.7-12.2) SECONDS INR APTT (21-34) SECONDS Sodium 146 (132-148) mmol/L Potassium 3.8 (3.6-5.2) mmol/L Chloride 109 H (98-107) mmol/L Carbon Dioxide 26 (22-30) mmol/L Anion Gap 15 (10-20) BUN 16 (9-20) mg/dL Creatinine 1.0 (0.8-1.5) mg/dL Est GFR ( Amer) > 60 Est GFR (Non-Af Amer) > 60 POC Glucose (mg/dL) 150 H (65-110) mg/dL Random Glucose 100 (75-110) mg/dL Serum Osmolality (272-300) mosm/kg Calcium 9.2 (8.6-10.4) mg/dl Total Bilirubin (0.2-1.3) mg/dL AST (17-59) U/L ALT (21-72) U/L Alkaline Phosphatase (38-126) U/L Total Protein (6.3-8.3) g/dL Albumin (3.5-5.0) g/dL Globulin (2.2-3.9) gm/dL Albumin/Globulin Ratio (1.0-2.1) 03/06/18 03/05/18 03/05/18 Range/Units 00:18 23:57 17:57 WBC (4.8-10.8) K/uL RBC (4.40-5.90) Mil/uL Hgb (12.0-18.0) g/dL Hct (35.0-51.0) % MCV (80.0-94.0) fL MCH (27.0-31.0) pg MCHC (33.0-37.0) g/dL RDW (11.5-14.5) % Plt Count (130-400) K/uL MPV (7.2-11.7) fL Neut % (Auto) (50.0-75.0) % Lymph % (Auto) (20.0-40.0) % Benton % (Auto) (0.0-10.0) % Eos % (Auto) (0.0-4.0) % Baso % (Auto) (0.0-2.0) % Neut # (Auto) (1.8-7.0) K/uL Lymph # (Auto) (1.0-4.3) K/uL Benton # (Auto) (0.0-0.8) K/uL Eos # (Auto) (0.0-0.7) K/uL Baso # (Auto) (0.0-0.2) K/uL PT (9.7-12.2) SECONDS INR APTT (21-34) SECONDS Sodium (132-148) mmol/L Potassium (3.6-5.2) mmol/L Chloride (98-107) mmol/L Carbon Dioxide (22-30) mmol/L Anion Gap (10-20) BUN (9-20) mg/dL Creatinine (0.8-1.5) mg/dL Est GFR ( Amer) Est GFR (Non-Af Amer) POC Glucose (mg/dL) 113 H 99 (65-110) mg/dL Random Glucose (75-110) mg/dL Serum Osmolality 319 H (272-300) mosm/kg Calcium (8.6-10.4) mg/dl Total Bilirubin (0.2-1.3) mg/dL AST (17-59) U/L ALT (21-72) U/L Alkaline Phosphatase (38-126) U/L Total Protein (6.3-8.3) g/dL Albumin (3.5-5.0) g/dL Globulin (2.2-3.9) gm/dL Albumin/Globulin Ratio (1.0-2.1) 03/05/18 03/05/18 Range/Units 15:40 15:40 WBC (4.8-10.8) K/uL RBC (4.40-5.90) Mil/uL Hgb (12.0-18.0) g/dL Hct (35.0-51.0) % MCV (80.0-94.0) fL MCH (27.0-31.0) pg MCHC (33.0-37.0) g/dL RDW (11.5-14.5) % Plt Count (130-400) K/uL MPV (7.2-11.7) fL Neut % (Auto) (50.0-75.0) % Lymph % (Auto) (20.0-40.0) % Benton % (Auto) (0.0-10.0) % Eos % (Auto) (0.0-4.0) % Baso % (Auto) (0.0-2.0) % Neut # (Auto) (1.8-7.0) K/uL Lymph # (Auto) (1.0-4.3) K/uL Benton # (Auto) (0.0-0.8) K/uL Eos # (Auto) (0.0-0.7) K/uL Baso # (Auto) (0.0-0.2) K/uL PT (9.7-12.2) SECONDS INR APTT (21-34) SECONDS Sodium 147 (132-148) mmol/L Potassium 4.0 (3.6-5.2) mmol/L Chloride 109 H (98-107) mmol/L Carbon Dioxide 28 (22-30) mmol/L Anion Gap 14 (10-20) BUN 18 (9-20) mg/dL Creatinine 1.0 (0.8-1.5) mg/dL Est GFR ( Amer) > 60 Est GFR (Non-Af Amer) > 60 POC Glucose (mg/dL) (65-110) mg/dL Random Glucose 82 (75-110) mg/dL Serum Osmolality 304 H (272-300) mosm/kg Calcium 9.3 (8.6-10.4) mg/dl Total Bilirubin (0.2-1.3) mg/dL AST (17-59) U/L ALT (21-72) U/L Alkaline Phosphatase (38-126) U/L Total Protein (6.3-8.3) g/dL Albumin (3.5-5.0) g/dL Globulin (2.2-3.9) gm/dL Albumin/Globulin Ratio (1.0-2.1) Laboratory Results - last 24 hr 03/05/18 03/05/18 03/05/18 15:40 15:40 17:57 WBC RBC Hgb Hct MCV MCH MCHC RDW Plt Count MPV Neut % (Auto) Lymph % (Auto) Benton % (Auto) Eos % (Auto) Baso % (Auto) Neut # (Auto) Lymph # (Auto) Benton # (Auto) Eos # (Auto) Baso # (Auto) PT INR APTT Sodium 147 Potassium 4.0 Chloride 109 H Carbon Dioxide 28 Anion Gap 14 BUN 18 Creatinine 1.0 Est GFR ( Amer) > 60 Est GFR (Non-Af Amer) > 60 POC Glucose (mg/dL) 99 Random Glucose 82 Serum Osmolality 304 H Calcium 9.3 Total Bilirubin AST ALT Alkaline Phosphatase Total Protein Albumin Globulin Albumin/Globulin Ratio 03/05/18 03/06/18 03/06/18 23:57 00:18 00:18 WBC RBC Hgb Hct MCV MCH MCHC RDW Plt Count MPV Neut % (Auto) Lymph % (Auto) Benton % (Auto) Eos % (Auto) Baso % (Auto) Neut # (Auto) Lymph # (Auto) Benton # (Auto) Eos # (Auto) Baso # (Auto) PT INR APTT Sodium 146 Potassium 3.8 Chloride 109 H Carbon Dioxide 26 Anion Gap 15 BUN 16 Creatinine 1.0 Est GFR ( Amer) > 60 Est GFR (Non-Af Amer) > 60 POC Glucose (mg/dL) 113 H Random Glucose 100 Serum Osmolality 319 H Calcium 9.2 Total Bilirubin AST ALT Alkaline Phosphatase Total Protein Albumin Globulin Albumin/Globulin Ratio 03/06/18 03/06/18 03/06/18 05:22 06:16 06:16 WBC 9.5 RBC 4.36 L Hgb 13.6 Hct 40.6 MCV 93.3 MCH 31.1 H MCHC 33.4 RDW 13.5 Plt Count 340 MPV 9.1 Neut % (Auto) 72.5 Lymph % (Auto) 16.7 L Benton % (Auto) 9.7 Eos % (Auto) 0.7 Baso % (Auto) 0.4 Neut # (Auto) 6.9 Lymph # (Auto) 1.6 Benton # (Auto) 0.9 H Eos # (Auto) 0.1 Baso # (Auto) 0.0 PT 15.5 H INR 1.4 APTT 33 Sodium Potassium Chloride Carbon Dioxide Anion Gap BUN Creatinine Est GFR ( Amer) Est GFR (Non-Af Amer) POC Glucose (mg/dL) 150 H Random Glucose Serum Osmolality Calcium Total Bilirubin AST ALT Alkaline Phosphatase Total Protein Albumin Globulin Albumin/Globulin Ratio 03/06/18 03/06/18 06:17 06:52 WBC RBC Hgb Hct MCV MCH MCHC RDW Plt Count MPV Neut % (Auto) Lymph % (Auto) Benton % (Auto) Eos % (Auto) Baso % (Auto) Neut # (Auto) Lymph # (Auto) Benton # (Auto) Eos # (Auto) Baso # (Auto) PT INR APTT Sodium 145 Potassium 3.7 Chloride 107 Carbon Dioxide 25 Anion Gap 16 BUN 16 Creatinine 1.0 Est GFR ( Amer) > 60 Est GFR (Non-Af Amer) > 60 POC Glucose (mg/dL) Random Glucose 123 H Serum Osmolality 309 H Calcium 8.8 Total Bilirubin 0.8 AST 22 ALT 22 Alkaline Phosphatase 87 Total Protein 7.0 Albumin 3.4 L Globulin 3.5 Albumin/Globulin Ratio 1.0 Fingerstick Blood Sugar Results: 99 Critical Care Progress Note - Nutrition Nutrition: Nutrition Category Date Time Status Pureed [Dysphagia/Modified Consistency Diet] [DIET] Diets 03/03/18 Dinner Active Assessment/Plan - Assessment and Plan (Free Text) Assessment: 52 year old male with a history of HLD and HTN presented with slurred speech. Code Stroke Called - large basal ganglia hemorrhagic stroke noted on CT. Pending neuro clearance for PEG tube placement. Plan: Neuro: GCS: 15 Sedation: None A: Hemorrhagic CVA - Head CT (Admission): Moderate intraparenchymal hemorrhage is identified at the left basal ganglia exerting local mass effect and causing a limited rightward midline shift of 2 mm. Measurements are as defined above in terms of hemorrhagic collection. Limited local parenchymal edema appreciated. Remainder the examination appears unremarkable. - Head CT (02/28/18): The large left basal ganglia and intraparenchymal hemorrhage/hematoma with surrounding mass effect midline shift are similar in appearance. No progressive bleeding or new areas of bleeding noted. No progressive ventriculomegaly appreciated. No interval low-density areas to suggest interval infarcts. - MRI (03/01/18): Re- demonstrated is a large left basal ganglia hematoma surrounded by a small rim of edema and or necrotic brain tissue. The appearance and location most consistent with hypertensive origin hemorrhage. The questionable small fluid fluid level within the posterior superior dependent portion of the hematoma as above ; Is this patient currently on anticoagulant therapy or is there history of bleeding diathesis. Clinical correlation recommended. There is surrounding mass-effect with compression of the left lateral ventricle and overlying sulcal effacement. Slight shift of the midline from left to right as above. Chronic white matter ischemic changes as above - Head CT (03/03/18): There is left basal ganglia hematoma with increasing surrounding vasogenic edema measuring 5.8 x 2.6 cm with left to right midline shift 8 mm subfalcine herniation which demonstrate interval progression when compared to prior examination. 2. There is mass effect on the left lateral ventricle. Close clinical surveillance is recommended to evaluate for developing acute obstructive hydrocephalus. - Neurology Consulted - Dr. Watts - NeuroSurgery Consulted - Per Nurse who talked to Neurosurgeon. No indication or Surgical Intervention at this time. - Speech/Therapy Eval - PT Eval - Aspiration Precautions - Keep Head of Bead elevated at 45 Degreees - NeuroChecks -Per Neuro - Hypertonic 3% loading at 250 ml for one dose then 100 ml/hr. With sodium goal of 150-155 and serum osmolality less than 320. elevated head of bed at least 40 degrees, blood pressure, monitor na and serum osmolality. - Hypertonic solution x 1 more bag, Decadron 10mg IV Q12 Cardio - A: Uncontrolled HTN, HLD, CVA - Keep BP under 140 - Continue Lisinopril 5 PO Daily, Labetalol 200mg PO Q8H, Hydralazine Q6H 10 IV pRN, Crestor 10mg PO QHS Pulm A: No Acute Issues GI - Jevity per NG Tube - GI Consulted for PEG tube placement. Pending Neuro clearance for PEG tube placement Renal A: Hypokalemia (Resolved) Proph - Protonix IV - SCD's, VTE c/i 2/2 hemorrhagic stroke - PT/ OT EVAL DW with ICU Attending - Dr. Anca Joseph, PGY-1
[2018-03-06 15:53] LABS: BLOOD UREA NITROGEN 13 mg/dL (9-20); CALCIUM 9.2 mg/dl (8.6-10.4); GFR AFRICAN-AMERICAN > 60; GFR NON-AFRICAN AMERICAN > 60
--- NOTE | 2018-03-07 00:02 | PN ---
DATE: 03/06/2018 SUBJECTIVE: The patient was seen and examined at bedside. The patient's mental status and neurological condition remains the same. Speech is slurred. Not able to move right upper and lower extremities. PHYSICAL EXAMINATION: GENERAL: Middle-aged obese male, lying in bed, in no acute distress. VITAL SIGNS: Blood pressure 134/78, pulse 107, respirations 20, temperature 98.4 degrees Fahrenheit, O2 sat is 98% on room air. HEENT: Pupils are reacting to light and accommodation. Extraocular muscles intact. No icterus. No pallor. No oral thrush. NECK: Supple. No JVD. LUNGS: Bilateral vesicular breath sounds. No wheezing. No rhonchi. CVS: S1 and S2 present, regular. ABDOMEN: Soft, nontender. Bowel sounds present. No guarding. No rigidity. No rebound tenderness noted. CREATIVE LEAD: Awake, oriented x3. Responding to questions appropriately. Slurred speech. Right-sided paralysis of the upper and lower extremities. Right facial droop. MEDICATIONS: Include Decadron 10 mg IV push every 12 hours, hydralazine 10 mg IV every 6 hours p.r.n., labetalol 200 mg p.o. every 8 hours, Zestril 5 mg p.o. daily, Protonix 40 mg IV push daily, Crestor 10 mg p.o. at bedtime, hypertonic saline 50 mL/hour. LABORATORY DATA: Labs from this morning: WBC 9.5, hemoglobin 13.6, hematocrit 40.6, platelets 340. PT 15.5, INR 1.4, PTT 33. Sodium 144, potassium 4.1, chloride 106, bicarb 25, BUN 17, creatinine 0.9, glucose 159, serum osmolality 302, calcium 9.2. IMAGING: CT head from this morning just re-demonstrated there is a large elliptical shaped hematoma and epicenter of which is located in the left basal ganglia extending inferiorly and superiorly, wide rim of low attenuation edema and/or necrotic brain tissue, persistent mass effect with slight shift of the midline from left to right. ASSESSMENT AND PLAN: A middle-aged obese male with history of hypertension, hyperlipidemia, noncompliance with medications, admitted for left basal ganglia hemorrhagic stroke with right-sided paralysis with persistent surrounding edema and midline shift. His speech remains slurred without any significant improvement in his right-sided weakness on steroids and hypertonic saline. Blood pressure is controlled on current regimen. We will continue with current medications. We will continue with gastrointestinal and deep vein thrombosis prophylaxes. Follow up with Neurology. Reba Marsh MD
[2018-03-07] MEDS: (Novolin R) Insulin Human Regular 100 units/ml vial SC SCH ×2 (05:27→18:23)
[2018-03-07 06:15] LABS: BASO % 0.1 % (0.0-2.0); HEMOGLOBIN 13.4 g/dL (12.0-18.0); LYMPH # 0.8 K/uL (1.0-4.3); LYMPH % 5.7 % (20.0-40.0); MEAN CELL VOLUME 92.1 fL (80.0-94.0); MEAN CORPUSCULAR HEMOGLOBIN 31.8 pg (27.0-31.0); MEAN CORPUSCULAR HGB CONC 34.5 g/dL (33.0-37.0); MEAN PLATELET VOLUME 9.2 fL (7.2-11.7); MONO # 0.6 K/uL (0.0-0.8); MONO % 4.5 % (0.0-10.0); NEUT # 12.5 K/uL (1.8-7.0); NEUT % 89.7 % (50.0-75.0); PLATELET COUNT 320 K/uL (130-400); RBC 4.23 Mil/uL (4.40-5.90); RED CELL DISTRIBUTION WIDTH 13.1 % (11.5-14.5)
[2018-03-07 06:33] LABS: ALBUMIN 3.5 g/dL (3.5-5.0); ALT/SGPT 15 U/L (21-72); AST/SGOT 17 U/L (17-59); BLOOD UREA NITROGEN 16 mg/dL (9-20); CALCIUM 9.1 mg/dl (8.6-10.4); GFR AFRICAN-AMERICAN > 60; GFR NON-AFRICAN AMERICAN > 60
[2018-03-07 08:23] LABS: LYMPHOCYTE 4 % (20-40); MONOCYTE 3 % (0-10); NEUTROPHIL 93 % (50-75); PLATELET ESTIMATE NORMAL (NORMAL); TOTAL CELLS COUNTED 100
--- NOTE | 2018-03-07 09:57 | CP.PCM.PN ---
Subjective - Date & Time of Evaluation Date of Evaluation: 03/07/18 Time of Evaluation: 10:00 - Subjective Subjective: Progress note dictated #[id number] Objective - Vital Signs/Intake and Output Vital Signs (last 24 hours): Temp Pulse Resp BP Pulse Ox 98.7 F 97 H 23 138/78 99 03/07/18 04:00 03/07/18 06:44 03/07/18 06:44 03/07/18 06:44 03/07/18 06:44 Intake and Output: 03/07/18 03/07/18 06:59 18:59 Intake Total 910 Output Total 1800 Balance -890 - Medications Medications: Current Medications Dexamethasone (Decadron Inj) 10 mg IVP Q12 [facility] Last Admin: 03/06/18 21:51 Dose: 10 mg Hydralazine HCl (Apresoline) 10 mg IVP Q6H PRN PRN Reason: Systolic BP > 140 Last Admin: 03/06/18 11:54 Dose: 10 mg Insulin Human Regular (Novolin R) 0 unit SC Q12H PANCHO PRN Reason: Protocol Last Admin: 03/07/18 05:27 Dose: Not Given Labetalol HCl (Trandate) 200 mg PO Q8H [facility] Last Admin: 03/07/18 02:00 Dose: 200 mg Lisinopril (Zestril) 5 mg PO DAILY [facility] Last Admin: 03/06/18 09:04 Dose: 5 mg Pantoprazole Sodium (Protonix Inj) 40 mg IVP DAILY [facility] Last Admin: 03/06/18 09:04 Dose: 40 mg Rosuvastatin Calcium (Crestor) 10 mg PO HS [facility] Last Admin: 03/06/18 21:51 Dose: 10 mg - Labs Labs: 03/07/18 06:06 03/07/18 06:06 PT 15.5 SECONDS (9.7-12.2) H 03/06/18 06:16 INR 1.4 03/06/18 06:16 APTT 33 SECONDS (21-34) 03/06/18 06:16
--- NOTE | 2018-03-07 10:17 | CP.PCM.PN ---
Subjective - Date & Time of Evaluation Date of Evaluation: 03/07/18 Time of Evaluation: 10:13 - Subjective Subjective: Patient remains with right sided weakness, alert and oriented. Patient has difficulties with speech , but is more verbal now. Patient is able to fallow commends and participate in discussion. His speech is not clear yet and difficult to understand. Patient communicates also by nodding his head for 'yes /no" answers. NGT in place for nutrition. PEG is suggested. Family has different opinion about it while patient clearly suggesting he wanted PEG tube inserted. Objective - Vital Signs/Intake and Output Vital Signs (last 24 hours): Temp Pulse Resp BP Pulse Ox 98.7 F 97 H 23 138/78 99 03/07/18 04:00 03/07/18 06:44 03/07/18 06:44 03/07/18 06:44 03/07/18 06:44 Intake and Output: 03/07/18 03/07/18 06:59 18:59 Intake Total 910 Output Total 1800 Balance -890 - Medications Medications: Current Medications Dexamethasone (Decadron Inj) 10 mg IVP Q12 [facility] Last Admin: 03/06/18 21:51 Dose: 10 mg Hydralazine HCl (Apresoline) 10 mg IVP Q6H PRN PRN Reason: Systolic BP > 140 Last Admin: 03/06/18 11:54 Dose: 10 mg Insulin Human Regular (Novolin R) 0 unit SC Q12H PANCHO PRN Reason: Protocol Last Admin: 03/07/18 05:27 Dose: Not Given Labetalol HCl (Trandate) 200 mg PO Q8H [facility] Last Admin: 03/07/18 02:00 Dose: 200 mg Lisinopril (Zestril) 5 mg PO DAILY [facility] Last Admin: 03/06/18 09:04 Dose: 5 mg Pantoprazole Sodium (Protonix Inj) 40 mg IVP DAILY [facility] Last Admin: 03/06/18 09:04 Dose: 40 mg Rosuvastatin Calcium (Crestor) 10 mg PO HS [facility] Last Admin: 03/06/18 21:51 Dose: 10 mg - Labs Labs: 03/07/18 06:06 03/07/18 06:06 PT 15.5 SECONDS (9.7-12.2) H 03/06/18 06:16 INR 1.4 03/06/18 06:16 APTT 33 SECONDS (21-34) 03/06/18 06:16 - Constitutional Appears: Chronically Ill - Head Exam Head Exam: ATRAUMATIC, NORMAL INSPECTION, NORMOCEPHALIC - Eye Exam Eye Exam: EOMI, Normal appearance, PERRL Pupil Exam: NORMAL ACCOMODATION, PERRL - ENT Exam Additional comments: NGT in place - Neck Exam Neck Exam: Normal Inspection - Respiratory Exam Respiratory Exam: NORMAL BREATHING PATTERN - Cardiovascular Exam Cardiovascular Exam: REGULAR RHYTHM - GI/Abdominal Exam GI & Abdominal Exam: Soft, Normal Bowel Sounds - Rectal Exam Rectal Exam: Deferred - Exam Exam: NORMAL INSPECTION - Extremities Exam Additional comments: right sided weakness - Back Exam Back Exam: NORMAL INSPECTION - Neurological Exam Neurological Exam: Alert, Awake, Oriented x3 Neuro motor strength exam: Left Upper Extremity: 3, Right Upper Extremity: 0, Left Lower Extremity: 3, Right Lower Extremity: 0 - Psychiatric Exam Psychiatric exam: Normal Affect, Normal Mood - Skin Skin Exam: Normal Color, Warm Assessment and Plan - Assessment and Plan (Free Text) Assessment: Patient examined in chair, alert, oriented X 3 with impaired speech due to CVA. at bed side. Right sided weakness remains. Patient able to speak little more than last time I saw him, but speech is not clear yet, it is hard to understand. Patient mostly communicates by nodding his head, and makes eye contacts. NGT in place for nutrition. I discussed with patient the need for PEG placement. He stated understanding and agreed. His at bed side was on the phone with patient's son ( her step son), who was opposing the PEG . Over the phone ,I discussed with the son his concerns about the PEG. His reasons were not clear and mostly he mentioned his uncle opposing it and intention to transfer patient to [facility] for the procedure. I offered more information about the need for PEG . was present . I offered family meeting with , son and patient's brother for PEG discussion. Son agreed. During this back and forth discussions , patient was present and again suggested he wanted the PEG. His son and also supported his decision. I shared this with Doctor Barrett and ICU team. GI consult was to be called. Impression * Right hemiparesis due to CVA * Dysphagia due to CVA * Expressive Aphasia due to CVA * Patient able of decision making and agreed with PEG * Family agreed with PEG , after all discussion * Doctor Lauren is called on consult Suggestion * PT for right sided weakness * Agree with PEG * Would consult patient first, for any Medical decision * Oral care P.S. Patient's reports being to the patient. Vianney, the son , is patient's son from his previous marriage. Patient;s brother, whom I did not meet yet is involved in care. If patient loses decision making ability his is NOK. Advance care planing 30 min.
--- NOTE | 2018-03-07 10:56 | CP.CCUPN ---
<Saray Joseph - Last Filed: 03/07/18 10:53> CCU Subjective - Physician Review Subjective (Free Text): Patient was seen and examined at bedside. Patient is awake and responding, able to communicate. Both patient and family agreed to PEG. Pending for PEG. Family wants to transfer to [facility] for care and acute rehab. Family noted they would need to make the arrangements for transfer. CCU Objective - Vital Signs / Intake & Output Intake and Output (Last 8hrs): Intake & Output 03/06/18 03/07/18 03/07/18 22:59 06:59 14:59 Intake Total 1400 30 Output Total 1400 1100 Balance 0 -1070 Weight 254 lb 6 oz Intake: Intake, IV Amount 400 0 Right Proximal Port 400 0 Femoral Oral 600 Tube Feeding 240 30 Other 160 Output: Urine 1400 1100 Condom 1400 1100 - Physical Exam Head: Positive for: Atraumatic, Other (Right Sided Facial Droop (Improved) ) Pupils: Positive for: PERRL Extroacular Muscles: Positive for: EOMI Conjunctiva: Positive for: Normal Mouth: Positive for: Moist Mucous Membranes Nose (External): Positive for: Atraumatic Respiratory/Chest: Positive for: Clear to Auscultation, Good Air Exchange Cardiovascular: Positive for: Normal S1, S2. Negative for: Murmurs Abdomen: Positive for: Normal Bowel Sounds. Negative for: Tenderness Upper Extremity: Positive for: Other (right sided weakness ) Lower Extremity: Positive for: Normal Inspection, Other (right sided weakness ) . Negative for: Edema Neurological: Positive for: Other (Right Sided Hemiparesis. ). Negative for: CN II-XII Intact, Speech Normal, Normal Sensory Function (No Sensation on Right upper and Lower Ext. ), Normal 2Pt Descrimination Skin: Positive for: Warm, Dry, Normal Color. Negative for: Rashes Psychiatric: Positive for: Alert, Oriented x 3 - Medications Active Medications: Active Medications Generic Name Dose Route Start Last Admin Trade Name Freq PRN Reason Stop Dose Admin Dexamethasone 10 mg 03/06/18 10:00 03/07/18 10:13 Decadron Inj IVP 10 mg Q12 PANCHO Administration Hydralazine HCl 10 mg 03/02/18 10:35 03/06/18 11:54 Apresoline IVP 10 mg Q6H PRN Administration Systolic BP > 140 Insulin Human Regular 0 unit 03/03/18 18:00 03/07/18 05:27 Novolin R SC Not Given Q12H ON LICENSE OF [facility] Protocol Labetalol HCl 200 mg 03/02/18 10:15 03/07/18 10:13 Trandate PO 200 mg Q8H PANCHO Administration Lisinopril 5 mg 03/02/18 10:00 03/06/18 09:04 Zestril PO 5 mg DAILY PANCHO Administration Pantoprazole Sodium 40 mg 02/28/18 10:00 03/07/18 10:13 Protonix Inj IVP 40 mg DAILY PANCHO Administration Rosuvastatin Calcium 10 mg 03/06/18 22:00 03/06/18 21:51 Crestor PO 10 mg HS PANCHO Administration - Patient Studies Lab Studies: Lab Studies 03/07/18 03/07/18 03/07/18 Range/Units 06:06 06:06 05:22 WBC 14.0 H (4.8-10.8) K/uL RBC 4.23 L (4.40-5.90) Mil/uL Hgb 13.4 (12.0-18.0) g/dL Hct 39.0 (35.0-51.0) % MCV 92.1 (80.0-94.0) fL MCH 31.8 H (27.0-31.0) pg MCHC 34.5 (33.0-37.0) g/dL RDW 13.1 (11.5-14.5) % Plt Count 320 (130-400) K/uL MPV 9.2 (7.2-11.7) fL Neut % (Auto) 89.7 H (50.0-75.0) % Lymph % (Auto) 5.7 L (20.0-40.0) % Weston % (Auto) 4.5 (0.0-10.0) % Eos % (Auto) 0.0 (0.0-4.0) % Baso % (Auto) 0.1 (0.0-2.0) % Neut # (Auto) 12.5 H (1.8-7.0) K/uL Lymph # (Auto) 0.8 L (1.0-4.3) K/uL Weston # (Auto) 0.6 (0.0-0.8) K/uL Eos # (Auto) 0.0 (0.0-0.7) K/uL Baso # (Auto) 0.0 (0.0-0.2) K/uL Neutrophils % (Manual) 93 H (50-75) % Lymphocytes % (Manual) 4 L (20-40) % Monocytes % (Manual) 3 (0-10) % Platelet Estimate Normal (NORMAL) RBC Morphology Normal Sodium 141 (132-148) mmol/L Potassium 4.0 (3.6-5.2) mmol/L Chloride 105 (98-107) mmol/L Carbon Dioxide 24 (22-30) mmol/L Anion Gap 16 (10-20) BUN 16 (9-20) mg/dL Creatinine 0.9 (0.8-1.5) mg/dL Est GFR ( Amer) > 60 Est GFR (Non-Af Amer) > 60 POC Glucose (mg/dL) 160 H (65-110) mg/dL Random Glucose 137 H (75-110) mg/dL Serum Osmolality (272-300) mosm/kg Calcium 9.1 (8.6-10.4) mg/dl Phosphorus 3.9 (2.5-4.5) mg/dL Magnesium 2.5 H (1.6-2.3) mg/dL Total Bilirubin 0.3 (0.2-1.3) mg/dL AST 17 D (17-59) U/L ALT 15 L D (21-72) U/L Alkaline Phosphatase 93 (38-126) U/L Total Protein 7.0 (6.3-8.3) g/dL Albumin 3.5 (3.5-5.0) g/dL Globulin 3.5 (2.2-3.9) gm/dL Albumin/Globulin Ratio 1.0 (1.0-2.1) 03/06/18 03/06/18 03/06/18 Range/Units 17:50 15:28 15:28 WBC (4.8-10.8) K/uL RBC (4.40-5.90) Mil/uL Hgb (12.0-18.0) g/dL Hct (35.0-51.0) % MCV (80.0-94.0) fL MCH (27.0-31.0) pg MCHC (33.0-37.0) g/dL RDW (11.5-14.5) % Plt Count (130-400) K/uL MPV (7.2-11.7) fL Neut % (Auto) (50.0-75.0) % Lymph % (Auto) (20.0-40.0) % Weston % (Auto) (0.0-10.0) % Eos % (Auto) (0.0-4.0) % Baso % (Auto) (0.0-2.0) % Neut # (Auto) (1.8-7.0) K/uL Lymph # (Auto) (1.0-4.3) K/uL Weston # (Auto) (0.0-0.8) K/uL Eos # (Auto) (0.0-0.7) K/uL Baso # (Auto) (0.0-0.2) K/uL Neutrophils % (Manual) (50-75) % Lymphocytes % (Manual) (20-40) % Monocytes % (Manual) (0-10) % Platelet Estimate (NORMAL) RBC Morphology Sodium 144 (132-148) mmol/L Potassium 4.1 (3.6-5.2) mmol/L Chloride 106 (98-107) mmol/L Carbon Dioxide 25 (22-30) mmol/L Anion Gap 17 (10-20) BUN 13 (9-20) mg/dL Creatinine 0.9 (0.8-1.5) mg/dL Est GFR ( Amer) > 60 Est GFR (Non-Af Amer) > 60 POC Glucose (mg/dL) 143 H (65-110) mg/dL Random Glucose 159 H (75-110) mg/dL Serum Osmolality 302 H (272-300) mosm/kg Calcium 9.2 (8.6-10.4) mg/dl Phosphorus (2.5-4.5) mg/dL Magnesium (1.6-2.3) mg/dL Total Bilirubin (0.2-1.3) mg/dL AST (17-59) U/L ALT (21-72) U/L Alkaline Phosphatase (38-126) U/L Total Protein (6.3-8.3) g/dL Albumin (3.5-5.0) g/dL Globulin (2.2-3.9) gm/dL Albumin/Globulin Ratio (1.0-2.1) Laboratory Results - last 24 hr 03/06/18 03/06/18 03/06/18 15:28 15:28 17:50 WBC RBC Hgb Hct MCV MCH MCHC RDW Plt Count MPV Neut % (Auto) Lymph % (Auto) Weston % (Auto) Eos % (Auto) Baso % (Auto) Neut # (Auto) Lymph # (Auto) Weston # (Auto) Eos # (Auto) Baso # (Auto) Neutrophils % (Manual) Lymphocytes % (Manual) Monocytes % (Manual) Platelet Estimate RBC Morphology Sodium 144 Potassium 4.1 Chloride 106 Carbon Dioxide 25 Anion Gap 17 BUN 13 Creatinine 0.9 Est GFR ( Amer) > 60 Est GFR (Non-Af Amer) > 60 POC Glucose (mg/dL) 143 H Random Glucose 159 H Serum Osmolality 302 H Calcium 9.2 Phosphorus Magnesium Total Bilirubin AST ALT Alkaline Phosphatase Total Protein Albumin Globulin Albumin/Globulin Ratio 03/07/18 03/07/18 03/07/18 05:22 06:06 06:06 WBC 14.0 H RBC 4.23 L Hgb 13.4 Hct 39.0 MCV 92.1 MCH 31.8 H MCHC 34.5 RDW 13.1 Plt Count 320 MPV 9.2 Neut % (Auto) 89.7 H Lymph % (Auto) 5.7 L Weston % (Auto) 4.5 Eos % (Auto) 0.0 Baso % (Auto) 0.1 Neut # (Auto) 12.5 H Lymph # (Auto) 0.8 L Weston # (Auto) 0.6 Eos # (Auto) 0.0 Baso # (Auto) 0.0 Neutrophils % (Manual) 93 H Lymphocytes % (Manual) 4 L Monocytes % (Manual) 3 Platelet Estimate Normal RBC Morphology Normal Sodium 141 Potassium 4.0 Chloride 105 Carbon Dioxide 24 Anion Gap 16 BUN 16 Creatinine 0.9 Est GFR ( Amer) > 60 Est GFR (Non-Af Amer) > 60 POC Glucose (mg/dL) 160 H Random Glucose 137 H Serum Osmolality Calcium 9.1 Phosphorus 3.9 Magnesium 2.5 H Total Bilirubin 0.3 AST 17 D ALT 15 L D Alkaline Phosphatase 93 Total Protein 7.0 Albumin 3.5 Globulin 3.5 Albumin/Globulin Ratio 1.0 Fingerstick Blood Sugar Results: 143 Critical Care Progress Note - Nutrition Nutrition: Nutrition Category Date Time Status Dysphagia/Modified Consistency Diet [DIET] Diets 03/07/18 Lunch Active Assessment/Plan - Assessment and Plan (Free Text) Assessment: 52 year old male with a history of HLD and HTN presented with slurred speech. Code Stroke Called - large basal ganglia hemorrhagic stroke noted on CT. Both patient and family agreed to PEG. Pending neuro clearance for PEG tube placement. Plan: Neuro: GCS: 15 Sedation: None A: Hemorrhagic CVA - Head CT (Admission): Moderate intraparenchymal hemorrhage is identified at the left basal ganglia exerting local mass effect and causing a limited rightward midline shift of 2 mm. Measurements are as defined above in terms of hemorrhagic collection. Limited local parenchymal edema appreciated. Remainder the examination appears unremarkable. - Head CT (02/28/18): The large left basal ganglia and intraparenchymal hemorrhage/hematoma with surrounding mass effect midline shift are similar in appearance. No progressive bleeding or new areas of bleeding noted. No progressive ventriculomegaly appreciated. No interval low-density areas to suggest interval infarcts. - MRI (03/01/18): Re- demonstrated is a large left basal ganglia hematoma surrounded by a small rim of edema and or necrotic brain tissue. The appearance and location most consistent with hypertensive origin hemorrhage. The questionable small fluid fluid level within the posterior superior dependent portion of the hematoma as above ; Is this patient currently on anticoagulant therapy or is there history of bleeding diathesis. Clinical correlation recommended. There is surrounding mass-effect with compression of the left lateral ventricle and overlying sulcal effacement. Slight shift of the midline from left to right as above. Chronic white matter ischemic changes as above - Head CT (03/03/18): There is left basal ganglia hematoma with increasing surrounding vasogenic edema measuring 5.8 x 2.6 cm with left to right midline shift 8 mm subfalcine herniation which demonstrate interval progression when compared to prior examination. 2. There is mass effect on the left lateral ventricle. Close clinical surveillance is recommended to evaluate for developing acute obstructive hydrocephalus. - Neurology Consulted - Dr. Watts - NeuroSurgery Consulted - Per Nurse who talked to Neurosurgeon. No indication or Surgical Intervention at this time. - Speech/Therapy Eval - PT Eval - Aspiration Precautions - Keep Head of Bead elevated at 45 Degreees - NeuroChecks -Per Neuro - Hypertonic 3% loading at 250 ml for one dose then 100 ml/hr. With sodium goal of 150-155 and serum osmolality less than 320. elevated head of bed at least 40 degrees, blood pressure, monitor na and serum osmolality. - Hypertonic solution x 1 more bag, Decadron 10mg IV Q12 Cardio - A: Uncontrolled HTN, HLD, CVA - Keep BP under 140 - Continue Lisinopril 5 PO Daily, Labetalol 200mg PO Q8H, Hydralazine Q6H 10 IV pRN, Crestor 10mg PO QHS Pulm A: No Acute Issues GI - Jevity per NG Tube - Neuro cleared - GI Consulted for PEG tube placement, now that family and patient agreed Renal A: Hypokalemia (Resolved) Proph - Protonix IV - SCD's, VTE c/i 2/2 hemorrhagic stroke - PT/ OT EVAL DW with ICU Attending - Saray Delgado, PGY-1 <David Barrett S - Last Filed: 03/07/18 18:20> CCU Objective - Vital Signs / Intake & Output Vital Signs (Last 4 hours): Vital Signs Temp Pulse Resp BP Pulse Ox 03/07/18 16:44 93 H 15 153/90 H 98 03/07/18 16:00 97.5 F L 99 03/07/18 15:44 100 H 25 H 148/94 H 95 03/07/18 14:44 101 H 24 143/87 96 Intake and Output (Last 8hrs): Intake & Output 03/07/18 03/07/18 03/07/18 06:59 14:59 22:59 Intake Total 30 180 0 Output Total 1100 50 Balance -1070 130 0 Weight 254 lb 6 oz Intake: Intake, IV Amount 0 Right Proximal Port 0 Femoral Tube Feeding 30 150 0 Other 30 Output: Urine 1100 50 Condom 1100 50 - Medications Active Medications: Active Medications Generic Name Dose Route Start Last Admin Trade Name Freq PRN Reason Stop Dose Admin Dexamethasone 10 mg 03/06/18 10:00 03/07/18 10:13 Decadron Inj IVP 10 mg Q12 PANCHO Administration Hydralazine HCl 10 mg 03/02/18 10:35 03/06/18 11:54 Apresoline IVP 10 mg Q6H PRN Administration Systolic BP > 140 Insulin Human Regular 0 unit 03/03/18 18:00 03/07/18 05:27 Novolin R SC Not Given Q12H PANCHO Protocol Labetalol HCl 200 mg 03/02/18 10:15 03/07/18 10:13 Trandate PO 200 mg Q8H PANCHO Administration Lisinopril 5 mg 03/02/18 10:00 03/07/18 16:40 Zestril PO 5 mg DAILY PANCHO Administration Pantoprazole Sodium 40 mg 03/08/18 10:00 Protonix Ec Tab PO DAILY PANCHO Rosuvastatin Calcium 10 mg 03/06/18 22:00 03/06/18 21:51 Crestor PO 10 mg HS PANCHO Administration - Patient Studies Lab Studies: Lab Studies 03/07/18 03/07/18 03/07/18 Range/Units 17:41 06:06 06:06 WBC 14.0 H (4.8-10.8) K/uL RBC 4.23 L (4.40-5.90) Mil/uL Hgb 13.4 (12.0-18.0) g/dL Hct 39.0 (35.0-51.0) % MCV 92.1 (80.0-94.0) fL MCH 31.8 H (27.0-31.0) pg MCHC 34.5 (33.0-37.0) g/dL RDW 13.1 (11.5-14.5) % Plt Count 320 (130-400) K/uL MPV 9.2 (7.2-11.7) fL Neut % (Auto) 89.7 H (50.0-75.0) % Lymph % (Auto) 5.7 L (20.0-40.0) % Weston % (Auto) 4.5 (0.0-10.0) % Eos % (Auto) 0.0 (0.0-4.0) % Baso % (Auto) 0.1 (0.0-2.0) % Neut # (Auto) 12.5 H (1.8-7.0) K/uL Lymph # (Auto) 0.8 L (1.0-4.3) K/uL Weston # (Auto) 0.6 (0.0-0.8) K/uL Eos # (Auto) 0.0 (0.0-0.7) K/uL Baso # (Auto) 0.0 (0.0-0.2) K/uL Neutrophils % (Manual) 93 H (50-75) % Lymphocytes % (Manual) 4 L (20-40) % Monocytes % (Manual) 3 (0-10) % Platelet Estimate Normal (NORMAL) RBC Morphology Normal Sodium 141 (132-148) mmol/L Potassium 4.0 (3.6-5.2) mmol/L Chloride 105 (98-107) mmol/L Carbon Dioxide 24 (22-30) mmol/L Anion Gap 16 (10-20) BUN 16 (9-20) mg/dL Creatinine 0.9 (0.8-1.5) mg/dL Est GFR ( Amer) > 60 Est GFR (Non-Af Amer) > 60 POC Glucose (mg/dL) 159 H (65-110) mg/dL Random Glucose 137 H (75-110) mg/dL Calcium 9.1 (8.6-10.4) mg/dl Phosphorus 3.9 (2.5-4.5) mg/dL Magnesium 2.5 H (1.6-2.3) mg/dL Total Bilirubin 0.3 (0.2-1.3) mg/dL AST 17 D (17-59) U/L ALT 15 L D (21-72) U/L Alkaline Phosphatase 93 (38-126) U/L Total Protein 7.0 (6.3-8.3) g/dL Albumin 3.5 (3.5-5.0) g/dL Globulin 3.5 (2.2-3.9) gm/dL Albumin/Globulin Ratio 1.0 (1.0-2.1) /18 Range/Units 05:22 WBC (4.8-10.8) K/uL RBC (4.40-5.90) Mil/uL Hgb (12.0-18.0) g/dL Hct (35.0-51.0) % MCV (80.0-94.0) fL MCH (27.0-31.0) pg MCHC (33.0-37.0) g/dL RDW (11.5-14.5) % Plt Count (130-400) K/uL MPV (7.2-11.7) fL Neut % (Auto) (50.0-75.0) % Lymph % (Auto) (20.0-40.0) % Weston % (Auto) (0.0-10.0) % Eos % (Auto) (0.0-4.0) % Baso % (Auto) (0.0-2.0) % Neut # (Auto) (1.8-7.0) K/uL Lymph # (Auto) (1.0-4.3) K/uL Weston # (Auto) (0.0-0.8) K/uL Eos # (Auto) (0.0-0.7) K/uL Baso # (Auto) (0.0-0.2) K/uL Neutrophils % (Manual) (50-75) % Lymphocytes % (Manual) (20-40) % Monocytes % (Manual) (0-10) % Platelet Estimate (NORMAL) RBC Morphology Sodium (132-148) mmol/L Potassium (3.6-5.2) mmol/L Chloride (98-107) mmol/L Carbon Dioxide (22-30) mmol/L Anion Gap (10-20) BUN (9-20) mg/dL Creatinine (0.8-1.5) mg/dL Est GFR ( Amer) Est GFR (Non-Af Amer) POC Glucose (mg/dL) 160 H (65-110) mg/dL Random Glucose (75-110) mg/dL Calcium (8.6-10.4) mg/dl Phosphorus (2.5-4.5) mg/dL Magnesium (1.6-2.3) mg/dL Total Bilirubin (0.2-1.3) mg/dL AST (17-59) U/L ALT (21-72) U/L Alkaline Phosphatase (38-126) U/L Total Protein (6.3-8.3) g/dL Albumin (3.5-5.0) g/dL Globulin (2.2-3.9) gm/dL Albumin/Globulin Ratio (1.0-2.1) Laboratory Results - last 24 hr 03/07/18 03/07/18 03/07/18 05:22 06:06 06:06 WBC 14.0 H RBC 4.23 L Hgb 13.4 Hct 39.0 MCV 92.1 MCH 31.8 H MCHC 34.5 RDW 13.1 Plt Count 320 MPV 9.2 Neut % (Auto) 89.7 H Lymph % (Auto) 5.7 L Weston % (Auto) 4.5 Eos % (Auto) 0.0 Baso % (Auto) 0.1 Neut # (Auto) 12.5 H Lymph # (Auto) 0.8 L Weston # (Auto) 0.6 Eos # (Auto) 0.0 Baso # (Auto) 0.0 Neutrophils % (Manual) 93 H Lymphocytes % (Manual) 4 L Monocytes % (Manual) 3 Platelet Estimate Normal RBC Morphology Normal Sodium 141 Potassium 4.0 Chloride 105 Carbon Dioxide 24 Anion Gap 16 BUN 16 Creatinine 0.9 Est GFR ( Amer) > 60 Est GFR (Non-Af Amer) > 60 POC Glucose (mg/dL) 160 H Random Glucose 137 H Calcium 9.1 Phosphorus 3.9 Magnesium 2.5 H Total Bilirubin 0.3 AST 17 D ALT 15 L D Alkaline Phosphatase 93 Total Protein 7.0 Albumin 3.5 Globulin 3.5 Albumin/Globulin Ratio 1.0 03/07/18 17:41 WBC RBC Hgb Hct MCV MCH MCHC RDW Plt Count MPV Neut % (Auto) Lymph % (Auto) Weston % (Auto) Eos % (Auto) Baso % (Auto) Neut # (Auto) Lymph # (Auto) Weston # (Auto) Eos # (Auto) Baso # (Auto) Neutrophils % (Manual) Lymphocytes % (Manual) Monocytes % (Manual) Platelet Estimate RBC Morphology Sodium Potassium Chloride Carbon Dioxide Anion Gap BUN Creatinine Est GFR ( Amer) Est GFR (Non-Af Amer) POC Glucose (mg/dL) 159 H Random Glucose Calcium Phosphorus Magnesium Total Bilirubin AST ALT Alkaline Phosphatase Total Protein Albumin Globulin Albumin/Globulin Ratio Critical Care Progress Note - Nutrition Nutrition: Nutrition Category Date Time Status Dysphagia/Modified Consistency Diet [DIET] Diets 03/07/18 Lunch Active NPO Diet [DIET] Diets 03/08/18 Breakfast Active Attending/Attestation - Attestation I have personally seen and examined this patient.: Yes I have fully participated in the care of the patient.: Yes I have reviewed all pertinent clinical information: Yes Notes (Text): 03/07/18 18:16 patient seen and examined in the intensive care unit. Patient response to vocal command off 3% sodium chloride possible PEG placement tomorrow Continue physical therapy
--- NOTE | 2018-03-08 01:09 | PN ---
DATE: 03/07/2018 SUBJECTIVE: The patient was seen and examined at bedside. The patient looks more alert than yesterday, sitting in chair. He was out of bed. His speech is still slurred, and no improvement in his right-sided weakness. PHYSICAL EXAMINATION: GENERAL: Middle-aged male, in no acute distress. VITAL SIGNS: Blood pressure 153/90, pulse 93, respirations 15, temperature 97.5 degree Fahrenheit, O2 saturation 99% on room air. HEENT: Pupils equal and reacting to light and accommodation. Extraocular muscles intact. No icterus. No pallor. NECK: Supple. No JVD. LUNGS: Bilateral vesicular breath sounds. No wheezing. No rhonchi. CVS: S1 and S2 present, regular. ABDOMEN: Soft, nontender. Bowel sounds present. No guarding. No rigidity. No rebound tenderness noted. [employer]/CUSTODIAN: Awake, oriented x3. Slurred speech. Right-sided paralysis. EXTREMITIES: No edema. Palpable peripheral pulses. MEDICATIONS: Include Decadron 10 mg IV every 12 hours., hydralazine 10 mg IV push every 6 hours p.r.n., labetalol 200 mg p.o. every 8 hours, Zestril 5 mg p.o. daily, Protonix 40 mg p.o. daily, Crestor 10 mg p.o. at bedtime. LABORATORY DATA: Labs from this morning: WBC 14, hemoglobin 13.4, hematocrit 39, platelets 320. Sodium 141, potassium 4, chloride 105, bicarb 34, BUN 16, creatinine 0.9, glucose 160, calcium 9.1. Phosphorus 3.9, magnesium 2.5. AST 17, ALT 15, alkaline phosphatase 93, total protein 7, albumin 3.5. ASSESSMENT AND PLAN: A middle-aged male with history of hypertension, hyperlipidemia, admitted for left basal ganglia hemorrhagic stroke with right-sided weakness and slurred speech. We will continue with current blood pressure medication. His blood pressure is under control on current regimen. Sodium chloride 3% . On Decadron 10 mg IV every 12 hours as per Neurology. We will repeat speech and swallow evaluation. Gastrointestinal evaluation for possible PEG placement. Follow up with Neurology. Continue with physical therapy and occupational therapy. Continue with gastrointestinal and deep venous thrombosis prophylaxis. Reba Marsh MD [facility] # [id number]
[2018-03-08 06:18] LABS: BASO % 0.2 % (0.0-2.0); HEMOGLOBIN 13.5 g/dL (12.0-18.0); LYMPH # 0.9 K/uL (1.0-4.3); LYMPH % 5.8 % (20.0-40.0); MEAN CORPUSCULAR HEMOGLOBIN 30.4 pg (27.0-31.0); MEAN CORPUSCULAR HGB CONC 33.1 g/dL (33.0-37.0); MEAN PLATELET VOLUME 9.2 fL (7.2-11.7); MONO # 0.9 K/uL (0.0-0.8); MONO % 5.9 % (0.0-10.0); NEUT # 13.1 K/uL (1.8-7.0); NEUT % 88.1 % (50.0-75.0); PLATELET COUNT 309 K/uL (130-400); RBC 4.45 Mil/uL (4.40-5.90); WHITE BLOOD COUNT 14.9 K/uL (4.8-10.8)
[2018-03-08] MEDS: (Novolin R) Insulin Human Regular 100 units/ml vial SC SCH ×2 (06:21→17:32)
[2018-03-08 06:35] LABS: ALBUMIN 3.5 g/dL (3.5-5.0); ALT/SGPT 17 U/L (21-72); AST/SGOT 22 U/L (17-59); BLOOD UREA NITROGEN 21 mg/dL (9-20); CALCIUM 9.3 mg/dl (8.6-10.4); GFR AFRICAN-AMERICAN > 60; GFR NON-AFRICAN AMERICAN > 60
--- NOTE | 2018-03-08 06:46 | CP.PCM.PN ---
Subjective - Date & Time of Evaluation Date of Evaluation: 03/08/18 Time of Evaluation: 06:46 - Subjective Subjective: Mr. Rodriguez was seen and examined at the bedside in ICU. He is more awake,majority of time non- verbal, communicates utilizing with non-verbal cues such as nodding and shaking his head. He is able to follow simple commands such as opening his eyes with tongue deviation to the right noted, moves his left side with paraplegia noted in his right side. According to staff, the family refused any peg. insertion. CT scan of the head showed re-demonstration of a large elliptical shaped hematoma the epicenter of which i slocated in the left basal ganglia extending inferiorly and superiorly. The wide rim of low attenuation aedema and necrotic brain tissue. Persisten mass effect with slight shift of midline shift from left to right. There was no untoward events overnight. Objective - Vital Signs/Intake and Output Vital Signs (last 24 hours): Temp Pulse Resp BP Pulse Ox 98.5 F 83 19 105/63 100 03/08/18 04:00 03/08/18 06:00 03/08/18 06:00 03/08/18 05:44 03/08/18 06:00 Intake and Output: 03/07/18 03/08/18 18:59 06:59 Intake Total 660 150 Output Total 550 600 Balance 110 -450 - Medications Medications: Current Medications Dexamethasone (Decadron Inj) 10 mg IVP Q12 [facility] Last Admin: 03/07/18 21:08 Dose: 10 mg Hydralazine HCl (Apresoline) 10 mg IVP Q6H PRN PRN Reason: Systolic BP > 140 Last Admin: 03/06/18 11:54 Dose: 10 mg Insulin Human Regular (Novolin R) 0 unit SC Q12H PANCHO PRN Reason: Protocol Last Admin: 03/08/18 06:21 Dose: Not Given Labetalol HCl (Trandate) 200 mg PO Q8H [facility] Last Admin: 03/08/18 01:34 Dose: 200 mg Lisinopril (Zestril) 5 mg PO DAILY [facility] Last Admin: 03/07/18 16:40 Dose: 5 mg Pantoprazole Sodium (Protonix Ec Tab) 40 mg PO DAILY [facility] Rosuvastatin Calcium (Crestor) 10 mg PO HS [facility] Last Admin: 03/07/18 21:08 Dose: 10 mg - Labs Labs: 03/08/18 06:14 03/08/18 06:13 PT 15.5 SECONDS (9.7-12.2) H 03/06/18 06:16 INR 1.4 03/06/18 06:16 APTT 33 SECONDS (21-34) 03/06/18 06:16 - Constitutional Appears: No Acute Distress - Head Exam Head Exam: NORMAL INSPECTION - Eye Exam Pupil Exam: Miosis, PERRL Additional comments: 3 mm bilaterally. - Neurological Exam Neuro motor strength exam: Left Upper Extremity: 4, Right Upper Extremity: 0, Left Lower Extremity: 4, Right Lower Extremity: 0 Additional comments: Neurological unchanged from previous examination Assessment and Plan (1) Hemorrhagic stroke Assessment & Plan: Case discussed with Dr. Watts, continue all current medical regimen. Recommend to repeat CT of the head today to monitor hemorrhagic stroke and edema. Recommend blood pressure, glycemic control, normothermic, and head of bed elevated at least 40 degrees angle. Status: Acute
[2018-03-08 08:03] LABS: LYMPHOCYTE 8 % (20-40); MONOCYTE 5 % (0-10); NEUTROPHIL 87 % (50-75); TOTAL CELLS COUNTED 100
[2018-03-08 08:04] LABS: PLATELET ESTIMATE NORMAL (NORMAL)
[2018-03-08] MEDS: Pantoprazole 40 mg EC Tab PO SCH (09:34)
--- NOTE | 2018-03-08 10:06 | CP.CCUPN ---
<Saray Joseph - Last Filed: 03/08/18 10:00> CCU Subjective - Physician Review Subjective (Free Text): Patient was seen and examined at bedside. Patient is awake and responding, able to communicate. Refused PEG and refusing NGT placement. Will attempt pureed diet. Patient transfered to MED/SURG. Family wants acute rehab at [facility]. CCU Objective - Vital Signs / Intake & Output Intake and Output (Last 8hrs): Intake & Output 03/07/18 03/08/18 03/08/18 22:59 06:59 14:59 Intake Total 340 50 Output Total 500 600 Balance -160 -550 Weight 250 lb Intake: Oral 340 50 Tube Feeding 0 Output: Urine 500 600 Condom 500 600 - Physical Exam Head: Positive for: Atraumatic, Other (Right Sided Facial Droop (Improved) ) Pupils: Positive for: PERRL Extroacular Muscles: Positive for: EOMI Conjunctiva: Positive for: Normal Mouth: Positive for: Moist Mucous Membranes Nose (External): Positive for: Atraumatic Respiratory/Chest: Positive for: Clear to Auscultation, Good Air Exchange Cardiovascular: Positive for: Normal S1, S2. Negative for: Murmurs Abdomen: Positive for: Normal Bowel Sounds. Negative for: Tenderness Upper Extremity: Positive for: Other (right sided hemiparesis ) Lower Extremity: Positive for: Normal Inspection, Other (right sided weakness ) . Negative for: Edema Neurological: Positive for: Other (Right Sided Hemiparesis. ). Negative for: CN II-XII Intact, Speech Normal, Normal Sensory Function (No Sensation on Right upper and Lower Ext. ), Normal 2Pt Descrimination Skin: Positive for: Warm, Dry, Normal Color. Negative for: Rashes Psychiatric: Positive for: Alert, Oriented x 3 - Medications Active Medications: Active Medications Generic Name Dose Route Start Last Admin Trade Name Freq PRN Reason Stop Dose Admin Dexamethasone 10 mg 03/06/18 10:00 03/08/18 09:33 Decadron Inj IVP 10 mg Q12 PANCHO Administration Hydralazine HCl 10 mg 03/02/18 10:35 03/06/18 11:54 Apresoline IVP 10 mg Q6H PRN Administration Systolic BP > 140 Insulin Human Regular 0 unit 03/03/18 18:00 03/08/18 06:21 Novolin R SC Not Given Q12H PANCHO Protocol Labetalol HCl 200 mg 03/02/18 10:15 03/08/18 09:34 Trandate PO 200 mg Q8H PANCHO Administration Lisinopril 5 mg 03/02/18 10:00 03/08/18 09:34 Zestril PO 5 mg DAILY PANCHO Administration Pantoprazole Sodium 40 mg 03/08/18 10:00 03/08/18 09:34 Protonix Ec Tab PO 40 mg DAILY [facility] Administration Rosuvastatin Calcium 10 mg 03/06/18 22:00 03/07/18 21:08 Crestor PO 10 mg HS PANCHO Administration - Patient Studies Lab Studies: Lab Studies 03/08/18 03/08/18 03/08/18 Range/Units 07:39 06:14 06:13 WBC 14.9 H (4.8-10.8) K/uL RBC 4.45 (4.40-5.90) Mil/uL Hgb 13.5 (12.0-18.0) g/dL Hct 40.9 (35.0-51.0) % MCV 92.0 (80.0-94.0) fL MCH 30.4 (27.0-31.0) pg MCHC 33.1 (33.0-37.0) g/dL RDW 13.0 (11.5-14.5) % Plt Count 309 (130-400) K/uL MPV 9.2 (7.2-11.7) fL Neut % (Auto) 88.1 H (50.0-75.0) % Lymph % (Auto) 5.8 L (20.0-40.0) % [place] % (Auto) 5.9 (0.0-10.0) % Eos % (Auto) 0.0 (0.0-4.0) % Baso % (Auto) 0.2 (0.0-2.0) % Neut # (Auto) 13.1 H (1.8-7.0) K/uL Lymph # (Auto) 0.9 L (1.0-4.3) K/uL [place] # (Auto) 0.9 H (0.0-0.8) K/uL Eos # (Auto) 0.0 (0.0-0.7) K/uL Baso # (Auto) 0.0 (0.0-0.2) K/uL Neutrophils % (Manual) 87 H (50-75) % Lymphocytes % (Manual) 8 L (20-40) % Monocytes % (Manual) 5 (0-10) % Platelet Estimate Normal (NORMAL) RBC Morphology Normal Sodium 141 (132-148) mmol/L Potassium 4.2 (3.6-5.2) mmol/L Chloride 104 (98-107) mmol/L Carbon Dioxide 24 (22-30) mmol/L Anion Gap 16 (10-20) BUN 21 H (9-20) mg/dL Creatinine 0.9 (0.8-1.5) mg/dL Est GFR ( Amer) > 60 Est GFR (Non-Af Amer) > 60 POC Glucose (mg/dL) 140 H (65-110) mg/dL Random Glucose 163 H (75-110) mg/dL Calcium 9.3 (8.6-10.4) mg/dl Phosphorus 3.8 (2.5-4.5) mg/dL Magnesium 2.5 H (1.6-2.3) mg/dL Total Bilirubin 0.6 (0.2-1.3) mg/dL AST 22 (17-59) U/L ALT 17 L (21-72) U/L Alkaline Phosphatase 105 (38-126) U/L Total Protein 7.0 (6.3-8.3) g/dL Albumin 3.5 (3.5-5.0) g/dL Globulin 3.5 (2.2-3.9) gm/dL Albumin/Globulin Ratio 1.0 (1.0-2.1) 03/08/18 03/07/18 Range/Units 05:40 17:41 WBC (4.8-10.8) K/uL RBC (4.40-5.90) Mil/uL Hgb (12.0-18.0) g/dL Hct (35.0-51.0) % MCV (80.0-94.0) fL MCH (27.0-31.0) pg MCHC (33.0-37.0) g/dL RDW (11.5-14.5) % Plt Count (130-400) K/uL MPV (7.2-11.7) fL Neut % (Auto) (50.0-75.0) % Lymph % (Auto) (20.0-40.0) % [place] % (Auto) (0.0-10.0) % Eos % (Auto) (0.0-4.0) % Baso % (Auto) (0.0-2.0) % Neut # (Auto) (1.8-7.0) K/uL Lymph # (Auto) (1.0-4.3) K/uL [place] # (Auto) (0.0-0.8) K/uL Eos # (Auto) (0.0-0.7) K/uL Baso # (Auto) (0.0-0.2) K/uL Neutrophils % (Manual) (50-75) % Lymphocytes % (Manual) (20-40) % Monocytes % (Manual) (0-10) % Platelet Estimate (NORMAL) RBC Morphology Sodium (132-148) mmol/L Potassium (3.6-5.2) mmol/L Chloride (98-107) mmol/L Carbon Dioxide (22-30) mmol/L Anion Gap (10-20) BUN (9-20) mg/dL Creatinine (0.8-1.5) mg/dL Est GFR ( Amer) Est GFR (Non-Af Amer) POC Glucose (mg/dL) 168 H 159 H (65-110) mg/dL Random Glucose (75-110) mg/dL Calcium (8.6-10.4) mg/dl Phosphorus (2.5-4.5) mg/dL Magnesium (1.6-2.3) mg/dL Total Bilirubin (0.2-1.3) mg/dL AST (17-59) U/L ALT (21-72) U/L Alkaline Phosphatase (38-126) U/L Total Protein (6.3-8.3) g/dL Albumin (3.5-5.0) g/dL Globulin (2.2-3.9) gm/dL Albumin/Globulin Ratio (1.0-2.1) Laboratory Results - last 24 hr 03/07/18 03/08/18 03/08/18 17:41 05:40 06:13 WBC RBC Hgb Hct MCV MCH MCHC RDW Plt Count MPV Neut % (Auto) Lymph % (Auto) [place] % (Auto) Eos % (Auto) Baso % (Auto) Neut # (Auto) Lymph # (Auto) [place] # (Auto) Eos # (Auto) Baso # (Auto) Neutrophils % (Manual) Lymphocytes % (Manual) Monocytes % (Manual) Platelet Estimate RBC Morphology Sodium 141 Potassium 4.2 Chloride 104 Carbon Dioxide 24 Anion Gap 16 BUN 21 H Creatinine 0.9 Est GFR ( Amer) > 60 Est GFR (Non-Af Amer) > 60 POC Glucose (mg/dL) 159 H 168 H Random Glucose 163 H Calcium 9.3 Phosphorus 3.8 Magnesium 2.5 H Total Bilirubin 0.6 AST 22 ALT 17 L Alkaline Phosphatase 105 Total Protein 7.0 Albumin 3.5 Globulin 3.5 Albumin/Globulin Ratio 1.0 03/08/18 03/08/18 06:14 07:39 WBC 14.9 H RBC 4.45 Hgb 13.5 Hct 40.9 MCV 92.0 MCH 30.4 MCHC 33.1 RDW 13.0 Plt Count 309 MPV 9.2 Neut % (Auto) 88.1 H Lymph % (Auto) 5.8 L [place] % (Auto) 5.9 Eos % (Auto) 0.0 Baso % (Auto) 0.2 Neut # (Auto) 13.1 H Lymph # (Auto) 0.9 L [place] # (Auto) 0.9 H Eos # (Auto) 0.0 Baso # (Auto) 0.0 Neutrophils % (Manual) 87 H Lymphocytes % (Manual) 8 L Monocytes % (Manual) 5 Platelet Estimate Normal RBC Morphology Normal Sodium Potassium Chloride Carbon Dioxide Anion Gap BUN Creatinine Est GFR ( Amer) Est GFR (Non-Af Amer) POC Glucose (mg/dL) 140 H Random Glucose Calcium Phosphorus Magnesium Total Bilirubin AST ALT Alkaline Phosphatase Total Protein Albumin Globulin Albumin/Globulin Ratio Fingerstick Blood Sugar Results: 143 Critical Care Progress Note - Nutrition Nutrition: Nutrition Category Date Time Status Dysphagia/Modified Consistency Diet [DIET] Diets 03/08/18 Breakfast Active Assessment/Plan - Assessment and Plan (Free Text) Assessment: 52 year old male with a history of HLD and HTN presented with slurred speech. Code Stroke Called - large basal ganglia hemorrhagic stroke noted on CT. Both patient and family refusing PEG. Family wants to transfer to [facility] for acute rehab. Plan: Neuro: GCS: 15 Sedation: None A: Hemorrhagic CVA - Head CT (Admission): Moderate intraparenchymal hemorrhage is identified at the left basal ganglia exerting local mass effect and causing a limited rightward midline shift of 2 mm. Measurements are as defined above in terms of hemorrhagic collection. Limited local parenchymal edema appreciated. Remainder the examination appears unremarkable. - Head CT (02/28/18): The large left basal ganglia and intraparenchymal hemorrhage/hematoma with surrounding mass effect midline shift are similar in appearance. No progressive bleeding or new areas of bleeding noted. No progressive ventriculomegaly appreciated. No interval low-density areas to suggest interval infarcts. - MRI (03/01/18): Re- demonstrated is a large left basal ganglia hematoma surrounded by a small rim of edema and or necrotic brain tissue. The appearance and location most consistent with hypertensive origin hemorrhage. The questionable small fluid fluid level within the posterior superior dependent portion of the hematoma as above ; Is this patient currently on anticoagulant therapy or is there history of bleeding diathesis. Clinical correlation recommended. There is surrounding mass-effect with compression of the left lateral ventricle and overlying sulcal effacement. Slight shift of the midline from left to right as above. Chronic white matter ischemic changes as above - Head CT (03/03/18): There is left basal ganglia hematoma with increasing surrounding vasogenic edema measuring 5.8 x 2.6 cm with left to right midline shift 8 mm subfalcine herniation which demonstrate interval progression when compared to prior examination. 2. There is mass effect on the left lateral ventricle. Close clinical surveillance is recommended to evaluate for developing acute obstructive hydrocephalus. - Neurology Consulted - Dr. Watts - NeuroSurgery Consulted - Per Nurse who talked to Neurosurgeon. No indication or Surgical Intervention at this time. - Speech/Therapy Eval - PT Eval - Aspiration Precautions - Keep Head of Bead elevated at 45 Degreees - NeuroChecks -Completed hypertonic solution - Decadron 10mg IV Q12 Cardio - A: Uncontrolled HTN, HLD, CVA - Keep BP under 140 - Continue Lisinopril 5 PO Daily, Labetalol 200mg PO Q8H, Hydralazine Q6H 10 IV pRN, Crestor 10mg PO QHS Pulm A: No Acute Issues GI - Jevity per NG Tube - Neuro cleared - GI Consulted for PEG tube placement, now both patient and family refused. Will attempt pureed feeds, will most likely need NGT. Renal A: Hypokalemia (Resolved) Proph - Protonix IV - SCD's, VTE c/i 2/2 hemorrhagic stroke - PT/ OT EVAL - Case management for discharge planning to acute rehab Disposition: Patient is transferred to MED/SURG - pending discharge to acute rehab DW with ICU Attending - Saray Delgado, PGY-1 <David Barrett S - Last Filed: 03/08/18 18:33> CCU Objective - Vital Signs / Intake & Output Vital Signs (Last 4 hours): Vital Signs Temp Pulse Resp BP Pulse Ox 03/08/18 16:00 98 F 86 20 149/98 H 98 Intake and Output (Last 8hrs): Intake & Output 03/08/18 03/08/18 03/08/18 06:59 14:59 22:59 Intake Total 50 120 240 Output Total 600 500 Balance -550 120 -260 Weight 250 lb Intake: Oral 50 120 240 Output: Urine 600 500 Condom 600 500 Other: # Bowel Movements 2 - Medications Active Medications: Active Medications Generic Name Dose Route Start Last Admin Trade Name Freq PRN Reason Stop Dose Admin Dexamethasone 10 mg 03/06/18 10:00 03/08/18 09:33 Decadron Inj IVP 10 mg Q12 PANCHO Administration Hydralazine HCl 10 mg 03/02/18 10:35 03/06/18 11:54 Apresoline IVP 10 mg Q6H PRN Administration Systolic BP > 140 Insulin Human Regular 0 unit 03/03/18 18:00 03/08/18 17:32 Novolin R SC Not Given Q12H PANCHO Protocol Labetalol HCl 200 mg 03/02/18 10:15 03/08/18 17:36 Trandate PO 200 mg Q8H PANCHO Administration Lisinopril 5 mg 03/02/18 10:00 03/08/18 09:34 Zestril PO 5 mg DAILY PANCHO Administration Pantoprazole Sodium 40 mg 03/08/18 10:00 03/08/18 09:34 Protonix Ec Tab PO 40 mg DAILY PANCHO Administration Rosuvastatin Calcium 10 mg 03/06/18 22:00 03/07/18 21:08 Crestor PO 10 mg HS PANCHO Administration - Patient Studies Lab Studies: Lab Studies 06/03/2003/08/18 03/08/18 Range/Units 17:30 07:39 06:14 WBC 14.9 H (4.8-10.8) K/uL RBC 4.45 (4.40-5.90) Mil/uL Hgb 13.5 (12.0-18.0) g/dL Hct 40.9 (35.0-51.0) % MCV 92.0 (80.0-94.0) fL MCH 30.4 (27.0-31.0) pg MCHC 33.1 (33.0-37.0) g/dL RDW 13.0 (11.5-14.5) % Plt Count 309 (130-400) K/uL MPV 9.2 (7.2-11.7) fL Neut % (Auto) 88.1 H (50.0-75.0) % Lymph % (Auto) 5.8 L (20.0-40.0) % [place] % (Auto) 5.9 (0.0-10.0) % Eos % (Auto) 0.0 (0.0-4.0) % Baso % (Auto) 0.2 (0.0-2.0) % Neut # (Auto) 13.1 H (1.8-7.0) K/uL Lymph # (Auto) 0.9 L (1.0-4.3) K/uL [place] # (Auto) 0.9 H (0.0-0.8) K/uL Eos # (Auto) 0.0 (0.0-0.7) K/uL Baso # (Auto) 0.0 (0.0-0.2) K/uL Neutrophils % (Manual) 87 H (50-75) % Lymphocytes % (Manual) 8 L (20-40) % Monocytes % (Manual) 5 (0-10) % Platelet Estimate Normal (NORMAL) RBC Morphology Normal Sodium (132-148) mmol/L Potassium (3.6-5.2) mmol/L Chloride (98-107) mmol/L Carbon Dioxide (22-30) mmol/L Anion Gap (10-20) BUN (9-20) mg/dL Creatinine (0.8-1.5) mg/dL Est GFR ( Amer) Est GFR (Non-Af Amer) POC Glucose (mg/dL) 144 H 140 H (65-110) mg/dL Random Glucose (75-110) mg/dL Calcium (8.6-10.4) mg/dl Phosphorus (2.5-4.5) mg/dL Magnesium (1.6-2.3) mg/dL Total Bilirubin (0.2-1.3) mg/dL AST (17-59) U/L ALT (21-72) U/L Alkaline Phosphatase (38-126) U/L Total Protein (6.3-8.3) g/dL Albumin (3.5-5.0) g/dL Globulin (2.2-3.9) gm/dL Albumin/Globulin Ratio (1.0-2.1) 03/08/18 03/08/18 Range/Units 06:13 05:40 WBC (4.8-10.8) K/uL RBC (4.40-5.90) Mil/uL Hgb (12.0-18.0) g/dL Hct (35.0-51.0) % MCV (80.0-94.0) fL MCH (27.0-31.0) pg MCHC (33.0-37.0) g/dL RDW (11.5-14.5) % Plt Count (130-400) K/uL MPV (7.2-11.7) fL Neut % (Auto) (50.0-75.0) % Lymph % (Auto) (20.0-40.0) % [place] % (Auto) (0.0-10.0) % Eos % (Auto) (0.0-4.0) % Baso % (Auto) (0.0-2.0) % Neut # (Auto) (1.8-7.0) K/uL Lymph # (Auto) (1.0-4.3) K/uL [place] # (Auto) (0.0-0.8) K/uL Eos # (Auto) (0.0-0.7) K/uL Baso # (Auto) (0.0-0.2) K/uL Neutrophils % (Manual) (50-75) % Lymphocytes % (Manual) (20-40) % Monocytes % (Manual) (0-10) % Platelet Estimate (NORMAL) RBC Morphology Sodium 141 (132-148) mmol/L Potassium 4.2 (3.6-5.2) mmol/L Chloride 104 (98-107) mmol/L Carbon Dioxide 24 (22-30) mmol/L Anion Gap 16 (10-20) BUN 21 H (9-20) mg/dL Creatinine 0.9 (0.8-1.5) mg/dL Est GFR ( Amer) > 60 Est GFR (Non-Af Amer) > 60 POC Glucose (mg/dL) 168 H (65-110) mg/dL Random Glucose 163 H (75-110) mg/dL Calcium 9.3 (8.6-10.4) mg/dl Phosphorus 3.8 (2.5-4.5) mg/dL Magnesium 2.5 H (1.6-2.3) mg/dL Total Bilirubin 0.6 (0.2-1.3) mg/dL AST 22 (17-59) U/L ALT 17 L (21-72) U/L Alkaline Phosphatase 105 (38-126) U/L Total Protein 7.0 (6.3-8.3) g/dL Albumin 3.5 (3.5-5.0) g/dL Globulin 3.5 (2.2-3.9) gm/dL Albumin/Globulin Ratio 1.0 (1.0-2.1) Laboratory Results - last 24 hr 03/08/18 03/08/18 03/08/18 05:40 06:13 06:14 WBC 14.9 H RBC 4.45 Hgb 13.5 Hct 40.9 MCV 92.0 MCH 30.4 MCHC 33.1 RDW 13.0 Plt Count 309 MPV 9.2 Neut % (Auto) 88.1 H Lymph % (Auto) 5.8 L [place] % (Auto) 5.9 Eos % (Auto) 0.0 Baso % (Auto) 0.2 Neut # (Auto) 13.1 H Lymph # (Auto) 0.9 L [place] # (Auto) 0.9 H Eos # (Auto) 0.0 Baso # (Auto) 0.0 Neutrophils % (Manual) 87 H Lymphocytes % (Manual) 8 L Monocytes % (Manual) 5 Platelet Estimate Normal RBC Morphology Normal Sodium 141 Potassium 4.2 Chloride 104 Carbon Dioxide 24 Anion Gap 16 BUN 21 H Creatinine 0.9 Est GFR ( Amer) > 60 Est GFR (Non-Af Amer) > 60 POC Glucose (mg/dL) 168 H Random Glucose 163 H Calcium 9.3 Phosphorus 3.8 Magnesium 2.5 H Total Bilirubin 0.6 AST 22 ALT 17 L Alkaline Phosphatase 105 Total Protein 7.0 Albumin 3.5 Globulin 3.5 Albumin/Globulin Ratio 1.0 03/08/18 03/08/18 07:39 17:30 WBC RBC Hgb Hct MCV MCH MCHC RDW Plt Count MPV Neut % (Auto) Lymph % (Auto) [place] % (Auto) Eos % (Auto) Baso % (Auto) Neut # (Auto) Lymph # (Auto) [place] # (Auto) Eos # (Auto) Baso # (Auto) Neutrophils % (Manual) Lymphocytes % (Manual) Monocytes % (Manual) Platelet Estimate RBC Morphology Sodium Potassium Chloride Carbon Dioxide Anion Gap BUN Creatinine Est GFR ( Amer) Est GFR (Non-Af Amer) POC Glucose (mg/dL) 140 H 144 H Random Glucose Calcium Phosphorus Magnesium Total Bilirubin AST ALT Alkaline Phosphatase Total Protein Albumin Globulin Albumin/Globulin Ratio Critical Care Progress Note - Nutrition Nutrition: Nutrition Category Date Time Status Dysphagia/Modified Consistency Diet [DIET] Diets 03/08/18 Breakfast Active Attending/Attestation - Attestation I have personally seen and examined this patient.: Yes I have fully participated in the care of the patient.: Yes I have reviewed all pertinent clinical information: Yes Notes (Text): 03/08/18 18:32 patient is seen and examined in the intensive care unit. Patient is more awake and responsive Tolerating diet Stable for transfer to floor
--- NOTE | 2018-03-08 11:33 | CP.PCM.PN ---
Subjective - Date & Time of Evaluation Date of Evaluation: 03/08/18 Time of Evaluation: 11:35 - Subjective Subjective: Progress note dictated #[id number] Objective - Vital Signs/Intake and Output Vital Signs (last 24 hours): Temp Pulse Resp BP Pulse Ox 98.5 F 89 18 127/89 99 03/08/18 08:00 03/08/18 08:00 03/08/18 08:00 03/08/18 08:00 03/08/18 08:00 Intake and Output: 03/08/18 03/08/18 06:59 18:59 Intake Total 150 120 Output Total 600 Balance -450 120 - Medications Medications: Current Medications Dexamethasone (Decadron Inj) 10 mg IVP Q12 [facility] Last Admin: 03/08/18 09:33 Dose: 10 mg Hydralazine HCl (Apresoline) 10 mg IVP Q6H PRN PRN Reason: Systolic BP > 140 Last Admin: 03/06/18 11:54 Dose: 10 mg Insulin Human Regular (Novolin R) 0 unit SC Q12H PANCHO PRN Reason: Protocol Last Admin: 03/08/18 06:21 Dose: Not Given Labetalol HCl (Trandate) 200 mg PO Q8H [facility] Last Admin: 03/08/18 09:34 Dose: 200 mg Lisinopril (Zestril) 5 mg PO DAILY [facility] Last Admin: 03/08/18 09:34 Dose: 5 mg Pantoprazole Sodium (Protonix Ec Tab) 40 mg PO DAILY [facility] Last Admin: 03/08/18 09:34 Dose: 40 mg Rosuvastatin Calcium (Crestor) 10 mg PO HS [facility] Last Admin: 03/07/18 21:08 Dose: 10 mg - Labs Labs: 03/08/18 06:14 03/08/18 06:13 PT 15.5 SECONDS (9.7-12.2) H 03/06/18 06:16 INR 1.4 03/06/18 06:16 APTT 33 SECONDS (21-34) 03/06/18 06:16
--- NOTE | 2018-03-08 15:34 | CT ---
PROCEDURE: CT HEAD WITHOUT CONTRAST. HISTORY: follow up hemorrhagic stroke COMPARISON: CT head dated 03/06/2018. TECHNIQUE: Axial computed tomography images were obtained through the head/brain without intravenous contrast. Radiation dose: Total exam DLP = 1227.5 mGy-cm. This CT exam was performed using one or more of the following dose reduction techniques: Automated exposure control, adjustment of the mA and/or kV according to patient size, and/or use of iterative reconstruction technique. FINDINGS: HEMORRHAGE: Stable size and appearance of left basal ganglia hemorrhage with surrounding edema causing stable approximate 7 mm [id number] midline shift and near effacement of the frontal horn and anterior body of the left lateral ventricle. BRAIN: As above. No atrophy or chronic microvascular ischemic changes. VENTRICLES: As above. No hydrocephalus. CALVARIUM: Unremarkable. PARANASAL SINUSES: Unremarkable as visualized. No significant inflammatory changes. MASTOID AIR CELLS: Unremarkable as visualized. No inflammatory changes. OTHER FINDINGS: None. IMPRESSION: Stable size and appearance of left basal ganglia hemorrhage, midline shift and near effacement of the frontal horn and anterior body of the left lateral ventricle. No new hemorrhage or significant interval change.
--- NOTE | 2018-03-09 01:53 | PN ---
DATE: 03/08/2018 SUBJECTIVE: The patient was seen and examined at bedside. The patient's speech is slightly better, but still slurred, evaluated by speech therapy, tolerating thin liquids, PEG was on hold. No improvement in his motor deficits. Denies any other complaints. PHYSICAL EXAMINATION: GENERAL: Middle-aged male sitting in chair in no acute distress. VITAL SIGNS: Blood pressure 149/98, pulse 86, respirations 20, temperature 98 degrees Fahrenheit, O2 saturation is 98% on room air. HEENT: Pupils reacting to light and accommodation. Extraocular muscles intact. No icterus. No pallor. NECK: Supple. No JVD. LUNGS: Bilateral vesicular breath sounds. No wheezing. No rhonchi. CVS: S1, S2 present. Regular. ABDOMEN: Soft. Nontender. Bowel sounds are present. No guarding. No rigidity. No rebound tenderness noted. SOCIAL SERVICES MANAGER: Awake and oriented x3. Right-sided paralysis. Speech is slurred. EXTREMITIES: No edema, palpable peripheral pulses. MEDICATIONS: Decadron 10 mg IV push every 12 hours, hydralazine 10 mg IV push every 6 p.r.n., labetalol 200 mg p.o. every 8 hours, Zestril 5 mg daily, Protonix 40 mg daily, Crestor 10 mg p.o. at bedtime. LABORATORY DATA: From this morning WBC 14.9, hemoglobin platelets 209. Sodium 141, potassium 4.2, chloride 104, bicarbonate 24, BUN 21, creatinine 0.9, glucose 140, calcium 9.3, phosphorus 3.8, magnesium 2.5, AST 22, ALT 17, alkaline phosphatase 105, total protein 7, albumin 3.5. Repeat CT head from today showed stable size and appearance of left basal ganglia hemorrhage, midline shift and near effacement of the frontal horn and anterior body of the left lateral ventricle, no new hemorrhage or significant interval change. ASSESSMENT AND PLAN: Middle-aged male with history of hypertension, hyperlipidemia, admitted for left basal ganglia hemorrhagic stroke with right-sided paralysis and slurred speech. Blood pressure is slightly elevated. We will continue with current medication, followup with Neurology. Continue with physical therapy, occupational therapy, and speech therapy. PEG is on hold as the patient is able to tolerate thin liquids at this time. director emergency services consult for subacute rehab placement and medically stable. We will continue with supportive care, continue with DVT and GI prophylaxis. Reba Marsh MD Psychiatric # [id number]
[2018-03-09] MEDS: (Novolin R) Insulin Human Regular 100 units/ml vial SC SCH ×2 (05:25→18:23)
[2018-03-09 06:23] LABS: BASO % 0.2 % (0.0-2.0); HEMOGLOBIN 13.1 g/dL (12.0-18.0); LYMPH # 0.9 K/uL (1.0-4.3); LYMPH % 4.9 % (20.0-40.0); MEAN CELL VOLUME 91.9 fL (80.0-94.0); MEAN CORPUSCULAR HEMOGLOBIN 30.1 pg (27.0-31.0); MEAN CORPUSCULAR HGB CONC 32.8 g/dL (33.0-37.0); MEAN PLATELET VOLUME 9.3 fL (7.2-11.7); MONO % 5.8 % (0.0-10.0); NEUT # 15.5 K/uL (1.8-7.0); NEUT % 89.1 % (50.0-75.0); PLATELET COUNT 332 K/uL (130-400); RBC 4.35 Mil/uL (4.40-5.90); RED CELL DISTRIBUTION WIDTH 13.1 % (11.5-14.5); WHITE BLOOD COUNT 17.4 K/uL (4.8-10.8)
--- NOTE | 2018-03-09 06:29 | CP.PCM.PN ---
Subjective - Date & Time of Evaluation Date of Evaluation: 03/09/18 Time of Evaluation: 06:29 - Subjective Subjective: Mr. Rodriguez was seen and examined at the bedside in ICU. He is more awake,majority of time non- verbal, communicates utilizing with non-verbal cues such as nodding and shaking his head. He is able to follow simple commands such as opening his eyes with tongue deviation to the right noted, moves his left side with paraplegia noted in his right side. Repeat CT scan showed stable size and appearance of the left basal ganglia hemorrhage, midline shift and near effacement of the frontal horn and anterior body of the left lateral ventricle. There is no new hemorrhage or significant interval change. There was no untoward events overnight. Objective - Vital Signs/Intake and Output Vital Signs (last 24 hours): Temp Pulse Resp BP Pulse Ox 98.5 F 96 H 23 142/91 H 98 03/09/18 03:57 03/09/18 00:00 03/09/18 00:00 03/08/18 23:45 03/09/18 00:00 Intake and Output: 03/08/18 03/09/18 18:59 06:59 Intake Total 360 480 Output Total 500 Balance -140 480 - Medications Medications: Current Medications Dexamethasone (Decadron Inj) 10 mg IVP Q12 [facility] Last Admin: 03/08/18 21:19 Dose: 10 mg Hydralazine HCl (Apresoline) 10 mg IVP Q6H PRN PRN Reason: Systolic BP > 140 Last Admin: 03/06/18 11:54 Dose: 10 mg Insulin Human Regular (Novolin R) 0 unit SC Q12H [facility] PRN Reason: Protocol Last Admin: 03/09/18 05:25 Dose: Not Given Labetalol HCl (Trandate) 200 mg PO Q8H [facility] Last Admin: 03/09/18 01:20 Dose: 200 mg Lisinopril (Zestril) 5 mg PO DAILY [facility] Last Admin: 03/08/18 09:34 Dose: 5 mg Pantoprazole Sodium (Protonix Ec Tab) 40 mg PO DAILY [facility] Last Admin: 03/08/18 09:34 Dose: 40 mg Rosuvastatin Calcium (Crestor) 10 mg PO HS [facility] Last Admin: 03/08/18 21:19 Dose: 10 mg - Labs Labs: 03/08/18 06:14 03/08/18 06:13 PT 15.5 SECONDS (9.7-12.2) H 03/06/18 06:16 INR 1.4 03/06/18 06:16 APTT 33 SECONDS (21-34) 03/06/18 06:16 - Constitutional Appears: No Acute Distress - Head Exam Head Exam: NORMAL INSPECTION - Eye Exam Pupil Exam: Miosis, PERRL - ENT Exam ENT Exam: Mucous Membranes Moist - Neurological Exam Neurological Exam: Alert, Awake Neuro motor strength exam: Left Upper Extremity: 4, Right Upper Extremity: 0, Left Lower Extremity: 4, Right Lower Extremity: 0 Additional comments: Neurological unchanged from previous examination. Assessment and Plan (1) Hemorrhagic stroke Assessment & Plan: Case discussed with Dr. Watts, continue all current medical regimen. Recommend to repeat CT of the head staurday am to monitor hemorrhagicstroke and edema. Recommend acute rehab for discharge planning, . Recommend blood pressure, glycemic control, normothermic, and head of bed elevated at least 40 degrees angle. Status: Acute
[2018-03-09 06:42] LABS: ALBUMIN 3.3 g/dL (3.5-5.0); ALT/SGPT 34 U/L (21-72); AST/SGOT 23 U/L (17-59); BLOOD UREA NITROGEN 26 mg/dL (9-20); CALCIUM 8.9 mg/dl (8.6-10.4); GFR AFRICAN-AMERICAN > 60; GFR NON-AFRICAN AMERICAN > 60
[2018-03-09 08:02] LABS: LYMPHOCYTE 6 % (20-40); MONOCYTE 6 % (0-10); NEUTROPHIL 88 % (50-75); PLATELET ESTIMATE NORMAL (NORMAL); TOTAL CELLS COUNTED 100
[2018-03-09 08:03] LABS: LARGE PLATELETS PRESENT
[2018-03-09] MEDS: Pantoprazole 40 mg EC Tab PO SCH (09:13)
--- NOTE | 2018-03-09 11:11 | CP.PCM.PN ---
Subjective - Date & Time of Evaluation Date of Evaluation: 03/09/18 Time of Evaluation: 11:15 - Subjective Subjective: Progress note dictated #[id number] Objective - Vital Signs/Intake and Output Vital Signs (last 24 hours): Temp Pulse Resp BP Pulse Ox 97.4 F L 93 H 22 96/65 L 97 03/09/18 08:00 03/09/18 10:00 03/09/18 10:00 03/09/18 09:16 03/09/18 09:16 Intake and Output: 03/09/18 03/09/18 06:59 18:59 Intake Total 480 Balance 480 - Medications Medications: Current Medications Dexamethasone (Decadron Inj) 10 mg IVP Q12 [facility] Last Admin: 03/09/18 09:13 Dose: 10 mg Hydralazine HCl (Apresoline) 10 mg IVP Q6H PRN PRN Reason: Systolic BP > 140 Last Admin: 03/06/18 11:54 Dose: 10 mg Insulin Human Regular (Novolin R) 0 unit SC Q12H [facility] PRN Reason: Protocol Last Admin: 03/09/18 05:25 Dose: Not Given Labetalol HCl (Trandate) 200 mg PO Q8H [facility] Last Admin: 03/09/18 10:28 Dose: 200 mg Lisinopril (Zestril) 5 mg PO DAILY [facility] Last Admin: 03/09/18 09:13 Dose: 5 mg Pantoprazole Sodium (Protonix Ec Tab) 40 mg PO DAILY [facility] Last Admin: 03/09/18 09:13 Dose: 40 mg Rosuvastatin Calcium (Crestor) 10 mg PO HS [facility] Last Admin: 03/08/18 21:19 Dose: 10 mg - Labs Labs: 03/09/18 06:17 03/09/18 06:17 PT 15.5 SECONDS (9.7-12.2) H 03/06/18 06:16 INR 1.4 03/06/18 06:16 APTT 33 SECONDS (21-34) 03/06/18 06:16
[2018-03-10 01:41] VITALS: RESP 20
--- NOTE | 2018-03-10 02:28 | PN ---
DATE: 03/09/2018 SUBJECTIVE: The patient was seen and examined at bedside. The patient offers no new complaints and no change in his neurologic condition. PHYSICAL EXAMINATION: GENERAL: A middle-aged male, lying in bed, in no acute distress. VITAL SIGNS: Blood pressure 129/84, pulse 89, respirations 20, temperature 98.2 degrees Fahrenheit, O2 saturation is 97% on room air. HEENT: Pupils are equal and reactive to light and accommodation. Extraocular muscles intact. No icterus, no pallor. NECK: Supple. No JVD. LUNGS: Bilateral vesicular breath sounds. No wheezing, no rhonchi. CVS: S1 and S2 present. Regular. ABDOMEN: Soft, nontender. Bowel sounds present. No guarding, no rigidity, no rebound tenderness noted. 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 Slurred speech. Right-sided weakness noted. MEDICATIONS: Include Decadron 10 mg IV push every 12 hours, hydralazine 10 mg IV push every 6 hours p.r.n., labetalol 200 mg p.o. every 8 hours, Zestril 5 mg p.o. daily, Protonix 40 mg p.o. daily, Crestor 10 mg p.o. nightly. LABORATORY DATA: Labs done from this morning, WBC 17.4, hemoglobin 13.1, hematocrit 40, platelets 332. Sodium 139, potassium 4.2, chloride 103, bicarb 25, BUN 26, creatinine 1, glucose 190, calcium 8.9, phosphorus 4.4, magnesium 2.5, albumin 3.3. 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 The patient is able to tolerate thin liquids as per speech therapy. PEG is on hold since then. Plastic Boat Patcher to make arrangements for possible transfer to [facility] for possible acute rehab, discussed with case management. Follow up with Neurology regarding further treatment plan and discharge. We will continue with physical therapy, occupational therapy, and speech therapy. Blood pressure is stable on current medications. Continue with gastrointestinal and deep venous thrombosis prophylaxis. Reba Marsh MD
[2018-03-10] MEDS: (Novolin R) Insulin Human Regular 100 units/ml vial SC SCH ×2 (06:59→17:16)
--- NOTE | 2018-03-10 07:29 | CP.PCM.PN ---
Subjective - Date & Time of Evaluation Date of Evaluation: 03/10/18 Time of Evaluation: 07:29 - Subjective Subjective: Mr. Rodriguez was seen and examined at the bedside in ICU. He is more awake,majority of time non- verbal, communicates utilizing with non-verbal cues such as nodding and shaking his head. He is able to follow simple commands such as opening his eyes with tongue deviation to the right noted, moves his left side with paraplegia noted in his right side. There was no untoward events overnight. Objective - Vital Signs/Intake and Output Vital Signs (last 24 hours): Temp Pulse Resp BP Pulse Ox 98.2 F 82 20 112/78 96 03/10/18 04:25 03/10/18 04:25 03/10/18 04:25 03/10/18 04:25 03/10/18 04:25 Intake and Output: 03/10/18 03/10/18 06:59 18:59 Output Total 100 Balance -100 - Medications Medications: Current Medications Dexamethasone (Decadron Inj) 10 mg IVP Q12 [facility] Last Admin: 03/09/18 21:46 Dose: 10 mg Hydralazine HCl (Apresoline) 10 mg IVP Q6H PRN PRN Reason: Systolic BP > 140 Last Admin: 03/06/18 11:54 Dose: 10 mg Insulin Human Regular (Novolin R) 0 unit SC Q12H [facility] PRN Reason: Protocol Last Admin: 03/10/18 06:59 Dose: Not Given Labetalol HCl (Trandate) 200 mg PO Q8H [facility] Last Admin: 03/10/18 03:16 Dose: Not Given Lisinopril (Zestril) 5 mg PO DAILY [facility] Last Admin: 03/09/18 09:13 Dose: 5 mg Pantoprazole Sodium (Protonix Ec Tab) 40 mg PO DAILY [facility] Last Admin: 03/09/18 09:13 Dose: 40 mg Rosuvastatin Calcium (Crestor) 10 mg PO HS [facility] Last Admin: 03/09/18 21:46 Dose: 10 mg - Labs Labs: 03/09/18 06:17 03/09/18 06:17 PT 15.5 SECONDS (9.7-12.2) H 03/06/18 06:16 INR 1.4 03/06/18 06:16 APTT 33 SECONDS (21-34) 03/06/18 06:16 - Constitutional Appears: No Acute Distress - Head Exam Head Exam: NORMAL INSPECTION - Eye Exam Pupil Exam: PERRL - Neurological Exam Neurological Exam: Alert, Awake Neuro motor strength exam: Left Upper Extremity: 5, Right Upper Extremity: 0, Left Lower Extremity: 4, Right Lower Extremity: 0 Additional comments: Neurological unchanged from previous examination. Assessment and Plan (1) Hemorrhagic stroke Assessment & Plan: Case discussed with Dr. Watts, continue all current medical regimen. Recommend to repeat CT of the head staurday am to monitor hemorrhagicstroke and edema. Recommend acute rehab for discharge planning, . Recommend blood pressure, glycemic control, normothermic, and head of bed elevated at least 40 degrees angle. Status: Acute
[2018-03-10 08:26] LABS: BASO % 0.2 % (0.0-2.0); HEMOGLOBIN 13.3 g/dL (12.0-18.0); LYMPH # 0.5 K/uL (1.0-4.3); LYMPH % 2.6 % (20.0-40.0); MEAN CELL VOLUME 91.2 fL (80.0-94.0); MEAN CORPUSCULAR HEMOGLOBIN 30.3 pg (27.0-31.0); MEAN CORPUSCULAR HGB CONC 33.2 g/dL (33.0-37.0); MEAN PLATELET VOLUME 9.2 fL (7.2-11.7); MONO # 1.6 K/uL (0.0-0.8); MONO % 8.3 % (0.0-10.0); NEUT # 16.7 K/uL (1.8-7.0); NEUT % 88.9 % (50.0-75.0); PLATELET COUNT 334 K/uL (130-400); RED CELL DISTRIBUTION WIDTH 13.2 % (11.5-14.5); WHITE BLOOD COUNT 18.8 K/uL (4.8-10.8)
[2018-03-10 08:39] LABS: ALBUMIN 3.3 g/dL (3.5-5.0); ALT/SGPT 30 U/L (21-72); AST/SGOT 31 U/L (17-59); BLOOD UREA NITROGEN 23 mg/dL (9-20); CALCIUM 8.7 mg/dl (8.6-10.4); GFR AFRICAN-AMERICAN > 60; GFR NON-AFRICAN AMERICAN > 60
[2018-03-10 08:54] LABS: LYMPHOCYTE 3 % (20-40); MONOCYTE 11 % (0-10); NEUTROPHIL 86 % (50-75); PLATELET ESTIMATE NORMAL (NORMAL); TOTAL CELLS COUNTED 100
[2018-03-10] MEDS: Pantoprazole 40 mg EC Tab PO SCH (09:23)
--- NOTE | 2018-03-10 10:05 | CP.PCM.PN ---
Subjective - Date & Time of Evaluation Date of Evaluation: 03/10/18 Time of Evaluation: 10:05 - Subjective Subjective: Progress note dictated #[id number] Objective - Vital Signs/Intake and Output Vital Signs (last 24 hours): Temp Pulse Resp BP Pulse Ox 97.4 F L 91 H 20 127/79 94 L 03/10/18 07:00 03/10/18 09:25 03/10/18 07:00 03/10/18 09:25 03/10/18 07:00 Intake and Output: 03/10/18 03/10/18 06:59 18:59 Output Total 100 Balance -100 - Medications Medications: Current Medications Dexamethasone (Decadron Inj) 10 mg IVP Q12 [facility] Last Admin: 03/10/18 09:25 Dose: 10 mg Hydralazine HCl (Apresoline) 10 mg IVP Q6H PRN PRN Reason: Systolic BP > 140 Last Admin: 03/06/18 11:54 Dose: 10 mg Insulin Human Regular (Novolin R) 0 unit SC Q12H [facility] PRN Reason: Protocol Last Admin: 03/10/18 06:59 Dose: Not Given Labetalol HCl (Trandate) 200 mg PO Q8H [facility] Last Admin: 03/10/18 09:23 Dose: 200 mg Lisinopril (Zestril) 5 mg PO DAILY [facility] Last Admin: 03/10/18 09:23 Dose: 5 mg Pantoprazole Sodium (Protonix Ec Tab) 40 mg PO DAILY [facility] Last Admin: 03/10/18 09:23 Dose: 40 mg Rosuvastatin Calcium (Crestor) 10 mg PO HS [facility] Last Admin: 03/09/18 21:46 Dose: 10 mg - Labs Labs: 03/10/18 08:13 03/10/18 08:13 PT 15.5 SECONDS (9.7-12.2) H 03/06/18 06:16 INR 1.4 03/06/18 06:16 APTT 33 SECONDS (21-34) 03/06/18 06:16
--- NOTE | 2018-03-10 10:48 | RAD ---
HISTORY: r/o infiltrate COMPARISON: Chest radiograph dated 03/01/2018. FINDINGS: LUNGS: No active pulmonary disease. PLEURA: No significant pleural effusion identified, no pneumothorax apparent. CARDIOVASCULAR: Cardiomediastinal silhouette stably enlarged. OSSEOUS STRUCTURES: Unchanged. VISUALIZED UPPER ABDOMEN: Normal. OTHER FINDINGS: Enteric tube no longer present. IMPRESSION: No active disease.
[2018-03-10 12:05] LABS: SQUAMOUS EPITHIAL < 1 /hpf (0-5); URINE BILIRUBIN NEGATIVE (NEGATIVE); URINE BLOOD NEGATIVE (NEGATIVE); URINE CLARITY Clear (Clear); URINE COLOR Yellow (YELLOW); URINE GLUCOSE (UA) NORMAL (Normal); URINE LEUKOCYTE ESTERASE NEG Leu/uL (Negative); URINE PROTEIN NEGATIVE (NEGATIVE); URINE UROBILINOGEN NORMAL mg/dL (0.2-1.0)
--- NOTE | 2018-03-10 12:09 | PCM.PSYCH ---
Initial Psychiatric Evaluation - Initial Psychiatric Evaluation Type of Admission: Voluntary Legal Status: Capacity History of Present Illness and Precipitating Events: 52-year-old male with a known history of high cholesterol and hypertension not seen a physician for quite a long time, and also not on any medication brought in by ambulance because of the weakness and slurred speech. Patient was driving, noticed that he started having some slurred speech, mediately call ambulance, brought him him to the emergency room. In the emergency room code stroke was called immediately. Patient started having more flaccid weakness on the right side, and also slurring speech. Patient become nonverbal after that. Immediate CAT scan showing evidence of bleeding in the brain. Current Medications: Active Medications Generic Name Dose Route Start Last Admin Trade Name Freq PRN Reason Stop Dose Admin Dexamethasone 10 mg 03/06/18 10:00 03/10/18 09:25 Decadron Inj IVP 10 mg Q12 [facility] Administration Hydralazine HCl 10 mg 03/02/18 10:35 03/06/18 11:54 Apresoline IVP 10 mg Q6H PRN Administration Systolic BP > 140 Insulin Human Regular 0 unit 03/03/18 18:00 03/10/18 06:59 Novolin R SC Not Given Q12H [facility] Protocol Labetalol HCl 200 mg 03/02/18 10:15 03/10/18 09:23 Trandate PO 200 mg Q8H [facility] Administration Lisinopril 5 mg 03/02/18 10:00 03/10/18 09:23 Zestril PO 5 mg DAILY [facility] Administration Pantoprazole Sodium 40 mg 03/08/18 10:00 03/10/18 09:23 Protonix Ec Tab PO 40 mg DAILY [facility] Administration Rosuvastatin Calcium 10 mg 03/06/18 22:00 03/09/18 21:46 Crestor PO 10 mg HS [facility] Administration Past Psychiatric History - Past Psychiatric History Previous Treatment History: None Pertinent Medical Hx (Current Medical&Sleep Prob, Allergies): Allergies Allergy/AdvReac Type Severity Reaction Status Date / Time No Known Allergies Allergy Verified 02/27/18 16:05 Unobtainable 02/27/18 Review of Systems - Review of Systems All systems: reviewed and no additional remarkable complaints except - Psychiatric Psychiatric: Anhedonia, Depression, Irritability. absent: Suicidal Ideation Mental Status Examination - Personal Presentation Personal Presentation: Looks stated age - Affect Affect: Constricted, Depressed - Motor Activity Motor Activity: Calm - Reliability in Providing Information Reliability in Providing Information: Fair - Speech Speech: Organized - Mood Mood: Depressed - Formal Thought Process Formal Thought Process: No Impairment - Obsessions/Compulsions Obsessions: No Compulsions: No - Cognitive Functions Orientation: Person, Place, Situation, Time Sensorium: Alert Attention/Concentration: Attentive Abstract Thinking: [place] Estimate of Intelligence: Below average Judgement: Intact, as evidence by: Good judgement, Intact, as evidence by: Insight regarding need for hospitalization - Risk Risk: Diminished functioning - Strength & Assets Inventory Strength & Assets Inventory: Family support DSM 5 DX - DSM 5 DSM 5 Diagnosis: Major depressive disorder single episode severe without psychotic features - Recommended/Plan of Treatment Treatment Recommendations and Plan of Treatment: Psychoeducation Supportive therapy Start Zoloft 50 mg daily Start trazodone 50 mg by mouth daily at bedtime when necessary
--- NOTE | 2018-03-10 16:12 | CT ---
PROCEDURE: CT HEAD WITHOUT CONTRAST. HISTORY: follow up hemorrhagic stroke COMPARISON: CT head dated 03/08/2018. TECHNIQUE: Axial computed tomography images were obtained through the head/brain without intravenous contrast. Radiation dose: Total exam DLP = 1295.4 mGy-cm. This CT exam was performed using one or more of the following dose reduction techniques: Automated exposure control, adjustment of the mA and/or kV according to patient size, and/or use of iterative reconstruction technique. FINDINGS: HEMORRHAGE: Stable size and appearance of left basal ganglia hemorrhage with surrounding edema causing stable approximately 7 mm left to right midline shift and near effacement of the frontal horn and anterior body of the left lateral ventricle. BRAIN: As above. No atrophy or chronic microvascular ischemic changes. VENTRICLES: As above. No hydrocephalus. CALVARIUM: Unremarkable. PARANASAL SINUSES: Unremarkable as visualized. No significant inflammatory changes. MASTOID AIR CELLS: Unremarkable as visualized. No inflammatory changes. OTHER FINDINGS: None. IMPRESSION: Normal CT of the Head.
--- NOTE | 2018-03-11 00:16 | PN ---
DATE: 03/10/2018 SUBJECTIVE: The patient was seen and examined at bedside. The patient is more alert and awake. Denies any new complaints, responding to the questions verbally, but with slurred speech. Denies any new complaints. All other systems reviewed and were found to be negative. PHYSICAL EXAMINATION: GENERAL: Middle aged male, lying in bed, in no acute distress. VITAL SIGNS: Blood pressure 127/79, pulse 91, respirations 20, temperature 97.9 degrees Fahrenheit, O2 saturation is 97% on room air. HEENT: Pupils equal, round and reacting to light and accommodation. Extraocular muscles intact. No icterus, no pallor. No oral thrush. No pharyngeal congestion. NECK: Supple. No JVD. LUNGS: Bilateral vesicular breath sounds. No wheezing , no rhonchi. CVS: S1 and S2 present. Regular. ABDOMEN: Soft. Nontender. Bowel sounds present. No guarding, no rigidity, no rebound tenderness noted. WASH CREW PERSON: Alert, awake and oriented x3. Right sided paralysis. Slurred speech. EXTREMITIES: No edema. Palpable peripheral pulses. MEDICATIONS: Decadron 10 mg IV push every 12 hours, hydralazine 10 mg IV push as needed, labetalol 200 mg p.o. every 8 hours, lisinopril 5 mg p.o. daily, Protonix 40 mg p.o. daily, Crestor 10 mg p.o. at bedtime, Zoloft 10 mg daily, trazodone 50 mg p.o. at bedtime p.r.n. LABORATORY DATA: Labs from this morning; WBC 18.8, hemoglobin 13.3, hematocrit 40.1 and platelets 334. Sodium 138, potassium 4.6, chloride 103, bicarbonate 25, BUN 23, creatinine 0.9, glucose 128, calcium 8.7, phosphorus 4.1, magnesium 2.4, bilirubin 0.5, AST 31, ALT 30, alkaline phosphatase 82, C-reactive protein less than 5, procalcitonin 0.06. UA negative. Blood cultures pending. Chest x-ray negative for any infiltrate. CT of the head, no new changes in the bleed. ASSESSMENT AND PLAN: Middle aged male with hypertension, hyperlipemia, admitted for left basal ganglia hemorrhagic stroke with right sided paralysis and slurred speech on Decadron, elevated WBC count, all the sepsis workup is negative. The patient does not look toxic. The elevated WBC count, probably secondary to steroids, will followup with Neurology regarding the dose of steroids. Continue with PT/OT and Speech Therapy. Discussed with case management, social scientist and RN. The patient is a possible transfer to [facility] for traumatic brain injury unit, awaiting for authorization and transfer when bed available. Psychiatric consult requested as the patient is more depressed. We will continue with Zoloft as per psychiatric recommendation and trazodone as needed at night. Reba Marsh MD
[2018-03-11] MEDS: (Novolin R) Insulin Human Regular 100 units/ml vial SC SCH ×2 (06:06→18:01)
[2018-03-11] MEDS: Pantoprazole 40 mg EC Tab PO SCH (09:07)
--- NOTE | 2018-03-11 09:47 | CP.PCM.PN ---
Subjective - Date & Time of Evaluation Date of Evaluation: 03/11/18 Time of Evaluation: 09:35 - Subjective Subjective: Progress note dictated #[id number] Objective - Vital Signs/Intake and Output Vital Signs (last 24 hours): Temp Pulse Resp BP Pulse Ox 98.2 F 81 20 141/75 98 03/11/18 07:00 03/11/18 07:00 03/11/18 07:00 03/11/18 07:00 03/11/18 07:00 - Medications Medications: Current Medications Dexamethasone (Decadron Inj) 10 mg IVP Q12 [facility] Last Admin: 03/11/18 09:09 Dose: 10 mg Hydralazine HCl (Apresoline) 10 mg IVP Q6H PRN PRN Reason: Systolic BP > 140 Last Admin: 03/06/18 11:54 Dose: 10 mg Insulin Human Regular (Novolin R) 0 unit SC Q12H [facility] PRN Reason: Protocol Last Admin: 03/11/18 06:06 Dose: Not Given Labetalol HCl (Trandate) 200 mg PO Q8H [facility] Last Admin: 03/11/18 09:15 Dose: 200 mg Lisinopril (Zestril) 5 mg PO DAILY [facility] Last Admin: 03/11/18 09:08 Dose: 5 mg Pantoprazole Sodium (Protonix Ec Tab) 40 mg PO DAILY [facility] Last Admin: 03/11/18 09:07 Dose: 40 mg Rosuvastatin Calcium (Crestor) 10 mg PO HS [facility] Last Admin: 03/10/18 21:25 Dose: 10 mg Sertraline HCl (Zoloft) 50 mg PO DAILY [facility] Last Admin: 03/11/18 09:08 Dose: 50 mg Trazodone HCl (Desyrel) 50 mg PO HS PRN PRN Reason: Insomnia Last Admin: 03/10/18 21:26 Dose: 50 mg - Labs Labs: 03/10/18 08:13 03/10/18 08:13 PT 15.5 SECONDS (9.7-12.2) H 03/06/18 06:16 INR 1.4 03/06/18 06:16 APTT 33 SECONDS (21-34) 03/06/18 06:16
--- NOTE | 2018-03-12 08:45 | PN ---
DATE: 03/11/2018 SUBJECTIVE: The patient was seen and examined at bedside. condition no new complaint. PHYSICAL EXAMINATION: GENERAL: Middle-aged male, lying in bed, in no acute distress. VITAL SIGNS: Blood pressure 141/75, pulse 81, respirations 20, temperature 98.3 degrees Fahrenheit, and O2 saturations 98% on room air. HEENT: Pupils are equal, reactive to light and accommodation. No icterus. No pallor. NECK: Supple. No JVD. LUNGS: Bilateral vesicular breath sounds. . CVS: S1 and S2 present, regular. ABDOMEN: Soft and nontender. Bowel sounds present. No guarding. No rigidity. No noted. 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 Slurred speech. Right side . EXTREMITIES: No edema. Medications include IV push q.12 hours, hydralazine as needed, labetalol 200 mg p.o. q.8 hours, Zestril 5 mg daily, mg daily, Crestor 10 mg p.o. h.s., Zoloft mg daily, trazodone 50 mg p.o. , pending. ASSESSMENT AND PLAN: A middle-age male with hypertension and hyperlipidemia, . Right sided paralysis. Physical therapy and occupational therapy, speech therapy. The patient is on . We will follow up with Neurology regarding continuation of steroids subacute rehab placement. is negative 03:10. Reba Marsh MD
[2018-03-12 09:03] LABS: BASO % 0.1 % (0.0-2.0); HEMOGLOBIN 13.2 g/dL (12.0-18.0); LYMPH % 5.5 % (20.0-40.0); MEAN CELL VOLUME 90.9 fL (80.0-94.0); MEAN CORPUSCULAR HEMOGLOBIN 29.9 pg (27.0-31.0); MEAN CORPUSCULAR HGB CONC 32.9 g/dL (33.0-37.0); MEAN PLATELET VOLUME 9.1 fL (7.2-11.7); MONO # 1.3 K/uL (0.0-0.8); MONO % 6.8 % (0.0-10.0); NEUT # 16.1 K/uL (1.8-7.0); NEUT % 87.6 % (50.0-75.0); PLATELET COUNT 338 K/uL (130-400); RBC 4.41 Mil/uL (4.40-5.90); RED CELL DISTRIBUTION WIDTH 13.1 % (11.5-14.5); WHITE BLOOD COUNT 18.4 K/uL (4.8-10.8)
[2018-03-12 09:23] LABS: ALB/GLOB RATIO 1.2 (1.0-2.1); ALBUMIN 3.3 g/dL (3.5-5.0); ALT/SGPT 36 U/L (21-72); AST/SGOT 21 U/L (17-59); BLOOD UREA NITROGEN 23 mg/dL (9-20); CALCIUM 8.6 mg/dl (8.6-10.4); GFR AFRICAN-AMERICAN > 60; GFR NON-AFRICAN AMERICAN > 60
[2018-03-12] MEDS: Pantoprazole 40 mg EC Tab PO SCH (09:42)
[2018-03-12 10:00] LABS: LYMPHOCYTE 5 % (20-40); MONOCYTE 8 % (0-10); NEUTROPHIL 87 % (50-75); PLATELET ESTIMATE NORMAL (NORMAL); TOTAL CELLS COUNTED 100
--- NOTE | 2018-03-12 10:07 | CT ---
PROCEDURE: CT HEAD WITHOUT CONTRAST. HISTORY: FOLLOW UP HEMORRHAGIC STROKE COMPARISON: Comparison is made with 03/10/2018. TECHNIQUE: Axial computed tomography images were obtained through the head/brain without intravenous contrast. Radiation dose: Total exam DLP = 975.16 mGy-cm. This CT exam was performed using one or more of the following dose reduction techniques: Automated exposure control, adjustment of the mA and/or kV according to patient size, and/or use of iterative reconstruction technique. FINDINGS: HEMORRHAGE: Again noted is parenchymal hemorrhage at the left basal ganglia coronal radiata measures 5.2 centimeter in the largest AP diameter and 2.5 centimeter in the transverse diameter again noted is surrounding vasogenic edema which resulting in mass effect on the left lateral ventricle. BRAIN: Stable mass effect and [id number] midline shift which measures 7 millimeter in the current study. [id number] chronic microvascular white matter ischemic disease. VENTRICLES: Compression on the left lateral ventricle is again noted. No evidence of hydrocephalus CALVARIUM: Unremarkable. PARANASAL SINUSES: Unremarkable as visualized. No significant inflammatory changes. MASTOID AIR CELLS: Unremarkable as visualized. No inflammatory changes. OTHER FINDINGS: None. IMPRESSION: Stable parenchymal hemorrhage at the left basal ganglia coronal radiata surrounding with vasogenic edema which resulting in mass effect on the left lateral ventricle . Stable approximately 7 millimeter [id number] midline shift.
--- NOTE | 2018-03-12 10:40 | CP.PCM.PN ---
Subjective - Date & Time of Evaluation Date of Evaluation: 03/12/18 Time of Evaluation: 10:40 - Subjective Subjective: Mr. Rodriguez was seen and examined at the bedside. He is more awake. He is able to verbalize " good morning", no headache." The majority of time non- verbal, communicates utilizing with non-verbal cues such as nodding and shaking his head. He is able to follow simple commands such as opening his eyes with tongue deviation to the right noted, moves his left side with paraplegia noted in his right side. Repeat Ct scan of the head showed stable parenchymal hemorrhage at the left basal ganglia coronal radiata surrounding with vasogenic edema resulting in mass effect on the left lateral ventricle. Stable approximately 7 mm left to right midline shift. There was no untoward events overnight. Objective - Vital Signs/Intake and Output Vital Signs (last 24 hours): Temp Pulse Resp BP Pulse Ox 98.1 F 79 20 120/78 97 03/12/18 07:00 03/12/18 07:00 03/12/18 07:00 03/12/18 07:00 03/12/18 07:00 Intake and Output: 03/12/18 03/12/18 06:59 18:59 Intake Total 120 Output Total 550 Balance -430 - Medications Medications: Current Medications Dexamethasone (Decadron Inj) 10 mg IVP Q12 [facility] Last Admin: 03/12/18 09:42 Dose: 10 mg Hydralazine HCl (Apresoline) 10 mg IVP Q6H PRN PRN Reason: Systolic BP > 140 Last Admin: 03/06/18 11:54 Dose: 10 mg Insulin Human Regular (Novolin R) 0 unit SC Q12H [facility] PRN Reason: Protocol Last Admin: 03/11/18 18:01 Dose: Not Given Labetalol HCl (Trandate) 200 mg PO Q8H [facility] Last Admin: 03/12/18 09:42 Dose: 200 mg Lisinopril (Zestril) 5 mg PO DAILY [facility] Last Admin: 03/12/18 09:42 Dose: 5 mg Pantoprazole Sodium (Protonix Ec Tab) 40 mg PO DAILY [facility] Last Admin: 03/12/18 09:42 Dose: 40 mg Rosuvastatin Calcium (Crestor) 10 mg PO HS [facility] Last Admin: 03/11/18 21:51 Dose: 10 mg Sertraline HCl (Zoloft) 50 mg PO DAILY [facility] Last Admin: 03/12/18 09:42 Dose: 50 mg Trazodone HCl (Desyrel) 50 mg PO HS PRN PRN Reason: Insomnia Last Admin: 03/10/18 21:26 Dose: 50 mg - Labs Labs: 03/12/18 08:51 03/12/18 08:51 PT 15.5 SECONDS (9.7-12.2) H 03/06/18 06:16 INR 1.4 03/06/18 06:16 APTT 33 SECONDS (21-34) 03/06/18 06:16 - Constitutional Appears: No Acute Distress - Head Exam Head Exam: NORMAL INSPECTION - Eye Exam Eye Exam: EOMI, PERRL - Neurological Exam Neurological Exam: Alert, Awake Neuro motor strength exam: Left Upper Extremity: 4, Right Upper Extremity: 0, Left Lower Extremity: 4, Right Lower Extremity: 0 Additional comments: neurological unchanged from previous examination. Assessment and Plan (1) Hemorrhagic stroke Assessment & Plan: Case discussed with Dr. Watts, continue all current medical regimen. Recommend acute rehab for discharge planning, . Recommend blood pressure, glycemic control , normothermic, and head of bed elevated at least 40 degrees angle. Status: Acute
--- NOTE | 2018-03-12 16:26 | CP.PCM.PN ---
Subjective - Date & Time of Evaluation Date of Evaluation: 03/12/18 Time of Evaluation: 16:26 - Subjective Subjective: Patient denies any new complaints, no change in his neurologic state. Objective - Vital Signs/Intake and Output Vital Signs (last 24 hours): Temp Pulse Resp BP Pulse Ox 98.1 F 79 20 120/78 97 03/12/18 07:00 03/12/18 07:00 03/12/18 07:00 03/12/18 07:00 03/12/18 07:00 Intake and Output: 03/12/18 03/12/18 06:59 18:59 Intake Total 120 480 Output Total 550 300 Balance -430 180 - Medications Medications: Current Medications Dexamethasone (Decadron Inj) 10 mg IVP Q12 [facility] Last Admin: 03/12/18 09:42 Dose: 10 mg Hydralazine HCl (Apresoline) 10 mg IVP Q6H PRN PRN Reason: Systolic BP > 140 Last Admin: 03/06/18 11:54 Dose: 10 mg Insulin Human Regular (Novolin R) 0 unit SC Q12H [facility] PRN Reason: Protocol Last Admin: 03/11/18 18:01 Dose: Not Given Labetalol HCl (Trandate) 200 mg PO Q8H [facility] Last Admin: 03/12/18 09:42 Dose: 200 mg Lisinopril (Zestril) 5 mg PO DAILY [facility] Last Admin: 03/12/18 09:42 Dose: 5 mg Pantoprazole Sodium (Protonix Ec Tab) 40 mg PO DAILY [facility] Last Admin: 03/12/18 09:42 Dose: 40 mg Rosuvastatin Calcium (Crestor) 10 mg PO HS [facility] Last Admin: 03/11/18 21:51 Dose: 10 mg Sertraline HCl (Zoloft) 50 mg PO DAILY [facility] Last Admin: 03/12/18 09:42 Dose: 50 mg Trazodone HCl (Desyrel) 50 mg PO HS PRN PRN Reason: Insomnia Last Admin: 03/10/18 21:26 Dose: 50 mg - Labs Labs: 03/12/18 08:51 03/12/18 08:51 PT 15.5 SECONDS (9.7-12.2) H 03/06/18 06:16 INR 1.4 03/06/18 06:16 APTT 33 SECONDS (21-34) 03/06/18 06:16 - Constitutional Appears: Well, Non-toxic, No Acute Distress - Head Exam Head Exam: ATRAUMATIC, NORMOCEPHALIC - Eye Exam Eye Exam: EOMI, Normal appearance, PERRL - ENT Exam ENT Exam: Mucous Membranes Moist - Neck Exam Neck Exam: Full ROM - Respiratory Exam Respiratory Exam: Clear to Ausculation Bilateral, NORMAL BREATHING PATTERN - Cardiovascular Exam Cardiovascular Exam: REGULAR RHYTHM, +S1, +S2 - GI/Abdominal Exam GI & Abdominal Exam: Soft, Normal Bowel Sounds - Back Exam Back Exam: NORMAL INSPECTION - Neurological Exam Neurological Exam: Alert, Awake, Oriented x3 Neuro motor strength exam: Right Upper Extremity: 0, Right Lower Extremity: 0 Additional comments: Slurred speech - Psychiatric Exam Psychiatric exam: Flat Affect Assessment and Plan - Assessment and Plan (Free Text) Assessment: Middle aged male with h/o Hypertension, Hyperlipidemia, obesity 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 Continue with GI and DVT prophylaxis Continue with PT and OT and speech therapy Follow up with social media sr strategy manager for [facility] placement, awaiting to hear from [facility] TBI unit
[2018-03-12] MEDS: (Novolin R) Insulin Human Regular 100 units/ml vial SC SCH (18:04)
[2018-03-13] MEDS: (Novolin R) Insulin Human Regular 100 units/ml vial SC SCH ×2 (05:33→17:42)
--- NOTE | 2018-03-13 08:29 | CP.PCM.PN ---
Subjective - Date & Time of Evaluation Date of Evaluation: 03/13/18 Time of Evaluation: 08:29 - Subjective Subjective: Mr. Rodriguez was seen and examined at the bedside. He is more awake. He is able to verbalize " good morning", no headache." The majority of time non- verbal, communicates utilizing with non-verbal cues such as nodding and shaking his head. He is able to follow simple commands such as opening his eyes with tongue deviation to the right noted, moves his left side with paraplegia noted in his right side. There was no untoward events overnight Objective - Vital Signs/Intake and Output Vital Signs (last 24 hours): Temp Pulse Resp BP Pulse Ox 97.7 F 85 20 133/74 97 03/12/18 23:50 03/13/18 00:00 03/12/18 23:50 03/12/18 23:50 03/12/18 23:50 Intake and Output: 03/13/18 03/13/18 06:59 18:59 Output Total 200 Balance -200 - Medications Medications: Current Medications Dexamethasone (Decadron Inj) 10 mg IVP Q12 [facility] Last Admin: 03/12/18 23:13 Dose: Not Given Hydralazine HCl (Apresoline) 10 mg IVP Q6H PRN PRN Reason: Systolic BP > 140 Last Admin: 03/06/18 11:54 Dose: 10 mg Insulin Human Regular (Novolin R) 0 unit SC Q12H [facility] PRN Reason: Protocol Last Admin: 03/13/18 05:33 Dose: Not Given Labetalol HCl (Trandate) 200 mg PO Q8H [facility] Last Admin: 03/13/18 03:05 Dose: Not Given Lisinopril (Zestril) 5 mg PO DAILY [facility] Last Admin: 03/12/18 09:42 Dose: 5 mg Pantoprazole Sodium (Protonix Ec Tab) 40 mg PO DAILY [facility] Last Admin: 03/12/18 09:42 Dose: 40 mg Rosuvastatin Calcium (Crestor) 10 mg PO HS [facility] Last Admin: 03/12/18 23:14 Dose: Not Given Sertraline HCl (Zoloft) 50 mg PO DAILY [facility] Last Admin: 03/12/18 09:42 Dose: 50 mg Trazodone HCl (Desyrel) 50 mg PO HS PRN PRN Reason: Insomnia Last Admin: 03/10/18 21:26 Dose: 50 mg - Labs Labs: 03/12/18 08:51 03/12/18 08:51 PT 15.5 SECONDS (9.7-12.2) H 03/06/18 06:16 INR 1.4 03/06/18 06:16 APTT 33 SECONDS (21-34) 03/06/18 06:16 - Constitutional Appears: No Acute Distress - Head Exam Head Exam: NORMAL INSPECTION - Eye Exam Pupil Exam: PERRL - Neurological Exam Neurological Exam: Alert, Awake Neuro motor strength exam: Left Upper Extremity: 5, Right Upper Extremity: 0, Left Lower Extremity: 5, Right Lower Extremity: 0 Additional comments: Neurological unchanged from previous examination. Assessment and Plan (1) Hemorrhagic stroke Assessment & Plan: Case discussed with Dr Lopez, continue all current medical regimen. Recommendation of decadron 10 mg PO daily for 5 days, then decadron 5 mg PO daily for 5 days then discontinue.Recommend acute rehab for discharge planning. Recommend blood pressure, glycemic control, normothermic, and head of bed elevated at least 40 degrees angle. Status: Acute
[2018-03-13] MEDS: Pantoprazole 40 mg EC Tab PO SCH (09:07)
[2018-03-13] MEDS: Dexamethasone elixir 0.5 MG/5 ML UDC PO SCH (09:08)
[2018-03-13 13:58] LABS: BASO # 0.1 K/uL (0.0-0.2); BASO % 0.3 % (0.0-2.0); EOS % 0.1 % (0.0-4.0); HEMOGLOBIN 14.3 g/dL (12.0-18.0); LYMPH % 11.1 % (20.0-40.0); MEAN CELL VOLUME 91.9 fL (80.0-94.0); MEAN CORPUSCULAR HEMOGLOBIN 30.8 pg (27.0-31.0); MEAN CORPUSCULAR HGB CONC 33.5 g/dL (33.0-37.0); MEAN PLATELET VOLUME 8.7 fL (7.2-11.7); MONO # 1.5 K/uL (0.0-0.8); MONO % 8.2 % (0.0-10.0); NEUT # 14.3 K/uL (1.8-7.0); NEUT % 80.3 % (50.0-75.0); RBC 4.66 Mil/uL (4.40-5.90); RED CELL DISTRIBUTION WIDTH 13.1 % (11.5-14.5); WHITE BLOOD COUNT 17.8 K/uL (4.8-10.8)
--- NOTE | 2018-03-13 14:22 | CP.PCM.PN ---
Subjective - Date & Time of Evaluation Date of Evaluation: 03/13/18 Time of Evaluation: 11:30 - Subjective Subjective: Progress note dictated #[id number] Objective - Vital Signs/Intake and Output Vital Signs (last 24 hours): Temp Pulse Resp BP Pulse Ox 98.3 F 78 20 120/79 98 03/13/18 09:10 03/13/18 12:00 03/13/18 09:10 03/13/18 09:10 03/13/18 09:10 Intake and Output: 03/13/18 03/13/18 06:59 18:59 Output Total 200 Balance -200 - Medications Medications: Current Medications Dexamethasone (Decadron) 10 mg PO DAILY [facility] Last Admin: 03/13/18 09:08 Dose: Not Given Hydralazine HCl (Apresoline) 10 mg IVP Q6H PRN PRN Reason: Systolic BP > 140 Last Admin: 03/06/18 11:54 Dose: 10 mg Insulin Human Regular (Novolin R) 0 unit SC Q12H [facility] PRN Reason: Protocol Last Admin: 03/13/18 05:33 Dose: Not Given Labetalol HCl (Trandate) 200 mg PO Q8H [facility] Last Admin: 03/13/18 09:15 Dose: 200 mg Lisinopril (Zestril) 5 mg PO DAILY [facility] Last Admin: 03/13/18 09:07 Dose: 5 mg Pantoprazole Sodium (Protonix Ec Tab) 40 mg PO DAILY [facility] Last Admin: 03/13/18 09:07 Dose: 40 mg Rosuvastatin Calcium (Crestor) 10 mg PO HS [facility] Last Admin: 03/12/18 23:14 Dose: Not Given Sertraline HCl (Zoloft) 50 mg PO DAILY [facility] Last Admin: 03/13/18 09:06 Dose: 50 mg Trazodone HCl (Desyrel) 50 mg PO HS PRN PRN Reason: Insomnia Last Admin: 03/10/18 21:26 Dose: 50 mg - Labs Labs: 03/13/18 13:15 03/12/18 08:51 PT 15.5 SECONDS (9.7-12.2) H 03/06/18 06:16 INR 1.4 03/06/18 06:16 APTT 33 SECONDS (21-34) 03/06/18 06:16
--- NOTE | 2018-03-13 19:51 | PN ---
DATE: 03/13/2018 SUBJECTIVE: The patient is seen and examined at bedside. The patient looks depressed with flat affect. Denies any new complaints. Denies any headache and dizziness. Denies any chest pain, shortness of breath, or wheezing. Denies any nausea, vomiting, abdominal pain, diarrhea, or constipation. Denies any urinary complaints. Denies any new neurologic symptoms. All other systems reviewed and were found to be negative. PHYSICAL EXAMINATION: GENERAL: Middle-aged male, lying in bed, in no acute distress. VITAL SIGNS: Blood pressure 120/79, pulse 74, respirations 20, temperature 98.3 degrees Fahrenheit, O2 saturation is 98% on room air. HEENT: Pupils reacting to light and accommodation. Extraocular muscles intact. No icterus. No pallor. No oral thrush. No congestion. NECK: Supple. No JVD. LUNGS: Bilateral vesicular breath sounds. No wheezing. No rhonchi. CARDIOVASCULAR: S1 and S2 present, regular. ABDOMEN: Soft, nontender. Bowel sounds present. No guarding. No rigidity. No rebound tenderness noted. CENTRAL NERVOUS SYSTEM: Alert, awake, oriented x3. Right-sided paralysis with slurred speech. EXTREMITIES: No edema. Palpable peripheral pulses. MEDICATIONS: Include Decadron 10 mg daily, hydralazine 10 mg IV push every 6 hours p.r.n., labetalol 200 mg p.o. every 8 hours, Zestril 5 mg daily, Protonix 40 mg daily, Crestor 10 mg p.o. at bedtime, Zoloft 50 mg daily, trazodone 50 mg p.o. at bedtime. LABORATORY DATA: Labs from this morning: WBC 17.8, hemoglobin 14.3, hematocrit 42.9, platelets 322. Head CT from yesterday showed stable parenchymal hemorrhage with left basal ganglia, champion radiata surrounding with vasogenic edema which resulting in mass effect on the left lateral ventricle, stable, approximately, 7 mm left to right midline shift. ASSESSMENT AND PLAN: Middle-aged obese male with past medical history of hypertension and hyperlipidemia, admitted for left basal ganglia hemorrhagic stroke with right-sided paralysis and slurred speech. Elevated white blood cell count possibly from Decadron as all the other sepsis workup is negative. His blood pressure is controlled on current regimen. Continue with current medication. Continue with Physical Therapy/Occupational Therapy and Speech Therapy. Continue gastrointestinal and deep venous thrombosis prophylaxes. Discussed with Porcelain Turner at length regarding subacute rehab placement. As per Porcelain Turner, [facility] traumatic brain injury unit is not accepting the patient because his white count is high. I have been documenting in this chart for the past four days. The patient does not have any source of infection. His ESR, C-reactive protein, and procalcitonin are normal. Urine is clean. Urine culture and blood cultures are negative. Chest x-ray is negative. There are no other signs of sepsis. The patient's elevated white blood cell counts are mostly likely from the Decadron, which has been decreased to 10 mg daily by Neurology. We will repeat complete blood count in the morning. This morning, complete blood count is slightly decreased from yesterday. Probably, its count is trending down. We will continue with other supportive care. The patient is otherwise medically and hemodynamically stable at this time for transfer. The patient may be transferred to subacute rehab when bed available and when cleared by Porcelain Turner. We will continue with other supportive care. Continue with Physical Therapy/Occupational Therapy and Speech Therapy. Reba Marsh MD
[2018-03-14] MEDS: (Novolin R) Insulin Human Regular 100 units/ml vial SC SCH (06:45)
[2018-03-14 08:34] VITALS: BP 119/77; PULSE 88; TEMP 97.8; O2SAT 95
--- NOTE | 2018-03-14 11:46 | PCM.PYCHPN ---
Mental Status Examination - Cognitive Function Orientation: Person, Place, Situation, Time - Mood Mood: Depressed - Affect Affect: Constricted, Depressed - Formal Thought Process Formal Thought Process: No Impairment Goal/Treatment Plan - Goal/Treatment Plan Progress Toward Problem(s) and Goals/Treatment Plan: Psychoeducation Supportive therapy Start Zoloft 50 mg daily Start trazodone 50 mg by mouth daily at bedtime when necessary
[2018-03-14] MEDS: Dexamethasone elixir 0.5 MG/5 ML UDC PO SCH (12:17)
[2018-03-14] MEDS: Pantoprazole 40 mg EC Tab PO SCH (12:22)
[2018-03-14 13:48] LABS: HEMOGLOBIN 15.2 g/dL (12.0-18.0); MEAN CELL VOLUME 91.1 fL (80.0-94.0); MEAN CORPUSCULAR HEMOGLOBIN 31.1 pg (27.0-31.0); MEAN CORPUSCULAR HGB CONC 34.2 g/dL (33.0-37.0); MEAN PLATELET VOLUME 8.6 fL (7.2-11.7); RBC 4.87 Mil/uL (4.40-5.90); RED CELL DISTRIBUTION WIDTH 13.2 % (11.5-14.5); WHITE BLOOD COUNT 12.4 K/uL (4.8-10.8)
[2018-03-14 14:16] LABS: ALB/GLOB RATIO 1.2 (1.0-2.1); ALBUMIN 3.6 g/dL (3.5-5.0); ALT/SGPT 44 U/L (21-72); AST/SGOT 27 U/L (17-59); BLOOD UREA NITROGEN 22 mg/dL (9-20); CALCIUM 8.8 mg/dl (8.6-10.4); GFR AFRICAN-AMERICAN > 60; GFR NON-AFRICAN AMERICAN > 60
--- NOTE | 2018-03-14 15:37 | CP.PCM.PN ---
Subjective - Date & Time of Evaluation Date of Evaluation: 03/14/18 Time of Evaluation: 15:00 - Subjective Subjective: [employer] NOT[employer] Patient seen today, alert, awake, NAD No overnigh t events reported by RN labs for today reviewed - wbc trending down - 12.4<17.8 Patient accepted at [facility] acute rehab and family in agreement with rehab plan D/w Dr. Nguyễn , stable for discharge to rehab today SW will contact family and arrange transportation Objective - Vital Signs/Intake and Output Vital Signs (last 24 hours): Temp Pulse Resp BP Pulse Ox 97.8 F 88 20 119/77 95 03/14/18 08:32 03/14/18 08:32 03/14/18 08:32 03/14/18 08:32 03/14/18 08:32 Intake and Output: 03/14/18 03/14/18 06:59 18:59 Intake Total 50 Output Total 250 Balance -200 - Medications Medications: Current Medications Dexamethasone (Decadron) 8 mg PO DAILY [facility] Dexamethasone (Decadron) 2 mg PO DAILY [facility] Hydralazine HCl (Apresoline) 10 mg IVP Q6H PRN PRN Reason: Systolic BP > 140 Last Admin: 03/06/18 11:54 Dose: 10 mg Hydroxyzine HCl (Atarax) 25 mg PO TID PRN PRN Reason: Anxiety Insulin Human Regular (Novolin R) 0 unit SC Q12H [facility] PRN Reason: Protocol Last Admin: 03/14/18 06:45 Dose: Not Given Labetalol HCl (Trandate) 200 mg PO Q8H [facility] Last Admin: 03/14/18 12:22 Dose: Not Given Lisinopril (Zestril) 5 mg PO DAILY [facility] Last Admin: 03/14/18 12:22 Dose: Not Given Pantoprazole Sodium (Protonix Ec Tab) 40 mg PO DAILY [facility] Last Admin: 03/14/18 12:22 Dose: Not Given Rosuvastatin Calcium (Crestor) 10 mg PO HS [facility] Last Admin: 03/13/18 22:34 Dose: Not Given Sertraline HCl (Zoloft) 50 mg PO DAILY [facility] Last Admin: 03/14/18 12:18 Dose: 50 mg Trazodone HCl (Desyrel) 50 mg PO HS PRN PRN Reason: Insomnia Last Admin: 03/10/18 21:26 Dose: 50 mg - Labs Labs: 03/14/18 13:37 03/14/18 13:37 PT 15.5 SECONDS (9.7-12.2) H 03/06/18 06:16 INR 1.4 03/06/18 06:16 APTT 33 SECONDS (21-34) 03/06/18 06:16
== END 2018-03-14 15:50 | DRG 810 ==
LOC: C.ER 16:03 → C.9E 19:54 → C.9I 20:40 → C.6T 03-09 18:56
PROVIDERS: ADMIT Internal Medicine; ATTEND Internal Medicine
DX: I61.0 Nontraumatic intracerebral hemorrhage in hemisphere, subcortical (principal); E87.6 Hypokalemia; F32.2 Major depressive disorder, single episode, severe without psychotic features; D72.829 Elevated white blood cell count, unspecified; E66.9 Obesity, unspecified; E78.5 Hyperlipidemia, unspecified; F41.9 Anxiety disorder, unspecified; I10 Essential (primary) hypertension; I69.320 Aphasia following cerebral infarction; I69.351 Hemiplegia and hemiparesis following cerebral infarction affecting right dominant side; R13.10 Dysphagia, unspecified; T38.0X5A Adverse effect of glucocorticoids and synthetic analogues, initial encounter; Z91.19 Patient's noncompliance with other medical treatment and regimen; I16.0 Hypertensive urgency; Z68.35 Body mass index [BMI] 35.0-35.9, adult; G93.6 Cerebral edema; G93.5 Compression of brain; G82.20 Paraplegia, unspecified

== ENCOUNTER 2018-05-01 22:19 | Inpatient (IN) | payer OTHER ==
[2018-05-01 22:19] VITALS: BMI 38.4
[2018-05-02 00:18] LABS: BASO # 0.1 K/uL (0.0-0.2); BASO % 0.8 % (0.0-2.0); EOS # 0.2 K/uL (0.0-0.7); EOS % 2.7 % (0.0-4.0); HEMOGLOBIN 11.3 g/dL (12.0-18.0); LYMPH # 2.1 K/uL (1.0-4.3); LYMPH % 31.7 % (20.0-40.0); MEAN CELL VOLUME 91.1 fL (80.0-94.0); MEAN CORPUSCULAR HEMOGLOBIN 29.8 pg (27.0-31.0); MEAN CORPUSCULAR HGB CONC 32.7 g/dL (33.0-37.0); MEAN PLATELET VOLUME 7.9 fL (7.2-11.7); MONO # 0.5 K/uL (0.0-0.8); MONO % 7.7 % (0.0-10.0); NEUT # 3.8 K/uL (1.8-7.0); NEUT % 57.1 % (50.0-75.0); RBC 3.8 Mil/uL (4.40-5.90); RED CELL DISTRIBUTION WIDTH 15.1 % (11.5-14.5); WHITE BLOOD COUNT 6.7 K/uL (4.8-10.8)
--- NOTE | 2018-05-02 00:28 | C.PDOC ---
History Of Present Illness Pt was sent in from the shelter due to RLE DVT. Time Seen by Provider: 05/01/18 23:10 Chief Complaint (Nursing): Lower Extremity Problem/Injury History Per: Patient, Family, Other (NM transfer papers) Onset/Duration Of Symptoms: Days Current Symptoms Are (Timing): Worse Severity: Moderate Associated Symptoms: Leg/Calf Pain, Ankle/Leg Swelling Additional History Per: Prison, Prior Records Past Medical History Reviewed: Historical Data, Nursing Documentation, Vital Signs Vital Signs: Last Vital Signs Temp 98.1 F 05/01/18 22:31 Pulse 83 05/01/18 22:31 Resp 20 05/01/18 22:31 BP 120/87 05/01/18 22:31 Pulse Ox 98 05/02/18 00:30 - Medical History PMH: CVA (Hemorrhagic), HTN, Hypercholesterolemia Family History: States: Unknown Family Hx - Social History Hx Alcohol Use: No Hx Substance Use: No Review Of Systems Except As Marked, All Systems Reviewed And Found Negative. Constitutional: Negative for: Fever Cardiovascular: Negative for: Chest Pain Respiratory: Negative for: Shortness of Breath Gastrointestinal: Negative for: Abdominal Pain Musculoskeletal: Positive for: Leg Pain (right). Negative for: Back Pain Neurological: Negative for: Weakness, Numbness Physical Exam - Physical Exam Appears: No Acute Distress, Chronically Ill Skin: Warm, Dry Head: Atraumatic Eye(s): bilateral: PERRL Neck: Normal ROM, Supple Cardiovascular: Rhythm Regular Respiratory: Normal Breath Sounds, No Accessory Muscle Use Gastrointestinal/Abdominal: Soft, No Tenderness Extremity: Swelling (RLE) Neurological/Psych: No Normal Motor (right sided weakness due to previous CVA) ED Course And Treatment - Laboratory Results Result Diagrams: 05/02/18 00:06 05/02/18 00:06 O2 Sat by Pulse Oximetry: 98 Pulse Ox Interpretation: Normal Disposition Discussed With : Reba Marsh Comment: She accepted pt on her service and gave admitting orders to the nurse. Doctor Will See Patient In The: Hospital - Disposition Disposition: HOSPITALIZED Disposition Time: 00:29 Condition: FAIR - Clinical Impression Clinical Impression: Deep venous thrombosis of lower extremity, History of hemorrhagic stroke with residual hemiparesis
[2018-05-02 00:33] LABS: INR 1.4; PROTHROMBIN TIME 15.5 SECONDS (9.7-12.2)
[2018-05-02 00:39] LABS: ALB/GLOB RATIO 1.2 (1.0-2.1); ALBUMIN 3.7 g/dL (3.5-5.0); ALT/SGPT 24 U/L (21-72); AST/SGOT 16 U/L (17-59); BLOOD UREA NITROGEN 9 mg/dL (9-20); CALCIUM 8.9 mg/dl (8.6-10.4); GFR AFRICAN-AMERICAN > 60; GFR NON-AFRICAN AMERICAN > 60
[2018-05-02] MEDS ORDERED: TYLENOL 650 MG PO PRN ×2 (01:35)
[2018-05-02] MEDS ORDERED: Magnesium Hydroxide Susp 30 ml UD PO PRN (04:15)
--- NOTE | 2018-05-02 07:18 | CP.PCM.CON ---
History of Present Illness - History of Present Illness History of Present Illness: Vascular Surgery Consult Note: Dr. Oconnor Surgery team consulted for 53 year old male with PMH of hypertension and hemorrhagic stroke on February 27, 2018, presenting from long term for RLE DVT. Pt was complaining of RLE pain and swelling at facility. RLE Doppler US was performed at custodial facility positive for DVT RLE (RT CFV RT SFV, RT POP V ). At [facility], Pt reports no complaints. Pt is currently non-ambulatory as per nursing. +Right sided weakness. Denied headache/dizziness, chest pain,SOB , n/v/d, dysuria. PMH: Hemorrhagic stroke, HTN PSH: Knee surgery Medications: See MAR Review of Systems - Review of Systems Review of Systems: 10 pt ROS reviewed unremarkable except as stated in HPI Past Patient History - Past Medical History & Family History Past Medical History?: Yes - Past Social History Smoking Status: Never Smoked - CARDIAC Hx Hypercholesterolemia: Yes Hx Hypertension: Yes - NEUROLOGICAL HX Cerebrovascular Accident: Yes (JANUARY 2018) - MUSCULOSKELETAL/RHEUMATOLOGICAL Hx Falls: No Other/Comment: knee/leg sx sister unsure which kind - PSYCHIATRIC Hx Substance Use: No - SURGICAL HISTORY Hx Surgeries: No - ANESTHESIA Hx Anesthesia: Yes Hx Anesthesia Reactions: No Hx Malignant Hyperthermia: No Meds Allergies/Adverse Reactions: Allergies Allergy/AdvReac Type Severity Reaction Status Date / Time No Known Allergies Allergy Verified 02/27/18 16:05 - Medications Medications: Current Medications Acetaminophen (Tylenol 325mg Tab) 650 mg PO Q6 PRN PRN Reason: Pain, Mild (1-3) Famotidine (Pepcid) 20 mg PO BID [facility] Heparin Sodium (Porcine) (Heparin) 5,000 units SC Q12 [facility] Home Med (Cholecalciferol) 1,000 units PO DAILY [facility] Magnesium Hydroxide (Milk Of Magnesia) 30 ml PO DAILY PRN PRN Reason: Constipation Metoprolol Tartrate (Lopressor) 50 mg PO TID [facility] Mirtazapine (Remeron) 15 mg PO HS [facility] Rosuvastatin Calcium (Crestor) 10 mg PO HS [facility] Sodium Chloride (Sodium Chloride Tab) 2 gm PO TID [facility] Physical Exam - Constitutional Appears: No Acute Distress - Eye Exam Eye Exam: Normal appearance - ENT Exam ENT Exam: Mucous Membranes Moist - Respiratory Exam Respiratory Exam: NORMAL BREATHING PATTERN - Cardiovascular Exam Cardiovascular Exam: +S1, +S2 - GI/Abdominal Exam GI & Abdominal Exam: Soft - Extremities Exam Additional comments: +RLE swelling - Neurological Exam Neurological exam: Alert - Psychiatric Exam Psychiatric exam: Normal Mood - Skin Skin Exam: Dry, Intact, Warm Results - Vital Signs Recent Vital Signs: Last Vital Signs Temp 98.9 F 05/02/18 04:23 Pulse 74 05/02/18 05:18 Resp 20 05/02/18 04:23 BP 133/88 05/02/18 04:23 Pulse Ox 99 05/02/18 04:23 - Labs Result Diagrams: 05/02/18 00:06 05/02/18 00:06 Labs: Laboratory Results - last 24 hr 05/02/18 05/02/18 05/02/18 00:06 00:06 00:06 WBC 6.7 RBC 3.80 L Hgb 11.3 L D Hct 34.7 L MCV 91.1 MCH 29.8 MCHC 32.7 L RDW 15.1 H Plt Count 402 H MPV 7.9 Neut % (Auto) 57.1 Lymph % (Auto) 31.7 Rhea % (Auto) 7.7 Eos % (Auto) 2.7 Baso % (Auto) 0.8 Neut # (Auto) 3.8 Lymph # (Auto) 2.1 Rhea # (Auto) 0.5 Eos # (Auto) 0.2 Baso # (Auto) 0.1 PT 15.5 H INR 1.4 APTT 35 H Sodium 142 Potassium 3.8 Chloride 102 Carbon Dioxide 27 Anion Gap 17 BUN 9 Creatinine 0.8 Est GFR ( Amer) > 60 Est GFR (Non-Af Amer) > 60 Random Glucose 103 Calcium 8.9 Total Bilirubin 0.5 AST 16 L D ALT 24 Alkaline Phosphatase 106 Total Protein 6.6 Albumin 3.7 Globulin 3.0 Albumin/Globulin Ratio 1.2 Assessment & Plan - Assessment and Plan (Free Text) Assessment: 53 M w/ DVT of RLE (RT CFV RT SFV, RT POP V) Plan: NPO IVF Plan for possible IVC filter placement today Further recs per Dr. Elvin Rausch PGY3
[2018-05-02] MEDS ORDERED: ceFAZolin IV 1 gm in Dextrose 1 GM/50 ML BAG IVPB ONE (10:24)
[2018-05-02] MEDS ORDERED: HEPARIN-NS 5,000 UNITS/500 ML 5,000 UNIT/500 ML BAG IV ONE (10:25)
[2018-05-02] MEDS ORDERED: Iodixanol 320 MG/ML 200 ML BOTTLE IV ONE (10:25)
[2018-05-02] MEDS ORDERED: Propofol 10 mg/ml Inj (20 ML) ONE ×2 (10:41→12:48)
[2018-05-02] MEDS: CHOLECALCIFEROL 1000 UNIT PO SCH (10:46)
[2018-05-02] MEDS ORDERED: Midazolam 2 MG/2 ML VIAL ONE ×2 (10:57→12:26)
[2018-05-02] MEDS ORDERED: Lactated Ringer's 1,000 ML IV ONE (11:40)
[2018-05-02] MEDS ORDERED: ceFAZolin IV 2 gm in Dextrose 2 GM/50 ML BAG IVPB ONE (11:45)
[2018-05-02] MEDS ORDERED: HYDROmorphone 0.5 mg/0.5 ml ISec IVP PRN (13:02)
--- NOTE | 2018-05-02 13:07 | PCM.SURG1 ---
Surgeon's Initial Post Op Note - Surgeon's Notes Surgeon: Dr. Oconnor Care Manager Cna: Dr. Finnegan PGY3 Type of Anesthesia: General Endo Pre-Operative Diagnosis: Bilateral DVT Operative Findings: See opertaive dictation Post-Operative Diagnosis: Bilateral DVT Operation Performed: Venogram via Left femoral insertion Specimen/Specimens Removed: none Estimated Blood Loss: EBL {In ML}: 5 Blood Products Given: N/A Drains Used: No Drains Post-Op Condition: Good Date of Surgery/Procedure: 05/02/18 Time of Surgery/Procedure: 13:07
--- NOTE | 2018-05-02 15:13 | CP.PCM.PN ---
Subjective - Date & Time of Evaluation Date of Evaluation: 05/02/18 Time of Evaluation: 15:13 - Subjective Subjective: H&P dictated #[id number] Objective - Vital Signs/Intake and Output Vital Signs (last 24 hours): Temp Pulse Resp BP Pulse Ox 97.5 F L 72 20 137/89 99 05/02/18 14:14 05/02/18 14:14 05/02/18 14:14 05/02/18 14:14 05/02/18 14:14 Intake and Output: 05/02/18 05/02/18 06:59 18:59 Intake Total 150 Balance 150 - Medications Medications: Current Medications Acetaminophen (Tylenol 325mg Tab) 650 mg PO Q6 PRN PRN Reason: Pain, Mild (1-3) Famotidine (Pepcid) 20 mg PO BID [facility] Last Admin: 05/02/18 10:46 Dose: Not Given Heparin Sodium (Porcine) (Heparin) 5,000 units SC Q12 [facility] Home Med (Cholecalciferol) 1,000 units PO DAILY [facility] Last Admin: 05/02/18 10:46 Dose: Not Given Magnesium Hydroxide (Milk Of Magnesia) 30 ml PO DAILY PRN PRN Reason: Constipation Metoprolol Tartrate (Lopressor) 50 mg PO TID [facility] Last Admin: 05/02/18 14:20 Dose: 50 mg Mirtazapine (Remeron) 15 mg PO HS [facility] Rosuvastatin Calcium (Crestor) 10 mg PO HS [facility] Sodium Chloride (Sodium Chloride Tab) 2 gm PO TID [facility] Last Admin: 05/02/18 14:20 Dose: 2 gm - Labs Labs: 05/02/18 00:06 05/02/18 00:06 PT 15.5 SECONDS (9.7-12.2) H 05/02/18 00:06 INR 1.4 05/02/18 00:06 APTT 35 SECONDS (21-34) H 05/02/18 00:06
--- NOTE | 2018-05-02 15:55 | CP.PCM.CON ---
History of Present Illness - History of Present Illness History of Present Illness: 53 year old male with a history of HTN, hemorrhagic CVA in 01/2018, admitted with right LE DVT s/p IVC filter. The patient denies pain but notes his RLE has been more swollen. He denies chest pain and shortness of breath. He does note to immobility since his stroke. He denies current abnormal bleeding and bruising. Past medical history: HTN, HL, CVA Past surgical history: Denies Family history: Denies hematologic and oncologic problems Social history: Denies tobacco, alcohol, and illicit drug use. Allergies: NKA Review of systems: All remaining review of systems including HEENT, cardiovascular, respiratory, gsastrointestinal, genitourinary, musculoskeletal, dermatologic, neurologic, and psychiatric are negative unless mentioned in the HPI. Past Patient History - Past Medical History & Family History Past Medical History?: Yes - Past Social History Smoking Status: Never Smoked - CARDIAC Hx Hypercholesterolemia: Yes Hx Hypertension: Yes - NEUROLOGICAL HX Cerebrovascular Accident: Yes (JANUARY 2018) - MUSCULOSKELETAL/RHEUMATOLOGICAL Hx Falls: No Other/Comment: knee/leg sx sister unsure which kind - PSYCHIATRIC Hx Substance Use: No - SURGICAL HISTORY Hx Surgeries: No - ANESTHESIA Hx Anesthesia: Yes Hx Anesthesia Reactions: No Hx Malignant Hyperthermia: No Meds Allergies/Adverse Reactions: Allergies Allergy/AdvReac Type Severity Reaction Status Date / Time No Known Allergies Allergy Verified 02/27/18 16:05 - Medications Medications: Current Medications Acetaminophen (Tylenol 325mg Tab) 650 mg PO Q6 PRN PRN Reason: Pain, Mild (1-3) Famotidine (Pepcid) 20 mg PO BID [facility] Last Admin: 05/02/18 10:46 Dose: Not Given Heparin Sodium (Porcine) (Heparin) 5,000 units SC Q12 [facility] Home Med (Cholecalciferol) 1,000 units PO DAILY [facility] Last Admin: 05/02/18 10:46 Dose: Not Given Magnesium Hydroxide (Milk Of Magnesia) 30 ml PO DAILY PRN PRN Reason: Constipation Metoprolol Tartrate (Lopressor) 50 mg PO TID [facility] Last Admin: 05/02/18 14:20 Dose: 50 mg Mirtazapine (Remeron) 15 mg PO HS [facility] Rosuvastatin Calcium (Crestor) 10 mg PO HS [facility] Sodium Chloride (Sodium Chloride Tab) 2 gm PO TID [facility] Last Admin: 05/02/18 14:20 Dose: 2 gm Physical Exam - Head Exam Head Exam: ATRAUMATIC - Eye Exam Eye Exam: Normal appearance - ENT Exam ENT Exam: Mucous Membranes Dry - Respiratory Exam Respiratory Exam: NORMAL BREATHING PATTERN - Cardiovascular Exam Cardiovascular Exam: +S1, +S2 - GI/Abdominal Exam GI & Abdominal Exam: Normal Bowel Sounds - Extremities Exam Extremities exam: Positive for: pedal edema - Psychiatric Exam Psychiatric exam: Normal Affect, Normal Mood - Skin Skin Exam: Warm Results - Vital Signs Recent Vital Signs: Last Vital Signs Temp 97.5 F L 05/02/18 14:14 Pulse 72 05/02/18 14:14 Resp 20 05/02/18 14:14 BP 137/89 05/02/18 14:14 Pulse Ox 99 05/02/18 14:14 - Labs Result Diagrams: 05/02/18 00:06 05/02/18 00:06 Labs: Laboratory Results - last 24 hr 05/02/18 05/02/18 05/02/18 00:06 00:06 00:06 WBC 6.7 RBC 3.80 L Hgb 11.3 L D Hct 34.7 L MCV 91.1 MCH 29.8 MCHC 32.7 L RDW 15.1 H Plt Count 402 H MPV 7.9 Neut % (Auto) 57.1 Lymph % (Auto) 31.7 [place] % (Auto) 7.7 Eos % (Auto) 2.7 Baso % (Auto) 0.8 Neut # (Auto) 3.8 Lymph # (Auto) 2.1 [place] # (Auto) 0.5 Eos # (Auto) 0.2 Baso # (Auto) 0.1 PT 15.5 H INR 1.4 APTT 35 H Sodium 142 Potassium 3.8 Chloride 102 Carbon Dioxide 27 Anion Gap 17 BUN 9 Creatinine 0.8 Est GFR ( Amer) > 60 Est GFR (Non-Af Amer) > 60 Random Glucose 103 Calcium 8.9 Total Bilirubin 0.5 AST 16 L D ALT 24 Alkaline Phosphatase 106 Total Protein 6.6 Albumin 3.7 Globulin 3.0 Albumin/Globulin Ratio 1.2 Assessment & Plan (1) Deep venous thrombosis of lower extremity Assessment and Plan: likely provoked from immobility after recent CVA s/p IVC filter will perform inherited thrombophilia w/u would benefit from anticoagulation for 3 months given LE DVT but would recommend neurology evaluation for anticoagulation clearance given recent intracranial hemorrhage if cleraed by neurology, can start Eliquis 10mg BID x 7 days then Eliquis 5mg BID Status: Acute (2) Anemia Assessment and Plan: mild will check retic count, b12, folate, ferritin, FOBT Thank you for this interesting consult. Status: Acute
--- NOTE | 2018-05-02 18:09 | CP.PCM.CON ---
History of Present Illness - History of Present Illness History of Present Illness: Neurology Consultation Note: Mr. Rodriguez is a 53-year-old man with a past medical history of HTN and previous left BG ICH in January of this year, who suffered from a RLE DVT due to immobility, and was admitted for placement of an IVC filter, which he had done today. Review of Systems - Review of Systems All systems: reviewed and no additional remarkable complaints except Past Patient History - Past Medical History & Family History Past Medical History?: Yes - Past Social History Smoking Status: Never Smoked - CARDIAC Hx Hypercholesterolemia: Yes Hx Hypertension: Yes - NEUROLOGICAL HX Cerebrovascular Accident: Yes (JANUARY 2018) - MUSCULOSKELETAL/RHEUMATOLOGICAL Hx Falls: No Other/Comment: knee/leg sx sister unsure which kind - PSYCHIATRIC Hx Substance Use: No - SURGICAL HISTORY Hx Surgeries: No - ANESTHESIA Hx Anesthesia: Yes Hx Anesthesia Reactions: No Hx Malignant Hyperthermia: No Meds Allergies/Adverse Reactions: Allergies Allergy/AdvReac Type Severity Reaction Status Date / Time No Known Allergies Allergy Verified 02/27/18 16:05 - Medications Medications: Current Medications Acetaminophen (Tylenol 325mg Tab) 650 mg PO Q6 PRN PRN Reason: Pain, Mild (1-3) Famotidine (Pepcid) 20 mg PO BID [facility] Last Admin: 05/02/18 17:48 Dose: 20 mg Heparin Sodium (Porcine) (Heparin) 5,000 units SC Q12 [facility] Home Med (Cholecalciferol) 1,000 units PO DAILY [facility] Last Admin: 05/02/18 10:46 Dose: Not Given Magnesium Hydroxide (Milk Of Magnesia) 30 ml PO DAILY PRN PRN Reason: Constipation Metoprolol Tartrate (Lopressor) 50 mg PO TID [facility] Last Admin: 05/02/18 17:48 Dose: 50 mg Mirtazapine (Remeron) 15 mg PO HS [facility] Rosuvastatin Calcium (Crestor) 10 mg PO HS [facility] Sodium Chloride (Sodium Chloride Tab) 2 gm PO TID [facility] Last Admin: 05/02/18 17:48 Dose: 2 gm Physical Exam - Neurological Exam Neurological exam: Alert, CN II-XII Intact, Oriented x3 Additional comments: Speech was intact, no aphasia or dysarthria noted. Sensation was intact to LT/P. RUE was 1/5 in strength, RLE was 2/5 in strength. Strength was normal on the left. Plantar response was extensor on the right. Gait not assessed. NIHSS= 6 Results - Vital Signs Recent Vital Signs: Last Vital Signs Temp 97.7 F 05/02/18 16:02 Pulse 74 05/02/18 16:02 Resp 20 05/02/18 16:02 BP 129/85 05/02/18 16:02 Pulse Ox 97 05/02/18 16:02 - Labs Result Diagrams: 05/02/18 00:06 05/02/18 00:06 Labs: Laboratory Results - last 24 hr 05/02/18 05/02/18 05/02/18 00:06 00:06 00:06 WBC 6.7 RBC 3.80 L Hgb 11.3 L D Hct 34.7 L MCV 91.1 MCH 29.8 MCHC 32.7 L RDW 15.1 H Plt Count 402 H MPV 7.9 Neut % (Auto) 57.1 Lymph % (Auto) 31.7 [place] % (Auto) 7.7 Eos % (Auto) 2.7 Baso % (Auto) 0.8 Neut # (Auto) 3.8 Lymph # (Auto) 2.1 [place] # (Auto) 0.5 Eos # (Auto) 0.2 Baso # (Auto) 0.1 PT 15.5 H INR 1.4 APTT 35 H Sodium 142 Potassium 3.8 Chloride 102 Carbon Dioxide 27 Anion Gap 17 BUN 9 Creatinine 0.8 Est GFR ( Amer) > 60 Est GFR (Non-Af Amer) > 60 Random Glucose 103 Calcium 8.9 Total Bilirubin 0.5 AST 16 L D ALT 24 Alkaline Phosphatase 106 Total Protein 6.6 Albumin 3.7 Globulin 3.0 Albumin/Globulin Ratio 1.2 Assessment & Plan (1) Hemorrhagic stroke Assessment and Plan: The patient is clinically stable and continues to have right side hemiplegia with some improvement of the RLE. Continue current medications. SQ heparin is considered safe at this point for DVT Px. Control risk factors and BP. PT/OT. Thank you. Status: Chronic Priority: High
--- NOTE | 2018-05-02 23:59 | OP ---
Copied To: King Oconnor Jr., MD Attending MD: King Oconnor Jr., MD PROCEDURE DATE: 05/02/2018 PREOPERATIVE DIAGNOSIS: Deep vein thrombosis, right leg, recent hemorrhagic stroke. PROCEDURE CARRIED OUT: Attempted placement of vena cava filter. We did carry out a venogram via the left leg and superior vena cavagram and viewed the right jugular vein. SURGEON: King Oconnor Jr., MD DIRECTOR OF CASEWORK SERVICES: [place] ANESTHESIOLOGIST: ____. INDICATIONS: The patient is a 53-year-old man with a history of previous hemorrhagic stroke who presents with deep vein thrombosis in the leg. OPERATIVE FINDINGS: Initially we punctured the left groin via ultrasound guidance. There seemed to be existing clot here. We were unable to advance the catheter centrally. The entire vena cava was occluded. We then punctured the right jugular vein using ultrasound guidance and saw that there was complete thrombosis of the vena cava below the previously placed [employer] filter. The procedure was then abandoned. Pressure was applied to the puncture sites. No operative complications or problems. Existing vena cava with thrombosis of the vena cava. OPERATION CARRIED OUT: Venogram via left common femoral vein and via the right jugular vein. The patient is not a candidate for thromboembolic therapy due to recent hemorrhagic stroke. King Oconnor Jr., MD
--- NOTE | 2018-05-03 06:38 | HP ---
Copied To: Reba Marsh MD Attending MD: Reba Mrash MD CHIEF COMPLAINT: Worsening right lower extremity swelling and progressive worsening of right lower extremity DVT. HISTORY OF PRESENT ILLNESS: Mr. Rodriguez is a 53-year-old male with past medical history of hypertension, hyperlipemia, recent history of left basal ganglia hemorrhagic stroke with right-sided paralysis and status post aphasia, who was admitted to [facility] recently in 01/2018. After stabilizing the patient, the patient was transferred to [facility] for acute rehab where he developed right lower extremity DVT for which he was given IVC filter and started on subcu heparin, and the patient was transferred to rehab. At rehab, the patient had been doing fairly okay until yesterday when the patient refused to go to rehab secondary to right lower extremity pain, and lower extremity Doppler was done, which was positive for DVT, and the patient is being transferred to [facility] for further evaluation. When I examined, the patient is feeling much better. Denies any headache or dizziness. Denies any chest pain, shortness of breath, or wheezing. Denies any nausea, vomiting, abdominal pain, diarrhea, or constipation. Denies any urinary complaints. Right leg pain is better as per the patient. Denies any other new neurologic symptoms. PAST MEDICAL HISTORY: As described, hypertension, hyperlipemia, history of left basal ganglia hemorrhagic stroke with right-sided hemiplegia, history of right leg DVT, status post IVC filter placement. PAST SURGICAL HISTORY: Right knee surgery, status post IVC filter placement. FAMILY HISTORY: Hypertension. PERSONAL HISTORY: He is , living with his . ALLERGIES: NO KNOWN DRUG ALLERGIES. SOCIAL HISTORY: Denies smoking, alcohol, or drug abuse. MEDICATIONS: Include vitamin D, Milk of Magnesia, metoprolol 50 mg p.o. t.i.d., heparin 5000 units subcu every 12 hours, famotidine 20 mg b.i.d., Tylenol as needed, mirtazapine 15 mg p.o. at bedtime, atorvastatin 20 mg p.o. at bedtime. REVIEW OF SYSTEMS: As described in history of present illness. All other systems reviewed and was found to be negative. PHYSICAL EXAMINATION: GENERAL: Middle-aged obese male, lying in bed, in no acute distress. VITAL SIGNS: Blood pressure 130/86, pulse 68, respirations 15, temperature 97.3 degrees Fahrenheit, O2 sat is 99% on room air. HEENT: Pupils equal, round, reacting to light and accommodation. Extraocular muscles intact. No icterus. No pallor. No oral thrush. No pharyngeal congestion. NECK: Supple. No JVD. LUNGS: Bilateral vesicular breath sounds. No wheezing. No rhonchi. CVS: S1, S2 are present, regular. ABDOMEN: Soft and nontender. Bowel sounds present. No guarding. No rigidity. No rebound tenderness noted. SPANISH LECTURER: Alert, awake, and oriented x3. Right-sided weakness in upper and lower extremities noted. Power is, lower extremity 0 to 1/5, upper extremity 0/5. Absent reflexes. LABORATORY DATA: Labs done from the ED: WBC 6.7, hemoglobin 11.3, hematocrit 34.7, and platelets 402. PT 15.5, INR 1.4, and PTT 35. Sodium 142, potassium 3.8, chloride 102, bicarb 27, BUN 9, creatinine 0.8, glucose 103, calcium 8.9. Total bilirubin 0.5, AST 16, ALT 24, alkaline phosphatase 106, total protein 6.6, and albumin 3.7. ASSESSMENT: Middle-aged male with history of hypertension, hyperlipemia, left basal ganglia hemorrhagic stroke about two months ago in 01/2018 with right-sided hemiplegia and status post aphasia, now with improved speech, history of right leg deep venous thrombosis, status post inferior vena cava filter about a month ago at [facility], now with worsening right lower extremity swelling and pain, and the Doppler done from the long term is positive for progressive lower extremity deep venous thrombosis, and the patient is being admitted for further management. 1. Worsening right lower extremity deep venous thrombosis, not on anticoagulation secondary to recent hemorrhagic stroke. 2. Hypertension, stable. 3. Hyperlipemia. 4. History of cerebrovascular accident with right-sided hemiplegia. 5. Left basal ganglia hemorrhagic stroke. 6. History of right leg deep venous thrombosis, status post inferior vena cava filter placement. PLAN: The patient is being admitted to telemetry. We will continue with subcu heparin. We will obtain vascular surgery consult with Dr. Oconnor, Hematology consult, and Neurology consult for possible clearance for anticoagulation as the patient's lower extremity swelling and DVT is worsening. We will continue with his home medication of metoprolol 50 mg p.o. t.i.d. for blood pressure which has been stable. Continue with GI prophylaxis with Pepcid. Continue with mirtazapine and Lipitor 20 mg p.o. at bedtime. We will add further recommendation as his clinical course progresses. Continue with PT, OT and rehab. Reba Marsh MD
[2018-05-03 07:35] VITALS: RESP 20
--- NOTE | 2018-05-03 08:50 | RAD ---
Date of service: 05/02/2018 PROCEDURE: CHEST RADIOGRAPH, 1 VIEW HISTORY: R IJ puncture COMPARISON: Portable chest 03/10/2018. FINDINGS: LUNGS: No acute pulmonary disease appreciated bilaterally. PLEURA: No pneumothorax or pleural fluid seen. CARDIOVASCULAR: Stable cardiomegaly. No pulmonary vascular congestion in the interval. OSSEOUS STRUCTURES: No significant abnormalities. VISUALIZED UPPER ABDOMEN: Normal. OTHER FINDINGS: None. IMPRESSION: Stable cardiomegaly. No acute pulmonary disease identified. No pulmonary vascular congestion.
--- NOTE | 2018-05-03 09:03 | RAD ---
Date of service: 05/02/2018 PROCEDURE: Intraoperative Fluoroscopy. HISTORY: DEEP VEIN THROMBOSIS FINDINGS: Fluoroscopic assistance was provided for venography. Please refer to the operative report from GAEL White. Cumulative radiation dose 1.26 mGym2, with 100.7 seconds of fluoro time utilized.
[2018-05-03] MEDS: CHOLECALCIFEROL 1000 UNIT PO SCH (09:16)
[2018-05-03 09:40] LABS: FOLATE 8.3 ng/mL
--- NOTE | 2018-05-03 14:47 | CP.PCM.PN ---
Subjective - Date & Time of Evaluation Date of Evaluation: 05/03/18 Time of Evaluation: 14:47 - Subjective Subjective: Progress note dictated #[id number] Objective - Vital Signs/Intake and Output Vital Signs (last 24 hours): Temp Pulse Resp BP Pulse Ox 98.1 F 73 20 106/70 99 05/03/18 07:00 05/03/18 12:00 05/03/18 07:00 05/03/18 07:00 05/03/18 07:00 Intake and Output: 05/03/18 05/03/18 06:59 18:59 Output Total 400 Balance -400 - Medications Medications: Current Medications Acetaminophen (Tylenol 325mg Tab) 650 mg PO Q6 PRN PRN Reason: Pain, Mild (1-3) Last Admin: 05/02/18 21:27 Dose: 650 mg Famotidine (Pepcid) 20 mg PO BID [facility] Last Admin: 05/03/18 09:13 Dose: 20 mg Heparin Sodium (Porcine) (Heparin) 5,000 units SC Q12 [facility] Home Med (Cholecalciferol) 1,000 units PO DAILY [facility] Last Admin: 05/03/18 09:16 Dose: Not Given Magnesium Hydroxide (Milk Of Magnesia) 30 ml PO DAILY PRN PRN Reason: Constipation Metoprolol Tartrate (Lopressor) 50 mg PO TID [facility] Last Admin: 05/03/18 13:26 Dose: 50 mg Mirtazapine (Remeron) 15 mg PO HS [facility] Last Admin: 05/02/18 21:27 Dose: 15 mg Rosuvastatin Calcium (Crestor) 10 mg PO [facility] Last Admin: 05/02/18 21:27 Dose: 10 mg Sodium Chloride (Sodium Chloride Tab) 2 gm PO TID [facility] Last Admin: 05/03/18 13:26 Dose: 2 gm - Labs Labs: 05/02/18 00:06 05/02/18 00:06 PT 15.5 SECONDS (9.7-12.2) H 05/02/18 00:06 INR 1.4 05/02/18 00:06 APTT 35 SECONDS (21-34) H 05/02/18 00:06
--- NOTE | 2018-05-03 16:48 | CT ---
Date of service: 05/03/2018 PROCEDURE: CT HEAD WITHOUT CONTRAST. HISTORY: HX OF STROKE COMPARISON: 05/03/2018. TECHNIQUE: Axial computed tomography images were obtained through the head/brain without intravenous contrast. Radiation dose: Total exam DLP = 1030.23 mGy-cm. This CT exam was performed using one or more of the following dose reduction techniques: Automated exposure control, adjustment of the mA and/or kV according to patient size, and/or use of iterative reconstruction technique. FINDINGS: HEMORRHAGE: There is interval near complete resolution of hemorrhage in the left basal ganglia. BRAIN: There is interval evolution of an old infarction in the left basal ganglia and champion radiata with interval decrease in surrounding vasogenic edema mass effect and midline shift. There is residual 2 mm midline shift from left to right. VENTRICLES: The ventricles are normal in size, shape and configuration. CALVARIUM: The skull base and calvarium are normal. PARANASAL SINUSES: Predominantly clear. MASTOID AIR CELLS: Predominantly clear. OTHER FINDINGS: None. IMPRESSION: Interval near complete resolution of hemorrhage in the left basal ganglia and champion radiata. Interval evolution of old left MCA territory infarction involving the basal ganglia and champion radiata with residual 2 mm midline shift from left to right.
--- NOTE | 2018-05-03 20:12 | CP.PCM.PN ---
Subjective - Date & Time of Evaluation Date of Evaluation: 05/03/18 Time of Evaluation: 12:00 - Subjective Subjective: Seen participating with PT Objective - Vital Signs/Intake and Output Vital Signs (last 24 hours): Temp Pulse Resp BP Pulse Ox 98.1 F 78 20 116/79 99 05/03/18 15:00 05/03/18 15:42 05/03/18 15:00 05/03/18 15:00 05/03/18 15:00 - Medications Medications: Current Medications Acetaminophen (Tylenol 325mg Tab) 650 mg PO Q6 PRN PRN Reason: Pain, Mild (1-3) Last Admin: 05/02/18 21:27 Dose: 650 mg Ergocalciferol (Drisdol 50,000 Intl Units Cap) 1 cap PO QWK [facility] Famotidine (Pepcid) 20 mg PO BID [facility] Last Admin: 05/03/18 17:33 Dose: 20 mg Heparin Sodium (Porcine) (Heparin) 5,000 units SC Q12 [facility] Magnesium Hydroxide (Milk Of Magnesia) 30 ml PO DAILY PRN PRN Reason: Constipation Metoprolol Tartrate (Lopressor) 50 mg PO TID [facility] Last Admin: 05/03/18 17:33 Dose: 50 mg Mirtazapine (Remeron) 15 mg PO HS [facility] Last Admin: 05/02/18 21:27 Dose: 15 mg Rosuvastatin Calcium (Crestor) 10 mg PO HS [facility] Last Admin: 05/02/18 21:27 Dose: 10 mg Sodium Chloride (Sodium Chloride Tab) 2 gm PO TID [facility] Last Admin: 05/03/18 17:32 Dose: 2 gm - Labs Labs: 05/02/18 00:06 05/02/18 00:06 PT 15.5 SECONDS (9.7-12.2) H 05/02/18 00:06 INR 1.4 05/02/18 00:06 APTT 35 SECONDS (21-34) H 05/02/18 00:06 - Head Exam Head Exam: ATRAUMATIC - Eye Exam Eye Exam: Normal appearance - ENT Exam ENT Exam: Mucous Membranes Dry - Respiratory Exam Respiratory Exam: NORMAL BREATHING PATTERN - Cardiovascular Exam Cardiovascular Exam: +S1, +S2 - GI/Abdominal Exam GI & Abdominal Exam: Normal Bowel Sounds Assessment and Plan (1) Deep venous thrombosis of lower extremity Assessment & Plan: therapeutic anticoagulation if cleared by neurology prior hemorrhagic CVA Status: Acute (2) Anemia Assessment & Plan: chronic disease Status: Acute
--- NOTE | 2018-05-04 04:54 | PN ---
Copied To: Reba Marsh MD Attending MD: Reba Marsh MD DATE: 05/03/2018 SUBJECTIVE: The patient was seen and examined at bedside. The patient offers no new complaints. Leg swelling and pain are slightly better as per the patient, able to participate in physical therapy. Denies any chest pain, shortness of breath, or wheezing. PHYSICAL EXAMINATION: GENERAL: A middle-aged male, lying in bed, in no acute distress. VITAL SIGNS: Blood pressure 116/79, pulse 79, respirations 20, temperature 98.1 degrees Fahrenheit, O2 saturations are 99% on room air. HEENT: Pupils are equal, round, reactive to light and accommodation. Extraocular muscles intact. No icterus. No pallor. No oral thrush. No pharyngeal congestion. NECK: Supple. No JVD. LUNGS: Bilateral vesicular breath sounds. No wheezing. No rhonchi. CARDIOVASCULAR: S1 and S2 present, regular. ABDOMEN: Soft, nontender. Bowel sounds present. No guarding. No rigidity. No rebound tenderness noted. HOUSE CALLS NURSE: Alert, awake, oriented x3. Right-sided hemiplegia. EXTREMITIES: Right lower extremity swelling present. MEDICATIONS: Include Tylenol as needed, Pepcid 20 mg p.o. b.i.d., heparin 5000 units subcu every 12 hours, Milk of Magnesia as needed, metoprolol 50 mg p.o. t.i.d., Remeron 15 mg p.o. at bedtime, Crestor 10 mg p.o. at bedtime, sodium chloride tablets 2 g p.o. t.i.d. LABORATORY DATA: Retic count is 1.9. CT head done from today shows interval near complete resolution of hemorrhage in the left basal ganglia and champion radiata, interval of old left MCA territory infarction involving the basal ganglia and champion radiata with residual 2 mm midline shift from left to right. ASSESSMENT AND PLAN: A middle-aged male with history of hypertension, hyperlipemia, history of left basal ganglia hemorrhagic stroke with right-sided hemiplegia, status post aphasia, with history of right lower extremity deep venous thrombosis, status post inferior vena cava filter placement, now with worsening lower right extremity swelling and progression of the right lower extremity deep venous thrombosis, awaiting for Neurology clearance for anticoagulation. Will follow up with Neurology if cleared by Neurology. I will start the patient on Eliquis as recommended by Hematology. Will continue with other current medications. Blood pressure is stable on metoprolol. Will repeat labs in a.m. Continue with physical therapy and occupational therapy. Reba Marsh MD
[2018-05-04 06:45] LABS: BASO % 0.7 % (0.0-2.0); EOS # 0.2 K/uL (0.0-0.7); EOS % 3.7 % (0.0-4.0); HEMOGLOBIN 11.5 g/dL (12.0-18.0); LYMPH # 1.8 K/uL (1.0-4.3); LYMPH % 29.9 % (20.0-40.0); MEAN CELL VOLUME 90.8 fL (80.0-94.0); MEAN CORPUSCULAR HEMOGLOBIN 30.3 pg (27.0-31.0); MEAN CORPUSCULAR HGB CONC 33.4 g/dL (33.0-37.0); MONO # 0.5 K/uL (0.0-0.8); NEUT # 3.5 K/uL (1.8-7.0); NEUT % 57.7 % (50.0-75.0); RBC 3.8 Mil/uL (4.40-5.90); RED CELL DISTRIBUTION WIDTH 14.8 % (11.5-14.5); WHITE BLOOD COUNT 6.1 K/uL (4.8-10.8)
[2018-05-04 06:59] LABS: ALB/GLOB RATIO 1.2 (1.0-2.1); ALBUMIN 3.4 g/dL (3.5-5.0); ALT/SGPT 27 U/L (21-72); AST/SGOT 17 U/L (17-59); BLOOD UREA NITROGEN 9 mg/dL (9-20); CALCIUM 9.3 mg/dl (8.6-10.4); GFR AFRICAN-AMERICAN > 60; GFR NON-AFRICAN AMERICAN > 60; HDL CHOLESTEROL 28 mg/dL (30-70)
[2018-05-04 07:10] LABS: LDL CHOLESTEROL 89 mg/dL (0-129)
[2018-05-04 09:30] LABS: URINE BILIRUBIN NEGATIVE (NEGATIVE); URINE BLOOD NEGATIVE (NEGATIVE); URINE CLARITY Clear (Clear); URINE COLOR Yellow (YELLOW); URINE GLUCOSE (UA) NORMAL (Normal); URINE LEUKOCYTE ESTERASE NEG Leu/uL (Negative); URINE PROTEIN NEGATIVE (NEGATIVE)
--- NOTE | 2018-05-04 12:06 | CP.PCM.PN ---
Subjective - Date & Time of Evaluation Date of Evaluation: 05/04/18 Time of Evaluation: 12:06 - Subjective Subjective: Progress note dictated [id number] Objective - Vital Signs/Intake and Output Vital Signs (last 24 hours): Temp Pulse Resp BP Pulse Ox 97.9 F 72 20 111/74 99 05/04/18 07:27 05/04/18 09:28 05/04/18 07:27 05/04/18 09:28 05/04/18 07:27 Intake and Output: 05/04/18 05/04/18 06:59 18:59 Output Total 300 Balance -300 - Medications Medications: Current Medications Acetaminophen (Tylenol 325mg Tab) 650 mg PO Q6 PRN PRN Reason: Pain, Mild (1-3) Last Admin: 05/03/18 21:37 Dose: 650 mg Ergocalciferol (Drisdol 50,000 Intl Units Cap) 1 cap PO QWK [facility] Famotidine (Pepcid) 20 mg PO BID [facility] Last Admin: 05/04/18 09:27 Dose: 20 mg Heparin Sodium (Porcine) (Heparin) 5,000 units SC Q12 PANCHO Magnesium Hydroxide (Milk Of Magnesia) 30 ml PO DAILY PRN PRN Reason: Constipation Metoprolol Tartrate (Lopressor) 50 mg PO TID [facility] Last Admin: 05/04/18 09:27 Dose: 50 mg Mirtazapine (Remeron) 15 mg PO HS [facility] Last Admin: 05/03/18 21:37 Dose: 15 mg Rosuvastatin Calcium (Crestor) 10 mg PO HS [facility] Last Admin: 05/03/18 21:37 Dose: 10 mg - Labs Labs: 05/04/18 06:34 05/04/18 06:34 PT 15.5 SECONDS (9.7-12.2) H 05/02/18 00:06 INR 1.4 05/02/18 00:06 APTT 35 SECONDS (21-34) H 05/02/18 00:06
--- NOTE | 2018-05-04 17:40 | CP.PCM.PN ---
Subjective - Date & Time of Evaluation Date of Evaluation: 05/04/18 Time of Evaluation: 17:36 - Subjective Subjective: Mrs. Rodriguez was seen and examined today at bedside. He has persistent DVT of lower extremity. IVC filter placed. Hematology recommended therapeutic anticoagulation; however, there is concern due to previous ICH of the left basal ganglia. Objective - Vital Signs/Intake and Output Vital Signs (last 24 hours): Temp Pulse Resp BP Pulse Ox 98.2 F 68 20 112/73 99 05/04/18 15:46 05/04/18 15:46 05/04/18 15:46 05/04/18 15:46 05/04/18 15:46 Intake and Output: 05/04/18 05/04/18 06:59 18:59 Output Total 300 Balance -300 - Medications Medications: Current Medications Acetaminophen (Tylenol 325mg Tab) 650 mg PO Q6 PRN PRN Reason: Pain, Mild (1-3) Last Admin: 05/03/18 21:37 Dose: 650 mg Ergocalciferol (Drisdol 50,000 Intl Units Cap) 1 cap PO QWK [facility] Famotidine (Pepcid) 20 mg PO BID [facility] Last Admin: 05/04/18 09:27 Dose: 20 mg Heparin Sodium (Porcine) (Heparin) 5,000 units SC Q12 PANCHO Magnesium Hydroxide (Milk Of Magnesia) 30 ml PO DAILY PRN PRN Reason: Constipation Metoprolol Tartrate (Lopressor) 50 mg PO TID [facility] Last Admin: 05/04/18 13:24 Dose: 50 mg Mirtazapine (Remeron) 15 mg PO [facility] Last Admin: 05/03/18 21:37 Dose: 15 mg Rosuvastatin Calcium (Crestor) 10 mg PO [facility] Last Admin: 05/03/18 21:37 Dose: 10 mg - Labs Labs: 05/04/18 06:34 05/04/18 06:34 PT 15.5 SECONDS (9.7-12.2) H 05/02/18 00:06 INR 1.4 05/02/18 00:06 APTT 35 SECONDS (21-34) H 05/02/18 00:06 - Neurological Exam Additional comments: Neurologically unchanged compared with previous examination. Assessment and Plan (1) Hemorrhagic stroke Assessment & Plan: The recent CT scan of the head showed some resolution of the previous intracerebral hemorrhage. He remains a risk for ICH. His risk for ICH increases with anticoagulation. Since he has an IVC filter, it may be less necessary for him to have therapeutic anticoagulation. Considering the recent ICH, I would recommend against therapeutic anticoagulation, but prophylactic anticoagulation should not be a problem. Status: Chronic
--- NOTE | 2018-05-04 21:36 | CARD ---
APPROVED REPORT Date of service: 05/02/2018 EKG Measurement Heart [id number] <Conclusion> Normal sinus rhythm Minimal voltage criteria for LVH, may be normal variant Borderline ECG
--- NOTE | 2018-05-05 02:55 | PN ---
Copied To: Reba Marsh MD Attending MD: Reba Marsh MD DATE: 05/04/2018 SUBJECTIVE: The patient was seen and examined at bedside. The patient offers no new complaints. Less pain in the right lower extremity. Able to participate in physical therapy. Denies any chest pain, shortness of breath, or wheezing. PHYSICAL EXAMINATION: GENERAL: Middle aged male, lying in bed, in no acute distress. VITAL SIGNS: Blood pressure 112/73, pulse 68, respirations 20, temperature 98.2 degrees Fahrenheit, O2 sat is 99% on room air. HEENT: Pupils equal, round, and reacting to light and accommodation. Extraocular muscles intact. No icterus. No pallor. No oral thrush. No pharyngeal congestion. NECK: Supple. No JVD. LUNGS: Bilateral vesicular breath sounds. No wheezing. No rhonchi. CVS: S1, S2 present. Regular. ABDOMEN: Soft, nontender. Bowel sounds present. No guarding. No rigidity. No rebound tenderness noted. SERVICE MEMBER: Alert, awake, oriented x3. Right sided weakness present. EXTREMITIES: Right lower extremity, more swollen than the left. Right lower extremity power 1/5, right upper extremity 0/5. MEDICATIONS: Include Tylenol as needed, vitamin D, Pepcid 20 mg b.i.d., heparin 4000 units subcutaneous every 12 hours, magnesium oxide 30 mL daily, metoprolol 50 mg p.o. t.i.d., Remeron 15 mg p.o. at bedtime, Crestor 10 mg p.o. at bedtime. LABORATORY DATA: Labs from this morning, WBC 6.1, hemoglobin 11.5, hematocrit 34.5, platelets 348. Sodium 141, potassium 3.9, chloride 103, bicarb 32, BUN 9, creatinine 0.8, glucose 89, hemoglobin A1c 5, calcium 9.3, phosphorus 5, magnesium 1.9, ferritin 190, total bilirubin 0.5, AST 17, ALT 27, alkaline phosphatase 86, total protein 6.3, albumin 3.4, triglycerides 104, cholesterol 142, HDL 28, LDL 89, UA negative. 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 Neurology input appreciated. We will hold therapeutic anticoagulation as recommended by Neurology but will continue with prophylactic subcutaneous heparin. As per Neurology, risks of rebleeding outstay the benefits of therapeutic anticoagulation. We will monitor the patient closely. We will request social media director to transfer the patient back to subacute rehab when bed available. Reba Marsh MD
--- NOTE | 2018-05-05 12:15 | CP.PCM.PN ---
Subjective - Date & Time of Evaluation Date of Evaluation: 05/05/18 Time of Evaluation: 12:15 - Subjective Subjective: PATIENT WAS ADMITTED FOR DVT DENIES CHEST PAIN OR SOB / NAUSEA OR VOMITING Objective - Vital Signs/Intake and Output Vital Signs (last 24 hours): Temp Pulse Resp BP Pulse Ox 97.9 F 85 20 117/77 99 05/05/18 07:41 05/05/18 09:53 05/05/18 07:41 05/05/18 09:53 05/05/18 07:41 Intake and Output: 05/05/18 05/05/18 06:59 18:59 Intake Total 200 Balance 200 - Medications Medications: Current Medications Acetaminophen (Tylenol 325mg Tab) 650 mg PO Q6 PRN PRN Reason: Pain, Mild (1-3) Last Admin: 05/04/18 21:33 Dose: 650 mg Ergocalciferol (Drisdol 50,000 Intl Units Cap) 1 cap PO QWK [facility] Famotidine (Pepcid) 20 mg PO BID [facility] Last Admin: 05/05/18 09:53 Dose: 20 mg Heparin Sodium (Porcine) (Heparin) 5,000 units SC Q12 PANCHO Magnesium Hydroxide (Milk Of Magnesia) 30 ml PO DAILY PRN PRN Reason: Constipation Metoprolol Tartrate (Lopressor) 50 mg PO TID [facility] Last Admin: 05/05/18 09:54 Dose: 50 mg Mirtazapine (Remeron) 15 mg PO [facility] Last Admin: 05/04/18 21:33 Dose: 15 mg Rosuvastatin Calcium (Crestor) 10 mg PO [facility] Last Admin: 05/04/18 21:32 Dose: 10 mg - Labs Labs: 05/04/18 06:34 05/04/18 06:34 PT 15.5 SECONDS (9.7-12.2) H 05/02/18 00:06 INR 1.4 05/02/18 00:06 APTT 35 SECONDS (21-34) H 05/02/18 00:06 Assessment and Plan - Assessment and Plan (Free Text) Assessment: PATIENT SEEN AND EXAMINED AT THE BEDSIDE LUNG SOUND CLEAR BRANDI RIGHT SIDE WEAKNESS NO ANTICOAGULANT AT THIS TIME PER DR LESLIE DISCUSS WITH DR HERNANDEZ WHO CLEAR PATIENT FOR DC PLACE UNDER THE SERVICE OF DR HERNANDEZ AT [facility] ---CALL FOR ADMITTING ORDER CONTINUE ALL HOME MEDICATION NO ANTICOAGULANT PER DR LESLIE (NEUROLOGIST) FOR NOW DUE HX OF HEMORRHAGIC STROKE ACITIVITY TOLERATED AND FACILITY PROTOCOL CALL DR HERNANDEZ FOR FURTHER ORDER DISCUSS WITH PATIENT WHO AGREE AND VERBALIZED UNDERSTANDING
[2018-05-05 15:47] VITALS: TEMP 97.8; O2SAT 98
--- NOTE | 2018-05-05 17:12 | CP.PCM.PN ---
Subjective - Date & Time of Evaluation Date of Evaluation: 05/05/18 Time of Evaluation: 17:12 - Subjective Subjective: Discharge summary dictated #[id number] Objective - Vital Signs/Intake and Output Vital Signs (last 24 hours): Temp Pulse Resp BP Pulse Ox 97.8 F 76 20 123/82 98 05/05/18 15:46 05/05/18 15:46 05/05/18 15:46 05/05/18 15:46 05/05/18 15:46 Intake and Output: 05/05/18 05/05/18 06:59 18:59 Intake Total 200 300 Balance 200 300 - Medications Medications: Current Medications Acetaminophen (Tylenol 325mg Tab) 650 mg PO Q6 PRN PRN Reason: Pain, Mild (1-3) Last Admin: 05/04/18 21:33 Dose: 650 mg Ergocalciferol (Drisdol 50,000 Intl Units Cap) 1 cap PO QWK [facility] Famotidine (Pepcid) 20 mg PO BID [facility] Last Admin: 05/05/18 09:53 Dose: 20 mg Heparin Sodium (Porcine) (Heparin) 5,000 units SC Q12 [facility] Magnesium Hydroxide (Milk Of Magnesia) 30 ml PO DAILY PRN PRN Reason: Constipation Metoprolol Tartrate (Lopressor) 50 mg PO TID [facility] Last Admin: 05/05/18 14:11 Dose: 50 mg Mirtazapine (Remeron) 15 mg PO HS [facility] Last Admin: 05/04/18 21:33 Dose: 15 mg Rosuvastatin Calcium (Crestor) 10 mg PO HS [facility] Last Admin: 05/04/18 21:32 Dose: 10 mg - Labs Labs: 05/04/18 06:34 05/04/18 06:34 PT 15.5 SECONDS (9.7-12.2) H 05/02/18 00:06 INR 1.4 05/02/18 00:06 APTT 35 SECONDS (21-34) H 05/02/18 00:06
[2018-05-05 17:38] VITALS: BP 131/86; PULSE 73
[2018-05-07 06:39] LABS: CARDIOLIPIN AB (IGA) <11 APL (<=11); CARDIOLIPIN AB (IGG) <14 GPL (<=14)
[2018-05-07 14:47] LABS: B2 GLYCOPROTEIN I AB(IGA) <9 SAU (<=20); B2 GLYCOPROTEIN I AB(IGG) <9 SGU (<=20); B2 GLYCOPROTEIN I AB(IGM) <9 SMU (<=20)
[2018-05-08 05:56] LABS: CARDIOLIPIN AB (IGM) <12 MPL (<=12); PHOSPHATIDYLSERINE AB IGA <20 U/mL (<20); PHOSPHATIDYLSERINE AB IGG <10 U/mL (<10); PHOSPHATIDYLSERINE AB IGM <25 U/mL (<25)
[2018-05-10] MEDS ORDERED: Ergocalciferol 50,000 Intl Units Cap PO SCH (10:00)
--- NOTE | 2018-05-17 15:27 | DS ---
Copied To: Reba Marsh MD Attending MD: Reba Marsh MD DISCHARGE DIAGNOSES: Right lower extremity swelling with worsening or extending deep vein thrombosis, history of inferior vena cava filter placement, hypertension, hyperlipidemia, history of hemorrhagic stroke of the basal ganglia with right-sided hemiplegia, and Neurology did not approve for anticoagulation in view of his recent hemorrhagic stroke. HISTORY OF PRESENT ILLNESS: Mr. Montrell Rodriguez is a 53-year-old male with past medical history of hypertension, hyperlipidemia, recent history of basal ganglia hemorrhagic stroke with cerebral edema and midline shift with right-sided hemiplegia, underwent acute rehabilitation at [facility], transferred to [facility] for physical therapy and rehabilitation. He was complaining of right lower extremity swelling and pain worsening for which the patient was sent to the hospital. In the ED, the patient was found to be having progressive right lower extremity DVT and the patient is being admitted for further management. On the day of discharge, the patient was feeling better. Denied any headache, dizziness. Denied any chest pain, shortness of breath, or wheezing. Denied any nausea, vomiting, abdominal pain, diarrhea, or constipation. Denied any urinary complaints. Denied any other new neurologic symptoms. All other systems reviewed and were found to be negative. PHYSICAL EXAMINATION: GENERAL: Middle-aged male, lying in bed, in no acute distress. VITAL SIGNS: Blood pressure 131/86, pulse 73, respirations 20, temperature 97.8 degrees Fahrenheit, O2 sat is 98% on room air. HEENT: Pupils equal, round, reacting to light and accommodation. Extraocular muscles intact. No icterus. No pallor. No oral thrush. No pharyngeal congestion. NECK: Supple. No JVD. LUNGS: Bilateral vesicular breath sounds. No wheezing. No rhonchi. CVS: S1, S2 present and regular. ABDOMEN: Soft and nontender. Bowel sounds present. No guarding. No rigidity. No rebound tenderness noted. DECK ENGINE OPERATOR: Alert, awake, oriented x3. Right-sided hemiplegia. EXTREMITIES: Right lower extremity swelling present. LABORATORIES: From 05/04/2018, WBC 6.1, hemoglobin 11.5, hematocrit 34.5, platelets 348. Sodium 141, potassium 3.9, chloride 103, bicarb 32, BUN 9, creatinine 0.8, glucose 89, hemoglobin A1c 5, calcium 9.3, phosphorus 5, magnesium 1.9, protein 6.3, albumin 3.4, cholesterol 142, LDL 89, triglycerides 104, HDL 28, B12 of 636, TSH 0.86. UA negative. Anticardiolipin antibody negative. Beta-2 glycoprotein negative. Antiphospholipid antibody negative. CT of the head consistent with interval near complete resolution of hemorrhage in the left basal ganglia and champion radiata, interval resolution of old left MCA territory infarction involving the basal ganglia and champion radiata where the residual 2 mm midline shift from left to right. HOSPITAL COURSE: The patient was admitted to the hospital for worsening lower extremity DVT, status post IVC filter placement. The patient was evaluated by Vascular Surgery, unable to do any thrombectomy secondary to recent history of hemorrhagic stroke and risks are more than the benefits. The patient was also evaluated by Neurology and Hematology. Neurology did not approve for therapeutic anticoagulation, but agreed for prophylactic subcu heparin for DVT prophylaxis in view of his recent history of hemorrhagic stroke and recent cerebral edema and midline shift. As per Neurology's recommendation, the patient was not started on any therapeutic anticoagulation. The patient was otherwise hemodynamically stable, and the patient was transferred back to [facility] for further rehabilitation. CONDITION UPON DISCHARGE: The patient was alert, awake, oriented x3, and hemodynamically stable at the time of discharge. DISCHARGE INSTRUCTIONS: Follow up with PMD. Follow up with Neurology. Follow up with Hematology. DISCHARGE DIET: Low sodium, low cholesterol, 1800-calorie ADA diet. ACTIVITY: As tolerated. DISCHARGE MEDICATIONS: Tylenol as needed, Lipitor 20 mg p.o. at bedtime, Pepcid 20 mg b.i.d., metoprolol 50 mg p.o. t.i.d., Remeron 15 mg p.o. at bedtime, subcu heparin 5000 units subcu every 12 hours. Reba Marsh MD
== END 2018-05-05 21:33 | DRG 550 ==
LOC: C.ER 22:19 → C.9E 05-02 00:34 → C.5S 05-02 03:40
PROVIDERS: ADMIT Internal Medicine; ATTEND Internal Medicine
PROC: 06JY3ZZ Inspection of Lower Vein, Percutaneous Approach (ICD-10-PCS; principal; 2018-05-02 16:15)
DX: I82.220 Acute embolism and thrombosis of inferior vena cava (principal); I82.411 Acute embolism and thrombosis of right femoral vein; I82.431 Acute embolism and thrombosis of right popliteal vein; I69.351 Hemiplegia and hemiparesis following cerebral infarction affecting right dominant side; I69.320 Aphasia following cerebral infarction; D64.9 Anemia, unspecified; E78.00 Pure hypercholesterolemia, unspecified; I10 Essential (primary) hypertension; Z53.09 Procedure and treatment not carried out because of other contraindication; E78.5 Hyperlipidemia, unspecified; G93.6 Cerebral edema

== ENCOUNTER 2018-08-29 07:32 | Emergency (ER) | payer OTHER ==
[2018-08-29 07:32] VITALS: BMI 38.4
[2018-08-29 07:44] VITALS: RESP 18
--- NOTE | 2018-08-29 08:14 | C.PDOC ---
History Of Present Illness 53 Y/O MALE PRESENTS TO ED REFERRED BY PMD FOR NEW ONSET RUE SWELL AND CHRONIC RLE SWELLING. PATIENT STATES NEW ONSET RUE SWELLING X 1 WEEK. NO PAIN. 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 HISTORY OF PRIOR RLE DVT W IVC FILTER, PATIENT STATES SWELLING IN RLE IS CHRONIC. NO CP, SOB. COMPLIANT W MEDS. HO HTN AND PREVIOUS LEFT BG ICH 01/2018, HISTORY OF DVT DUE TO IMMOBILITY, S/P IVC FILTER 01/2018. EXAM NAD NONTOXIC HEENT ATRAUM EXT +SWELL PROX RUE NONPITTING, ATRAUM. NONTEND. +SWELLING RLE NONPITTING ATRA UM. NEURO CHRONIC RUE WEAKNESS, REMAINDER WNL SKIN NEG REMAINDER NEG Time Seen by Provider: 08/29/18 07:55 Chief Complaint (Nursing): Lower Extremity Problem/Injury History Per: Patient History/Exam Limitations: no limitations Onset/Duration Of Symptoms: Days Current Symptoms Are (Timing): Still Present Past Medical History Reviewed: Historical Data, Nursing Documentation, Vital Signs Vital Signs: Last Vital Signs Temp 99.4 F 08/29/18 07:39 Pulse 72 08/29/18 07:39 Resp 18 08/29/18 07:39 BP 154/89 H 08/29/18 07:39 Pulse Ox 99 08/29/18 07:39 - Medical History PMH: CHF, CVA (Hemorrhagic), HTN, Hypercholesterolemia Surgical History: No Surg Hx - [facility] INSPECTION OF LOWER VEIN, PERCUTANEOUS APPROACH (05/02/18) Family History: States: No Known Family Hx - Social History Hx Alcohol Use: No Hx Substance Use: No - Immunization History Hx Tetanus Toxoid Vaccination: No Hx Influenza Vaccination: No Hx Pneumococcal Vaccination: No Review Of Systems Constitutional: Negative for: Fever, Chills Cardiovascular: Negative for: Chest Pain Respiratory: Negative for: Shortness of Breath Gastrointestinal: Negative for: Nausea, Vomiting Musculoskeletal: Positive for: Arm Pain (swelling), Leg Pain (Swelling) Skin: Negative for: Rash, Bruising Physical Exam - Physical Exam Appears: Non-toxic, No Acute Distress Skin: Warm, Dry, No Rash Head: Atraumatic, Normacephalic Eye(s): bilateral: PERRL, EOMI Oral Mucosa: Moist Neck: Normal ROM, Supple Cardiovascular: Rhythm Regular Respiratory: Normal Breath Sounds, No Rales, No Rhonchi, No Wheezing Extremity: Capillary Refill (<2 seconds), No Deformity, Swelling (proximal RUE, RLE non pitting) Extremity: Bilateral: Atraumatic Pulses: Right Radial: Normal, Right Dorsalis Pedis: Normal Neurological/Psych: Oriented x3, Normal Speech, Normal Motor, Normal Sensation, Other (chronic RUE weakness, ) ED Course And Treatment O2 Sat by Pulse Oximetry: 99 (RA) Pulse Ox Interpretation: Normal Progress - Re-Evaluation Re-evaluation Note: 08/29/18 09:13 EXAM [facility]. D/W DR SIMIN ABAD OFFICE - Data Reviewed Data Reviewed: Lab, Diagnostic imaging, Old records Disposition Counseled Patient/Family Regarding: Studies Performed, Diagnosis, Need For Followup - Disposition Referrals: YOUR,PMD [Other] Disposition: HOME/ ROUTINE Disposition Time: 09:14 Condition: GOOD Instructions: Swelling Forms: [facility] (Bengali) - Clinical Impression Clinical Impression: Arm swelling, Chronic deep vein thrombosis (DVT) - Scribe Statement The provider has reviewed the documentation as recorded by the Scriblouis Tomas All medical record entries made by the Ismaiblouis were at my direction and personally dictated by me. I have reviewed the chart and agree that the record accurately reflects my personal performance of the history, physical exam, medical decision making, and the department course for this patient. I have also personally directed, reviewed, and agree with the discharge instructions and disposition.
[2018-08-29 10:24] VITALS: BP 136/93; PULSE 66; TEMP 98.3; O2SAT 100
--- NOTE | 2018-08-29 12:48 | VASCLAB ---
Date of service: 08/29/2018 PROCEDURE: Right Lower Extremity Venous Duplex Exam. HISTORY: SWELLING R/O DVT PRIORS: None. TECHNIQUE: Right common femoral, femoral, popliteal and posterior tibial, peroneal and great saphenous veins were evaluated. Flow was assessed with color Doppler, compressibility, assessment of phasic flow and augmentation response. Report prepared by FAINA Reynaga FINDINGS: RIGHT: 1. Common Femoral Vein: 1.1. Compressibility - Partial: Thrombus - Chronic: Flow - Reduced : Augmentation -Normal: Reflux - None. 2. Femoral Vein: 2.1. Compressibility - Partial: Thrombus - Chronic: Flow - Reduced : Augmentation -Normal: Reflux - None. 3. Popliteal Vein: 3.1. Compressibility - Partial: Thrombus - Chronic: Flow - Phasic: Augmentation -Normal: Reflux - Mild 1.68s 4. Posterior Tibial Vein: 4.1. Unable to visualize. 5. Peroneal Vein: 5.1. Unable to visualize. 6. Great Saphenous Vein: 6.1. Compressibility - Fully compressible: Thrombus -None: Flow - Phasic: Augmentation - Normal: Reflux - None. OTHER FINDINGS: Unable to visualize the right calf veins due to swelling. IMPRESSION: Partial chronic deep vein thrombosis of the right common femoral, femoral and popliteal veins. Findings were reported to ER nurse Arianne at 9:12 am. Normal venous flow noted in the left common femoral vein.
--- NOTE | 2018-08-29 12:48 | VASCLAB ---
Date of service: 08/29/2018 PROCEDURE: Right Upper Extremity Venous Duplex Exam HISTORY: SWELLING R/O DVT PRIORS: None. TECHNIQUE: Right upper extremity, internal jugular, subclavian, axillary, brachial, ulnar, radial, basilic and upper cephalic veins were evaluated. Flow was assessed with color Doppler, compressibility, assessment of phasic flow and augmentation response. Report prepared by FAINA Reynaga FINDINGS: RIGHT: 1. Internal Jugular: 1.1. Compressibility - Fully compressible: Thrombus - None : Flow - Phasic: Augmentation -Normal: Reflux - None. 2. Subclavian: 2.1. Compressibility - Fully compressible: Thrombus - None : Flow - Phasic: Augmentation -Normal: Reflux - None. 3. Axillary: 3.1. Compressibility - Fully compressible: Thrombus - None : Flow - Phasic: Augmentation -Normal: Reflux - None. 4. Brachial: 4.1. Compressibility - Fully compressible: Thrombus - None: Flow - Phasic: Augmentation -Normal: Reflux - None. 5. Ulnar: 5.1. Compressibility - Fully compressible: Thrombus - None: Flow - Phasic: Augmentation -Normal: Reflux - None. 6. Radial: 6.1. Compressibility - Fully compressible: Thrombus - None: Flow - Phasic: Augmentation - Normal: Reflux - None. 7. Cephalic: 7.1. Compressibility - Fully compressible: Thrombus - None: Flow - Phasic: Augmentation -Normal: Reflux - None. 8. Basilic: 8.1. Not visualized. OTHER FINDINGS: Right: None. IMPRESSION: Right: No evidence of vein thrombosis of the right upper extremity with excellent venous flow. Normal valve function noted of the right side. Normal venous flow noted in the left internal jugular and left subclavian veins.
== END 2018-08-29 10:24 | disposition home or self-care (01) ==
LOC: C.ER 07:32
DX: M79.89 Other specified soft tissue disorders (principal); I82.501 Chronic embolism and thrombosis of unspecified deep veins of right lower extremity